=== PATIENT | female | born 1960 | race Hispanic/Latino ===

== ENCOUNTER 2022-02-20 19:43 | Inpatient (IN) | payer SELFPAY ==
[2022-02-20 19:56] LABS: Urine Blood 2+ (Negative); Urine Glucose Negative (Negative); Urine Protein 2+ (Negative); Urine Specific Gravity 1.025 (1.005-1.030); Urine pH 5.5 (5.0-7.0)
[2022-02-20] MEDS ORDERED: FAMOTIDINE 20 MG/2 ML VIAL IV ONE (20:38)
[2022-02-20] MEDS ORDERED: ASPIRIN 81 MG CHEWABLE TABLET ONE (20:38)
--- NOTE | 2022-02-20 20:38 | RAD REPORT ---
EXAM DESCRIPTION: RAD - Chest Single View - 02/20/2022 8:29 pm CLINICAL HISTORY: CHEST PAIN COMPARISON: Chest Single View dated 01/11/2017; Abdomen Pelvis Wo Contrast dated 01/11/2017 FINDINGS: Lines: None. Lungs: No evidence of edema or pneumonia. Pleural: No significant pleural effusions or pneumothorax. Cardiac: The heart size is within normal limits. Mediastinum: Within normal limits. Bones: No acute fractures. Other: None IMPRESSION: No acute cardiopulmonary disease.
--- NOTE | 2022-02-20 20:44 | RAD REPORT ---
EXAM DESCRIPTION: CT - Head Brain Wo Cont - 02/20/2022 8:32 pm CLINICAL HISTORY: Migraine x 2 days, HTN COMPARISON: No comparisons TECHNIQUE: All CT scans are performed using dose optimization technique as appropriate and may inclu de automated exposure control or mA/KV adjustment according to patient size. FINDINGS: No intracranial hemorrhage, hydrocephalus or extra-axial fluid collection.No areas of brai n edema or evidence of midline shift. The paranasal sinuses and mastoids are clear. The calvarium is intact. IMPRESSION: No acute intracranial abnormality.
[2022-02-20 21:12] LABS: Absolute Lymphocytes (CBC) 0.9 K/uL (0.7-4.9); Hematocrit 35.8 % (36.0-45.0); Lymphocytes % 16.8 % (15.3-44.8); MCV 96.5 fL (80-100); MPV 8.4 fL (7.6-11.3); RBC Red Blood Cell Count 3.71 M/uL (3.86-4.86)
[2022-02-20 21:50] LABS: Magnesium 1.8 mg/dL (1.6-2.4); Troponin High Sensitivity 17.3 pg/mL (<58.9)
[2022-02-20 22:02] LABS: SARS-COV-2 RT PCR NEGATIVE (NEGATIVE)
[2022-02-20 22:04] LABS: Potassium 2.6 mmol/L (3.5-5.1)
--- NOTE | 2022-02-20 22:14 | EDPHYS ---
Physician Documentation [facility] Name: Sophia Joya Age: 62 yrs Sex: Female : 1960 Arrival Date: 02/20/2022 Time: 19:46 Bed 18 Private MD: ED Physician Jason Rudd HPI: 02/20 20:24 This 62 yrs old Female presents to ER via Ambulatory with complaints of Chest snw Pain, Vomiting. 20:24 The patient or guardian reports chest pain that is located primarily in the epigastric snw area. Onset: 2 day(s) ago, and became persistent. The pain does not radiate. Associated signs and symptoms: Pertinent positives: headache, nausea, vomiting. The chest pain is described as causing indigestion, a pressure. Duration: The patient or guardian reports multiple episodes. Severity of pain: At its worst the pain was moderate. The patient has not experienced similar symptoms in the past. The patient has not recently seen a physician. pt does not take medications for HTN . Historical: - Allergies: 19:57 Amoxicillin; tw5 19:57 Codeine; tw5 - PMHx: 19:57 Hypertension; tw5 - PSHx: 19:57 Ligation of fallopian tube; tw5 - Immunization history:: Flu vaccine is up to date. - Social history:: Smoking status: Patient denies any tobacco usage or history of. ROS: 20:23 Constitutional: Negative for fever, chills, and weight loss, Eyes: Negative for injury, snw pain, redness, and discharge, ENT: Negative for injury, pain, and discharge, Neck: Negative for injury, pain, and swelling. 20:23 Respiratory: Negative for shortness of breath, cough, wheezing, and pleuritic chest pain. 20:23 Back: Negative for injury and pain, : Negative for injury, bleeding, discharge, and swelling, MS/Extremity: Negative for injury and deformity, Skin: Negative for injury, rash, and discoloration. 20:23 Cardiovascular: Positive for chest pain. 20:23 Abdomen/GI: Positive for nausea and vomiting. 20:23 Neuro: Positive for headache. Exam: 20:23 Constitutional: This is a well developed, well nourished patient who is awake, alert, snw and in no acute distress. Head/Face: Normocephalic, atraumatic. Eyes: Pupils equal round and reactive to light, extra-ocular motions intact. Lids and lashes normal. Conjunctiva and sclera are non-icteric and not injected. Cornea within normal limits. Periorbital areas with no swelling, redness, or edema. ENT: Nares patent. No nasal discharge, no septal abnormalities noted. Tympanic membranes are normal and external auditory canals are clear. Oropharynx with no redness, swelling, or masses, exudates, or evidence of obstruction, uvula midline. Mucous membranes moist. Neck: Trachea midline, no thyromegaly or masses palpated, and no cervical lymphadenopathy. Supple, full range of motion without nuchal rigidity, or vertebral point tenderness. No Meningismus. Chest/axilla: Normal chest wall appearance and motion. Nontender with no deformity. No lesions are appreciated. Cardiovascular: Regular rate and rhythm with a normal S1 and S2. No gallops, murmurs, or rubs. Normal PMI, no JVD. No pulse deficits. Respiratory: Lungs have equal breath sounds bilaterally, clear to auscultation and percussion. No rales, rhonchi or wheezes noted. No increased work of breathing, no retractions or nasal flaring. Abdomen/GI: Soft, non-tender, with normal bowel sounds. No distension or tympany. No guarding or rebound. No evidence of tenderness throughout. Back: No spinal tenderness. No costovertebral tenderness. Full range of motion. Skin: Warm, dry with normal turgor. Normal color with no rashes, no lesions, and no evidence of cellulitis. MS/ Extremity: Pulses equal, no cyanosis. Neurovascular intact. Full, normal range of motion. Neuro: Awake and alert, GCS 15, oriented to person, place, time, and situation. Cranial nerves II-XII grossly intact. Motor strength 5/5 in all extremities. Sensory grossly intact. Cerebellar exam normal. Normal gait. Psych: Awake, alert, with orientation to person, place and time. Behavior, mood, and affect are within normal limits. Vital Signs: 19:55 BP 149 / 115; Pulse 65; Resp 18; Temp 98.2; Pulse Ox 97% on R/A; Weight 58.97 kg; tw5 Height 5 ft. 11 in. (180.34 cm); Pain 8/10; 20:16 BP 105 / 70; vc1 21:00 BP 124 / 60; Pulse 67; Resp 20; Pulse Ox 98% on R/A; vc1 22:00 BP 128 / 56; Pulse 63; Resp 20; Pulse Ox 97% on R/A; vc1 23:00 BP 138 / 67; Pulse 66; Resp 20; Pulse Ox 98% ; vc1 02/21 00:00 BP 125 / 61; Pulse 71; Resp 21; Pulse Ox 98% on R/A; vc1 02/20 19:55 Body Mass Index 18.13 (58.97 kg, 180.34 cm) tw5 MDM: 02/20 20:04 Patient medically screened. snw 21:36 Differential diagnosis: abnormal EKG, acute myocardial infarction, acute pericarditis, snw anxiety, coronary artery disease congestive heart failure esophagitis, gastritis, gastroesophageal reflux disease (GERD), peptic ulcer disease. The patient was given aspirin in the Emergency Department. GISELE Risk Score: TOTAL SCORE = 0. Data reviewed: vital signs, nurses notes, lab test result(s), EKG, radiologic studies, CT scan, plain films. Data interpreted: Pulse oximetry: on room air is 97 %. Interpretation: normal. Counseling: I had a detailed discussion with the patient and/or guardian regarding: the historical points, exam findings, and any diagnostic results supporting the discharge/admit diagnosis, lab results, radiology results, the need for outpatient follow up, for definitive care, a family practitioner, to return to the emergency department if symptoms worsen or persist or if there are any questions or concerns that arise at home. Response to treatment: the patient's symptoms have mildly improved after treatment. Special discussion: Based on the patient's history, exam, and Dx evaluation, there is no indication for emergent intervention or inpatient Tx. It is understood by the patient/guardian that if the Sx's persist or worsen they need to return immediately for re-evaluation. Based on the patient's Hx, exam, and Dx evaluation, there is no indication for emergent surgery or inpatient Tx. It is understood by the patient/guardian that if the Sx's persist or worsen they need to return immediately for re-evaluation. Based on the history and exam findings, there is no indication for further emergent testing or inpatient evaluation. I discussed with the patient/guardian the need to see the foundation stage teacher for further evaluation of the symptoms. I discussed with the patient/guardian the need to see the primary care provider for further evaluation of the symptoms. 22:53 Physician consultation: Koki Yanez PA-C was called at 22:30, was contacted at 22:30, snw regarding admission, to the telemetry unit. patient's condition, would like admission per Dr. Gregor Carlson MD will add phosphorus level, give po and iv potassium, pt with po challenge at present. 02/20 19:57 Order name: Urine Dipstick-Ancillary; Complete Time: 19:58 EDMS 02/20 20:05 Order name: Basic Metabolic Panel; Complete Time: 22:33 snw 02/20 20:05 Order name: CBC with Diff; Complete Time: 21:33 snw 02/20 20:05 Order name: Magnesium; Complete Time: 22:33 snw 02/20 20:05 Order name: Troponin HS; Complete Time: 22:33 snw 02/20 20:05 Order name: Lipase; Complete Time: 22:33 snw 02/20 20:05 Order name: XRAY Chest (1 view); Complete Time: 20:52 snw 02/20 20:11 Order name: CT Head Brain wo Cont; Complete Time: 20:52 snw 02/20 20:24 Order name: COVID-19/FLU A+B; Complete Time: 22:04 snw 02/20 22:12 Order name: Add On-Lab snw 02/20 22:18 Order name: Phosphorus; Complete Time: 22:33 EDMS 02/20 20:05 Order name: EKG; Complete Time: 20:05 snw 02/20 20:05 Order name: Cardiac monitoring; Complete Time: 20:16 snw 02/20 20:05 Order name: EKG - Nurse/Tech; Complete Time: 20:16 snw 02/20 20:05 Order name: IV Saline Lock; Complete Time: 20:46 snw 02/20 20:05 Order name: Labs collected and sent; Complete Time: 20:46 snw 02/20 20:05 Order name: O2 Per Protocol; Complete Time: 20:16 snw 02/20 20:05 Order name: O2 Sat Monitoring; Complete Time: 20:16 snw EC:29 Rate is 64 beats/min. Rhythm is regular. IL interval is normal. QT interval is snw prolonged. T waves are Inverted in lead III. Clinical impression: NSR w/ Non-specific ST/T Changes. Administered Medications: 20:46 Drug: Aspirin Chewable Tablet 324 mg Route: PO; vc1 02/21 00:37 Follow up: Response: No adverse reaction 1 02/20 20:46 Drug: Pepcid (famotidine) 20 mg Route: IVP; Site: right antecubital; 1 02/21 00:37 Follow up: Response: No adverse reaction; Marked relief of symptoms 1 02/20 23:09 Drug: Potassium Effervescent Tablet 50 mEq Route: PO; vc1 02/21 00:37 Follow up: Response: No adverse reaction [facility] 02/20 23:09 Drug: NS 0.9% with KCl 20 mEq/L 1000 ml Route: IV; Rate: 500 ml/hr; Site: right vc1 antecubital; 02/21 00:37 Follow up: IV Status: Infusion continued upon admission vc1 Disposition Summary: 02/20/22 22:14 Hospitalization Ordered Hospitalization Status: Observation snw Provider: Gregor Carlson snw Location: Telemetry/MedSurg (observation) snw Condition: Stable snw Problem: new snw Symptoms: are unchanged snw Bed/Room Type: Standard snw Room Assignment: 220(02/20/22 23:31) bb Diagnosis - Chest pain, unspecified - prolonged QT snw - Vomiting snw - Hypokalemia snw Forms: - Medication Reconciliation Form snw - SBAR form snw Signatures: Dispatcher [employer] EDSabine Garay FNP-C [employer]D PASTE MIXER-Csnw Swathi Martin RN RN bb Karishma Meek Lottie Rosario RN RN vc1 Corrections: (The following items were deleted from the chart) 02/20 19:58 19:57 Home Meds: Lasix 20 mg Oral tab; 22:14 snw bb
--- NOTE | 2022-02-20 22:14 | ER ---
Nurse's Notes [facility] Name: Sophia Joya Age: 62 yrs Sex: Female : 1960 Arrival Date: 02/20/2022 Time: 19:46 Bed 18 Private MD: Diagnosis: Chest pain, unspecified-prolonged QT;Vomiting;Hypokalemia Presentation: 02/20 19:55 Chief complaint: Patient states: "I was having chest pain prior to going to work, but tw5 then I started throwing up.". Coronavirus screen: Vaccine status: Patient reports receiving the 2nd dose of the covid vaccine. Feusd. Ebola Screen: Patient negative for fever greater than or equal to 101.5 degrees Fahrenheit, and additional compatible Ebola Virus Disease symptoms Patient denies exposure to infectious person. Patient denies travel to an Ebola-affected area in the 21 days before illness onset. Initial Sepsis Screen: Does the patient meet any 2 criteria? No. Patient's initial sepsis screen is negative. Does the patient have a suspected source of infection? No. Patient's initial sepsis screen is negative. Risk Assessment: Do you want to hurt yourself or someone else? Patient reports no desire to harm self or others. Onset of symptoms was February 20, 2022. 19:55 Method Of Arrival: Ambulatory tw5 19:55 Acuity: MARY 2 tw5 Triage Assessment: 19:57 General: Appears uncomfortable, Behavior is calm, cooperative, appropriate for age. tw5 Pain: Complains of pain in xiphoid area and mid-sternal area Pain currently is 8 out of 10 on a pain scale. Cardiovascular: Capillary refill < 3 seconds is brisk in bilateral fingers. Historical: - Allergies: 19:57 Amoxicillin; tw5 19:57 Codeine; tw5 - PMHx: 19:57 Hypertension; tw5 - PSHx: 19:57 Ligation of fallopian tube; tw5 - Immunization history:: Flu vaccine is up to date. - Social history:: Smoking status: Patient denies any tobacco usage or history of. Screenin/01 00:26 [facility] ED Fall Risk Assessment (Adult). Abuse screen: Denies threats or abuse. Denies aa9 injuries from another. Nutritional screening: No deficits noted. Tuberculosis screening: No symptoms or risk factors identified. Assessment: 02/20 21:00 Pain: Complains of pain in mid-sternal area Pain does not radiate. Pain Pain began vc1 suddenly, Is intermittent. 21:00 General: Appears in no apparent distress. comfortable, Behavior is calm, cooperative, vc1 appropriate for age. 22:00 Reassessment: No changes from previously documented assessment. Patient and/or family vc1 updated on plan of care and expected duration. Pain level reassessed. 23:00 Reassessment: No changes from previously documented assessment. Patient and/or family vc1 updated on plan of care and expected duration. Pain level reassessed. 02/21 00:00 Reassessment: No changes from previously documented assessment. Patient and/or family vc1 updated on plan of care and expected duration. Pain level reassessed. 00:47 Reassessment: Attempted to call report to 2nd floor, no answer. vc1 Vital Signs: 02/20 19:55 BP 149 / 115; Pulse 65; Resp 18; Temp 98.2; Pulse Ox 97% on R/A; Weight 58.97 kg; tw5 Height 5 ft. 11 in. (180.34 cm); Pain 8/10; 20:16 BP 105 / 70; vc1 21:00 BP 124 / 60; Pulse 67; Resp 20; Pulse Ox 98% on R/A; vc1 22:00 BP 128 / 56; Pulse 63; Resp 20; Pulse Ox 97% on R/A; vc1 23:00 BP 138 / 67; Pulse 66; Resp 20; Pulse Ox 98% ; vc1 02/21 00:00 BP 125 / 61; Pulse 71; Resp 21; Pulse Ox 98% on R/A; vc1 02/20 19:55 Body Mass Index 18.13 (58.97 kg, 180.34 cm) tw5 ED Course: 02/20 19:46 Patient arrived in ED. jj6 19:55 Sabine Arteaga [facility]-C [facility] snw 19:55 Jason Rudd MD is Attending Physician. snw 19:57 Triage completed. tw5 19:57 Arm band placed on Patient placed in an exam room. tw5 20:00 Patient has correct armband on for positive identification. Placed in gown. Bed in low vc1 position. Call light in reach. Client placed on continuous cardiac and pulse oximetry monitoring. NIBP monitoring applied. 20:15 Calcote, Lottie, JOMAR is Primary Nurse. vc1 20:31 XRAY Chest (1 view) In Process Unspecified. EDMS 20:33 CT Head Brain wo Cont In Process Unspecified. EDMS 20:40 Inserted saline lock: 20 gauge in right antecubital area, using aseptic technique. vc1 Blood collected. 22:13 Gregor Carlson MD is Hospitalizing Provider. snw 02/21 00:35 No provider procedures requiring assistance completed. Patient admitted, IV remains in vc1 place. Patient maintains SpO2 saturation greater than 95% on room air. Administered Medications: 02/20 20:46 Drug: Aspirin Chewable Tablet 324 mg Route: PO; vc1 02/21 00:37 Follow up: Response: No adverse reaction vc1 02/20 20:46 Drug: Pepcid (famotidine) 20 mg Route: IVP; Site: right antecubital; vc1 02/21 00:37 Follow up: Response: No adverse reaction; Marked relief of symptoms vc1 02/20 23:09 Drug: Potassium Effervescent Tablet 50 mEq Route: PO; vc1 02/21 00:37 Follow up: Response: No adverse reaction vc1 02/20 23:09 Drug: NS 0.9% with KCl 20 mEq/L 1000 ml Route: IV; Rate: 500 ml/hr; Site: right vc1 antecubital; 02/21 00:37 Follow up: IV Status: Infusion continued upon admission vc1 Medication: 00:36 VIS not applicable for this client. vc1 Outcome: 02/20 22:14 Decision to Hospitalize by Provider. snw 02/21 01:22 Admitted to Med/surg accompanied by nurse, via wheelchair, room 220. vc1 Condition: good Instructed on the need for admit. 01:23 Patient left the ED. vc1 Signatures: Dispatcher [employer] EDMS Sabine Arteaga FNP-C PROJECT MANAGEMENT PROFESSIONAL-Karishma Ivey tw5 Sabine [id number] Lottie Rosario RN RN vc1 Kajal Torres RN RN aa9 Corrections: (The following items were deleted from the chart) 02/20 19:58 19:57 Home Meds: Lasix 20 mg Oral tab; tw5 tw5
[2022-02-20 22:25] LABS: Phosphorus 5.5 mg/dL (2.5-4.9)
[2022-02-20] MEDS ORDERED: POTASSIUM 25 MEQ EFFERV TAB ONE (22:50)
[2022-02-20] MEDS ORDERED: NS KCL 20MEQ 1,000 ML IV ONE (22:51)
--- NOTE | 2022-02-20 23:20 | P.HP ---
Certification for Inpatient Patient admitted to: Observation With expected LOS: <2 Midnights Patient will require the following post-hospital care: None Practitioner: I am a practitioner with admitting privileges, knowledge of patient current condition, hospital course, and medical plan of care. Services: Services provided to patient in accordance with Admission requirements found in Title 42 Section 412.3 of the Code of Federal Regulations Patient History Date of Service: 02/21/22 Reason for admission: Chest Pain History of Present Illness: Patient is a 62-year-old female with past medical history of hypertension and cirrhosis who presented to the emergency department with complaints of chest pain. Patient states that she has been experiencing chest pain on and off for the past 2 days. She states that at first it felt like heartburn but now it feels like it is in the center of her chest, like a pressure sensation. She states she vomited twice today as a result. Patient denies any daily medication use. Her labs are only remarkable for potassium of 2.6. Chest x-ray and head CT are negative. EKG showed a prolonged QTc. She was given 324 mg aspirin and potassium in the emergency department. Vital signs of been stable. ED provider wishes admit patient for observation, ACS rule out. Allergies amoxicillin Allergy (Unverified 12/01/16 12:01) Unknown codeine Allergy (Unverified 01/11/17 21:15) Unknown Home medications list reviewed: Yes (NA) - Past Medical/Surgical History Diabetic: No -: Hypertension -: Cirrhosis -: Tubal ligation Psychosocial/ Personal History: Patient is . - Family History Mother -: Heart disease Brother -: Heart disease - Social History Smoking Status: Former smoker Alcohol use: Yes CD- Drugs: No Caffeine use: Yes Place of Residence: Home Review of Systems Cardiovascular: Chest Pain Gastrointestinal: Nausea, Vomiting, Other (Heartburn) Physical Examination - Vital Signs Temperature: 98.2 F Blood Pressure: 125/61 Pulse: 71 Respirations: 21 Pulse Ox (%): 98 - Physical Exam General: Alert, In no apparent distress HEENT: Atraumatic, PERRLA, EOMI, Sclerae nonicteric Neck: Supple, 2+ carotid pulse no bruit Respiratory: Clear to auscultation bilaterally, Normal air movement Cardiovascular: No edema, Regular rate/rhythm, Normal S1 S2 Gastrointestinal: Normal bowel sounds, No tenderness Musculoskeletal: No tenderness Integumentary: No rashes Neurological: Normal speech, Sensation intact, Normal affect - Studies Laboratory Data (last 24 hrs) 02/20/22 20:40: WBC 5.30, Hgb 12.2, Hct 35.8 L, Plt Count 138 L 02/20/22 20:40: Sodium 139, Potassium 2.6 L*, BUN 17, Creatinine 1.49 H, Glucose 103, Phosphorus 5.5 H, Magnesium 1.8, Lipase 294 Assessment and Plan - Problems (Diagnosis) (1) Chest pain Current Visit: Yes Status: Acute Qualifiers: Chest pain type: unspecified Qualified Code(s): R07.9 - Chest pain, unspecified (2) Hypertension Current Visit: Yes Status: Chronic Qualifiers: Hypertension type: primary hypertension Qualified Code(s): I10 - Essential (primary) hypertension (3) Hypokalemia Current Visit: Yes Status: Acute (4) Chronic kidney disease Current Visit: Yes Status: Chronic Qualifiers: Chronic kidney disease stage: stage 3 (moderate) Chronic kidney disease stage 3 subtype: stage 3b (GFR 30-44) Qualified Code(s): N18.32 - Chronic kidney disease, stage 3b - Plan Patient is admitted for observation, ACS rule out. Initial troponin negative. Will trend. Monitor on telemetry. Cardiology consult. Echo ordered. Aspirin and atorvastatin daily. Check lipid panel and TSH. Patient does not take any medications. Will likely need an antihypertensive on discharge. Recheck potassium and EKG in the morning. She is receiving supplemental potassium at this time. Monitor and replete electrolytes per protocol. Reconcile and continue home medications. Lovenox for VTE prophylaxis. Full code. Discharge Plan: Home Plan to discharge in: 24 Hours - Advance Directives Does patient have a Living Will: No Does patient have a Durable POA for Healthcare: No - Code Status/Comfort Care Code Status Assessed: Yes Code Status: Full Code Physician Review: Patient Assessed, Agree with Above Assessment and Plan Critical Care: No Time Spent Managing Pts Care (In Minutes): 50
[2022-02-21] MEDS ORDERED: ONDANSETRON 4 MG/2 ML VIAL IV PRN (01:20)
[2022-02-21] MEDS ORDERED: ACETAMINOPHEN 500 MG TAB PO PRN (01:20)
[2022-02-21 04:04] LABS: Magnesium 1.8 mg/dL (1.6-2.4); Potassium 3.3 mmol/L (3.5-5.1); Thyroid Stimulating Hormone 0.982 uIU/mL (0.358-3.740); Troponin High Sensitivity 18.1 pg/mL (<58.9)
[2022-02-21] MEDS ORDERED: MAGNESIUM SULFATE 1 gm IVPB 1 GM/100 ML BAG IV ONE (07:36)
[2022-02-21] MEDS: ENOXAPARIN 40 MG/0.4 ML SQ SCH (08:57)
[2022-02-21] MEDS: ASPIRIN EC 81 MG TAB PO SCH (08:58)
[2022-02-21] MEDS: NS KCL 20MEQ 20 MEQ/1,000 ML BAG IV SCH ×3 (08:58→21:05)
[2022-02-21] MEDS ORDERED: POTASSIUM CL SA 10 MEQ TAB PO ONE ×2 (09:00→21:00)
[2022-02-21] MEDS ORDERED: POTASSIUM 25 MEQ EFFERV TAB PO ONE (09:00)
--- NOTE | 2022-02-21 11:39 | P.PN ---
Subjective Date of Service: 02/21/22 Chief Complaint: Abdominal pain Patient is 62 years of age mated to the hospital complaining of epigastric discomfort not eating and drinking going on for 2 days did not take any medication at home feeling better became very dehydrated pain has resolved but is atypical for cardiac pain no prior history of abdominal disorders or cardiac problems Review of Systems 10-point ROS is otherwise unremarkable Physical Examination - Vital Signs Temperature: 98.5 F Blood Pressure: 144/61 Pulse: 86 Respirations: 16 Pulse Ox (%): 95 - Physical Exam General: Alert, Oriented x3 HEENT: Other Respiratory: Friction rub Cardiovascular: Regular rate/rhythm Gastrointestinal: Normal bowel sounds, Soft and benign, Non-distended, No tenderness, No rebound - Studies Laboratory Data (last 24 hrs) 02/20/22 20:40: WBC 5.30, Hgb 12.2, Hct 35.8 L, Plt Count 138 L 02/20/22 20:40: Sodium 139, Potassium 2.6 L*, BUN 17, Creatinine 1.49 H, Glucose 103, Phosphorus 5.5 H, Magnesium 1.8, Lipase 294 Assessment And Plan - Current Problems (Diagnosis) (1) Abdominal discomfort, epigastric Current Visit: Yes Status: Acute Plan: Patient is 62 years of age admitted with some abdominal discomfort clear discomfort in the epigastric region patient with some dehydration patient was hypokalemic with renal insufficiency urinalysis was very abnormal with some proteinuria and some hematuria white count normal reported EKG shows prolonged QTC troponins negative ordered a CT of the abdomen and the pelvis continue with IV fluids electrolyte replacement Physician Review: Patient Assessed, Agree with Above Assessment and Plan
--- NOTE | 2022-02-21 17:41 | RAD REPORT ---
EXAM DESCRIPTION: CT - Abdomen Pelvis W Contrast - 02/21/2022 5:21 pm CLINICAL HISTORY: Abdominal pain COMPARISON: Abdomen Pelvis Wo Contrast dated 01/11/2017 TECHNIQUE: Biphasic, helical CT imaging of the abdomen and pelvis was performed following 100 ml non -ionic IV contrast. Oral contrast: Yes All CT scans are performed using dose optimization technique as appropriate and may include automated exposure control or mA/KV adjustment according to patient size. FINDINGS: No suspicious findings in the lung bases. Liver remains abnormal with a lobulated liver capsule contour typical for cirrhosis or diffuse hepati c parenchymal disease. A focal liver lesion is not identified portal vein is small in size still ashley nt. No pancreatic or splenic abnormality. Multiple large dilated veins are present adjacent to the sp rl and continuing along the left pericolic gutter into the left-side pelvis. Gallbladder is contrac suzanne. At least 1 large 13 millimeter gallstone present. There may be a punctate gallstone abutting the larger stone. No biliary tree dilatation. Symmetric renal function is seen with no hydronephrosis or suspicious renal mass. A punctate 1 mm non obstructing calyx calcification is present lower pole of the left kidney. No pyelonephritis or acute parenchymal process. Urinary bladder is tightly contracted. No adrenal abnormalities. Uterus and ovar ies show no suspicious findings. No gastric wall thickening or edema identified. A few small dilated veins are present at the GE junct ion. No acute large or small bowel finding identifiable. Appendix is normal. There is no ascites present. No free air, pneumatosis or focal inflammatory stranding. No hernia, ma ss or bulky lymphadenopathy. Air in the subcutaneous fatty tissues right side abdomen is not to be fr om medication injection. No suspicious bony findings. IMPRESSION: Contrast enhanced CT abdomen and pelvis showing no emergent finding. Cirrhotic liver changes are present with no focal liver lesion. There is no ascites. Numerous dilated veins are again noted on the left side of the abdomen and pelvis increased in prominence from the comparison. Cholelithiasis without CT findings of cholecystitis. No acute GI, or TIMBER SELECTOR process.
--- NOTE | 2022-02-21 19:06 | EKG ---
Test Date: 2022-02-21 Test Time: 07:53:14 Drawbridge Operator: HAYLIE MEASUREMENT RESULTS: Intervals: Rate: 74 AK: 120 QRSD: 72 QT: 440 QTc: 488 [place]: P: 28 AK: 120 QRS: 26 T: 24 INTERPRETIVE STATEMENTS: Normal sinus rhythm Normal ECG Compared to ECG 01/11/2017 19:11:46 Sinus tachycardia no longer present T-wave abnormality no longer present Electronically Signed On 02-21-22 19:06:26 PRACTICE ASSISTANT by Omid Bautista
--- NOTE | 2022-02-21 19:25 | CON ---
Date of Consultation: 02/21/2022 Reason For Consultation: Chest pain. History Of Present Illness: A 62-year-old female with history of hypertension, liver cirrhosis, pres ented with epigastric pain in the upper abdomen area and lower chest, felt nauseated and vomited once . Does not have any chest pain per se. No exertional chest pain specifically. She does not smoke. No history of cardiac disease. No other complaints. Past Medical History: As outlined above in the HPI. Medications: Refer to reconciliation sheet for detailed list. Allergies: AMOXICILLIN AND CODEINE. Family History: No premature coronary artery disease or cancer. Social History: She does not smoke or drink. Does not use any drugs. Review of Systems: All systems reviewed and they were negative except what mentioned in HPI. Physical Examination: Vital Signs: Reviewed. Head and Neck: Pupils are equal, reactive to light. Intact eye movements. No JVD. No cervical lym phadenopathy. Neck is supple. Thyroid is not enlarged. Lungs: Clear to auscultation bilaterally. No rhonchi, wheezing, or crackles. No accessory muscle u se. Heart: Regular rate and rhythm. No extra sounds. Abdomen: Soft, nontender. Bowel sounds positive. No organomegaly. No masses or hernia. No rigidi ty or rebound. Extremities: No edema, clubbing, or cyanosis. Intact pulses. Skin: No rash. Neurologic: Alert, awake, oriented x3. No acute focal deficits appreciated. Investigations: Cardiac enzymes are negative. The patient is completely pain free. BUN 17, creatin ine 1.04, hemoglobin 12.2. EKG without acute specific abnormalities. Assessment And Plan: Chest pain. It is atypical. It is more of epigastric, likely intraabdominal p athology. Cardiac enzymes are negative. No further cardiac workup was recommended during this [facility] stay. An outpatient exercise stress test and echo will be recommended. Thank you for the consult. /JOANNE Voice ID: [id number] Report ID: [id number]
[2022-02-21] MEDS: ATORVASTATIN 40 MG TAB PO SCH (21:05)
[2022-02-22] MEDS: Ringers Lactate 1,000 ML IV SCH ×3 (02:50→16:41)
[2022-02-22 03:57] LABS: Magnesium 1.8 mg/dL (1.6-2.4); Potassium 4.7 mmol/L (3.5-5.1)
[2022-02-22] MEDS ORDERED: MAGNESIUM SULFATE 1 gm IVPB 1 GM/100 ML BAG IV ONE (08:00)
[2022-02-22] MEDS: ASPIRIN EC 81 MG TAB PO SCH (09:00)
[2022-02-22] MEDS ORDERED: Ringers Lactate 1,000 ML IV ONE (10:53)
[2022-02-22] MEDS: ENOXAPARIN 40 MG/0.4 ML SQ SCH (11:00)
[2022-02-22 15:02] LABS: Hematocrit 24.3 % (36.0-45.0)
[2022-02-22] MEDS ORDERED: SODIUM CHLORIDE 0.9% 10ML INJ IV PRN (17:10)
[2022-02-22 17:22] LABS: Specific Gravity 1.021 (1.005-1.030); Urine Bilirubin NEGATIVE (Negative); Urine Blood Negative (Negative); Urine Clarity Clear (Clear); Urine Color Yellow (Yellow); Urine Glucose NEGATIVE (Negative); Urine Protein NEGATIVE (Negative); Urine Urobilinogen Normal (Normal); Urine pH 7.5 (5.0-7.0)
[2022-02-22] MEDS: PANTOPRAZOLE 40 MG INJ IVP SCH ×2 (18:00→21:00)
[2022-02-22] MEDS ORDERED: CEFTRIAXONE 1,000 MG in NA CHLORIDE 0.9% 50 ML IVPB SCH (18:00)
[2022-02-22 18:22] LABS: Protime INR 2.03
--- NOTE | 2022-02-22 20:01 | P.PN ---
Subjective Date of Service: 02/22/22 Chief Complaint: Abdominal pain No acute events overnight. She reports that her chest/epigastric discomfort has completely resolved. She has been experiencing diarrhea, reporting 5-6 bowel movements over the last 24 hours. Her last bowel movement was maroon red blood, per RN. Review of Systems 10-point ROS is otherwise unremarkable Gastrointestinal: Abdominal Pain, Hematochezia Physical Examination - Vital Signs Temperature: 98.0 F Blood Pressure: 101/65 Pulse: 86 Respirations: 16 Pulse Ox (%): 97 - Physical Exam General: Alert, In no apparent distress, Oriented x3 HEENT: Atraumatic, PERRLA, Mucous membr. moist/pink, EOMI, Sclerae nonicteric Neck: JVD not distended Respiratory: Clear to auscultation bilaterally, Normal air movement Cardiovascular: No edema, Regular rate/rhythm, Normal S1 S2, No gallops, No rubs, No murmurs Gastrointestinal: Normal bowel sounds, Soft and benign, Non-distended, No tenderness, No rebound, No guarding Musculoskeletal: No clubbing Integumentary: No rashes Neurological: Normal speech, Cranial nerves 3-12 intact, Normal affect Assessment And Plan - Plan # Acute Blood Loss Anemia suspect due to Acute Upper Gastrointestinal Bleed # History of Hepatitis C Cirrhosis complicated by Portal Hypertension and Esophageal Varices - Requires Gastroenterology consultation, but service is not currently available at [facility] - Initiated transfer for higher level of care - Spoke with [facility] Song Lyricist, Dr. Estelita Oneill, who declined transfer due to lack of Hepatology services - Type & Screen - q6hr H&H - trend: 12.2 -> 8.1 - Transfuse for Hgb < 7.0 - 2 large bore IVs - Ceftriaxone 1 g IV q12hr - Pantoprazole 40 mg IV BID - Octreotide drip - IV fluids with Lactated Ringers' at 100 mL/hr - Low threshold to obtain CT abdomen/pelvis angiogram - NPO # KDIGO Stage II Acute Kidney Injury (resolved) - Creatinine = 1.49 -> 1.03 -> 0.58 -> 0.56 - Urinalysis = repeat unremarkable - IV fluids as mentioned above - Monitor creatinine and urine output - If worsening, obtain renal ultrasound - Renally dose medications # Cholelithiasis - RUQ ultrasound requested # Hypertension - Hold home medications given acute GI bleed Karthik Nova M.D.
[2022-02-22 20:04] LABS: Hematocrit 26.4 % (36.0-45.0)
[2022-02-22] MEDS: ATORVASTATIN 40 MG TAB PO SCH (20:40)
[2022-02-22] MEDS: OCTREOTIDE 500 MCG in NA CHLORIDE 0.9% 500 ML IV SCH (22:00)
[2022-02-22] MEDS: PANTOPRAZOLE INJ 80 MG in NA CHLORIDE 0.9% 250 ML IV SCH (22:24)
[2022-02-22 22:29] LABS: Absolute Lymphocytes (CBC) 1.8 K/uL (0.7-4.9); Hematocrit 21.7 % (36.0-45.0); Lymphocytes % 27.6 % (15.3-44.8); MCV 100.5 fL (80-100); MPV 8.8 fL (7.6-11.3); RBC Red Blood Cell Count 2.16 M/uL (3.86-4.86)
--- NOTE | 2022-02-22 22:36 | P.PN ---
Date of Service: 02/22/22 I was called by nursing staff as patient was reportedly vomiting blood. I went to assess the patient, she was still in the bathroom sitting on the toilet and had a moderate amount of bright red blood with clots on her gown and on the floor. Patient denies any previous history of hematemesis although she did report a distant history of hepatitis C. She has been started on Protonix, octreotide drips, will transfer to ICU for the time being. Keep NPO. Transfer was initiated earlier in the day as patient began to experience maroon stools and we do not have GI services available at our facility. Transfer center was updated on patient's condition and have upgraded her on the list to expedite transfer process. We will repeat CBC now, last hemoglobin was 9. We will transfuse as necessary to maintain hemoglobin greater than 8. Reviewed previous CT imaging, labs. Latest blood pressure 114 systolic heart rate 95.
[2022-02-22] MEDS ORDERED: VITAMIN K (ADULT) 10 MG/ML SQ ONE (22:45)
[2022-02-22 22:51] LABS: Albumin 1.7 g/dL (3.4-5.0); Bilirubin Direct 1.1 mg/dL (0-0.2); Bilirubin Total 1.6 mg/dL (0.2-1.0); Protein, Total 5.2 g/dL (6.4-8.2)
[2022-02-22] MEDS ORDERED: NA CHLORIDE 0.9% 250 ML IV SCH ×2 (23:00→23:45)
[2022-02-23 02:31] LABS: Albumin 1.8 g/dL (3.4-5.0); Bilirubin Total 1.6 mg/dL (0.2-1.0); Magnesium 1.7 mg/dL (1.6-2.4); Potassium 5.1 mmol/L (3.5-5.1); Protein, Total 5.1 g/dL (6.4-8.2)
[2022-02-23 05:35] LABS: Protime INR 1.78
[2022-02-23 05:45] LABS: Absolute Lymphocytes (CBC) 1.5 K/uL (0.7-4.9); Lymphocytes % 30.6 % (15.3-44.8); RBC Red Blood Cell Count 2.13 M/uL (3.86-4.86)
[2022-02-23 05:57] LABS: Hematocrit 20.9 % (36.0-45.0)
[2022-02-23 07:43] LABS: Hematocrit 21.6 % (36.0-45.0)
[2022-02-23 07:46] LABS: Blood Morphology Comment NOT SEEN (NOT SEEN); Platelet Estimate DECR; White Blood Cell Scan OK (OK)
--- NOTE | 2022-02-23 08:35 | EKG ---
Test Date: 2022-02-21 Test Time: 07:54:54 Scientific Artist: HAYLIE MEASUREMENT RESULTS: Intervals: Rate: 76 VA: 122 QRSD: 72 QT: 436 QTc: 490 [place]: P: 26 VA: 122 QRS: 26 T: 20 INTERPRETIVE STATEMENTS: Normal sinus rhythm Prolonged QT Abnormal ECG Compared to ECG 02/21/2022 07:53:14 Prolonged QT interval now present Electronically Signed On 02-23-22 08:32:39 ELECTRICIAN by Fili Linda
--- NOTE | 2022-02-23 08:49 | RAD REPORT ---
EXAM DESCRIPTION: US - Abdomen Exam Limited - 02/23/2022 5:24 am CLINICAL HISTORY: Abdominal pain. COMPARISON: February 21, 2022 CT FINDINGS: Cholelithiasis. Gallbladder wall measures 6 millimeters. Suboptimal evaluation of the common bile duct. Intrahepatic biliary tree does not appear dilated. IMPRESSION: Cholelithiasis. Gallbladder wall thickening. This can be secondary to hypoalbuminemia or cholecystitis
[2022-02-23] MEDS: OCTREOTIDE 500 MCG in NA CHLORIDE 0.9% 500 ML IV SCH ×2 (08:52→20:45)
[2022-02-23] MEDS: PANTOPRAZOLE INJ 80 MG in NA CHLORIDE 0.9% 250 ML IV SCH ×2 (08:52→20:45)
[2022-02-23] MEDS: CEFTRIAXONE 1,000 MG in NA CHLORIDE 0.9% 50 ML IVPB SCH ×2 (08:52→20:48)
[2022-02-23 11:02] LABS: C.diff Antigen/Toxin Ag pos : Tox pos (NEG : NEG)
[2022-02-23] MEDS: Ringers Lactate 1,000 ML IV SCH ×2 (11:47→15:00)
[2022-02-23 12:10] LABS: Hematocrit 23.6 % (36.0-45.0)
[2022-02-23] MEDS ORDERED: LIDOCAINE 1% MPF 5 ML VIAL ONE (12:14)
[2022-02-23] MEDS: VANCOMYCIN ORAL SOLN 250 MG/5 ML OSYR PO SCH ×3 (14:15→23:27)
--- NOTE | 2022-02-23 14:33 | P.CNS ---
Date of Consult: 02/23/22 PC: This 62-year-old female has a lack of vascular access. HPC: This patient has numerous medical issues at the current time. She requires IV access for possible blood transfusion. PMHx: Numerous medical issues Social Hx: Allergic to codeine, and the penicillin Sys R: States she has had a central line placed on the left subclavian in the past. O/E: Awake alert vital signs are stable HEENT: HEENT within normal limits Chest: Air entry equal bilaterally Abd: Negative [place]: No evidence of fracture clavicle, patient does however have a supraclavicular lymph node. Data: Negative Impression: Lack of vascular access Plan: I will place a left subclavian catheter for IV access. The risks of this procedure have been discussed with her and her family. They understand and want to proceed.
--- NOTE | 2022-02-23 14:35 | RAD REPORT ---
EXAM DESCRIPTION: RAD - Chest Single View - 02/23/2022 2:22 pm CLINICAL HISTORY: Central line placement COMPARISON: Chest Single View dated 02/20/2022; Chest Single View dated 01/11/2017 FINDINGS: Lines: Left subclavian approach central venous line with tip overlying the SVC. No pneumot horax . Lungs: No evidence of edema or pneumonia. Pleural: No significant pleural effusions or pneumothorax. Cardiac: The heart size is within normal limits. Mediastinum: Within normal limits. Bones: No acute fractures. Other: None IMPRESSION: No acute cardiopulmonary disease. Left subclavian central venous line with tip overlying the SVC. No pneumothorax.
--- NOTE | 2022-02-23 14:36 | P.OP ---
Preoperative diagnosis: Lack of vascular access Postoperative diagnosis: The same Primary procedure: Insertion of left subclavian catheter Anesthesia: Local Estimated blood loss: Less than 10 cc Operative Technique: The patient was positioned in the ICU bed with a roll between his shoulders. The bed was then converted to the Trendelenburg position. The area of the left chest was prepped with a chlorhexidine solution, she was draped in usual aseptic manner. After using a 1% lidocaine to numb the subclavicular area, the finder needle was used to cannulate the left subclavian vein. We were fortunate to find it on the first pass. The guidewire was then passed down through a finder needle. The needle was removed. A small skin incision was made where the guidewire was at the skin level. Through this we passed a dilator. The dilator was removed and then with a modified Seldinger technique the catheter was inserted into the left subclavian vein. The guidewire was removed. The catheter was heparinized and sutured in place. At the end the procedure she was in a stable condition when sterile dressings were applied. We are awaiting a chest x-ray for confirmation of line placement and no sequelae. Drain(s): Wound drain Transferred to: ICU Condition: Good
--- NOTE | 2022-02-23 19:45 | P.PN ---
Subjective Date of Service: 02/23/22 Chief Complaint: Abdominal pain Overnight, she had an episode of chloe hematemesis. She was given 1 unit pRBCs and 2 units of FFP. Currently, she denies any abdominal pain, nausea, or vomiting. She continues to have diarrhea. Her Clostridium Difficile stool toxin has returned positive. I spoke with Ms. Steele at the transfer center, and she is currently pending transfer once an ICU bed becomes available at [facility]. Review of Systems 10-point ROS is otherwise unremarkable Gastrointestinal: Diarrhea, Melena, Hematochezia, Other (hematemesis) Physical Examination - Vital Signs Temperature: 98.5 F Blood Pressure: 166/86 Pulse: 78 Respirations: 19 Pulse Ox (%): 99 Assessment And Plan - Plan - Physical Exam General: Alert, In no apparent distress, Oriented x3 HEENT: Atraumatic, Mucous membr. moist/pink, Sclerae nonicteric Neck: JVD not distended Respiratory: Clear to auscultation bilaterally, Normal air movement Cardiovascular: No edema, Regular rate/rhythm, No gallops, No rubs, No murmurs Gastrointestinal: Normal bowel sounds, Soft and benign, Non-distended, No tenderness, No rebound, No guarding Musculoskeletal: No clubbing Integumentary: No rashes Neurological: Normal speech, Normal affect # Acute Blood Loss Anemia suspect due to Acute Upper Gastrointestinal Bleed # History of Hepatitis C Cirrhosis complicated by Portal Hypertension and Esophageal Varices - Requires Gastroenterology consultation, but service is not currently available at [facility] - 2: Initiated transfer for higher level of care - 02/22: Spoke with [facility] Instructor Trainer Canine Service, Dr. Estelita Oneill, who declined transfer due to lack of Hepatology services - 02/23: Spoke with Transfer Center, awaiting bed availability at [facility] - Type & Screen - q6hr H&H - trend: 12.2 -> 8.1 -> 9.0 -> 7.6 -> 7.1 -> 7.2 - Transfuse for Hgb < 8.0 - S/P 1 unit pRBCs + 2 units FFP overnight - Ordered an additional 1 unit pRBCs - 2 large bore IVs - Consulted General Surgery for central line placement - spoke with Dr. Ryan - Ceftriaxone 1 g IV q12hr - Pantoprazole drip - Octreotide drip - IV fluids with Lactated Ringers' at 100 mL/hr - Low threshold to obtain CT abdomen/pelvis angiogram - NPO # Clostridium Difficile Colitis - Started PO vancomycin, day 1 of 10 # Cholelithiasis - RUQ ultrasound - "Cholelithiasis. Gallbladder wall thickening. This can be secondary to hypoalbuminemia or cholecystitis" - Consulted General Surgery and spoke with Dr. Ryan - recommendations appreciated - He recommended continuing ceftriaxone for now - Currently, not ideal candidate for surgery given active GI bleed # KDIGO Stage II Acute Kidney Injury (resolved) - Creatinine = 1.49 -> 1.03 -> 0.58 -> 0.56 -> 0.75 - Urinalysis = repeat unremarkable - IV fluids as mentioned above - Monitor creatinine and urine output - If worsening, obtain renal ultrasound - Renally dose medications # Hypertension - Hold home medications given acute GI bleed Karthik Nova M.D.
[2022-02-23] MEDS: ATORVASTATIN 40 MG TAB PO SCH (20:03)
[2022-02-23 20:29] LABS: Hematocrit 28.6 % (36.0-45.0)
[2022-02-23] MEDS: MELATONIN 5 MG TABLET PO PRN (23:27)
[2022-02-24 00:30] LABS: Hematocrit 26.2 % (36.0-45.0)
[2022-02-24] MEDS: OCTREOTIDE 500 MCG in NA CHLORIDE 0.9% 500 ML IV SCH ×2 (05:35→15:40)
[2022-02-24] MEDS: PANTOPRAZOLE INJ 80 MG in NA CHLORIDE 0.9% 250 ML IV SCH ×2 (05:35→15:39)
[2022-02-24] MEDS: VANCOMYCIN ORAL SOLN 250 MG/5 ML OSYR PO SCH ×3 (05:35→17:04)
[2022-02-24 06:45] LABS: Hematocrit 25.8 % (36.0-45.0); Lymphocytes % 37.2 % (15.3-44.8); MCV 96.1 fL (80-100); MPV 8.5 fL (7.6-11.3); RBC Red Blood Cell Count 2.68 M/uL (3.86-4.86)
[2022-02-24 07:04] LABS: Albumin 1.8 g/dL (3.4-5.0); Bilirubin Total 1.7 mg/dL (0.2-1.0); Potassium 3.8 mmol/L (3.5-5.1); Protein, Total 4.9 g/dL (6.4-8.2)
[2022-02-24] MEDS ORDERED: CALCIUM GLUCONATE 1 GM IVPB 1 GM/50 ML BAG IV ONE (07:14)
[2022-02-24] MEDS: CEFTRIAXONE 1,000 MG in NA CHLORIDE 0.9% 50 ML IVPB SCH ×2 (08:03→20:34)
[2022-02-24] MEDS: Ringers Lactate 1,000 ML IV SCH ×3 (09:42→20:34)
--- NOTE | 2022-02-24 16:10 | EKG ---
Test Date: 2022-02-20 Test Time: 20:11:08 Manager Social: STEFFANY MEASUREMENT RESULTS: Intervals: Rate: 64 ND: 130 QRSD: 82 QT: 492 QTc: 507 [place]: P: 51 ND: 130 QRS: 27 T: 32 INTERPRETIVE STATEMENTS: Normal sinus rhythm Prolonged QT Abnormal ECG Compared to ECG 01/11/2017 19:11:46 Prolonged QT interval now present Sinus tachycardia no longer present T-wave abnormality no longer present Electronically Signed On 02-24-22 16:06:50 ACCOUNTANT CLERK by Omid Bautista
--- NOTE | 2022-02-24 16:55 | P.PN ---
Subjective Date of Service: 02/24/22 Chief Complaint: Abdominal pain No acute events overnight. She has had no recurrent episodes of hematemesis; however, she continues to have melenic bowel movements. Thus far, she has received 2 units pRBCs and 2 units of FFP. Currently, she denies any abdominal pain, nausea, or vomiting. She continues to have diarrhea. I spoke with Ms. Steele at the transfer center, and she is currently pending transfer once an ICU bed becomes available at [facility]. Review of Systems 10-point ROS is otherwise unremarkable Gastrointestinal: Diarrhea, Melena Physical Examination - Vital Signs Temperature: 97.8 F Blood Pressure: 158/68 Pulse: 71 Respirations: 17 Pulse Ox (%): 93 Assessment And Plan - Plan - Physical Exam General: Alert, In no apparent distress, Oriented x3 HEENT: Atraumatic, Mucous membr. moist/pink, Sclerae nonicteric Neck: JVD not distended Respiratory: Clear to auscultation bilaterally, Normal air movement Cardiovascular: No edema, Regular rate/rhythm, No gallops, No rubs, No murmurs Gastrointestinal: Normal bowel sounds, Soft and benign, Non-distended, Minimal generalized tenderness, No rebound, No guarding Musculoskeletal: No clubbing Integumentary: No rashes Neurological: Normal speech, Normal affect # Acute Blood Loss Anemia suspect due to Acute Upper Gastrointestinal Bleed # History of Hepatitis C Cirrhosis complicated by Portal Hypertension and Esophageal Varices - Requires Gastroenterology consultation, but service is not currently available at [facility] - 2: Initiated transfer for higher level of care - 02/22: Spoke with [facility] Weigh Machine Operator, Dr. Estelita Oneill, who declined transfer due to lack of Hepatology services - 02/23: Spoke with Transfer Center, awaiting bed availability at [facility] - 02/24: Spoke with Transfer Center, awaiting bed availability at [facility] - Type & Screen - q6hr H&H - trend: 12.2 -> 8.1 -> 9.0 -> 7.6 -> 7.1 -> 7.2 -> 7.9 -> 9.6 -> 8.9 -> 8.7 - Transfuse for Hgb < 8.0 - S/P 2 unit pRBCs + 2 units FFP overnight - 2 large bore IVs - S/P central line placement (02/23/21) - Ceftriaxone 1 g IV q12hr for SBP prophylaxis - Pantoprazole drip - Octreotide drip - IV fluids with Lactated Ringers' at 100 mL/hr - Low threshold to obtain CT abdomen/pelvis angiogram - NPO # Clostridium Difficile Colitis - Started PO vancomycin, day 2 of 10 # Cholelithiasis - RUQ ultrasound - "Cholelithiasis. Gallbladder wall thickening. This can be secondary to hypoalbuminemia or cholecystitis" - Consulted General Surgery and spoke with Dr. Ryan - recommendations appreciated - He recommended continuing ceftriaxone for now - Currently, not ideal candidate for surgery given active GI bleed # KDIGO Stage II Acute Kidney Injury (resolved) - Creatinine = 1.49 -> 1.03 -> 0.58 -> 0.56 -> 0.75 -> 0.64 - Urinalysis = repeat unremarkable - IV fluids as mentioned above - Monitor creatinine and urine output - If worsening, obtain renal ultrasound - Renally dose medications # Hypertension - Hold home medications given acute GI bleed Karthik Nova M.D.
[2022-02-24] MEDS: ATORVASTATIN 40 MG TAB PO SCH (20:33)
[2022-02-25] MEDS: VANCOMYCIN ORAL SOLN 250 MG/5 ML OSYR PO SCH ×4 (00:34→18:01)
[2022-02-25] MEDS: PANTOPRAZOLE INJ 80 MG in NA CHLORIDE 0.9% 250 ML IV SCH ×3 (00:35→21:16)
[2022-02-25] MEDS: OCTREOTIDE 500 MCG in NA CHLORIDE 0.9% 500 ML IV SCH ×3 (00:36→21:16)
[2022-02-25 06:01] LABS: Absolute Lymphocytes (CBC) 1.1 K/uL (0.7-4.9); Lymphocytes % 40.3 % (15.3-44.8); MPV 8.4 fL (7.6-11.3)
[2022-02-25] MEDS: Ringers Lactate 1,000 ML IV SCH ×2 (06:06→07:46)
[2022-02-25 06:21] LABS: Albumin 1.8 g/dL (3.4-5.0); Bilirubin Total 1.9 mg/dL (0.2-1.0); Potassium 3.6 mmol/L (3.5-5.1)
[2022-02-25] MEDS: CEFTRIAXONE 1,000 MG in NA CHLORIDE 0.9% 50 ML IVPB SCH ×2 (08:44→21:17)
--- NOTE | 2022-02-25 15:25 | EKG ---
Test Date: 2022-02-24 Test Time: 09:12:17 Certified Dialysis Technician: MEGHNA MEASUREMENT RESULTS: Intervals: Rate: 65 MA: 124 QRSD: 74 QT: 444 QTc: 461 [place]: P: 46 MA: 124 QRS: 55 T: 49 INTERPRETIVE STATEMENTS: Normal sinus rhythm Normal ECG Compared to ECG 02/21/2022 07:54:54 Prolonged QT interval no longer present Electronically Signed On 02-25-22 15:22:11 SOFT WORK WRAPPER EXAMINER by Omid Bautista
--- NOTE | 2022-02-25 17:23 | P.PN ---
Subjective Date of Service: 02/25/22 Chief Complaint: Abdominal pain No acute events overnight. She has had no recurrent episodes of hematemesis or melena since yesterday. Her hemoglobin has remained stable, but she would still benefit from a Hepatology consultation and EGD. Currently, she denies any abdominal pain, nausea, vomiting, or diarrhea. She is currently pending transfer once a bed becomes available at [facility]. Review of Systems 10-point ROS is otherwise unremarkable Gastrointestinal: Melena, Other (hematemesis) Physical Examination - Vital Signs Temperature: 98.5 F Blood Pressure: 140/67 Pulse: 68 Respirations: 18 Pulse Ox (%): 97 Assessment And Plan - Plan - Physical Exam General: Alert, In no apparent distress, Oriented x3 HEENT: Atraumatic, Mucous membr. moist/pink, Sclerae nonicteric Neck: JVD not distended Respiratory: Clear to auscultation bilaterally, Normal air movement Cardiovascular: No edema, Regular rate/rhythm, No gallops, No rubs, No murmurs Gastrointestinal: Normal bowel sounds, Soft and benign, Non-distended, Minimal generalized tenderness, No rebound, No guarding Musculoskeletal: No clubbing Integumentary: No rashes Neurological: Normal speech, Normal affect # Acute Blood Loss Anemia suspect due to Acute Upper Gastrointestinal Bleed # History of Hepatitis C Cirrhosis complicated by Portal Hypertension and Esophageal Varices - Requires Hepatology consultation, but service is not currently available at [facility] - 12: Initiated transfer for higher level of care - 02/22: Spoke with [facility] Wood Finisher, Dr. Estelita Oneill, who declined transfer due to lack of Hepatology services - 02/23: Spoke with Transfer Center, awaiting bed availability at [facility] - 02/24: Spoke with Transfer Center, awaiting bed availability at [facility] - Doc-to-doc completed with [facility] repair table operator, Dr. Cesar Ferrer, who accepted her for transfer - 02/25: Spoke with Transfer Center, awaiting bed availability at [facility] - Type & Screen - q6hr H&H - trend: 12.2 -> 8.1 -> 9.0 -> 7.6 -> 7.1 -> 7.2 -> 7.9 -> 9.6 -> 8.9 -> 8.7 -> 8.8 - Transfuse for Hgb < 8.0 - S/P 2 unit pRBCs + 2 units FFP since admission - 2 large bore IVs - S/P central line placement (02/23/21) - Ceftriaxone 1 g IV q12hr for SBP prophylaxis - Pantoprazole drip - Octreotide drip - IV fluids with Lactated Ringers' at 100 mL/hr - Low threshold to obtain CT abdomen/pelvis angiogram - NPO # Clostridium Difficile Colitis - Started PO vancomycin, day 3 of 10 # Cholelithiasis - RUQ ultrasound - "Cholelithiasis. Gallbladder wall thickening. This can be secondary to hypoalbuminemia or cholecystitis" - Consulted General Surgery and spoke with Dr. Ryan - recommendations appreciated - He recommended continuing ceftriaxone for now - Currently, not ideal candidate for surgery given active GI bleed # KDIGO Stage II Acute Kidney Injury (resolved) - Creatinine = 1.49 -> 1.03 -> 0.58 -> 0.56 -> 0.75 -> 0.64 -> 0.63 - Urinalysis = repeat unremarkable - IV fluids as mentioned above - Monitor creatinine and urine output - If worsening, obtain renal ultrasound - Renally dose medications # Hypertension - Hold home medications given acute GI bleed Karthik Nova M.D.
[2022-02-25] MEDS: ATORVASTATIN 40 MG TAB PO SCH (21:17)
[2022-02-25] MEDS: MELATONIN 5 MG TABLET PO PRN (21:17)
[2022-02-26] MEDS: Ringers Lactate 1,000 ML IV SCH ×3 (00:30→20:54)
[2022-02-26] MEDS: OCTREOTIDE 500 MCG in NA CHLORIDE 0.9% 500 ML IV SCH ×3 (06:00→23:48)
[2022-02-26] MEDS: VANCOMYCIN ORAL SOLN 250 MG/5 ML OSYR PO SCH ×4 (06:09→17:24)
[2022-02-26 06:20] VITALS: BMI 29.2
[2022-02-26] MEDS: CEFTRIAXONE 1,000 MG in NA CHLORIDE 0.9% 50 ML IVPB SCH ×2 (08:31→20:53)
[2022-02-26] MEDS: PANTOPRAZOLE INJ 80 MG in NA CHLORIDE 0.9% 250 ML IV SCH ×2 (08:32→20:54)
[2022-02-26] MEDS: ATORVASTATIN 40 MG TAB PO SCH (20:55)
--- NOTE | 2022-02-26 20:59 | P.DS ---
Admission Date: 02/21/22 Discharge Date: 02/26/22 Disposition: TRANSFER TO [facility] Discharge Condition: FAIR Reason for Admission: Abdominal pain Consultations: 1. General Surgery Procedures: - 02/23/2021 - Insertion of Left Subclavian Catheter Hospital Course: DIAGNOSES: # Acute Blood Loss Anemia suspect due to Acute Upper Gastrointestinal Bleed # History of Hepatitis C Cirrhosis complicated by Portal Hypertension and Esophageal Varices # Clostridium Difficile Colitis # KDIGO Stage II Acute Kidney Injury (resolved) # Cholelithiasis # Hypertension HOSPITAL COURSE: Ms. Sophia Joya is a pleasant 62-year-old female with a past medical history significant for hepatitis C cirrhosis complicated by portal hypertension with esophageal varices and hypertension who was admitted to the [facility] on 02/21/2022 for chest discomfort. She was admitted to the Medicine service. Upon further evaluation, she was noted to have diarrhea with melenic stools. She was tested for C. Difficile, and this test returned positive. In addition to her melena, she began having hematemesis and was transferred to the intensive care unit. Her presenting hemoglobin was 12.2, but this dropped to 8.1. Given her history of cirrhosis, it was suspected that she had a esophageal variceal bleed. She was started on a pantoprazole drip, octreotide drip, and ceftriaxone for SBP prophylaxis. During her hospitalization, she required 2 units of PRBCs and 2 units of FFP, and her bleeding stabilized. Given that we do not have Gastroenterology or Hepatology services available at our facility, a transfer was initiated to a facility with these services. This evening, she was accepted to [facility]. A doc-to-doc was completed with Dr. Jase Ruiz, who has generously accepted her for transfer. On 02/26/2022, she was seen on rounds and deemed medically stable for transfer. She and her were given the opportunity to ask questions and reported no further questions. Furthermore, all questions were answered to the best of my ability. Today, I personally spent 40 minutes on her case, of which greater than 50% of the time was spent in patient education, counseling, and coordination of care as described above. PHYSICAL EXAM: General: Alert, In no apparent distress, Oriented x3 HEENT: Atraumatic, Mucous membr. moist/pink, Sclerae nonicteric Neck: JVD not distended Respiratory: Clear to auscultation bilaterally, Normal air movement Cardiovascular: No edema, Regular rate/rhythm, No gallops, No rubs, No murmurs Gastrointestinal: Normal bowel sounds, Soft and benign, Non-distended, Minimal generalized tenderness, No rebound, No guarding Musculoskeletal: No clubbing Integumentary: No rashes Neurological: Normal speech, Normal affect Vital Signs/Physical Exam: Temp Pulse Resp BP Pulse Ox 97.5 F 77 18 136/81 98 02/26/22 20:00 02/26/22 20:00 02/26/22 20:00 02/26/22 20:00 02/26/22 20:00 Laboratory Data at Discharge: WBC 2.60 K/uL (4.3-10.9) L 02/25/22 05:25 Hgb 8.8 g/dL (12.0-15.0) L 02/25/22 05:25 Hct 26.0 % (36.0-45.0) L 02/25/22 05:25 Plt Count 77 K/uL (152-406) L 02/25/22 05:25 PT 19.6 SECONDS (9.5-12.5) H 02/23/22 05:07 INR 1.78 02/23/22 05:07 Sodium 142 mmol/L (136-145) 02/25/22 05:25 Potassium 3.6 mmol/L (3.5-5.1) 02/25/22 05:25 BUN 9 mg/dL (7-18) 02/25/22 05:25 Creatinine 0.63 mg/dL (0.55-1.02) 02/25/22 05:25 Glucose 72 mg/dL (74-106) L 02/25/22 05:25 Phosphorus 5.5 mg/dL (2.5-4.9) H 02/20/22 20:40 Magnesium 1.7 mg/dL (1.6-2.4) 02/23/22 01:43 Total Bilirubin 1.9 mg/dL (0.2-1.0) H 02/25/22 05:25 AST 65 U/L (15-37) H 02/25/22 05:25 ALT 26 U/L (13-56) 02/25/22 05:25 Alkaline Phosphatase 76 U/L (45-117) 02/25/22 05:25 Triglycerides 48 mg/dL (<150) 02/21/22 02:53 Cholesterol 98 mg/dL (<200) 02/21/22 02:53 HDL Cholesterol 22 mg/dL (40-60) L 02/21/22 02:53 Cholesterol/HDL Ratio 4.45 02/21/22 02:53 Lipase 294 U/L (73-393) 02/20/22 20:40 Home Medications: Latanoprost/Pf [Latanoprost 0.005% Eye Drop] 1 drop EACH EYE DAILY 02/23/22 Atorvastatin Calcium [Lipitor] 40 mg PO BEDTIME tab 02/26/22 Melatonin 5 mg PO BEDTIME PRN PRN 02/26/22 Vancomycin Oral Soln [Vancocin HCl*] 5 ml PO Q6HR osyr 02/26/22 Diet: CLD Activity: Ad reji Time spent managing pt's care (in minutes): 40
[2022-02-26] MEDS ORDERED: EYE OPTH SCH (21:00)
[2022-02-26] MEDS ORDERED: LATANOPROST 0.005% OPTH SCH (21:00)
[2022-02-27] MEDS: VANCOMYCIN ORAL SOLN 250 MG/5 ML OSYR PO SCH (01:11)
[2022-02-27 01:48] VITALS: O2SAT 98
[2022-02-27 01:58] VITALS: BP 133/57; TEMP 97
== END 2022-02-27 01:23 | disposition short-term general hospital (02) | DRG 432 ==
LOC: ER 19:43 → ERHOLD 23:17 → INTOOBSV 23:17 → OBSVTOIN 23:17 → 2ND 23:37 → OBSVTOIN 02-21 16:23 → 3RD-ICU 02-22 23:34 → 2ND 02-25 09:58
PROVIDERS: ADMIT Internal Medicine Sleep Medicine; ATTEND Internal Medicine
PROC: 30233N1 Transfusion of Nonautologous Red Blood Cells into Peripheral Vein, Percutaneous Approach (ICD-10-PCS; principal; 2022-02-22)
PROC: 30233P1 Transfusion of Nonautologous Frozen Red Cells into Peripheral Vein, Percutaneous Approach (ICD-10-PCS; 2022-02-22)
PROC: 02HV33Z Insertion of Infusion Device into Superior Vena Cava, Percutaneous Approach (ICD-10-PCS; 2022-02-23)
DX: K74.60 Unspecified cirrhosis of liver (principal); I85.11 Secondary esophageal varices with bleeding; A04.72 Enterocolitis due to Clostridium difficile, not specified as recurrent; D62 Acute posthemorrhagic anemia; N17.9 Acute kidney failure, unspecified; E87.6 Hypokalemia; E86.0 Dehydration; I12.9 Hypertensive chronic kidney disease with stage 1 through stage 4 chronic kidney disease, or unspecified chronic kidney disease; N18.32 Chronic kidney disease, stage 3b; N28.9 Disorder of kidney and ureter, unspecified; K80.20 Calculus of gallbladder without cholecystitis without obstruction; R07.89 Other chest pain; R31.9 Hematuria, unspecified; Z88.5 Allergy status to narcotic agent; Z88.1 Allergy status to other antibiotic agents; Z98.51 Tubal ligation status; Z79.899 Other long term (current) drug therapy; Z87.891 Personal history of nicotine dependence; Z20.822 Contact with and (suspected) exposure to COVID-19
CPT/HCPCS: 0240U; 36415; 70450; 71045; 74177; 76705; 80048; 80053; 80061; 80076; 81003; 83690; 83735; 84100; 84132; 84443; 84484; 85014; 85018; 85025; 85610; 86850; 86900; 86901; 87086; 87088; 87324; 93005; 96361; 96374; 99285; C9113; G0378; J0610; J1650; J2001; J2354; J3475; J3480; J7040; J7050; J7120; P9016; P9059; Q9967

== ENCOUNTER 2022-06-30 18:43 | Emergency (ER) | payer SELFPAY ==
--- OUTSIDE RECORDS SUMMARY | 2022-06-30 18:47 | XMS REPORT | Continuity of Care Document ---
:1960 Author Organization [facility] t Address [address] [place] [address] [place] [id number] Care Team Providers Name Role Phone Dereje Maldonado MA Attending Clinician Unavailable ANATOLY JAEGER Attending Clinician Unavailable ROBERT BONE Attending Clinician Unavailable Heide JOE, Anatoly Attending Clinician Robert Bone MD Attending Clinician Maricarmen Michaels MD Attending Clinician Juan Francisco JOE, Mackenzie Mahmood Attending Clinician Fernando Cole Attending Clinician Sharmila JOE, Nory Bruno Attending Clinician [phone] MARICARMEN MICHAELS Admitting Clinician Unavailable Problems Condition Condition Condition Status Onset Resolution Last Treating Co mments Source Name Details Category Date Date Treatment Clinician Date UGIB UGIB Disease Active [facility]: Me dical stinal stinal 00 Center bleed) bleed) Allergies, Adverse Reactions, Alerts Allergy Allergy Status Severity Reaction(s) Onset Inactive Treating Comm ents Source Name Type Date Date Clinician CODEINE Allergy Active Low Rash [facility] PENICILL Allergy Active Low Rash [facility] Codeine Drug Active Rash [facility] Penicill Drug Active Rash [facility] Social History Social Habit Start Date Stop Date Quantity Comments Source History of Current smoker [facility] tobacco use Medical Cente r Tobacco use and 2022-02-28 2022-02-[address] [facility] exposure [facility]00:00 non-user Medical Center Alcohol Comment 2022-02-27 2022-02-27 quit drinking [address] [facility] 00:[facility]:00 00:00:00 weeks ago Medical Center Sex Assigned At [address] [address] [facility] 00:00:00 00:[facility]:00 Medical Center Smoking Status Start Date Stop Date Source Ex-smoker 2022-02-28 00:00:00 2022-02-28 00:00:[address] [facility] Medications Ordered Filled Start Stop Current Ordering Indication Dosage Frequency Signature Comments Components Source Medication Medication Date Date Medication? Clinician (SIG) Name Name melatonin 3 Yes 5mg Take [address] mg tablet 03-01 by mouth [facility] 11:22: every Medical 10 night as Center needed for Insomnia. atorvastati Yes hyperlipide 40mg QD Take [address] n (LIPITOR) 03-01 efren by mouth Luke s 40 MG 11:22: daily. Medical tablet 10 Center latanoprost Yes open angle 1[drp] QD Place [address] [facility] [address] (XALATAN) 03-01 glaucoma drop into [facility] 0.005 % 11:22: both eyes Medic al ophthalmic 10 nightly. Cente r solution vancomycin 2022- No 250mg Q.25D Take [address] 250 mg/5 mL 03-01 mg by [facility] Syrg 10:03: 00:00 mouth 4 Medical 04 :00 (four) Center times daily. thiamine 2023- No 100mg QD Take 1 [facility] 100 MG 03-01 tablet [facility] tablet 00:00: 23:59 (100 mg Medical 00 :00 total) by Center mouth daily. omeprazole 2022- No Take [address] [facility] [address] (PriLOSEC) 03-01 capsule [facility] 40 MG 00:00: 23:59 (40 mg Medical capsule 00 :00 total) by Center mouth 2 (two) times daily for 56 days, THEN 1 capsule (40 mg total) daily for 124 days. propranoloL 2022- No 10mg Q.5D Take [address] (INDERAL) 03-01 tablet (10 Lesia es 10 MG 00:00: 23:59 mg total) Medica l tablet 00 :00 by mouth 2 Center (two) times daily for 90 days. ferrous 2022- No 325mg Take [address] [facility] sulfate 325 03-01 tablet [facility] (65 FE) MG 00:00: 23:59 (325 mg Med ical tablet 00 :00 total) by Center mouth every other day for 90 days. lactulose 2022- No 10g Q.5D Take [address] (CHRONULAC) 03-01 mLs (10 g Cathryn kes 10 gram/15 00:00: 23:59 total) by obie mL solution 00 :00 mouth 2 Cente r (two) times daily for 90 days Goal is 2-3 large bowel movements. If not having enough, can increase to 3 times a day. If having too many, cut it back to once a day.. ciprofloxac 2022- No 500mg Q.5D Take [address] in HCl 03-01 tablet [facility] (CIPRO) 500 00:00: 23:59 (500 mg Me dical MG tablet 00 :00 total) by Cente r mouth 2 (two) times daily for 5 days. vancomycin 2022- No 250mg Q.25D Take [address] 250 mg/5 mL 03-01 (250 mg Luke s Syrg 00:00: 23:59 total) by Medical 00 :00 mouth 4 Center (four) times daily for 3 days. Vital Signs Vital Name Observation Time Observation Value Comments Source HEIGHT 2022-02-27 02:44:08 149.9 cm WEIGHT 2022-02-27 02:44:08 65.545 kg HEIGHT 2022-02-27 02:44:08 149.9 cm WEIGHT 2022-02-27 02:44:08 65.545 kg HEIGHT 2022-02-27 02:44:08 149.9 cm WEIGHT 2022-02-27 02:44:08 65.545 kg Heart rate 2022-03-01 07:59:42 75 /min [facility] Oxygen saturation in 2022-03-01 07:59:42 96 /min [facility] Arterial blood by Medical Ce nter Pulse oximetry Systolic blood 2022-03-01 07:58:45 149 mm[Hg] [facility] Diastolic blood 2022-03-01 07:58:45 87 mm[Hg] [facility] Body temperature 2022-03-01 07:57:44 36.94 Joanne [facility] Respiratory rate 2022-03-01 07:57:44 18 /min [facility] Body height 2022-02-27 02:44:08 149.9 cm [facility] Body weight 2022-02-27 02:44:08 65.545 kg [facility] BMI 2022-02-27 02:44:08 29.19 kg/m2 [facility] Procedures Procedure Date / Time Performing Clinician Source Performed POCT-GLUCOSE METER 2022-03-01 08:01:00 Robert Bone [facility] CBC (HEMOGRAM ONLY) 2022-03-01 05:08:00 Robert Bone [facility] COMPREHENSIVE METABOLIC 2022-03-01 05:08:[address] [facility] HEMOGLOBIN AND HEMATOCRIT 2022-02-28 17:25:00 Robert Bone [facility] HEPATITIS A ANTIBODY, IGG 2022-02-28 12:39:00 Meño Campos [facility] I [facility] REPORT OF PROCEDURE - 2022-02-28 11:26:34 Nory Doll [facility] ENDOSCOPY URL [facility] [place] TISSUE EXAM 2022-02-28 11:03:[address] [facility] ENDOSCOPY, UPPER GI TRACT, 2022-02-28 10:00:00 Nory Doll [facility] WITH BIOPSY [facility] EGD, WITH VARICEAL BANDING 2022-02-28 10:00:00 Nory Doll [facility] CBC (HEMOGRAM ONLY) 2022-02-28 04:56:00 Amadou [facility] COMPREHENSIVE METABOLIC 2022-02-28 04:56:00 Amadou [facility] PANEL [facility] PROTHROMBIN TIME/INR 2022-02-28 04:56:00 Amadou Mattel [facility] PHOSPHATIDYLETHANOL, BLOOD 2022-02-28 04:56:00 Meño Campos [facility] HEPATITIS C GENOTYPE 2022-02-28 04:56:00 Meño Campos [facility] ANTI-NUCLEAR ANTIBODY 2022-02-27 16:10:00 [facility] HEPATITIS B SURFACE 2022-02-27 16:10:00 Meño Campos [facility] HC LAB HIV-1 AG W/HIV-1&2 2022-02-27 16:10:00 Meño Campos [facility] AB [facility] HEPATITIS B CORE ANTIBODY, 2022-02-27 16:10:[address] [facility] TOTAL [facility] ABORH, MANUAL 2022-02-27 04:52:00 Aydee Clark [facility] ACTIN (SMOOTH MUSCLE) 2022-02-27 04:40:00 Maricarmen Michaels [facility] ANTIBODY, IGG [facility] JUMRT-9-HIPUBACVTHW\\, 2022-02-27 04:40:00 [facility] SERUM [facility] ANTI-MITOCHONDRIAL AB, 2022-02-27 04:40[facility] REF[facility] TITER [facility] CERULOPLASMIN 2022-02-27 04:40:00 [facility] 2022-02-27 04:40:00 Maricarmen Michaels [facility] HEPATITIS PANEL, ACUTE 2022-02-27 04:40[facility] (IGG) 2022-02-27 04:40:00 Maricarmen Michaels [facility] IRON, TIBC, % SAT. 2022-02-27 04:40:00 Maricarmen Michaels [facility] (WITHOUT FERRITIN) Medical Cente r HEPATITIS C PCR, 2022-02-27 04:40:00 Maricarmen Mihcaels [facility] PROTHROMBIN TIME/INR 2022-02-27 04:40:00 Maricarmen Michaels [facility] MITOCHONDRIAL AB SCREEN 2022-02-27 04:40:00 Maricarmen Michaels C HI [facility] MITOCHONDRIAL AB TITER 2022-02-27 04:40:00 Maricarmen Michaels [facility] BASIC METABOLIC PANEL 2022-02-27 04:39:[facility] 2022-02-27 04:39:00 Maricarmen Michaels [facility] MAGNESIUM 2022-02-27 04:39:00 MichaelsMaricarmen méndez [facility] PHOSPHORUS 2022-02-27 04:39:00 [facility] W/PLT COUNT & AUTO 2022-02-27 04:39:00 Maricarmen Michaels [facility] TYPE AND SCREEN, AUTOMATED 2022-02-27 04:39:[address] [facility] CBC W/PLT COUNT & AUTO 2022-02-27 04:39:00 Maricarmen Michaels [facility] Plan of Care Planned Activity Planned Date Details Comments Source Future Scheduled 2023-02-[address] [facility] Test 00:00:00 Counseling and Medical Cente r Screening (12+) [code = Tobacco Cessation Counseling and Screening (12+)] Future Scheduled 2022-10-[address] [facility] Test 00:00:00 (Season Ended) [code = [facility] INFLUENZA VACCINE (Season Ended)] Future Scheduled 2022-02-[address] [facility] Test 00:00:00 (12+) [code = [facility] DEPRESSION SCREENING (12+)] Future Scheduled 2010-02-05 SHINGLES VACCINES ([address] [facility] Test 00:00:00 2) [code = SHINGLES Medical Center VACCINES (1 of 2)] Future Scheduled 2005-02-05 Lipid panel (procedure) [facility] Test 00:00:00 [code = 47119587] Medical Ce nter Future Scheduled 1981-02-05 Screening for malignant [facility] Test 00:00:00 neoplasm of cervix Medical C enter (procedure) [code = 188202709] Future Scheduled 1979-02-05 DTAP/TDAP/TD VACCINES [facility] 00:00:00 (1 - Tdap) [code = Medical C enter DTAP/TDAP/TD VACCINES (1 - Tdap)] Future Scheduled 1960 COVID-19 VACCINE (#1) [facility] Test 00:00:00 [code = COVID-[address] VACCINE (#1)] Future Scheduled 1960 Screening for malignant [facility] Test 00:00:00 neoplasm of breast Medical C enter (procedure) [code = 346502715] Future Scheduled 1960 CT Colonography (combo) [facility] Test 00:00:00 [code = CT Colonography [facility] (combo)] Future Scheduled 1960 Screening for malignant [facility] Test 00:00:00 neoplasm of colon Medical Ce nter (procedure) [code = 850412868] Future Scheduled 1960 Screening for malignant [facility] Test 00:00:00 neoplasm of colon Medical Ce nter (procedure) [code = 328932101] Future Scheduled 1960 Screening for malignant [facility] Test 00:00:00 neoplasm of colon Medical Ce nter (procedure) [code = 684780311] Future Scheduled 1960 Screening for malignant [facility] Test 00:00:00 neoplasm of colon Medical Ce nter (procedure) [code = 218086111] Future Scheduled 1960 Sigmoidoscopy [code = [facility] Test 00:00:00 Sigmoidoscopy] Medical Cente r Encounters Start End Encounter Admission Attending Care Care Encounter Source Date/Time Date/Time Type Type Clinicians Facility Department ID 2022-02-22 Inpatient ER [facility] Medical ICU [id number] 17:16:28 [facility] 2022-03-11 2022-03-[address] [facility] [id number] [facility] 00:00:00 00:00:00 2022-03-10 2022-03-10 Telephone Joel [facility] [id number] 00:00:00 00:00:00 [facility] 2022-03-10 2022-03-10 Abstract Joel [facility] [id number] 00:00:00 00:00:00 [facility] 2022-02-27 2022-03-01 Inpatient ER CONNER BONE Internal [id number] SLE 02:27:00 11:21:00 [facility] 2022-02-27 2022-03-01 Hospital Anatoly Jaeger [facility] [id number] [facility] 02:27:00 11:21:00 Encounter Robert Bone [facility] 2022-02-28 2022-02-28 Anesthesia Mackenzie Chicas [facility] [id number] 10:45:00 11:26:00 Event Fernando Buenrostro [facility] 2022-02-28 2022-02-28 Surgery Sharmila [facility] [id number] 10:00:00 10:52:00 [facility] 2022-02-27 2022-02-27 Outpatient [facility] [id number] [facility] 02:27:00 23:59:00 Terri mitchell of Medicin e Results Test Description Test Time Test Comments Results Result Comments Source ANTI-MITOCHONDRIAL AB, REFLEX TO TITER 2022-03-08 10:10:03 Test Item Value Reference Range Interpretation Comme nts SCAN RESULT (test code = 5570395) Tissue [id number] 08:35:43 Test Item Value Reference Range Interpretation Comments Case Report (test code Surgical Pathology = 104) Report Case: [id number] Authorizing Provider: Nory Doll, Collected: 02/28/2022 11:03 AM Ordering Location: [address] Received: 03/01/2022 07:57 AM Service Pathologist: Irma Fermin MD Specimen: Biopsy, Gastric, random gastric bx r/o H. pylori DIAGNOSIS (test code = [id number] 3220) FuZzEwMzNcZnRuYmpcdWMx IHtccnRmMVxlcGljOTYwMl vxjrDsTEZeiUTsX4Abiggi TMzlRV4zLE1dkYregLKlhJ BgXYBnZzQmk9bek670eIWi s2jyQLSMytqmdZb0cIknH6 7ly7P0FinoH85utSKuPBI1 UXXkJBHkeOWxMMXiYHB9XH LlxDJkS7diDCTpQJ7rbdxh BDyuKPafIHBiqSQ4ZURwyS UjV6DvTPXcBAkvEIXjavd5 NvWrKp2bjVQnvYmvCUuiJS LfINWlALmnBBKcSdBeFK7k EZgWT7IMGPTcAAAXYyTGCG CSBA7JC4jzrTndDBLuSFMI XGI1hejrTV97fK01dZQoFE 0vVIHlovZcfX4leAdwEBEp mYQim6Qoy1m6aVGrpDMahY CdWROzxv8ulNEjZRN9iTTk DDbsk2YmmKMpx3qhxR3yLX LbVP2iG7X9iHJaNLZilxGq hfKqj2MhpxWeVA9slAMvfX GwsNPgv6UyBZggdPwto4uj HBnovgSxIY3VjK30lo1chJ U1y5UtQI5vS8OiQQN8TDil IGZvciBILiBweWxvcmkgaX MgbmVnYXRpdmUgKHNlZSBj m55lSG41DWsnXSP8t5rbbO YxXHNzdGUxODAwMFxhbnNp IKUqIesrubjvNHTwSQW5cw KiZQEnBTosENKeEOpvWp2o uWKacQvzYjBaVARif4vvkl KKdazxpQf2t2haBQZcHsR5 fTRlNWktO9vlphWhmYOoTD QxAQm5fS74UJUbrA1waPAa ZWysczWfIvN7AUwuSOWrLv I8LHZxoTHpRHKvT4xxJSLw QEuiQJAtHApxmTAjKUN7sS mrm4T6oKItmKUhhAsfZmQq EqNeZbCLf1ZjAPc0gDsnH3 UbMXZtQkH5tMWsLZCcNRki SXTtINCfxyN5mV15QIpsua M7hPVhm6Gpr65hp324fU5k sMPmBYL7FAErMYHhfGJkZF PwOXQ7FLQgmBDgR8ibDNFs QO4kuyyiTQfpLIlqUYWsnG I3CSAdbOUaN2ViNMOwVPjh GHDbroz8OsRlVt9phJKdsP vyTPzhd6ysy3rvpQKzPno9 EBMsIvRdQbgtKVgxv7Zuh8 esXUFbyb8gROD3rZLxqQif t8M6oMAjLSAujQSpQUNnVD 3ghXByJIKmiZ2yywpxWGFb YnJkcmhlYWRccGdicmRyZm 4vuVotTSY2WYznQ6zgrT0e VfT9UQgnF6ouvQ5mYAn3YV dxSQNswBX4ccF8NHSusEUu C5SpzZ2bAXKhTL6fxqk5c1 zfWDP7GHhuONTzYfS2jzQ7 NDBcaGVhZGVyeTcyMFxmb2 70NRP1UmQcMSRlh1OwE0Gv oLbvW80bgFsrB64dAAQxoH gxmW8ocKdfpM6iFqEbOiHq HCpsvYkwUG8tWKQlH4zepI EyISQnLNBhX5fbWvKbnD2o nVlpAUlnjqLiMNLnQjc1CG DilFWkRIDxOkw9LPPgRIPd X21skysnBCE9nF9ft6wdd6 RhBIheUAD8CBTqu10yZJai kfR5ETyqFk35YAdfCMM7CS alYWE1vE== COMMENT (test code = b2ejzHHsVQYcjBV5OfBvNC 0346) Rtu3iax0OqcJXjsNObINme rYTwzpOqvk33yTA7zA55KC 2mUTBvMzL9WEJnhwU0Mec4 LHIaGJKihPXpH027q7koq0 rlnsNxiXW0eGbdZGRkffxn NcS4QFumQPTfkivuSBo6ZG uuCBKkbZZ4UCXtoZAjG2Cz CTTcAI5wmnl8FYX5XIxdID OcGuP8ARVocRAkZZLmeOzl EKiev876BLG4HkUpXXKwyn VtoNhrhP5zKrNkSVHHM16F LL2UBweqDZypdpMibVJvhl PuWVOyx4KiCP9yBV6banHc OGPdWmzlJRX1NTmacQ3zJZ 5xlUEeOV7dJAqrhZFhu1ma n5GyU5iurSyhWGsgk0UjjS 2jt1ptR5yotSZsI02zp7gn IGEtNSKkHBkahBe9HT0yGF svc0N9NBKnjQ3nhLUgKXPo FXKcuoFoqFg1YJXxIZ3gjE ejQeSaGJ6xe0LbTuIvNUod kEEgUNQzHN6pADwsDNMovU 5xR8TdgPzqv3UewRulhT48 fqGuf7NlGWjwcQwdexW0gR LzBHOvYFW7gOF3FRY7YI1a TZV4d48tYZQthNkwWG3nsZ XohrRre07uVG6jWSWeLARE ppRjv6VqjHokhzKio1Z9PS Ltaqsfv3JvXFAewe4= CPT Code(s) (test code v3filJWlTDRgyRN9BcLuKP = 3357) Yoa0qna9HhqGWeqDMkPOap lUHbyvOpfn29fKJ9iW20EZ 0iWDMrPcJ7ECDkysL1Cys3 FGKzPJXqjZWqN350u1hcj8 mibvIjyKL1oKhqMBJezinw NdS7KWsdVYPyqynqBCz2IS ulUTLucIX1GTVpiWFaA1Jg LGUqDO1hcfr9CJJ2NHyrXX UrMfU6YKYuyPDqTXBshDem RWvgg939GOD6RsAbBTAqok KfnKzeiT7pRxWhCVJ5BXOl TAmvyI5mSGm5IvVoIUAjnf 0= CLINICAL HISTORY (test c4onvTFhRCHcxQR6RdUkUV code = 3356) Lav7jzs0ZaeBJnkSOuKWwv yGLalbTtcd87uAA5fW29RW 1xHXWlFnV2ZCNbukQ3Wtx9 VNHvZFXubUJlZ583c3oze7 cjeiHpgDI6zAvsWABlqdup EnF7QOdiKIYdtttjEBr0TB zbSQRpzLJ3QVQwuNUmF8Vf YPIoII2oxjc0SBU4DBmlLO UlFqK9UKMvvPHhHIZexBae JHjko672DME8LzSlSKQzwk RvqJpxaI2jVvSbECGHQCT9 wo3ijsSal3BjcnJzBNxnyN 8dscmiG7HmETAaz4CdMWOb NRG3eHQgKKfgg7JvjOJos3 xwYXJ9 GROSS DESCRIPTION (test p5lchRLrNZHinWDBKJQnU5 code = [id number]) hwsgUeWHMgpTKsM6Vfqcpw AMndES8hUE4lnWfpzSNskR PcIN7BWQPdIhJyODYefAFv nsLyLdDlLISmmSWqeVT7VN BbWQ0gjlhtMWhrYOuhJFMa ztB2VPExhBJwO1XgGWNgXH 8kwwqrYRB6OFamfW4hyjAY FybiFp6hmTUplFqqDkMjSw NoYXJzZXQwXGZuaWwgQXJp KRw4cP5AZzpbR19fu5X8Qv s9FSPuMMFkK2CsNQ1sQYLq gNVvJ11FNlvqVNO1QOEQCz vpYVQvMW7Qu5cgSROsuWPj EUG7MXvpfFLeYSMgMUHkRD e0MLPpAHbtcWSkCG7xqQjb KcyrbPyve6QozPAwXOrhKK FjYZSnTBwmBRLvBL7WMyJz UNWwQKR2HUPbMZx4TYd0CJ 9WUyAiICAzMTkxNTAyMCIg EIk8BTsxES1BSZW3Mgh1Hz N3KmF1XMZ6ARBlFUGkHgQa XGYgQXJpYWwgXFxmbCBcXG 6asUgpmFJqguSQDhHKbQ1s v9erXFsfp8NwzVLgJZAriu ANClxlcGljTmVzdERvYzEg DQpcbHRycGFyXGxpbjBccm luMCANClxsdHJjaFxjZjFc ZnMyMCBSZWNlaXZlZCBpbi Atd9QpCBmdtoSuIFFbtYMs IHdpdGggdGhlIHBhdGllbn OiT8M9ciUuTP7gCKEdWSZk N5VoVMJuS93sBBMtgC0uPH LbVJ4mJEx1NITrAZUbLmbt WmgmuYT7AZVnMYZ7qugoZL 5leHQgYXJlIDMgdGFuIHNv LgKamQsrd1ErEOQvIXqyYB 50zpDuKY2jqQ0tLXQtKb4e OwLyB61au8IsgEc8xFLqPC snWTCckD1pkP7gFATfHLZs ciANClxwYXIgDQpDaGVsc2 VhIEdyYXVuLCBNSFMsIFBB KJnQV3EGCICnOOLmusVFTl kwTIYtSEbsZ1UjASLqPwOo OYhxySssyT1cWLXlY03ts0 FYu5JnGIBhSXthy9xvnWrw y1IfcBEhNPouHDVipJVdJB wxxI7fEfKyl5ilmHn1UKnh jkB3XTWldx1OLotnbM7gSc Oli9wctAb3YLISBqqglqJ3 p9uuxBqnr3MhvVObRJ9QSw 0= MICROSCOPIC DESCRIPTION g9cdtJFcFLDksDN1MfClOZ (test code = 3371) Ila6btg5DwaURrdOQbWHif gWJjnoGhrk62mNE6hF71CX 3gHUDjYyI3BPPovbN0Meu4 MVBuPLPdtZHdG697r3lip1 boyhLudEV3bLqhBMHtcepm ItF1WSrmAHWhcjbmGHk1PP rnRJMxeHI2EMNxoSPcN1Sp SKWnOV3jiwu1FNH3QQpxTH MoPrD1SJUftHBtAJOenQfn WQefx907FJK7JtUySLHcep LivFpiuM2iUgMjRXPBRCMv w5QsWRFnlANiuV== SPECIAL STUDIES (test w1dmjZZvSREav4euNHDygD code = 3376) FuZzEwMzNcZnRuYmpcdWMx RJppfuVuMLtbz7ZsZ5ApBw AwMFxhbnNpXGRlZmxhbmcx SYShYLQ5toIpCMNgJCiiEW AtJGxoBn8iiQOhrOhqZpKl NVFjh8xjboCCoeoyaQv6z4 xlXUSbVmM0eHIvDOyoN0wo uyRorZEjM3PkxYPgiVm6r0 qoBbPdEuX4xFBcFMabB2pt okEwgSOeICQmBAw3pR71UF RtkI4xiHXsYZtpqsToMjS8 WJjxEYWnEhJ5OCAyqCGcZV ZrX0gsGHRwWBjsHUVrGBku iVKaBGY1zPipc4L6bHHkzG NwoBlnAjObHsFcTnHMi3Nj MVx0tJhiI7SfNSSqQhN8jY QgUGFyYWdyYXBoIEZvbnQ7 zFaflfDym98cjXQiXMTcSJ RzKmZodFcpTCHsIBAOa4Bl fNpeYKQ6jFh0xNqmQfgqWZ W3Dcz4VV5lra32cui2lNzt JWUboytvFeY1YWreAIDzbu vhNXp8CYwlIGDpvPC4FONn hYVyF2LhTLGyTY9tljg3EA M9YTqsHEOsJzC3UVIbzOGj XHFubCtcQIgok510DZJ2Gv SpSA7jL7Nwi1C9fU2kmFMr RHYtqQDnItSbEKTndd9brC NiQWpnt5WhLBV7hjI7vKIx sKIeSGIxEM75Rrqki5LoAa rcv6HvP59rmSP4VQqfc7aw LH1qItD3hpLrSQlvr5hqeI 6wQmJ7FGvtZZ1dGW2rXBOd wW7dlxwdOKWqWcUupduyJG KacJnmylKyJn1dlWbiXVC0 GYenC1ifeN9aSoI1QBiuK4 petS8jGPy5EWpngWF0XWMb kN2lBB2gxhedm1lpSQnvOA ckVXGarnO7rsL9ALHuuOWu J0KwbZ2bVQBmYO1dvvkcr2 jfZJV2AWojUDYmZXG4TiWe ROLjc6Nbyhp2RpVle6IadU UlNAxmS54ue266GUSsulWj G5begDBeybuxxCDlschsWN ohomC0WIVkDOYnORanBICu XGZzMjJcbGFuZzEwMzNcaG ljaFxmMVxkYmNoXGYxXGxv Q0epWmPyE9EhZAWaIiGuWJ yuMPadlPDktCNzvBH8tN3f JD3wQCDshNSaG6XhYUDnzr FrbXZoWFO9iCZmrJJeMJ5i JDwzcRSvx4hfv3BiI4behD nzoHK5KW0fMPHdHJOwIVzt z7NdxJ1tVhkngIJoquxpRB xmczIyXGxhbmcxMDMzXGhp X6xyGtCyCKQccWziAWhwc0 NoXGYxXGNmMlxmczIyXGx0 cmNoXHBhclxwYXJccGxhaW 4nIiFvUxJbSbrtLA9pABQe L5uldZTqEPWgQAKzR6yxEd GkaH5hfFqxMAlrWxYwYiRi UjEId237sm3dMGPduVFutb LBwIOpyA2gPLqdZYjiWHhg kZOjVVkyj0uhYGXqh3q2iY JgQQWvvoQwu7igBFjxgaYq LVOnyZEydJWfIUOly40yFN aetYeqiFpiKAVfm0NmuFet e4MtFkLrOExve0HxI68adK JvbCBzbGlkZXMgcnVuIGFs u48aa1gaJAJjPyQ0fRDltF Z6zZWiaRMpn0OetJutZTTs t2irPMAlub7nnozxiKYei8 GocS3zfjaxZUjcdXNsjyUv CFDvu9c6mPRlNGRyVCEqCA diwKj1RHVij804ge2ucgU4 dRChWHB7AOleWPOhBBBhvw UgZXZhbHVhdGVkXHBsYWlu XGYxXGZzMjJcbGFuZzEwMz NcaGljaFxmMVxkYmNoXGYx QXifS4vqCjSzT0FpWFBnQg LtwWOzH6fwwYBtFAMeKHbr XGYxXGZzMjJcbGFuZzEwMz NcaGljaFxmMVxkYmNoXGYx FVmfD3qiGwAmE9HbXNLtTx IgIFxwbGFpblxmMVxmczIy ZUzpujbmDSPnBKkrC3baGg HkKZXdzHawGFtkn3MsWVJc MKChKkepfuLtOWd8guJpZK BhclxwbGFpblxmMVxmczIy DAdjvlvsUAIsBCscG0liDa WkNCKnyMitJMfdw1McHDSx XGNmMlxmczIyIEltbXVub2 dob4JrG4yxoChokAE7NKCk N6zruJEkfHY9QWT2xV0gOI soyzNgJLCjh1RhAGJlFHJt GsF3qR0cMJY4OgFFbDhgBL BsYWluXGYxXGZzMjJcbGFu ZzEwMzNcaGljaFxmMVxkYm RtTIWqFOsdQ0fjDlCpA7Lq GENnLrPreOanIIpiVKj1Dv xwbGFpblxmMVxmczIyXGxh dpwgBGGkMZkmH8qfAvCvGA MqmAviYRgin0EoKFXoQOSn MlxmczIyIHMgTWVkaWNhbC IKNZ75SGNgPZEziLxxrW7w cBOKEKOpykF7o3M8ARdhBL LgKDb2OSnhfnPpLKPugZ7w GIFeAA3cAZn1wmRhKTWcd0 BwAY9gYUYctTUbBAO3AWRb k0FnQ6Ogt8YlRNZqFBNqzg 4sbaVhPjQItIPxJPTfiv28 SIRbDX5aM8yrTXFzOZIovt RnhIGno9TrTFHxpYL9fTTj QX5LOkJVr95nZOFeNAJXcn ViHXMnoCfebUR4fgH3yC4k LiBUaGUgRkRBIGhhcyBkZX Jdci7kafTbWJZoZDJyl4Qu tABstDCxouSkM7Flc1TeRM Hvnz49ZTftnENfhw47MG9d E4Zvp0TzdZ0cKDgzJIBhj3 WrnJHqtXFgABCni6FgJ2rq xzagMAwhnOCfmV6sQEXoUL t3EBLvn4TlKRDaz1KkCfBu mpOiLLHfWWFvGBQdpR09DA B9jYoiwIjpviKaAO7jUEGk qrViLFZaYUSsoS2mDNgzbp CiOFTgyxM6g2C4JFinDNVa vaYaIjcgLAP0tyWhxyA2hP YbT8adrbpxTFruBGQal4Vy oM6tpHPUfFLjn2BsaCAmyZ OYbDMxQW7fsbMsTS0jNGQ9 ODggKENMSUEtODgpIGFzIH A6IFgyStkmFDW3awPzQZZk l2RnGUddZ0jlA12zxOkjkO a2vZAsmXacpQQyxIJlPWKu utK3y3J9HSXbe9JjvapeTZ BsYWluXGYyXGZzMjJcbGFu ZzEwMzNcaGljaFxmMlxkYm YnLINvQNwlC9uaSgVxWjVm ApywLFI2nB== Gross assessment was [facility] performed at ([facility], = [phone]) Department of Pathology, [address] [place] [id number], Technical component was [facility] performed at ([facility], = 2458) Department of Pathology, [address] [place] [id number], Professional component [facility] at ([facility], code = 2779) Department of Pathology, [address] [place] [address], [place] [address], [facility] CenterT[facility] [id number] 08:35:43Surgical Pathology Report Case: [id number] Authorizing Provider: Nory Doll, Collected: 02/28/2022 11:03 AM Ordering Location: [address] Received: 03/01/2022 07:57 AM Service Pathologist: Irma Fermin MD Specimen: Biopsy, Gastric, random gastric bx r/o H. pylori A. GASTRIC, RANDOM BIOPSY - Gastric oxyntic and antrum type mucosa with diffuse chronic active gastritis - Negative for intestinal metaplasia or dysplasia -Immunohistochemical stain for H. pylori is negative (see comment) Signing Pathologist Direct Phone Line: [phone] signed by Irma Fermin MD on 03/03/2022 at 8:35 AMCOMMENTS: There is rare foci of nonspecific staining noted on immunohistochem ical stain which is considered negative. However most labor relations representative sampling cannot be excluded andif clinically suspicious correlation with breath test or stool antigen is recommended. Endoscopy report [id number] hemorrhage associated with gastritisA. Biopsy, Gastric.Received in formalin labeled with the patient's name, medical record number and "biopsy, gastric next are 3 christine soft tissue fragments ranging 0.2-0.3 cm submitted in toto in A1.DANIELA Isidro, ALONDRA (ASCP)cmPerformedThe interpretation of this case included the use of immunohistochemistry or special stains.Control Slides Examined: In-house known positive controls were evaluated along with the test tissue. These control slides run alongside of the patients sample show appropriate staining. Internal positive and negative controls when available are evaluated Immunohistochemistry technical testing was performed at [facility], Pathology Laboratory where it was developed and its performance characteristics were determined. It has not been cleared or approved by the U.S. Food and Drug Administration. The FDA has determined that such clearance or approval is not necessary. The test is used for clinical purposes. It should not be regarded as investigational or for research. This laboratory is certified under the Clinical Laboratory Improvement Amendments of 1988 (CLIA-88) as qualified toperform high complexity clinical laboratory testing.[facility], Department of Pathology, [address] [place] [address], [facility] of [facility], [address] [place] [address], [facility], Department of Pathology, [address] [place] [address], [id number], BLOOD 2022-03-03 08:35:14 Test Item Value Reference Range Interpretation Comments PHOSPHATIDYLETHANOL (PETH) See scanned (test code = 0756799) report See scanned reportHEPATITIS C PCR, [id number] 13:32:02 Test Item Value Reference Range Interpretation Comments HCV RESULT COMPONENT HCV RNA not detected HCV RNA not detected (NIRAJ) (test code = 2699) This test uses a Real-Time Polymerase Chain Reaction (RT-PCR) methodology and was performed using JOSSELINE Ampliprep/JOSSELINE TaqMan HCV test kit version 2.0 ([employer]Reportable range for this assay is 15 - 100,000,000 IU per mL (1.18 - 8.00 Log IU/mL).ANTI-NUCLEAR ANTIBODY (DILAN)2022-03-01 13:19:31 Test Item Value Reference Range Interpretation Comments ANTI-NUCLEAR ANTIBODY (DILAN) ([facility]) Negative Negative (test code = 418) Test performed by IFA method.Test performed by IFA method.POC-Glucose meter 2022-03-01 08:12:54 Test Item Value Reference Range Interpretation Comments POC-Glucose Meter (test 103 mg/dL 70-110 : TE STED AT [facility] code = 1538) [address] [place] [address], [facility] 30: Dishroom Attendant/Techni king ID = [id number] for Catrina Moreira Lab Interpretation (test Normal code = 14194-3) [facility] [id number] 08:12:54 Test Item Value Reference Range Interpretation Comments POC-GLUCOSE METER 103 mg/dL 70-110 : TESTED A T [facility] 67 ([facility]) (test code = LISA Vu [facility], 1538) [id number]: Dishroom Attendant/Techni king ID = [id number] for Catrina Raza COMPREHENSIVE METABOLIC [id number] 06:12:16 Test Item Value Reference Range Interpretation Comments TOTAL PROTEIN 5.0 gm/dL 6.0-8.3 L (BEAKER) (test code = 770) ALBUMIN (BEAKER) 2.0 g/dL 3.5-5.0 L (test code = 1145) ALKALINE 83 U/L 40-150 PHOSPHATASE (BEAKER) (test code = 346) BILIRUBIN TOTAL 1.8 mg/dL 0.2-1.2 H (BEAKER) (test code = 377) SODIUM (BEAKER) 138 meq/L 136-145 (test code = 381) POTASSIUM (BEAKER) 3.1 meq/L 3.5-5.1 L (test code = 379) CHLORIDE (BEAKER) 110 meq/L 98-107 H (test code = 382) CO2 (BEAKER) (test 25 meq/L 22-29 code = 355) BLOOD UREA 3 mg/dL 7-21 L NITROGEN (BEAKER) (test code = 354) CREATININE 0.75 mg/dL 0.57-1.25 (BEAKER) (test code = 358) GLUCOSE RANDOM 132 mg/dL 70-105 H (BEAKER) (test code = 652) CALCIUM (BEAKER) 7.0 mg/dL 8.4-10.2 L (test code = 697) AST (SGOT) 143 U/L 5-34 H (BEAKER) (test code = 353) ALT (SGPT) 54 U/L 6-55 (BEAKER) (test code = 347) EGFR (BEAKER) 90 Interpretatio n of eGFR (test code = 1092) mL/min/1.[address] age Description sq m Result G1 Norm al or high >=90 G2 Mildly decreased 60-89 G3a Mildl y to moderately 45-5 9 G3b Moderately to s everely 30-44 G4 Severl y decreased 15-29 G5 Kidne y failure <15Reported eGF R is based on the CKD-EPI 2020 equation that d oes not use a race coefficientEsti mated GFR is not as accur ate as Creatinine Ally danay in predicting glom erular filtration rate . Estimated GFR is not appl icable for dialysis patien ts Dishroom Attendant ID - ZOILAOCBC (HEMOGRAM ONLY)2022-03-01 05:40:54 Test Item Value Reference Range Interpretation Comments WHITE BLOOD CELL COUNT (BEAKER) 3.1 K/ L 3.5-10.5 L (test code = 775) RED BLOOD CELL COUNT (BEAKER) 2.57 M/ L 3.93-5.22 L (test code = 761) HEMOGLOBIN (BEAKER) (test code = 8.2 GM/DL 11.2-15.7 L 410) HEMATOCRIT (BEAKER) (test code = 25.3 % 34.1-44.9 L 411) MEAN CORPUSCULAR VOLUME (BEAKER) 98 fL 79-95 H (test code = 753) MEAN CORPUSCULAR HEMOGLOBIN 31.9 pg 25.6-32.2 (BEAKER) (test code = 751) MEAN CORPUSCULAR HEMOGLOBIN CONC 32.4 GM/DL 32.2-35.5 (BEAKER) (test code = 752) RED CELL DISTRIBUTION WIDTH 16.7 % 11.7-14.4 H (BEAKER) (test code = 412) PLATELET COUNT (BEAKER) (test code 81 K/CU MM 150-450 L = 756) MEAN PLATELET VOLUME (BEAKER) 10.3 fL 9.4-12.3 (test code = 754) NUCLEATED RED BLOOD CELLS (BEAKER) 0 /100 WBC 0-0 (test code = 413) HEMOGLOBIN AND [id number] 17:38:59 Test Item Value Reference Range Interpretation Comments HEMOGLOBIN (BEAKER) (test code = 9.2 GM/DL 11.2-15.7 L 410) HEMATOCRIT (BEAKER) (test code = 27.7 % 34.1-44.9 L 411) Dishroom Attendant ID - [id number] ID - [id number] A ANTIBODY, [id number] 13:49:23 Test Item Value Reference Range Interpretation Comments HEPATITIS A IGG ANTIBODY (BEAKER) Reactive Nonreactive A (test code = 2797) Dishroom Attendant ID - MATEUS LCBC (HEMOGRAM ONLY)2022-02-28 06:10:17 Test Item Value Reference Range Interpretation Comments WHITE BLOOD CELL COUNT (BEAKER) 2.1 K/ L 3.5-10.5 L (test code = 775) RED BLOOD CELL COUNT (BEAKER) 2.61 M/ L 3.93-5.22 L (test code = 761) HEMOGLOBIN (BEAKER) (test code = 8.3 GM/DL 11.2-15.7 L 410) HEMATOCRIT (BEAKER) (test code = 25.8 % 34.1-44.9 L 411) MEAN CORPUSCULAR VOLUME (BEAKER) 99 fL 79-95 H (test code = 753) MEAN CORPUSCULAR HEMOGLOBIN 31.8 pg 25.6-32.2 (BEAKER) (test code = 751) MEAN CORPUSCULAR HEMOGLOBIN CONC 32.2 GM/DL 32.2-35.5 (BEAKER) (test code = 752) RED CELL DISTRIBUTION WIDTH 16.8 % 11.7-14.4 H (BEAKER) (test code = 412) PLATELET COUNT (BEAKER) (test code 82 K/CU MM 150-450 L = 756) MEAN PLATELET VOLUME (BEAKER) 10.2 fL 9.4-12.3 (test code = 754) NUCLEATED RED BLOOD CELLS (BEAKER) 0 /100 WBC 0-0 (test code = 413) COMPREHENSIVE METABOLIC [id number] 05:57:41 Test Item Value Reference Range Interpretation Comments TOTAL PROTEIN 4.9 gm/dL 6.0-8.3 L (BEAKER) (test code = 770) ALBUMIN (BEAKER) 2.0 g/dL 3.5-5.0 L (test code = 1145) ALKALINE 81 U/L 40-150 PHOSPHATASE (BEAKER) (test code = 346) BILIRUBIN TOTAL 1.7 mg/dL 0.2-1.2 H (BEAKER) (test code = 377) SODIUM (BEAKER) 140 meq/L 136-145 (test code = 381) POTASSIUM (BEAKER) 3.2 meq/L 3.5-5.1 L (test code = 379) CHLORIDE (BEAKER) 114 meq/L 98-107 H (test code = 382) CO2 (BEAKER) (test 20 meq/L 22-29 L code = 355) BLOOD UREA 5 mg/dL 7-21 L NITROGEN (BEAKER) (test code = 354) CREATININE 0.76 mg/dL 0.57-1.25 (BEAKER) (test code = 358) GLUCOSE RANDOM 93 mg/dL 70-105 (CHERYLAKER) (test code = 652) CALCIUM (BEAKER) 6.7 mg/dL 8.4-10.2 L (test code = 697) AST (SGOT) 106 U/L 5-34 H (BEAKER) (test code = 353) ALT (SGPT) 38 U/L 6-55 (BEAKER) (test code = 347) EGFR (BEAKER) 89 Interpretatio n of eGFR (test code = 1092) mL/min/1.[address] age Description sq m Result G1 Sisi l or high >=90 G2 Mildly decreased 60-89 G3a Mildl y to moderately 45-5 9 G3b Moderately to s everely 30-44 G4 Severl y decreased 15-29 G5 Kidney failure <15Reported eGF R is based on the CKD-EPI 2020 equation that d oes not use a race coefficientEsti mated GFR is not as accur ate as Creatinine Ally danay in predicting glom erular filtration rate . Estimated GFR is not appl icable for dialysis patien ts Dishroom Attendant ID - MARCOPROTHROMBIN [id number] 05:31:42 Test Item Value Reference Range Interpretation Comments PROTIME (NIRAJ) 21.9 seconds 11.9-14.2 H (test code = 759) INR (NIRAJ) (test 1.97 See_Comment [Automat ed message] code = 370) The system Marak[employer] generated this result transmitted ref erence range: <=5.90. The reference range was not used to int erpret this result as normal/abnormal . RECOMMENDED COUMADIN/WARFARIN INR THERAPY RANGESSTANDARD DOSE: 2.0 - 3.0 Includes: PROPHYLAXIS for venous thrombosis, systemic embolization; TREATMENT for venous thrombosis and/or pulmonary embolus.HIGH RISK: Target INR is 2.5-3.5 for patients with mechanical heart valves.HEPATITIS B SURFACE [id number] 17:29:18 Test Item Value Reference Range Interpretation Comments HEPATITIS B SURFACE ANTIBODY < mIU/mL <8.0 (NIRAJ) (test code = 647) Dishroom Attendant ID - MATEUS ELLIOTTATITIS B CORE ANTIBODY, [id number] 17:28:42 Test Item Value Reference Range Interpretation Comments HEPATITIS B CORE TOTAL ANTIBODY Nonreactive Nonreactive (NIRAJ) (test code = 497) Dishroom Attendant ID - PIAYA LHIV-1 ANTIGEN WITH HIV-1/2 [id number] 17:28:42 Test Item Value Reference Range Interpretation Comments HIV-1 ANTIGEN WITH HIV 1\\T\\2 Nonreactive Nonreactive ANTIBODY (2) (BEAKER) (test code = 2586) Dishroom Attendant ID Amberly IGNACIO LHEPATITIS PANEL, [id number] 06:37:42 Test Item Value Reference Range Interpretation Comments HEPATITIS A IGM ANTIBODY (BEAKER) Nonreactive Nonreactive (test code = 498) HEPATITIS B CORE IGM ANTIBODY Nonreactive Nonreactive (BEAKER) (test code = 645) HEPATITIS C ANTIBODY (BEAKER) Reactive Nonreactive A (test code = 367) HEPATITIS B SURFACE ANTIGEN (2) Nonreactive Nonreactive (BEAKER) (test code = 2585) Dishroom Attendant ID Amberly IGNACIO LIMMUNOGLOBULIN G (IGG)2022-02-27 06:12:34 Test Item Value Reference Range Interpretation Comments IMMUNOGLOBULIN G (IGG) 1669 mg/dL See_Comment [Aut omated message] (BEAKER) (test code = The sy stem which 427) generated this result transmit suzanne reference range : 540-1,822. The reference range was not used to interpret this result as normal/abnormal . Dishroom Attendant ID - MATEUS [id number] 05:57:03 Test Item Value Reference Range Interpretation Comments FERRITIN (BEAKER) (test code = 39.77 ng/mL 5.00-275.00 361) Dishroom Attendant ID - MARCOBASIC METABOLIC [id number] 05:45:07 Test Item Value Reference Range Interpretation Comments SODIUM (BEAKER) 137 meq/L 136-145 (test code = 381) POTASSIUM 3.5 meq/L 3.5-5.1 (BEAKER) (test code = 379) CHLORIDE (BEAKER) 112 meq/L 98-107 H (test code = 382) CO2 (BEAKER) 18 meq/L 22-29 L (test code = 355) BLOOD UREA 9 mg/dL 7-21 NITROGEN (BEAKER) (test code = 354) CREATININE 0.75 mg/dL 0.57-1.25 (BEAKER) (test code = 358) GLUCOSE RANDOM 95 mg/dL 70-105 (BEAKER) (test code = 652) CALCIUM (BEAKER) 6.8 mg/dL 8.4-10.2 L (test code = 697) EGFR (BEAKER) 90 Interpretatio n of eGFR (test code = mL/min/1.73 values Stage De scription 1092) sq m Result G1 Sisi l or high >=90 G2 Mildly decreased 60-89 G3a Mildl y to moderately 45-5 9 G3b Moderately to s everely 30-44 G4 Severl y decreased 15-29 G5 Kidne y failure <15Reported eGF R is based on the CKD-EPI 2021 equation that d oes not use a race coefficientEsti mated GFR is not as accur ate as Creatinine Ally danay in predicting glom erular filtration rate . Estimated GFR is not appl icable for dialysis patien ts Dishroom Attendant ID - MATEUS LPROTHROMBIN [id number] 05:40:27 Test Item Value Reference Range Interpretation Comments PROTIME (BEAKER) 21.1 seconds 11.9-14.2 H (test code = 759) INR (BEAKER) (test 1.88 See_Comment [Automat ed message] code = 370) The system [employer] generated this result transmitted ref erence range: <=5.90. The reference range was not used to int erpret this result as normal/abnormal . RECOMMENDED COUMADIN/WARFARIN INR THERAPY RANGESSTANDARD DOSE: 2.0 - 3.0 Includes: PROPHYLAXIS for venous thrombosis, systemic embolization; TREATMENT for venous thrombosis and/or pulmonary embolus.HIGH RISK: Target INR is 2.5-3.5 for patients with mechanical heart valves.[id number] 05:40:04 Test Item Value Reference Range Interpretation Comments MAGNESIUM (BEAKER) (test code = 1.4 mg/dL 1.6-2.6 L 627) Dishroom Attendant ID - MATEUS [id number] 05:40:04 Test Item Value Reference Range Interpretation Comments PHOSPHORUS (BEAKER) (test code = 2.0 mg/dL 2.3-4.7 L 604) Dishroom Attendant ID - MATEUS LHEPATIC FUNCTION [id number] 05:40:04 Test Item Value Reference Range Interpretation Comments TOTAL PROTEIN (BEAKER) (test code = 5.1 gm/dL 6.0-8.3 L 770) ALBUMIN (BEAKER) (test code = 1145) 2.1 g/dL 3.5-5.0 L BILIRUBIN TOTAL (BEAKER) (test code 1.8 mg/dL 0.2-1.2 H = 377) BILIRUBIN DIRECT (BEAKER) (test 1.3 mg/dL 0.1-0.5 H code = 706) ALKALINE PHOSPHATASE (BEAKER) (test 86 U/L 40-150 code = 346) AST (SGOT) (BEAKER) (test code = 72 U/L 5-34 H 353) ALT (SGPT) (BEAKER) (test code = 26 U/L 6-55 347) Dishroom Attendant ID - MATEUS [id number] 05:38:43 Test Item Value Reference Range Interpretation Comments ALPHA-1 ANTITRYPSIN (BEAKER) 123.20 mg/dL 90.00-200.00 (test code = 502) Dishroom Attendant ID - MATEUS ELAINE, TIBC, % SAT. (WITHOUT FERRITIN)2022-02-27 05:35:36 Test Item Value Reference Range Interpretation Comments IRON (BEAKER) (test code = 547) 19.0 ug/dL 40.0-160.0 L TOTAL IRON BINDING CAPACITY 243 ug/dL 250-450 L (BEAKER) (test code = 769) IRON % SATURATION (2) (BEAKER) 8 % 20-55 L (test code = 2590) Dishroom Attendant ID - MARCOCBC W/PLT COUNT & AUTO [id number] 05:28:47 Test Item Value Reference Range Interpretation Comments WHITE BLOOD CELL COUNT (BEAKER) 2.8 K/ L 3.5-10.5 L (test code = 775) RED BLOOD CELL COUNT (BEAKER) 2.59 M/ L 3.93-5.22 L (test code = 761) HEMOGLOBIN (BEAKER) (test code = 8.3 GM/DL 11.2-15.7 L 410) HEMATOCRIT (BEAKER) (test code = 25.1 % 34.1-44.9 L 411) MEAN CORPUSCULAR VOLUME (BEAKER) 97 fL 79-95 H (test code = 753) MEAN CORPUSCULAR HEMOGLOBIN 32.0 pg 25.6-32.2 (BEAKER) (test code = 751) MEAN CORPUSCULAR HEMOGLOBIN CONC 33.1 GM/DL 32.2-35.5 (BEAKER) (test code = 752) RED CELL DISTRIBUTION WIDTH 16.4 % 11.7-14.4 H (BEAKER) (test code = 412) PLATELET COUNT (BEAKER) (test code 83 K/CU MM 150-450 L = 756) MEAN PLATELET VOLUME (BEAKER) 10.3 fL 9.4-12.3 (test code = 754) NUCLEATED RED BLOOD CELLS (BEAKER) 0 /100 WBC 0-0 (test code = 413) NEUTROPHILS RELATIVE PERCENT 51 % (BEAKER) (test code = 429) LYMPHOCYTES RELATIVE PERCENT 33 % (BEAKER) (test code = 430) MONOCYTES RELATIVE PERCENT 13 % (BEAKER) (test code = 431) EOSINOPHILS RELATIVE PERCENT 3 % (BEAKER) (test code = 432) BASOPHILS RELATIVE PERCENT 1 % (BEAKER) (test code = 437) NEUTROPHILS ABSOLUTE COUNT 1.42 K/ L 1.56-6.13 L (BEAKER) (test code = 670) LYMPHOCYTES ABSOLUTE COUNT 0.92 K/ L 1.18-3.74 L (BEAKER) (test code = 414) MONOCYTES ABSOLUTE COUNT (BEAKER) 0.35 K/ L 0.24-0.36 (test code = 415) EOSINOPHILS ABSOLUTE COUNT 0.07 K/ L 0.04-0.36 (BEAKER) (test code = 416) BASOPHILS ABSOLUTE COUNT (BEAKER) 0.02 K/ L 0.01-0.08 (test code = 417) IMMATURE GRANULOCYTES-RELATIVE 0.40 % 0.00-1.00 PERCENT (BEAKER) (test code = 2801)
[2022-06-30 20:24] LABS: Protime INR 1.92
[2022-06-30 20:25] LABS: Absolute Lymphocytes (CBC) 0.5 K/uL (0.7-4.9); Hematocrit 36.1 % (36.0-45.0); Lymphocytes % 7.3 % (15.3-44.8); MCV 100.1 fL (80-100); MPV 8.6 fL (7.6-11.3); RBC Red Blood Cell Count 3.61 M/uL (3.86-4.86)
[2022-06-30 20:33] LABS: Albumin 2.1 g/dL (3.4-5.0); Bilirubin Direct 4.3 mg/dL (0-0.2); Bilirubin Indirect, Calculated 0.9 (0.2-0.8); Bilirubin Total 5.2 mg/dL (0.2-1.0); Magnesium 2.2 mg/dL (1.6-2.4); Potassium 3.3 mEq/L (3.5-5.1); Protein, Total 6.9 g/dL (6.4-8.2); Troponin High Sensitivity 8.1 pg/mL (<58.9)
--- NOTE | 2022-06-30 21:12 | RAD REPORT ---
EXAM DESCRIPTION: RAD - Chest Single View - 06/30/2022 9:02 pm CLINICAL HISTORY: CHEST PAIN Chest pain. COMPARISON: <Comparisons> FINDINGS: Portable technique limits examination quality. The lungs are grossly clear. The heart is mildly prominent in size. No displaced fractures. IMPRESSION: No acute intrathoracic process suspected.
--- NOTE | 2022-06-30 21:13 | RAD REPORT ---
EXAM DESCRIPTION: RAD - Pelvis - 06/30/2022 9:02 pm CLINICAL HISTORY: PAIN COMPARISON: <Comparisons> FINDINGS: No fracture, dislocation or radiographic evidence of AVN. Mild osteoarthritis in both hips .
--- NOTE | 2022-06-30 21:19 | RAD REPORT ---
EXAM DESCRIPTION: CT - Head Brain Wo Cont - 06/30/2022 9:13 pm CLINICAL HISTORY: HEADACHE Headache, drowsiness, hypertension COMPARISON: <Comparisons> TECHNIQUE: All CT scans are performed using dose optimization technique as appropriate and may inclu de automated exposure control or mA/KV adjustment according to patient size. FINDINGS: No intracranial hemorrhage, hydrocephalus or extra-axial fluid collection.No areas of brai n edema or evidence of midline shift. The paranasal sinuses and mastoids are clear. The calvarium is intact. IMPRESSION: No acute intracranial abnormality.
--- NOTE | 2022-06-30 21:22 | RAD REPORT ---
EXAM DESCRIPTION: CT - Head angio - 06/30/2022 9:16 pm CLINICAL HISTORY: HEADACHE Headache, drowsiness COMPARISON: <Comparisons> TECHNIQUE: CT angiography of the head was performed with MIPs. All CT scans are performed using dose optimization technique as appropriate and may include automated exposure control or mA/KV adjustment according to patient size. FINDINGS: No evidence of large vessel occlusion. No evidence of aneurysm is detected. No flow-limiti ng stenosis or vascular malformation identified. Antegrade flow is seen in the vertebral arteries. The vertebral arteries are codominant. The visualized dural venous sinuses are patent. IMPRESSION: No significant flow abnormality is detected.
--- NOTE | 2022-06-30 21:26 | RAD REPORT ---
EXAM DESCRIPTION: CT - Neck Angio - 06/30/2022 9:16 pm CLINICAL HISTORY: HEADACHE Headache, drowsiness COMPARISON: <Comparisons> TECHNIQUE: CT angiography of the neck vessels was performed with MIPs. All CT scans are performed using dose optimization technique as appropriate and may include automated exposure control or mA/KV adjustment according to patient size. FINDINGS: A left aortic arch is identified with normal three vessel configuration of the great vesse ls. No significant flow abnormality is seen of the common carotid bilaterally. There is a large 11 mm heavily calcified plaque is present left carotid bulb. This results in 50-60% stenosis. The left carotid system shows no significant stenosis. Normal flow is seen within both vertebral arteries. IMPRESSION: There is a large heavily calcified plaque left carotid bulb. This results in moderate st enosis likely 50-60% based on NASCET criteria. NASCET criteria used. Mild 0-49% stenosis Moderate 50-69% stenosis Severe 70-99% stenosis
[2022-06-30 22:16] LABS: Specific Gravity > 1.030 (1.005-1.030); Urine Bacteria 20-50 /HPF (<20); Urine Bilirubin NEGATIVE (Negative); Urine Blood Trace (Negative); Urine Clarity Clear (Clear); Urine Color Yellow (Yellow); Urine Glucose NEGATIVE (Negative); Urine Mucus Slight /HPF (None Seen); Urine Protein TRACE (Negative); Urine RBC 21-50 /HPF (None Seen); Urine Urobilinogen Normal (Normal); Urine pH 6.5 (5.0-7.0)
[2022-07-01] MEDS ORDERED: NA CHLORIDE 0.9% 1,000 ML ONE ×2 (02:01→04:10)
--- NOTE | 2022-07-01 02:46 | ER ---
Nurse's Notes [facility] Name: Sophia Joya Age: 62 yrs Sex: Female : 1960 Arrival Date: 06/30/2022 Time: 18:43 Bed 16 Private MD: Diagnosis: Hepatic failure, unspecified without coma;UTI/ Urinary tract infection, site not specified;Other cholelithiasis without obstruction;Ileus, unspecified;Hypokalemia;Unspecified kidney failure Presentation: 06/30 19:10 Chief complaint: Patient states: "I have a horrible headache. I don't know if it's my as6 blood pressure or what. I also think I may be dehydrated and when I eat I get chest pain". Coronavirus screen: At this time, the client does not indicate any symptoms associated with coronavirus-19. Ebola Screen: No symptoms or risks identified at this time. Initial Sepsis Screen: Does the patient meet any 2 criteria? No. Patient's initial sepsis screen is negative. Does the patient have a suspected source of infection? No. Patient's initial sepsis screen is negative. Risk Assessment: Do you want to hurt yourself or someone else? Patient reports no desire to harm self or others. Onset of symptoms was June 25, 2022. 19:10 Method Of Arrival: Ambulatory as6 19:10 Acuity: MARY 3 as6 Triage Assessment: 19:11 General: Appears in no apparent distress. comfortable, Behavior is calm, cooperative. as6 Pain: Complains of pain in head Quality of pain is described as aching. Historical: - Allergies: 19:11 Amoxicillin; as6 19:11 Codeine; as6 19:11 PENICILLINS; as6 - PMHx: 19:11 Hypertension; as6 - PSHx: 19:11 Ligation of fallopian tube; wrist; as6 - Immunization history:: Client reports receiving the 2nd dose of the Covid vaccine, moderna. - Social history:: Smoking status: Patient denies any tobacco usage or history of. Screenin:41 [facility] ED Fall Risk Assessment (Adult) History of falling in the last 3 months, mb9 including since admission No falls in past 3 months (0 pts) Confusion or Disorientation No (0 pts) Intoxicated or Sedated No (0 pts) Impaired Gait No (0 pts) Mobility Assist Device Used No (0 pt) Altered Elimination No (0 pt) Score/Fall Risk Level 0 - 2 = Low Risk Oriented to surroundings, Maintained a safe environment, Educated pt \\T\\ family on fall prevention, incl call for assistance when getting out of bed. Abuse screen: Denies threats or abuse. Nutritional screening: No deficits noted. Tuberculosis screening: No symptoms or risk factors identified. Assessment: 19:39 General: Appears in no apparent distress. Behavior is calm, cooperative, appropriate mb9 for age. Pain: Complains of pain in head, back, stomach Pain does not radiate. Quality of pain is described as throbbing. Neuro: Level of Consciousness is awake, alert, obeys commands, Oriented to person, place, time, situation, Appropriate for age. Cardiovascular: Patient's skin is warm and dry. Respiratory: Airway is patent Respiratory effort is even, unlabored, Respiratory pattern is regular, symmetrical. GI: Abdomen is round non-distended, Bowel sounds present X 4 quads. Abd is soft and non tender X 4 quads. pt states pain in stomach only occurs after eating spicy food. Derm: Skin is pink, warm \\T\\ dry. Musculoskeletal: Range of motion: intact in all extremities, Reports pain in back since "mowing the yard". 07/01 00:53 Reassessment: Patient appears in no apparent distress at this time. as6 02:04 Reassessment: Patient appears in no apparent distress at this time. Patient and/or as6 family updated on plan of care and expected duration. Pain level reassessed. Patient is alert, oriented x 3, equal unlabored respirations, skin warm/dry/pink. 02:21 General: antibiotic administration pending blood culture draw . as6 Vital Signs: 06/30 19:10 BP 145 / 74; Pulse 73; Resp 18 S; Temp 97.8(O); Pulse Ox 97% on R/A; Weight 56.7 kg as6 (R); Height 4 ft. 11 in. (R); Pain 10/; 19:41 BP 157 / 78; Pulse 78; Resp 16; Pulse Ox 98% on R/A; mb9 22:45 BP 115 / 67; Pulse 64; Resp 17; Pulse Ox 99% on R/A; mb9 07/01 00:53 BP 95 / 54; Pulse 75; Resp 18 S; Pulse Ox 97% on R/A; as6 02:04 Pulse 73; Resp 18 S; Pulse Ox 100% on R/A; as6 02:05 BP 102 / 56; as6 03:08 BP 107 / 69; Pulse 80; Resp 18 S; Pulse Ox 99% on R/A; as6 03:47 Temp 97.9(TE); as6 04:52 BP 95 / 71; Pulse 74; Resp 18 S; Pulse Ox 100% on R/A; as6 06/30 19:10 Body Mass Index 25.25 (56.70 kg, 149.86 cm) as6 06/30 19:10 Pain Scale: Adult as6 ED Course: 06/30 18:47 Patient arrived in ED. mr 19:11 Triage completed. as6 19:13 Arm band placed on. as6 19:22 Ruchi Amanda, RN is Primary Nurse. mb9 19:29 Placed in gown. Bed in low position. Call light in reach. Side rails up X 1. Client mb9 placed on continuous cardiac and pulse oximetry monitoring. NIBP monitoring applied. surveillance monitor on. 19:29 No provider procedures requiring assistance completed. mb9 19:41 Jason Sr PA is PHCP. cp 19:41 Darshan Duvall MD is Attending Physician. cp 20:08 Basic Metabolic Panel Sent. mb9 20:08 CBC with Diff Sent. mb9 20:08 LFT's Sent. mb9 20:09 Magnesium Sent. mb9 21:02 Inserted saline lock: 20 gauge in right antecubital area, using aseptic technique. ll3 21:04 XRAY Chest (1 view) In Process Unspecified. EDMS 21:04 XRAY Pelvis In Process Unspecified. EDMS 21:15 CT Head Brain wo Cont In Process Unspecified. EDMS 21:18 CT Head Angio In Process Unspecified. EDMS 21:18 CT Neck Angio In Process Unspecified. EDMS 22:03 Urinalysis W/Microscopic Sent. mb9 07/01 00:58 US Abdomen Limited In Process Unspecified. EDMS 01:34 CT Abd/Pelvis - Without Contrast In Process Unspecified. EDMS 02:01 Jason Rudd MD is Attending Physician. cp 03:37 Inserted saline lock: 22 gauge in left antecubital area, using aseptic technique. oe 04:56 Patient admitted, IV remains in place. as6 Administered Medications: 00:44 Drug: fentaNYL (PF) IVP 25 mcg Route: IVP; Site: right antecubital; as6 05:22 Follow up: Response: No adverse reaction as6 02:03 Drug: NS 0.9% IV 1000 ml Route: IV; Rate: 1 bolus; Site: right antecubital; as6 05:22 Follow up: Response: No adverse reaction; IV Status: Completed infusion; IV Intake: as6 1000ml 03:45 Drug: Rocephin IV 1 grams Route: IV; Rate: calculated rate; Site: right antecubital; as6 05:21 Follow up: Response: No adverse reaction; IV Status: Completed infusion; IV Intake: [id number] 04:10 Drug: levofloxacin IVPB 500 mg Volume: 100 ml; Route: IVPB; Infused Over: 60 mins; as6 Site: right antecubital; 05:21 Follow up: Response: No adverse reaction; IV Status: Completed infusion; IV Intake: as6 100ml 04:10 Drug: NS 0.9% IV 1000 ml Route: IV; Rate: 1 bolus; Site: right antecubital; as6 05:21 Follow up: Response: No adverse reaction; IV Status: Completed infusion; IV Intake: as6 1000ml Medication: 06/30 19:29 VIS not applicable for this client. mb9 Intake: 05 05:21 IV: 1000ml; Total: 1000ml. as6 05:21 IV: 100ml; Total: 1100ml. as6 05:21 IV: 50ml; Total: 1150ml. as6 05:22 IV: 1000ml; Total: 2150ml. as6 Outcome: 02:45 ER care complete, transfer ordered by . david 04:55 Transferred by ground EMS Transfer form completed. X-rays sent w/ patient. as6 04:55 Condition: stable 04:55 Instructed on the need for transfer. 06:31 Patient left the ED. as6 Signatures: Dispatcher [employer] Ruchi Estrada Corey, PA PA cp Espinosa, Orlando oe Slawson, Ashby, RN RN as6 Jeremy Montez RN RN ll3 Ruchi Amanda, RN RN mb9
--- NOTE | 2022-07-01 02:46 | EDPHYS ---
Physician Documentation [facility] Name: Sophia Joya Age: 62 yrs Sex: Female : 1960 Arrival Date: 06/30/2022 Time: 18:43 Bed 16 Private MD: THUY Physician Jason Rudd HPI: 06/30 20:05 This 62 yrs old Female presents to ER via Ambulatory with complaints of cp Abdominal Pain, Headache, Nausea. 20:05 The patient complains of pain to the top of head and forehead. The patient describes cp the headache as aching, constant. 20:05 Onset: The symptoms/episode began/occurred 4 day(s) ago. cp Historical: - Allergies: 19:11 Amoxicillin; as6 19:11 Codeine; as6 19:11 PENICILLINS; as6 - PMHx: 19:11 Hypertension; as6 - PSHx: 19:11 Ligation of fallopian tube; wrist; as6 - Immunization history:: Client reports receiving the 2nd dose of the Covid vaccine, moderna. - Social history:: Smoking status: Patient denies any tobacco usage or history of. ROS: 20:10 Constitutional: Negative for body aches, chills, fever, poor PO intake. cp 20:10 Eyes: Negative for injury, pain, redness, and discharge. cp 20:10 ENT: Negative for drainage from ear(s), ear pain, sore throat, difficulty swallowing, difficulty handling secretions. 20:10 Cardiovascular: Negative for chest pain, edema, palpitations. 20:10 Respiratory: Negative for cough, shortness of breath, wheezing. 20:10 Abdomen/GI: Positive for nausea, epigastric pain when eating, Negative for diarrhea, constipation. 20:10 : Negative for urinary symptoms. 20:10 Neuro: Positive for headache, Negative for altered mental status, weakness. 20:10 All other systems are negative. Exam: 20:15 Constitutional: The patient appears in no acute distress, alert, awake, cp non-diaphoretic, non-toxic, well developed, well nourished. 20:15 Head/Face: Normocephalic, atraumatic. cp 20:15 Eyes: Periorbital structures: appear normal, Pupils: equal, round, and reactive to cp light and accomodation, Extraocular movements: intact throughout, Sclera: icterus, is present, Lids and lashes: appear normal, bilaterally. 20:15 ENT: External ear(s): are unremarkable, Nose: is normal, Mouth: Lips: moist, Oral cp mucosa: pink and intact, moist, Posterior pharynx: is normal, airway is patent, no erythema, no exudate. 20:15 Neck: ROM/movement: is normal, is supple, without pain, no range of motions limitations, no meningismus, no nuchal rigidity. 20:15 Chest/axilla: Inspection: normal. 20:15 Cardiovascular: Rate: normal, Rhythm: regular, Edema: is not appreciated, JVD: is not appreciated. 20:15 Respiratory: the patient does not display signs of respiratory distress, Respirations: normal, no use of accessory muscles, no retractions, labored breathing, is not present, Breath sounds: are clear throughout, no decreased breath sounds, no stridor, no wheezing. 20:15 Abdomen/GI: Inspection: abdomen appears normal, Bowel sounds: active, all quadrants, Palpation: abdomen is soft and non-tender, in all quadrants. 20:15 Back: CVA tenderness, is absent. 20:15 Skin: Appearance: Color: jaundiced. 20:15 Neuro: Orientation: to person, place \T\ time. Mentation: is normal, Cerebellar function: is grossly normal, Motor: moves all fours, strength is normal, Sensation: is normal. 20:40 ECG was reviewed by the Attending Physician. cp Vital Signs: 19:10 BP 145 / 74; Pulse 73; Resp 18 S; Temp 97.8(O); Pulse Ox 97% on R/A; Weight 56.7 kg as6 (R); Height 4 ft. 11 in. (R); Pain 10/10; 19:41 BP 157 / 78; Pulse 78; Resp 16; Pulse Ox 98% on R/A; mb9 22:45 BP 115 / 67; Pulse 64; Resp 17; Pulse Ox 99% on R/A; mb9 05/11 00:53 BP 95 / 54; Pulse 75; Resp 18 S; Pulse Ox 97% on R/A; as6 02:04 Pulse 73; Resp 18 S; Pulse Ox 100% on R/A; as6 02:05 BP 102 / 56; as6 03:08 BP 107 / 69; Pulse 80; Resp 18 S; Pulse Ox 99% on R/A; as6 03:47 Temp 97.9(TE); as6 04:52 BP 95 / 71; Pulse 74; Resp 18 S; Pulse Ox 100% on R/A; as6 06/30 19:10 Body Mass Index 25.25 (56.70 kg, 149.86 cm) 6 06/30 19:10 Pain Scale: Adult [facility] MDM: 06/30 19:42 Patient medically screened. 20:00 Differential diagnosis: hyponatremia, intracerebral hemorrhage, meningitis, cp meningoencephalitis, migraine, neoplasm, subarachnoid bleed, tension headache, cholecystitis, Cholelithiasis, pancreatitis. 07/01 02:00 Data reviewed: vital signs, nurses notes, lab test result(s), EKG, radiologic studies, CT scan, plain films, ultrasound. 02:00 I considered the following discharge prescriptions or medication management in the emergency department Medications were administered in the Emergency Department. See APR. 02:26 ED course: attempt to contact DR Gee, no answer. Discussed case with DR Rudd who recommends transfer. 06/30 18:59 Order name: Basic Metabolic Panel; Complete Time: 00:07 07/01 00:07 Interpretation: Normal except: K 3.3; CL 112; BUN 36; CRE 1.47; GFR 40; CA 7.7. 06/30 18:59 Order name: CBC with Diff; Complete Time: 00:07 07/01 02:01 Interpretation: Normal except: RBC 3.61; MCV 100.1; PLT 88; RDW 17.3; KAY% 82.6; LYM% cp 7.3; LYMA 0.5. 06/3059 Order name: LFT's; Complete Time: 00:07 07/01 02:02 Interpretation: Normal except: AST 50; ALK 128; BILIT 5.2; BILID 4.3; IBILI, CALC 0.9; cp ALB 2.1; GLOB 4.8; A/G 0.4. 06/30 18:59 Order name: Magnesium; Complete Time: 00:07 06/30 18:59 Order name: PT-INR; Complete Time: 00:07 07/01 02:02 Interpretation: Abnormal: PT 21.1. 05/10 19:59 Order name: Troponin HS; Complete Time: 00:07 cp 06/30 19:59 Order name: Urinalysis W/Microscopic; Complete Time: 00:07 cp 06/30 22:30 Order name: Urine Culture EDMS 07/01 02:03 Order name: Blood Culture Adult (2) cp 07/01 02:03 Order name: Lactate w/ 2H reflex if indic.; Complete Time: 03:49 cp 07/01 02:03 Order name: AMMONIA; Complete Time: 03:49 cp 07/01 03:58 Order name: Lactate w/ 2H reflex if indic. mary 06/30 19:59 Order name: XRAY Chest (1 view); Complete Time: 00:07 cp 06/30 19:59 Order name: CT Head Brain wo Cont; Complete Time: 00:07 cp 06/30 19:59 Order name: CT Head Angio; Complete Time: 00:07 cp 06/30 19:59 Order name: CT Neck Angio; Complete Time: 00:07 cp 06/30 19:59 Order name: XRAY Pelvis; Complete Time: 00:07 cp 07/01 00:12 Order name: CT Abd/Pelvis - Without Contrast 07/01 00:12 Order name: US Abdomen Limited cp 06/30 19:59 Order name: EKG; Complete Time: 20:00 cp 06/30 19:59 Order name: Cardiac monitoring; Complete Time: 20:49 cp 06/30 19:59 Order name: EKG - Nurse/Tech; Complete Time: 20:49 cp 06/30 19:59 Order name: IV Saline Lock; Complete Time: 20:49 cp 06/30 19:59 Order name: Labs collected and sent; Complete Time: 20:49 cp 06/30 19:59 Order name: O2 Per Protocol; Complete Time: 20:08 cp 06/30 19:59 Order name: O2 Sat Monitoring; Complete Time: 20:08 cp EC/10 20:40 Rate is 65 beats/min. Rhythm is regular. CO interval is normal. QRS interval is normal. cp QT interval is normal. T waves are Inverted in lead aVR. Interpreted by me. Reviewed by me. Administered Medications: 07/01 00:44 Drug: fentaNYL (PF) IVP 25 mcg Route: IVP; Site: right antecubital; as6 05:22 Follow up: Response: No adverse reaction as6 02:03 Drug: NS 0.9% IV 1000 ml Route: IV; Rate: 1 bolus; Site: right antecubital; as6 05:22 Follow up: Response: No adverse reaction; IV Status: Completed infusion; IV Intake: as6 1000ml 03:45 Drug: Rocephin IV 1 grams Route: IV; Rate: calculated rate; Site: right antecubital; as6 05:21 Follow up: Response: No adverse reaction; IV Status: Completed infusion; IV Intake: [id number] 04:10 Drug: levofloxacin IVPB 500 mg Volume: 100 ml; Route: IVPB; Infused Over: 60 mins; as6 Site: right antecubital; 05:21 Follow up: Response: No adverse reaction; IV Status: Completed infusion; IV Intake: as6 100ml 04:10 Drug: NS 0.9% IV 1000 ml Route: IV; Rate: 1 bolus; Site: right antecubital; as6 05:21 Follow up: Response: No adverse reaction; IV Status: Completed infusion; IV Intake: as6 1000ml Disposition: 03:57 Co-signature as Attending Physician, Jason Rudd MD I agree with the assessment and mary plan of care. Disposition Summary: 07/01/22 02:45 Transfer Ordered Transfer Location: [facility] cp Reason: Higher level of care cp Condition: Stable cp Problem: new cp Symptoms: have improved cp Accepting Physician: Doctor miller(07/01/22 06:31) as6 Diagnosis - Hepatic failure, unspecified without coma cp - UTI/ Urinary tract infection, site not specified cp - Other cholelithiasis without obstruction cp - Ileus, unspecified cp - Hypokalemia mary - Unspecified kidney failure mary Forms: - Medication Reconciliation Form cp - SBAR form cp Signatures: Dispatcher [employer] Jason Langston MD MD cha Page, Corey, PA PA cp Slawson, Ashby, RN RN as6 Corrections: (The following items were deleted from the chart) 02:45 02:45 Doctor david cp 03:57 02:45 Doctor david mary 03:59 03:57 Doctor angela hernandez mary 04:01 03:59 Doctor angela hernandez mary 06:31 04:01 Doctor angela hernandez as6
[2022-07-01] MEDS ORDERED: CEFTRIAXONE 1000 MG/VIAL ONE (03:19)
[2022-07-01] MEDS ORDERED: NA CHLORIDE 0.9% 50 ML ONE (03:19)
[2022-07-01] MEDS ORDERED: Levofloxacin500mg IV 500 MG/100 ML BAG IV ONE (04:10)
[2022-07-01 07:05] VITALS: TEMP 97.9
[2022-07-01 07:06] VITALS: BP 95/71; O2SAT 100
--- NOTE | 2022-07-01 14:27 | EKG ---
Test Date: 2022-06-30 Test Time: 20:32:49 [place]: DELONTE MEASUREMENT RESULTS: Intervals: Rate: 64 WY: 130 QRSD: 88 QT: 460 QTc: 474 [place]: P: 54 WY: 130 QRS: 79 T: 62 INTERPRETIVE STATEMENTS: Sinus rhythm with premature supraventricular complexes Otherwise normal ECG Compared to ECG 02/24/2022 09:12:17 Atrial premature complex(es) now present Electronically Signed On 07-01-22 14:25:54 CDT by Omid Bautista
--- NOTE | 2022-07-01 17:02 | RAD REPORT ---
EXAM DESCRIPTION: US - Abdomen Exam Limited - 07/01/2022 12:57 am CLINICAL HISTORY: The patient is 62 years old and is Female; elevated liver enzymes [facility] MAIN TECHNIQUE: Real-time ultrasound of the right upper quadrant with image documentation. COMPARISON: No relevant prior studies available. FINDINGS: LIVER: Nodular appearance of the hepatic margins with heterogenous parenchyma suggesting hepatic cirrhosis. Hepatopetal portal venous flow. No intrahepatic bile duct dilation. GALLBLADDER: Posterior shadowing stone noted in the gallbladder neck. Mild wall thickening and trac e pericholecystic edema. COMMON BILE DUCT: Unremarkable as visualized. No stones. No dilation. Common bile duct measures 0.6 cm in diameter. PANCREAS: Pancreas is nonvisualized due to bowel gas. RIGHT KIDNEY: Incompletely evaluated. IMPRESSION: 1. Cholelithiasis with equivocal findings of acute cholecystitis. If clinical presenta tion is equivocal, confirmation for acute cholecystitis, or evaluation for chronic cholecystitis, cou ld be performed via HIDA scan. 2. Hepatic cirrhosis. Electronically signed by: Zhou Chacko MD 07/01/2022 1:10 AM CDT Due to temporary technical issues with the PACS/Fluency reporting system, reports are being signed by the in house radiologists without review as a courtesy to insure prompt reporting. The interpreting radiologist is fully responsible for the content of the report.
--- NOTE | 2022-07-01 17:04 | RAD REPORT ---
EXAM DESCRIPTION: CT - Abdomen Pelvis Wo Contrast - 07/01/2022 7:02 am Abdomen Pelvis Wo Contrast CLINICAL HISTORY: Elevated liver enzymes TECHNIQUE: Contiguous axial images obtained through the abdomen and pelvis without IV contrast. Sagi ttal and coronal reformatted images were provided. This exam was performed according to our departmental dose-optimization program, which includes autom ated exposure control, adjustment of the mA and/or kV according to patient size and/or use of iterati ve reconstruction technique. COMPARISON: February 21 FINDINGS: Lung bases: Clear Liver: Cirrhotic liver morphology again noted. No focal hepatic parenchymal abnormality identified. Gallbladder and biliary system: Large gallstone. Pancreas: Unremarkable Spleen: Unremarkable Adrenals: Unremarkable Kidneys: There is residual intravenous contrast from a prior CTA of head and neck. There is normal cortical enhancement of the right kidney. There is an striated nephrogram on the left, which may be seen with pyelonephritis. Clinical correlat ion recommended. No obstructive uropathy. Gl: Mildly distended fluid-filled segments of small bowel with scattered air-fluid levels which may r epresent enteritis and ileus. No high-grade small bowel obstruction. Appendix: No findings to suggest acute appendicitis. Urinary bladder: Dense contrast in the urinary bladder. Reproductive: Unremarkable as visualized Lymph nodes: No pathologically enlarged lymph nodes. Peritoneum: No focal fluid collection. No free air. Vessels: No abdominal aortic aneurysm. Prominent enlarged portosystemic collaterals, consistent with portal hypertension. Abdominal wall: Unremarkable Bones: UnremarkableNo acute bony pathology IMPRESSION: 1. Cirrhotic liver morphology again noted. No focal hepatic parenchymal abnormality id entified. 2. Prominent enlarged portosystemic collaterals, consistent with portal hypertension. 3. Mildly distended fluid-filled segments of small bowel with scattered air-fluid levels which may represent enteritis and ileus. No high-grade small bowel obstruction. 4. Striated nephrogram on the left, which may be seen with pyelonephritis. 5. Cholelithiasis. Electronically signed by: Macho Miller MD 07/01/2022 1:56 AM CDT Due to temporary technical issues with the PACS/Fluency reporting system, reports are being signed by the in house radiologists without review as a courtesy to insure prompt reporting. The interpreting radiologist is fully responsible for the content of the report.
== END 2022-07-01 06:31 | disposition short-term general hospital (02) ==
LOC: ER 18:43
DX: K72.90 Hepatic failure, unspecified without coma (principal); N39.0 Urinary tract infection, site not specified; K80.80 Other cholelithiasis without obstruction; E87.6 Hypokalemia; K56.7 Ileus, unspecified; N19 Unspecified kidney failure
CPT/HCPCS: 36415; 70450; 70496; 70498; 71045; 72170; 74176; 76705; 80048; 80076; 81001; 82140; 83605; 83735; 84484; 85025; 85610; 87040; 87086; 87088; 87205; 93005; J0696; J7030; Q9967

== ENCOUNTER 2022-09-18 09:57 | Emergency (ER) | payer OTHER ==
--- OUTSIDE RECORDS SUMMARY | 2022-09-18 10:03 | XMS REPORT | Continuity of Care Document ---
:1960 Author Organization [facility] t Address [address] [place] [address] [place] [address] Care Team Providers Name Role Phone DENICE RODRIGUEZ Attending Clinician Unavailable SHIRLENE HDEZ Attending Clinician Unavailable MECHE ROBLES Attending Clinician Unavailable PROVIDER, LISA Attending Clinician Unavailable JERROD PARKS Attending Clinician Unavailable Dereje Maldonado MA Attending Clinician Unavailable Heide JOE, Liane Attending Clinician Smitha JOE, Robert Hagen Attending Clinician Maricarmen Michaels MD Attending Clinician ROBERT TOBAR Attending Clinician Unavailable Mackenzie Chicas MD Attending Clinician Fernando Cole Attending Clinician Ana Lilia Doll MD Attending Clinician [phone] NIK AYALA Admitting Clinician Unavailable DENICE RODRIGUEZ Admitting Clinician Unavailable MARICARMEN MICHAELS Admitting Clinician Unavailable Payers Payer Name Policy Type Policy Number Effective Date Expiration Date S yamel RODRIGUEZ MP CVS 9 [id number] 2022 SILVER 2: KELLIE HMO 00:00: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 OP [id number] 2022 2022 DIAGNSTC IMGING 00:00:00 00:00:00 KUSHAL RODRIGUEZ HMO POS [id number] 2022 QPOS 00:00:00 Problems Condition Condition Condition Status Onset Resolution [...] CODEINE Allergy Active Low Rash [facility] [address] [place] PENICILL Allergy Active Low Rash [facility] [place] Codeine Drug Active Rash [facility] [place] Penicill Drug Active Rash [facility] [place] Social History Social Habit Start Date Stop Date Quantity Comments Source History of Current smoker [facility] tobacco use [facility] Tobacco use and 2022-02-28 2022-02-28 Smokeless tobacco [facility]00:00 non-user [facility] Alcohol Comment 2022-02-27 2022-02-27 quit drinking [address] [facility] 00:00:00 00:00:00 weeks ago [facility] Sex Assigned At [address] 00:00:00 00:00:[address] [facility] Smoking Status Start Date Stop Date Source Ex-smoker 2022-02-28 00:00:00 2022-02-28 00:00:[address] [facility] Medications Ordered Filled Start Stop Current Ordering [...] [facility] (XALATAN) 03-01 glaucoma drop into L ukes 0.005 % 11:22: both eyes Medic al [...] (40 mg total) daily for 124 days. ferrous No 325mg Take [address] sulfate 325 03-01 tablet [facility] (65 FE) MG 00:00: 23:59 (325 mg Med ical tablet 00 :00 total) by Center mouth every other day for 90 days. lactulose 2022- No 10g Q.5D Take [address] (CHRONULAC) 03-01 mLs (10 g Cathryn kes 10 gram/15 00:00: 23:59 total) by M edical mL solution 00 :00 mouth 2 Cente r (two) times daily for 90 days Goal is 2-3 large bowel movements. If not having enough, can increase to 3 times a day. If having too many, cut it back to once a day.. propranoloL 2022-2022- No 10mg Q.5D Take [address] (INDERAL) 03-01 tablet (10 Lesia es 10 MG 00:00: 23:59 mg total) Medica l tablet 00 :00 by mouth 2 Center (two) times daily for 90 days. ciprofloxac 2022- No 500mg Q.5D Take [address] in HCl 03-01 tablet [facility] (CIPRO) 500 00:00: 23:59 (500 mg Me dical MG tablet 00 :00 total) by Cente r mouth 2 (two) times daily for 5 days. vancomycin 250mg Q.25D Take [address] [facility] [address] 250 mg/5 mL 03-01 (250 mg Luke s Syrg 00:00: 23:59 total) by Medical 00 :00 mouth 4 Center (four) times daily for 3 days. Vital Signs Vital Name Observation Time Observation Value Comments Source HEIGHT 2022-02-27 02:44:08 149.9 cm WEIGHT 2022-02-27 02:44:08 65.545 kg HEIGHT 2022-02-27 02:44:08 149.9 cm WEIGHT 2022-02-27 02:44:08 65.545 kg Heart rate 2022-03-01 07:59:42 75 /min [facility] Oxygen saturation in 2022-03-01 07:59:42 96 /min [facility] Arterial blood by Medical Ce nter Pulse oximetry Systolic blood 2022-03-01 07:58:45 149 mm[Hg] [facility] Diastolic blood 2022-03-01 07:58:45 87 mm[Hg] [facility] Body temperature 2022-03-01 07:57:44 36.94 Joanne [facility] Respiratory rate 2022-03-01 07:57:44 18 /min [facility] Body height 2022-02-27 02:44:08 149.9 cm [facility] Body weight 2022-02-27 02:44:08 65.545 kg [facility] BMI 2022-02-27 02:44:08 29.19 kg/m2 [facility] Procedures Procedure Date / Time Performing Clinician Source Performed POCT-GLUCOSE METER 2022-03-01 08:01:00 Robert Tobar [facility] CBC (HEMOGRAM ONLY) 2022-03-01 05:08:00 Robert Tobar [facility] COMPREHENSIVE METABOLIC 2022-03-01 05:08:00 Robert Tobar [facility] HEMOGLOBIN AND HEMATOCRIT 2022-02-28 17:25:00 Robert Tobar [facility] HEPATITIS A ANTIBODY, IGG 2022-02-28 12:39:00 Meño Campos CH, I [facility] REPORT OF PROCEDURE - 2022-02-28 11:26:[facility] TISSUE EXAM 2022-02-28 11:03[facility] TRACT, 2022-02-28 10:00:00 Sharmila [facility] WITH BIOPSY [facility] EGD, WITH VARICEAL BANDING 2022-02-28 10:00:00 Sharmila [facility] CBC (HEMOGRAM ONLY) 2022-02-28 04:56:00 Smitha [facility] COMPREHENSIVE METABOLIC 2022-02-28 04:56:00 Smitha [facility] PROTHROMBIN TIME/INR 2022-02-28 04:56:00 Smitha [facility] PHOSPHATIDYLETHANOL, BLOOD 2022-02-28 04:56:00 Meño Campos [facility] HEPATITIS C GENOTYPE 2022-02-28 04:56:00 Meño Campos [facility] ANTI-NUCLEAR ANTIBODY 2022-02-27 16:10:00 Maricarmen Michaels [facility] (DILAN) [facility] HEPATITIS B SURFACE 2022-02-27 16:10:00 Meño Campos [facility] HC LAB HIV-1 AG W/HIV-1&2 2022-02-27 16:10:00 Meño Campos CH, I [facility] AB [facility] HEPATITIS B CORE ANTIBODY, 2022-02-27 16:10:00 Meño Campos [facility] TOTAL [facility] ABORH, MANUAL 2022-02-27 04:52:00 Aydee Clark [facility] ACTIN (SMOOTH MUSCLE) 2022-02-27 04:40:00 [facility] [id number]\\, 2022-02-27 04:40:00 Maricarmen Michaels [facility] ANTI-MITOCHONDRIAL AB, 2022-02-27 04:40:00 Maricarmen Michaels [facility] TO [facility] CERULOPLASMIN 2022-02-27 04:40:[address] [facility] FERRITIN 2022-02-27 04:40:[address] [facility] HEPATITIS PANEL, ACUTE 2022-02-27 04:40:00 Maricarmen Michaels [facility] IMMUNOGLOBULIN G (IGG) 2022-02-27 04:40:00 Maricarmen Michaels [facility] IRON, TIBC, % SAT. 2022-02-27 04:40:00 Maricarmen Michaels [facility] (WITHOUT FERRITIN) [facility] HEPATITIS C PCR, 2022-02-27 04:40:00 Maricarmen Michaels [facility] PROTHROMBIN TIME/INR 2022-02-27 04:40:00 Maricarmen Michaels [facility] MITOCHONDRIAL AB SCREEN 2022-02-27 04:40:00 Maricarmen Michaels [facility] MITOCHONDRIAL AB TITER 2022-02-27 04:40:00 Maricarmen Michaels CH [facility] CBC W/PLT COUNT & AUTO 2022-02-27 04:39:00 Maricarmen Michaels [facility] BASIC METABOLIC PANEL 2022-02-27 04:39:00 Maricarmen Michaels [facility] HEPATIC FUNCTION PANEL 2022-02-27 04:39:00 Maricarmen Michaels CH [facility] MAGNESIUM 2022-02-27 04:39:[address] [facility] PHOSPHORUS 2022-02-27 04:39:[address] [facility] CBC W/PLT COUNT & AUTO 2022-02-27 04:39:00 Maricarmen Michaels [facility] TYPE AND SCREEN, AUTOMATED 2022-02-27 04:39:00 Maricarmen Michaels [facility] Plan of Care Planned Activity Planned Date Details Comments Source Future Scheduled 2023-02-[address] [facility] Test 00:00:00 Counseling and Medical Cente r Screening (12+) [code = Tobacco Cessation Counseling and Screening (12+)] Future Scheduled 2022-10-[address] [facility] Test 00:00:00 (Season Ended) [code = Medic al Center INFLUENZA VACCINE (Season Ended)] Future Scheduled 2022-02-[address] [facility] Test 00:00:00 (12+) [code = Medical Center DEPRESSION SCREENING (12+)] Future Scheduled 2010-02-05 SHINGLES VACCINES ([address] [facility] Test 00:00:00 2) [code = SHINGLES Medical Center VACCINES (1 of 2)] Future Scheduled 2005-02-05 Lipid panel (procedure) [facility] Test 00:00:00 [code = 95097826] Medical Ce nter Future Scheduled 1981-02-05 Screening for malignant [facility] Test 00:00:00 neoplasm of cervix Medical C enter (procedure) [code = 496661616] Future Scheduled 1979-02-05 DTAP/TDAP/TD VACCINES CH I [...] breast Medical C enter (procedure) [code = 650284449] Future Scheduled 1960 CT Colonography (combo) [facility] Test 00:00:00 [code = CT Colonography [facility] (combo)] Future Scheduled 1960 Screening for malignant [facility] Test 00:00:00 neoplasm of colon Medical Ce nter (procedure) [code = 976427690] Future Scheduled 1960 Screening for malignant [facility] Test 00:00:00 neoplasm of colon Medical Ce nter (procedure) [code = 240947365] Future Scheduled 1960 Screening for malignant [facility] Test 00:00:00 neoplasm of colon Medical Ce nter (procedure) [code = 259460883] Future Scheduled 1960 Screening for malignant [facility] Test 00:00:00 neoplasm of colon Medical Ce nter (procedure) [code = 652131113] Future Scheduled 1960 Sigmoidoscopy [code = [facility] 00:[facility] Sigmoidoscopy] Medical Cente r Encounters Start End Encounter Admission Attending Care Care Encounter Source Date/Time Date/Time Type Type Clinicians Facility Department ID 2022-02-22 Inpatient ER [facility] Medical ICU [id number] 17:16:28 [facility] 2022-08-06 2022-08-06 Outpatient AMARIS CHOUDHURY [id number] Amaris 14:00:00 14:00:00 Seybol d 2022-07-16 2022-07-16 [facility] [id number] SLE 00:00:00 00:00:00 DENICE 2022-07-13 2022-07-13 Outpatient AMARIS HDEZ [id number] Amaris 14:15:00 14:15:00 SHIRLENESUSHANT Royalybol d 2022-07-09 2022-07-09 Outpatient AMARIS ROBLES [id number] Amaris 00:00:00 00:00:00 MECHE Royalybol d 2022-07-06 2022-07-06 Outpatient AMARIS VEGA [id number] Amaris 00:00:00 00:00:00 CAMPAIGNS Seyb old 2022-07-01 2022-07-05 Inpatient ER MAUREEN RODRIGUEZ General Med [id number] SLE 07:54:00 13:31:00 DENICE 2022-03-11 2022-03-11 Outpatient [facility] Isabel [facility] [id number] SLE 00:00:00 00:00:00 2022-03-10 2022-03-10 Telephone Joel [facility] [id number] 00:00:00 00:00:00 [facility] 2022-03-10 2022-03-10 Abstract Jeol, [facility] [id number] 00:00:00 00:00:00 [facility] 2022-02-27 2022-03-01 Hospital ER Liane Jaeger [facility] [id number] [facility] 02:27:00 11:21:00 Encounter Robert Tobar [facility] 2022-02-27 2022-03-01 Inpatient [facility] Internal [id number] [facility] 02:27:00 11:21:00 [facility] 2022-02-28 2022-02-28 Anesthesia Mackenzie Chicas [facility] [id number] 10:45:00 11:26:00 Event [facility] 2022-02-28 2022-02-28 Surgery Sharmila [facility] [id number] 10:00:00 10:52:00 [facility] Results Test Description Test Time Test Comments Results Result Comments Source PHOSPHATIDYLETHANOL, BLOOD 2022-07-12 13:07:11 Test Item Value Reference Range Interpretation Comme nts PHOSPHATIDYLETHANOL (PETH) (test code = 8758535) see scanned report see scanned reportALPHA FETOPROTEIN (AFP), TUMOR [id number] 11:25:36 Test Item Value Reference Range Interpretation Comments ALPHA-FETOPROTEIN (BEAKER) (test code < ng/mL <10.0 = 1094) [facility] Visitor ID - ANSHUL BCALCIUM, [id number] 05:58:34 Test Item Value Reference Range Interpretation Comments CALCIUM IONIZED (BEAKER) (test 1.05 mmol/L 1.12-1.27 L code = 698) PH, BLOOD (BEAKER) (test code = 7.43 1810) COMPREHENSIVE METABOLIC [id number] 05:03:13 Test Item Value Reference Range Interpretation Comments TOTAL PROTEIN 5.2 gm/dL 6.0-8.3 L (BEAKER) (test code = 770) ALBUMIN (BEAKER) 2.3 g/dL 3.5-5.0 L (test code = 1145) ALKALINE 104 U/L 40-150 PHOSPHATASE (BEAKER) (test code = 346) BILIRUBIN TOTAL 2.6 mg/dL 0.2-1.2 H (BEAKER) (test code = 377) SODIUM (BEAKER) 139 meq/L 136-145 (test code = 381) POTASSIUM (BEAKER) 3.8 meq/L 3.5-5.1 (test code = 379) CHLORIDE (BEAKER) 113 meq/L 98-107 H (test code = 382) CO2 (BEAKER) (test 20 meq/L 22-29 L code = 355) BLOOD UREA 11 mg/dL 7-21 NITROGEN (BEAKER) (test code = 354) CREATININE 0.87 mg/dL 0.57-1.25 (BEAKER) (test code = 358) GLUCOSE RANDOM 81 mg/dL 70-105 (BEAKER) (test code = 652) CALCIUM (BEAKER) 7.3 mg/dL 8.4-10.2 L (test code = 697) AST (SGOT) 67 U/L 5-34 H (BEAKER) (test code = 353) ALT (SGPT) 21 U/L 6-55 (BEAKER) (test code = 347) EGFR (BEAKER) 75 Interpretatio n of eGFR (test code = 1092) mL/min/1.[address] age Description sq m Result G1 Sisi l or high >=90 G2 Mildly decreased 60-89 G3a Mildl y to moderately 45-5 9 G3b Moderately to s everely 30-44 G4 Severl y decreased 15-29 G5 Kidney failure <15Reported eGF R is based on the CKD-EPI 202 equation that d oes not use a race coefficientEsti mated GFR is not as accur ate as Creatinine Ally jon in predicting glom erular filtration rate . Estimated GFR is not appl icable for dialysis patien ts [facility] Visitor ID - TODD WSpecimen slightly [id number] 04:55:54 Test Item Value Reference Range Interpretation Comments MAGNESIUM (BEAKER) (test code = 1.7 mg/dL 1.6-2.6 627) [facility] Visitor ID - TODD [id number] 04:55:54 Test Item Value Reference Range Interpretation Comments PHOSPHORUS (BEAKER) (test code = 2.3 mg/dL 2.3-4.7 604) [facility] Visitor RAFAEL BROOKS WCBC W/PLT COUNT & AUTO [id number] 04:18:32 Test Item Value Reference Range Interpretation Comments WHITE BLOOD CELL COUNT (BEAKER) 7.2 K/ L 3.5-10.5 (test code = 775) RED BLOOD CELL COUNT (BEAKER) 2.69 M/ L 3.93-5.22 L (test code = 761) HEMOGLOBIN (BEAKER) (test code = 8.6 GM/DL 11.2-15.7 L 410) HEMATOCRIT (BEAKER) (test code = 24.9 % 34.1-44.9 L 411) MEAN CORPUSCULAR VOLUME (BEAKER) 93 fL 79-95 (test code = 753) MEAN CORPUSCULAR HEMOGLOBIN 32.0 pg 25.6-32.2 (BEAKER) (test code = 751) MEAN CORPUSCULAR HEMOGLOBIN CONC 34.5 GM/DL 32.2-35.5 (BEAKER) (test code = 752) RED CELL DISTRIBUTION WIDTH 17.1 % 11.7-14.4 H (BEAKER) (test code = 412) PLATELET COUNT (BEAKER) (test code 72 K/CU MM 150-450 L = 756) MEAN PLATELET VOLUME (BEAKER) 10.8 fL 9.4-12.3 (test code = 754) NUCLEATED RED BLOOD CELLS (BEAKER) 0 /100 WBC 0-0 (test code = 413) NEUTROPHILS RELATIVE PERCENT 61 % (BEAKER) (test code = 429) LYMPHOCYTES RELATIVE PERCENT 21 % (BEAKER) (test code = 430) MONOCYTES RELATIVE PERCENT 14 % (BEAKER) (test code = 431) EOSINOPHILS RELATIVE PERCENT 1 % (BEAKER) (test code = 432) BASOPHILS RELATIVE PERCENT 0 % (BEAKER) (test code = 437) NEUTROPHILS ABSOLUTE COUNT 4.38 K/ L 1.56-6.13 (BEAKER) (test code = 670) LYMPHOCYTES ABSOLUTE COUNT 1.52 K/ L 1.18-3.74 (BEAKER) (test code = 414) MONOCYTES ABSOLUTE COUNT (BEAKER) 0.98 K/ L 0.24-0.36 H (test code = 415) EOSINOPHILS ABSOLUTE COUNT 0.07 K/ L 0.04-0.36 (BEAKER) (test code = 416) BASOPHILS ABSOLUTE COUNT (BEAKER) 0.03 K/ L 0.01-0.08 (test code = 417) IMMATURE GRANULOCYTES-RELATIVE 3.10 % 0.00-1.00 H PERCENT (BEAKER) (test code = 2801) MR, ABDOMEN, [id number] 21:37:00Unlisted Reason for Exam - Click Yes and Enter Reason Below->No [facility] CENTERName: LUTHER BRUCE : 1960 Sex: FFINAL REPORT MRCP, MRI of abdomen without contrast Clinical History: Abdominal pain, biliary obstruction suspected (Ped 0-18y) Technique: Multiplanar and multisequence MR images ofthe biliary system are obtained, with dedicated MRCP protocol and images. No intravenous contrast isadministered. In addition, 3 dimensional reformatted images of the biliary system are obtained to evaluate the biliary anatomy. Comparison: Ultrasound dated July 02, 2022 Discussion: This examination isnot dedicated to evaluating masses or parenchymal abnormalities of the abdominal organs. Trace left pleural effusion. Liver is cirrhotic. In segment 7, there is an indeterminate 1 cm T2 hyperintense lesion. A stone is noted in the gallbladder. There is mild gallbladder wall edema, which is a nonspecific finding in the setting of cirrhosis. CBD measures approximately 4 mm in diameter. There is no ductal filling defect, or stricture. Spleen is normal in size. The pancreas, and adrenal glands appear unremarkable. No renal lesion is identified on this noncontrast study. No hydronephrosis. There is a small amount of ascites. Large varices are present. There is anasarca. No lymphadenopathy. Normal marrow signal. Impression: Cirrhosis and portal hypertension. There is an indeterminate 1 cm T2 hyperintensity in segment 7 of liver. It can be further characterized with a contrast enhanced MRI. Cholelithiasis. Mild gallbladder wall edema is nonspecific in the setting of cirrhosis. No biliary ductal dilatation. Small amount of ascites. Anasarca. Trace left pleural effusion. Signed: [place] MDReport Verified Date/Time: 07/04/2022 21:37:20 CALCIUM, [id number] 05:06:44 Test Item Value Reference Range Interpretation Comments CALCIUM IONIZED (BEAKER) (test 1.03 mmol/L 1.12-1.27 L code = 698) PH, BLOOD (BEAKER) (test code = 7.44 1810) COMPREHENSIVE METABOLIC [id number] 04:46:51 Test Item Value Reference Range Interpretation Comments TOTAL PROTEIN 4.8 gm/dL 6.0-8.3 L (BEAKER) (test code = 770) ALBUMIN (BEAKER) 2.3 g/dL 3.5-5.0 L (test code = 1145) ALKALINE 93 U/L 40-150 PHOSPHATASE (BEAKER) (test code = 346) BILIRUBIN TOTAL 2.9 mg/dL 0.2-1.2 H (BEAKER) (test code = 377) SODIUM (BEAKER) 137 meq/L 136-145 (test code = 381) POTASSIUM (BEAKER) 3.6 meq/L 3.5-5.1 (test code = 379) CHLORIDE (BEAKER) 114 meq/L 98-107 H (test code = 382) CO2 (BEAKER) (test 18 meq/L 22-29 L code = 355) BLOOD UREA 15 mg/dL 7-21 NITROGEN (BEAKER) (test code = 354) CREATININE 0.90 mg/dL 0.57-1.25 (BEAKER) (test code = 358) GLUCOSE RANDOM 95 mg/dL 70-105 (BEAKER) (test code = 652) CALCIUM (BEAKER) 7.2 mg/dL 8.4-10.2 L (test code = 697) AST (SGOT) 47 U/L 5-34 H (BEAKER) (test code = 353) ALT (SGPT) 20 U/L 6-55 (BEAKER) (test code = 347) EGFR (BEAKER) 72 Interpretatio n of eGFR (test code = 1092) mL/min/1.[address] age Description sq m Result G1 Sisi l or high >=90 G2 Mildly decreased 60-89 G3a Mildl y to moderately 45-5 9 G3b Moderately to s everely 30-44 G4 Severl y decreased 15-29 G5 Kidney failure <15Reported eGF R is based on the CKD-EPI 202 equation that d oes not use a race coefficientEsti mated GFR is not as accur ate as Creatinine Ally danay in predicting glom erular filtration rate . Estimated GFR is not appl icable for dialysis patien ts Parish Visitor ID - ADMINSpecimen slightly [id number] 04:42:23 Test Item Value Reference Range Interpretation Comments MAGNESIUM (BEAKER) (test code = 1.9 mg/dL 1.6-2.6 627) [facility] Visitor ID - [id number] 04:42:23 Test Item Value Reference Range Interpretation Comments PHOSPHORUS (BEAKER) (test code = 1.8 mg/dL 2.3-4.7 L 604) [facility] Visitor ID - ADMINCBC W/PLT COUNT & AUTO [id number] 04:22:38 Test Item Value Reference Range Interpretation Comments WHITE BLOOD CELL COUNT (BEAKER) 7.4 K/ L 3.5-10.5 (test code = 775) RED BLOOD CELL COUNT (BEAKER) 2.53 M/ L 3.93-5.22 L (test code = 761) HEMOGLOBIN (BEAKER) (test code = 8.3 GM/DL 11.2-15.7 L 410) HEMATOCRIT (BEAKER) (test code = 23.4 % 34.1-44.9 L 411) MEAN CORPUSCULAR VOLUME (BEAKER) 93 fL 79-95 (test code = 753) MEAN CORPUSCULAR HEMOGLOBIN 32.8 pg 25.6-32.2 H (BEAKER) (test code = 751) MEAN CORPUSCULAR HEMOGLOBIN CONC 35.5 GM/DL 32.2-35.5 (BEAKER) (test code = 752) RED CELL DISTRIBUTION WIDTH 16.7 % 11.7-14.4 H (BEAKER) (test code = 412) PLATELET COUNT (BEAKER) (test code 59 K/CU MM 150-450 L = 756) MEAN PLATELET VOLUME (BEAKER) 11.1 fL 9.4-12.3 (test code = 754) NUCLEATED RED BLOOD CELLS (BEAKER) 0 /100 WBC 0-0 (test code = 413) NEUTROPHILS RELATIVE PERCENT 70 % (BEAKER) (test code = 429) LYMPHOCYTES RELATIVE PERCENT 13 % (BEAKER) (test code = 430) MONOCYTES RELATIVE PERCENT 14 % (BEAKER) (test code = 431) EOSINOPHILS RELATIVE PERCENT 0 % (BEAKER) (test code = 432) BASOPHILS RELATIVE PERCENT 0 % (BEAKER) (test code = 437) NEUTROPHILS ABSOLUTE COUNT 5.18 K/ L 1.56-6.13 (BEAKER) (test code = 670) LYMPHOCYTES ABSOLUTE COUNT 0.98 K/ L 1.18-3.74 L (BEAKER) (test code = 414) MONOCYTES ABSOLUTE COUNT (BEAKER) 1.04 K/ L 0.24-0.36 H (test code = 415) EOSINOPHILS ABSOLUTE COUNT 0.02 K/ L 0.04-0.36 L (BEAKER) (test code = 416) BASOPHILS ABSOLUTE COUNT (BEAKER) 0.02 K/ L 0.01-0.08 (test code = 417) IMMATURE GRANULOCYTES-RELATIVE 1.60 % 0.00-1.00 H PERCENT (BEAKER) (test code = 2801) BASIC METABOLIC [id number] 11:30:49 Test Item Value Reference Range Interpretation Comments SODIUM (BEAKER) 135 meq/L 136-145 L (test code = 381) POTASSIUM 3.7 meq/L 3.5-5.1 Specimen slight ly (BEAKER) (test hemolyzed code = 379) CHLORIDE (BEAKER) 112 meq/L 98-107 H (test code = 382) CO2 (BEAKER) 16 meq/L 22-29 L (test code = 355) BLOOD UREA 18 mg/dL 7-21 NITROGEN (BEAKER) (test code = 354) CREATININE 1.01 mg/dL 0.57-1.25 Specimen slight ly (BEAKER) (test hemolyzed code = 358) GLUCOSE RANDOM 142 mg/dL 70-105 H (BEAKER) (test code = 652) CALCIUM (BEAKER) 7.5 mg/dL 8.4-10.2 L (test code = 697) EGFR (BEAKER) 63 Interpretatio n of eGFR (test code = [...] not appl icable for dialysis patien ts [facility] Visitor ID - MMSpecimen slightly [id number] 11:30:30 Test Item Value Reference Range Interpretation Comments MAGNESIUM (BEAKER) 2.0 mg/dL 1.6-2.6 Specimen slightly (test code = 627) hemolyzed [facility] Visitor ID - MMCBC W/PLT COUNT & AUTO [id number] 11:09:06 Test Item Value Reference Range Interpretation Comments WHITE BLOOD CELL COUNT (BEAKER) 8.0 K/ L 3.5-10.5 (test code = 775) RED BLOOD CELL COUNT (BEAKER) 2.69 M/ L 3.93-5.22 L (test code = 761) HEMOGLOBIN (BEAKER) (test code = 8.8 GM/DL 11.2-15.7 L 410) HEMATOCRIT (BEAKER) (test code = 25.8 % 34.1-44.9 L 411) MEAN CORPUSCULAR VOLUME (BEAKER) 96 fL 79-95 H (test code = 753) MEAN CORPUSCULAR HEMOGLOBIN 32.7 pg 25.6-32.2 H (BEAKER) (test code = 751) MEAN CORPUSCULAR HEMOGLOBIN CONC 34.1 GM/DL 32.2-35.5 (BEAKER) (test code = 752) RED CELL DISTRIBUTION WIDTH 16.7 % 11.7-14.4 H (BEAKER) (test code = 412) PLATELET COUNT (BEAKER) (test code 60 K/CU MM 150-450 L = 756) MEAN PLATELET VOLUME (BEAKER) 10.5 fL 9.4-12.3 (test code = 754) NUCLEATED RED BLOOD CELLS (BEAKER) 0 /100 WBC 0-0 (test code = 413) NEUTROPHILS RELATIVE PERCENT 73 % (BEAKER) (test code = 429) LYMPHOCYTES RELATIVE PERCENT 12 % (BEAKER) (test code = 430) MONOCYTES RELATIVE PERCENT 12 % (BEAKER) (test code = 431) EOSINOPHILS RELATIVE PERCENT 0 % (BEAKER) (test code = 432) BASOPHILS RELATIVE PERCENT 0 % (BEAKER) (test code = 437) NEUTROPHILS ABSOLUTE COUNT 5.87 K/ L 1.56-6.13 (BEAKER) (test code = 670) LYMPHOCYTES ABSOLUTE COUNT 0.93 K/ L 1.18-3.74 L (BEAKER) (test code = 414) MONOCYTES ABSOLUTE COUNT (BEAKER) 0.96 K/ L 0.24-0.36 H (test code = 415) EOSINOPHILS ABSOLUTE COUNT 0.02 K/ L 0.04-0.36 L (BEAKER) (test code = 416) BASOPHILS ABSOLUTE COUNT (BEAKER) 0.03 K/ L 0.01-0.08 (test code = 417) IMMATURE GRANULOCYTES-RELATIVE 2.30 % 0.00-1.00 H PERCENT (BEAKER) (test code = 2801) U/S, ABDOMINAL, [id number] 09:08:00Abdomen limited area? Add comment if clarification is needed.->Right upper quadrant Reason for exam:->assess for acute cholecystitis [facility] : 1960 Sex: FFINAL REPORT Complete Abdominal Ultrasound; limited pelvic ultrasound History: Assess for acute cholecystitis; acute kidney injury Comparison: none Findings:The hepatic echotexture is coarsened. No definite hepatic masses or intrahepatic biliary dilation is seen. Cholelithiasis is noted. No gallbladder wall thickening or pericholecystic fluid is seen. No sonographic Fischer's sign. Common bile duct measures 4mm. The main portal vein is patent, with expected hepatopedal flow. The main portal vein measures 9 mm in caliber. Pancreas not well seen due to overlying bowel gas. Bilateral kidney demonstrates no hydronephrosis, shadowing calculus, or mass lesion. Right kidney measures 11.6 x 5.0 x 5.2cm. Left kidney measures 12.2 x 5.1 x 5.5cm. Normal size spleen measuring 11.5 cm in craniocaudal dimension.. Normal caliber of the visualized abdominal aorta. No apparent filling defect in the visualized inferior vena cava. The urinary bladder is suboptimally distended, limiting evaluation. No free fluid is seen. Impression: 1. Cholelithiasis. No definite findings of acute cholecystitis.2. Coarsened hepatic echotexture, which may relate to intrinsic liver disease. Suggest correlation with liver function tests. Signed: Edouard Orta [facility] Verified Date/Time: 07/02/2022 09:08:40 U/S, PELVIC, [id number] 09:08:00Reason for exam:->[facility] : 1960 Sex: FFINAL REPORT Complete Abdominal Ultrasound; limited pelvic ultrasound History: Assess for acute cholecystitis; acute kidney injury Comparison: none Findings:The hepatic echotextureis coarsened. No definite hepatic masses or intrahepatic biliary dilation is seen. Cholelithiasis isnoted. No gallbladder wall thickening or pericholecystic fluid is seen. No sonographic Fischer's sign. Common bile duct measures 4mm. The main portal vein is patent, with expected hepatopedal flow. The main portal vein measures 9 mm in caliber. Pancreas not well seen due to overlying bowel gas. Bilateral kidney demonstrates no hydronephrosis, shadowing calculus, or mass lesion. Right kidney measures 11.6 x 5.0 x 5.2cm. Left kidney measures 12.2 x 5.1 x 5.5cm. Normal size spleen measuring 11.5 cm in craniocaudal dimension.. Normal caliber of the visualized abdominal aorta. No apparent filling defect in the visualized inferior vena cava. The urinary bladder is suboptimally distended, limiting evaluation. No free fluid is seen. Impression: 1. Cholelithiasis. No definite findings of acute cholecystitis.2. Coarsened hepatic echotexture, which may relate to intrinsic liver disease. Suggest correlation with liver function tests. Signed: Edouard Orta [facility] Verified Date/Time: 07/02/2022 09:08:40 OSMOLALITY, [id number] 07:04:13 Test Item Value Reference Range Interpretation Comments OSMOLALITY URINE 453 mOsm/kg See_Comment [Automated message] (BEAKER) (test code = The sy stem which 614) generated this result transmitted ref erence range: 50-1,200 mOsm/kg. The reference range was not used to int erpret this result as normal/abnormal . URINALYSIS W/ [id number] 06:47:21 Test Item Value Reference Range Interpretation Comments COLOR (BEAKER) (test code Yellow = 470) CLARITY (BEAKER) (test Hazy code = 469) SPECIFIC GRAVITY UA 1.034 1.001-1.035 (BEAKER) (test code = 468) PH UA (BEAKER) (test code 6.0 5.0-8.0 = 467) PROTEIN UA (BEAKER) (test 50 mg/dL Negative A code = 464) GLUCOSE UA (BEAKER) (test Negative Negative code = 365) KETONES UA (BEAKER) (test Negative Negative code = 371) BILIRUBIN UA (BEAKER) Positive Negative A (test code = 462) BLOOD UA (BEAKER) (test Large Negative A code = 461) NITRITE UA (BEAKER) (test Negative Negative code = 465) LEUKOCYTE ESTERASE UA Large Negative A (BEAKER) (test code = 466) UROBILINOGEN UA (BEAKER) 2 0.2-1.0 H (test code = 463) RBC UA (BEAKER) (test code 206 /HPF = 519) WBC UA (BEAKER) (test code 14 /HPF = 520) MUCUS (BEAKER) (test code Rare = 1574) SQUAMOUS EPITHELIAL 3 /HPF (BEAKER) (test code = 516) HYALINE CASTS (BEAKER) 1 /LPF (test code = 514) CASTS (BEAKER) (test code 1 /LPF = 1579) SOURCE(BEAKER) (test code Urine, Clean Catch = 2795) [facility] ID - [auto][facility] Visitor ID - techBASIC METABOLIC [id number] 06:15:04 Test Item Value Reference Range Interpretation Comments SODIUM (BEAKER) 134 meq/L 136-145 L (test code = 381) POTASSIUM 3.2 meq/L 3.5-5.1 L Specimen slight ly (BEAKER) (test hemolyzed code = 379) CHLORIDE (BEAKER) 111 meq/L 98-107 H (test code = 382) CO2 (BEAKER) 16 meq/L 22-29 L (test code = 355) BLOOD UREA 33 mg/dL 7-21 H NITROGEN (BEAKER) (test code = 354) CREATININE 1.29 mg/dL 0.57-1.25 H Specimen slight ly (BEAKER) (test hemolyzed code = 358) GLUCOSE RANDOM 96 mg/dL 70-105 (BEAKER) (test code = 652) CALCIUM (BEAKER) 6.6 mg/dL 8.4-10.2 L (test code = 697) EGFR (BEAKER) 47 Interpretatio n of eGFR (test code = [...] not appl icable for dialysis patien ts [facility] ID - mmSpecimen slightly ictericHEPATIC FUNCTION [id number] 06:14:58 Test Item Value Reference Range Interpretation Comments TOTAL PROTEIN (BEAKER) 4.8 gm/dL 6.0-8.3 L Speci men slightly (test code = 770) hemolyzed ALBUMIN (BEAKER) (test 1.6 g/dL 3.5-5.0 L Speci men slightly code = 1145) hemolyzed BILIRUBIN TOTAL 2.8 mg/dL 0.2-1.2 H Specimen sli ghtly (BEAKER) (test code = hemoly zed 377) BILIRUBIN DIRECT 1.9 mg/dL 0.1-0.5 H Specimen sl ightly (BEAKER) (test code = hemoly zed 706) ALKALINE PHOSPHATASE 109 U/L 40-150 (BEAKER) (test code = 346) AST (SGOT) (BEAKER) 47 U/L 5-34 H Specimen slightly (test code = 353) hemolyzed ALT (SGPT) (BEAKER) 23 U/L 6-55 Specimen slightly (test code = 347) hemolyzed [facility] ID - mmSpecimen slightly ictericURIC [id number] 06:14:33 Test Item Value Reference Range Interpretation Comments URIC ACID (BEAKER) 5.2 mg/dL 2.6-7.2 Specimen slightly (test code = 773) hemolyzed [facility] ID - mmSpecimen slightly [id number] 06:14:32 Test Item Value Reference Range Interpretation Comments MAGNESIUM (BEAKER) 1.8 mg/dL 1.6-2.6 Specimen slightly (test code = 627) hemolyzed [facility] ID - mmALPHA FETOPROTEIN (AFP), TUMOR [id number] 06:11:52 Test Item Value Reference Range Interpretation Comments ALPHA-FETOPROTEIN (BEAKER) (test code < ng/mL <10.0 = 1094) [facility] ID - ADMINB-TYPE NATRIURETIC FACTOR (BNP)2022-07-02 05:58:29 Test Item Value Reference Range Interpretation Comments B-TYPE NATRIURETIC PEPTIDE (BEAKER) 127 pg/mL 0-100 H (test code = 700) [facility] ID - mmSODIUM, RANDOM [id number] 05:46:02 Test Item Value Reference Range Interpretation Comments SODIUM URINE (BEAKER) (test code = < meq/L 243) Reference Range: No NormalsOperator ID - ADMINPROTHROMBIN [id number] 05:41:54 Test Item Value Reference Range Interpretation Comments PROTIME (BEAKER) (test code = 23.0 seconds 11.9-14.2 H 759) INR (BEAKER) (test code = 370) 2.10 <=5.90 RECOMMENDED COUMADIN/WARFARIN INR THERAPY RANGESSTANDARD DOSE: 2.0 - 3.0 Includes: PROPHYLAXIS for venous thrombosis, systemic embolization; TREATMENT for venous thrombosis and/or pulmonary embolus.HIGH RISK: Target INR is 2.5-3.5 for patients with mechanical heart valves.CBC W/PLT COUNT & AUTO [id number] 05:41:41 Test Item Value Reference Range Interpretation Comments WHITE BLOOD CELL COUNT (BEAKER) 7.5 K/ L 3.5-10.5 (test code = 775) RED BLOOD CELL COUNT (BEAKER) 2.83 M/ L 3.93-5.22 L (test code = 761) HEMOGLOBIN (BEAKER) (test code = 9.2 GM/DL 11.2-15.7 L 410) HEMATOCRIT (BEAKER) (test code = 26.9 % 34.1-44.9 L 411) MEAN CORPUSCULAR VOLUME (BEAKER) 95 fL 79-95 (test code = 753) MEAN CORPUSCULAR HEMOGLOBIN 32.5 pg 25.6-32.2 H (BEAKER) (test code = 751) MEAN CORPUSCULAR HEMOGLOBIN CONC 34.2 GM/DL 32.2-35.5 (BEAKER) (test code = 752) RED CELL DISTRIBUTION WIDTH 16.8 % 11.7-14.4 H (BEAKER) (test code = 412) PLATELET COUNT (BEAKER) (test code 83 K/CU MM 150-450 L = 756) MEAN PLATELET VOLUME (BEAKER) 11.5 fL 9.4-12.3 (test code = 754) NUCLEATED RED BLOOD CELLS (BEAKER) 0 /100 WBC 0-0 (test code = 413) NEUTROPHILS RELATIVE PERCENT 74 % (BEAKER) (test code = 429) LYMPHOCYTES RELATIVE PERCENT 9 % (BEAKER) (test code = 430) MONOCYTES RELATIVE PERCENT 14 % (BEAKER) (test code = 431) EOSINOPHILS RELATIVE PERCENT 0 % (BEAKER) (test code = 432) BASOPHILS RELATIVE PERCENT 0 % (BEAKER) (test code = 437) NEUTROPHILS ABSOLUTE COUNT 5.59 K/ L 1.56-6.13 (BEAKER) (test code = 670) LYMPHOCYTES ABSOLUTE COUNT 0.68 K/ L 1.18-3.74 L (BEAKER) (test code = 414) MONOCYTES ABSOLUTE COUNT (BEAKER) 1.07 K/ L 0.24-0.36 H (test code = 415) EOSINOPHILS ABSOLUTE COUNT 0.03 K/ L 0.04-0.36 L (BEAKER) (test code = 416) BASOPHILS ABSOLUTE COUNT (BEAKER) 0.03 K/ L 0.01-0.08 (test code = 417) IMMATURE GRANULOCYTES-RELATIVE 1.70 % 0.00-1.00 H PERCENT (BEAKER) (test code = 2801) PROTEIN, RANDOM [id number] 05:39:30 Test Item Value Reference Range Interpretation Comments PROTEIN, URINE (BEAKER) (test code = 54 mg/dL 0-14 H 1569) [facility] ID - ADMINCREATININE, RANDOM [id number] 05:38:10 Test Item Value Reference Range Interpretation Comments CREATININE URINE (BEAKER) (test 131.5 mg/dL code = 375) Reference Range: No NormalsOperator ID - ADMINHEPATIC FUNCTION [id number] 10:39:19 Test Item Value Reference Range Interpretation Comments TOTAL PROTEIN (BEAKER) 6.1 gm/dL 6.0-8.3 Speci men slightly (test code = 770) hemolyzed ALBUMIN (BEAKER) (test 2.1 g/dL 3.5-5.0 L Speci men slightly code = 1145) hemolyzed BILIRUBIN TOTAL 5.2 mg/dL 0.2-1.2 H Specimen sli ghtly (BEAKER) (test code = hemoly zed 377) BILIRUBIN DIRECT 3.4 mg/dL 0.1-0.5 H Specimen sl ightly (BEAKER) (test code = hemoly zed 706) ALKALINE PHOSPHATASE 129 U/L 40-150 (BEAKER) (test code = 346) AST (SGOT) (BEAKER) 61 U/L 5-34 H Specimen slightly (test code = 353) hemolyzed ALT (SGPT) (BEAKER) 30 U/L 6-55 Specimen slightly (test code = 347) hemolyzed [facility] ID - ADMINOperator ID - ADMINSpecimen slightly ictericBASIC METABOLIC [id number] 10:39:18 Test Item Value Reference Range Interpretation Comments SODIUM (BEAKER) 141 meq/L 136-145 (test code = 381) POTASSIUM 3.5 meq/L 3.5-5.1 Specimen slight ly (BEAKER) (test hemolyzed code = 379) CHLORIDE (BEAKER) 115 meq/L 98-107 H (test code = 382) CO2 (BEAKER) 20 meq/L 22-29 L (test code = 355) BLOOD UREA 31 mg/dL 7-21 H NITROGEN (BEAKER) (test code = 354) CREATININE 1.11 mg/dL 0.57-1.25 Specimen slight ly (BEAKER) (test hemolyzed code = 358) GLUCOSE RANDOM 52 mg/dL 70-105 L (BEAKER) (test code = 652) CALCIUM (BEAKER) 7.5 mg/dL 8.4-10.2 L (test code = 697) EGFR (BEAKER) 56 Interpretatio n of eGFR (test code = mL/min/1.73 values Stage De scription 1092) sq m Result G1 Sisi l or high >=90 G2 Mildly decreased 60-89 G3a Mild ly to moderately 45-5 9 G3b Moderately to [...] not appl icable for dialysis patien ts [facility] ID - ADMINSpecimen slightly icteric(CELLAVISION MANUAL DIFF)2022-07-01 10:34:50 Test Item Value Reference Range Interpretation Comments NEUTROPHILS - REL 83 % (CELLAVISION)(BEAKER) (test code = 2816) LYMPHOCYTES - REL 3 % (CELLAVISION)(BEAKER) (test code = 2817) MONOCYTES - REL 2 % (CELLAVISION)(BEAKER) (test code = 2818) METAMYELOCYTES - REL 1 % 0-0 H (CELLAVISION)(BEAKER) (test code = 2821) MYELOCYTES - REL 1 % 0-0 H (CELLAVISION)(BEAKER) (test code = 2822) BANDS - REL (CELLAVISION)(BEAKER) 10 % 0-10 (test code = 2826) NEUTROPHILS - ABS 6.81 K/ul 1.56-6.13 H (CELLAVISION)(BEAKER) (test code = 2830) LYMPHOCYTES - ABS 0.25 K/ul 1.18-3.74 L (CELLAVISION)(BEAKER) (test code = 2831) MONOCYTES - ABS 0.16 K/uL 0.24-0.36 L (CELLAVISION)(BEAKER) (test code = 2832) METAMYELOCYTES - ABS 0.08 K/uL 0.00-0.00 H (CELLAVISION)(BEAKER) (test code = 2836) MYELOCYTES-ABS 0.08 K/uL 0.00-0.00 H (CELLAVISION)(BEAKER) (test code = 2837) BANDS - ABS (CELLAVISION)(BEAKER) 0.82 K/uL 0.00-0.80 H (test code = 2840) TOTAL COUNTED (BEAKER) (test code 100 = 1351) PLT MORPHOLOGY (BEAKER) (test Normal code = 486) SMUDGE CELLS (BEAKER) (test code Present = 1371) POLYCHROMATOPHILLIC RBCS(BEAKER) 1+ few (test code = 478) ANISOCYTOSIS (BEAKER) (test code 2+ moderate = 961) MACROCYTES (BEAKER) (test code = 2+ moderate 964) POIKILOCYTES (BEAKER) (test code 2+ moderate = 966) SPHEROCYTES (BEAKER) (test code = 1+ few 768) GERA CELLS (BEAKER) (test code = 2+ moderate 474) PLATELET CONCENTRATION Decreased (CELLAVISION)(BEAKER) (test code = 3438) [facility]itor ID - Avila Dato-onUser comments: Slide comments:CBC W/PLT COUNT & AUTO [id number] 10:34:49 Test Item Value Reference Range Interpretation Comments WHITE BLOOD CELL COUNT (BEAKER) 8.2 K/ L 3.5-10.5 (test code = 775) RED BLOOD CELL COUNT (BEAKER) 3.49 M/ L 3.93-5.22 L (test code = 761) HEMOGLOBIN (BEAKER) (test code = 11.6 GM/DL 11.2-15.7 410) HEMATOCRIT (BEAKER) (test code = 33.6 % 34.1-44.9 L 411) MEAN CORPUSCULAR VOLUME (BEAKER) 96 fL 79-95 H (test code = 753) MEAN CORPUSCULAR HEMOGLOBIN 33.2 pg 25.6-32.2 H (BEAKER) (test code = 751) MEAN CORPUSCULAR HEMOGLOBIN CONC 34.5 GM/DL 32.2-35.5 (BEAKER) (test code = 752) RED CELL DISTRIBUTION WIDTH 17.2 % 11.7-14.4 H (BEAKER) (test code = 412) PLATELET COUNT (BEAKER) (test 113 K/CU MM 150-450 L code = 756) MEAN PLATELET VOLUME (BEAKER) 10.9 fL 9.4-12.3 (test code = 754) NUCLEATED RED BLOOD CELLS 0 /100 WBC 0-0 (BEAKER) (test code = 413) PROTHROMBIN [id number] 10:00:52 Test Item Value Reference Range Interpretation Comments PROTIME (BEAKER) (test code = 22.1 seconds 11.9-14.2 H 759) INR (BEAKER) (test code = 370) 1.99 <=5.90 RECOMMENDED COUMADIN/WARFARIN INR THERAPY RANGESSTANDARD DOSE: 2.0 - 3.0 Includes: PROPHYLAXIS for venous thrombosis, systemic embolization; TREATMENT for venous thrombosis and/or pulmonary embolus.HIGH RISK: Target INR is 2.5-3.5 for patients with mechanical heart valves.ANTI-MITOCHONDRIAL AB, REFLEX TO TITER 2022-03-08 10:10:03 Test Item Value Reference Range Interpretation Comments SCAN RESULT (test code = 9309074) Tissue [id number] 08:35:43 Test Item Value Reference Range Interpretation Comments Case Report (test code Surgical Pathology = 104) Report Case: [id number] Authorizing Provider: Ana Lilia Doll, Collected: 02/28/2022 11:03 AM Ordering Location: [address] Received: 03/01/2022 07:57 AM Service Pathologist: Irma Fermin MD Specimen: Biopsy, Gastric, random gastric bx r/o H. pylori DIAGNOSIS (test code = i3lhrPZrDMYdh9xrURUcxB 3220) FuZzEwMzNcZnRuYmpcdWMx IHtccnRmMVxlcGljOTYwMl jracGoEALhcYShF6Owvzgz JPxgVO4tVX4qbCozjMGcjA SkTYIzGlLgn0ofn852wCJi k4qwJUFYqhaioVw7iVobB4 7qn9E1GflbR74umNEsKRA8 NVIoFZSyeYPgRQEiGNB9ZF UmxTWfW1wtKUEkJS5ljfob ZKejIVjjHYKyxPJ1HBHrnK FgQ9TyXPRgBCsgRNUegwl4 YiWoYj1mcMRnjNybEZvoOU UlNOLeCTdaFWDfFkRhFY6g IXxPA8JGMKMwQTOUOeFMYY RGRT3WA4qvlJbfNSGoBVVN BDW4cvwbUG82kP51wJRjWY 2iCWMjihFmaP9mmIpxPKIm iJFbt2Ndt1i9jVCryYHqtM AtNKImfg3itSYnLNO1oJEu TUmze4OwbWTgh6kejG7hYF NeTJ4bR8Z7qQByHFGdsnZa lkBxl9JvfrQcQM4tiFLcvJ NdkGZjl0RaJJdyqVvid2sw ANjcvbLzVT9YkY41yh1olO T7f8WeCZ8nH0VfKRN1JGbb IGZvciBILiBweWxvcmkgaX MgbmVnYXRpdmUgKHNlZSBj t05jTA61BHtsPJK2m0fybA YxXHNzdGUxODAwMFxhbnNp NNNsUwyctjbdBFXwOBH4wa QvNPKgFHarKCKhUKboYu3b zHNntYljKcXrITCoe6tpgy AOxhklxFq5q5ilMNVdTpU3 cUJpDFmaW8unfjDxzUXgUS BbECs5pI57FWUalQ0tjZKm FBazatOaVxU4KJnlABWpXh X3YLVhmTClDSGfH3xgKPEl GNlhLPSaQAlizEAjRCB6iB bwe5K4zYKesLVsmRjyUsKm TdJgTsPWw8AxTIo4yWeiZ4 BtXAKmZzK7zVRpNVObSTpx RBPzAFQfldB6hF80CPtwaz Y7oOYdr9Fuz76eb298zW1k sMIdQTJ7IWUiUGCvuJRfBP NgSKB4CYTzaIVpI9unKWIj VS0bziuzXFazQPbxRWHxhJ S9DNOqnKBkH9KcIXJiJJzu QNUzfcl7YnIwDm9emSGakD rsULcss9ecq4xmbKIyRyg0 LKLgIcOiFrdmJWesq0Bki9 zmXGSggi0mETM9gSAxgCvf u5J2jURbJIKevIFzZDUjJK 2mkBMaONFrzB1koeceTZYl YnJkcmhlYWRccGdicmRyZm 2ioSafYMI3OQudG3qncQ6h BpT7SOaoH5nafE4mEDy2NB diTCOimQK9jaI3VYIcjLGx N0BbpW3wBRSfQU9inez3x2 emEHC4FHcrTNIfIqM8dxD2 NDBcaGVhZGVyeTcyMFxmb2 71LLH6VyPjYAHuk0PyQ3Uw yLmxY22sgTcgP15oWKVvoN tvaY3nkKfnbC2hNpJhOwKw KGpmvHpwBK2eDKMpT5nqvG PzPFEdTBFuS9ljItYbqM6y wKobOYepgwCpQDKjFrv1BI RqsSDaKJKkOsg4ELOvOFBg S52iwqwvFCG2pI8tq1yqf3 PtRRgsIJY6IGUgs51eNHce zrA6IIowZr58NBxeXII1WW qpLZC0vL== COMMENT (test code = o2lefMIoRMLovUW6YtKjWM 8805) Neh0hov5QqtBHneLOjYXwv eBXsnsBaqb39sQD0bO18OK 5fWZIaVcF1MITrjsF6Azx9 LFQiAPStsPToE305x6rhi3 egklRqpYS6kUbhULIwjlgi ZhC0IOhhAMNcblyaDPh3JG zsMBMmmQM4ELKzdVEnX6Aa OUNhXU7futb8ABX5DCzsLA BmGsO1ALLgiSNlUOPrsUhr ZNbrg612JGF6YrCxTELvln TfgBtooP6dTpBeNXZQC19W CQ6FXyouREyfarEufKRdav CsLZRwg1NjJE4bPU1swnOs RBQkMbbeEKI8UCaojF3jFH 4phSChKA9zBTzjxXQnc2wj k9DhL0oitSymOAcga1YelJ 7vo9hhP0dubJMmO86ou9ll AQNaMESqFJzqwEc6JH8lQO gzf4Q4WAJdoO0loLAhCKGh TYHkrpGwnYg5TLTySH2wqJ njOxFoAV4uu3SnDgIdIInd hBTmGOJmCD5oVZiaUFRlgY 3bQ7HilRzen4IroXhttE00 loQvc0KtADsflEjgleL0cA GvXGMaKGE2kUP1KZD4OP8m EXD6g93nCBMeeHppEJ2kwG OvdkOlf89aUH4vCHTqFILZ faSwo7EcvHzaklDsg8Y4PV Nqauknd4UcKPCinb8= CPT Code(s) (test code e4vvcXZgNDGaqKA3SpUbLR = 3357) Juf8aqo2WrmDUktHGsSRja sNGmsuSmvb39hCC0hL35LB 1hWRQpZwD2TWOalsW7Icc5 PVBgTFEwrQHsC024b3avl1 modeVhaGO3kYyaXBJnxsrw RqI1SEtzHYYtolwkOJp1ZL hlKBUvsGV1FGMzwMYlN3Ql NOPdKD4pdzm8HFX8HGdnZK HgGdG5HZPvyKTgBVBysEhk KRdsu114TNB0UpYnISBytu GjzRdbcJ9zSlUyYQD7ZBEz OYhrdN0rOEo5PqAxHKLpuw 0= CLINICAL HISTORY (test u5hloUYmPQNwhUJ1NlNdGE code = 3356) Qfq6lad0LnwXBrgBZqRBst rLRfweRvie51aOQ6iA20RD 0vVNIxVxR9MUQbsuG7Shd2 TNQoBJYynMTvJ504d3eld3 yiwxAdxQM2kQrwVFEboimx OiG6LRkhNAUufiwtSRg7SQ kuZECfwFR5MLDcpYFlT5Ch HFVmPY5yvyh2VIX1YJuoES IsCkD5RWXquDJvDSTmiUnt ROvff528EBJ2TsVtDLVpaz KlrVahxM1iLgVyGFCCRYP7 oy7bcfMeo2WkmiTpPByxcH 6xovmvI5DzPGGeq5HnOPDb WQH8qFXcRIcxz9KjeWOup8 xwYXJ9 GROSS DESCRIPTION (test x2xuhEAcNWVncJAVYTEvU5 code = [id number]) kbyiObOQPmvRElJ7Uzssof QXdpIW7xMT9hrUumuMSnhU JfHT9UJIOlQgOcSULwmTSh zaMrInWcKGJmnOPqsTU9DL OsYM5mzczyNHguUPqyWRXk uwV8EOAtzXPlY9DwQMBpHZ 8szcnvTET8QBcxjR2poeGS VqslGd0jxAZbbKmaMiKlSs NoYXJzZXQwXGZuaWwgQXJp CFy3aP8LTjbyV55ca6U2Rb n9EEPgEEKnN0XeMJ4qCQCd kDAdE87WHpmsQXC4CWCEBp gpOUExAQ0Uj4vqRIOnpGWy HPD3ULveiLOeNLZkSZNjAQ e6GKKoVYrofVOhYS6vkVhx BkecxPoow7SwkSGjVHobUJ DhJZYlTGheMCCwOF3YSgIh DFAmBBO3WFFiLWn4GKt4AE 9WUyAiICAzMTkxNTAyMCIg PUg9KTitFR7CYQM2Ajr5If S9CaX8SVW5DWSwVQQvSdNc XGYgQXJpYWwgXFxmbCBcXG 4wbYcwqOSokzBGRiYCrE2w l3ncFKyuz5VwiTXsIULhfl ANClxlcGljTmVzdERvYzEg DQpcbHRycGFyXGxpbjBccm luMCANClxsdHJjaFxjZjFc ZnMyMCBSZWNlaXZlZCBpbi Hrl2StSZfskeKoZUNzcCAp IHdpdGggdGhlIHBhdGllbn GmF7Q2ydZlPN7aIHQnYAUw E4PrENAqI15kCCYyzI9sSL GwPA6sJGi2GIPgXYRtSibr FdfmgZD3ABEtEGO9zvvaHW 5leHQgYXJlIDMgdGFuIHNv NjXjhTnwe2BgEQPkRMhsPC 19eiBbPY0fcD8qMPQuKf1b VrTuU05pm5IsdVi1aHDlDD pjHBGvsY4fmV2eAIYoGPVb ciANClxwYXIgDQpDaGVsc2 VhIEdyYXVuLCBNSFMsIFBB HUkPU5KLVKKiVVWldrPMHn nsEZMlOIlhG9PpIKUwQtQh GWmvdLjrhN9xENNlL65ds9 TFk2KoVCSyHQqui4psuKgj u8UnlTOsVQkgQXCnlZQbZO krrP8oQoSfj5oeqAi6TPqu mqQ6QUAlss3GZwruwI7bYo Usk8rtaFr8BZPOCnnydvI3 v4hbdZgcm1QpbIOpMO1QWh 0= MICROSCOPIC DESCRIPTION l7dplQDtVCVhfZS5PyZbMV (test code = 3371) Ytf7pod1SahUKnuHPfEKxf cNIgchZymj01nEI4kM88OT 7yTACxMfV5EDJvgjV8Uhx5 LKLoOAKddLXhN067i7wka8 iwpdRmdII6mEunAKKpcisr ZaO6JDxiHPExxspuJEn9MJ deSIDpeCU7MFEflCTqX0Ki EBHnKV7fazj6YTR1ANrvPU JwTvM3FZFkjQNoRZOsxVjz SYgkz701STI8EqMuULLfvp DiaXdnqS3mOnGvAPDPFLEp n4TiDUQcaXXdpC== SPECIAL STUDIES (test x5edqNTbDRMph4wmUPZxzC code = 3376) FuZzEwMzNcZnRuYmpcdWMx SNsjrtRgZGzru8GkO6InAo AwMFxhbnNpXGRlZmxhbmcx XEXxPXW1voEuWXRvDWscFT WrEGkyZh1uoDXcgJzsBgVh MZKfs6abehSNclxxyPh9t5 ydVJExKnZ7xBZeJYrjU3fg dlGsvUJwJ5SaiAMzxZw1y7 twOlJoJsH4fWFwDVprD5ll ezOngLHnQZDpHYi5jQ50EZ QbjJ6vqDDsXKbcvhGcShC0 AHgcVHAqXpQ3PMKnlFMoXM NxJ2rjOFPyIMzwVCSaLQtb lGTxGRD0jKaxa4N4cLDwgE UonBwmFjGtVkKxSjCHa1Gz RYz7gTxiZ7CwZCQuZcB3dP QgUGFyYWdyYXBoIEZvbnQ7 gThmohKhw23wmBTsAYEtUM UcEqAkpZztFJNzPMOKm8Nd hTohVFS8fVe4vCtwCtxjSU U8Jgj5VD9fju23khy7hQkx CIGmgiwoAgC6MFfyUVBacy alRId4LEflCTOvhVO2OYXv jTMzV0YlTJIyJD6eoqe9OX N9DXurRNMaOtN6YCZxcLYx KTYdaUuxFKedf536LPN8Ih PjZP1iU0Jhm6D6rC3jgNGf LUOadFUwQxQsSIWefw6xdB NeYSrgp4LlTUK7yfF4pGSl bGDrBSHdFN08Kngjj2MgPc gsx4ZcK60wbCB0LXwip1ra YW7fBdV1vpJqBAbll6oifW 7vSqV7UZjsIL3dOG7iBJYe vN6cuccqZMKoAyYjaeqhEO PwhGtyhiWqEn5jkAbcLNH0 FMuoA4xgsL3qZyJ5LKwvE6 yltS7tPHp6RMeizVH6JBYl nY2iXO6qbnzma4kaNXwzDK tsAJRbzkY0yvD4GVUltZJb B3CwoD8hDIFnDG2ynveem1 daFQD2OTwcLQDzSYQ0PxLi XSWcx3Rbloe8ImDzy4QjqY LmLRloH24nf640KZWgzwTv L9mmyZCtfdwekRLsxyrbXX hbhpY6GVHqCCTbPKmjOYTy XGZzMjJcbGFuZzEwMzNcaG ljaFxmMVxkYmNoXGYxXGxv K3nuTyRuD5UrHPUiVpLmVF zuBHjmuFEcmFXtfCE3dC5d WQ4iFONluSMcZ2KjSWHybz IdjSDqOWD7dEDuvLRhVW7y OHwzzFDcq7ofp9RrK8nvkI jruSV0PD1mTTVxECAqDQvl t0YaoQ4hZxqbsNDdjiepWH xmczIyXGxhbmcxMDMzXGhp X6wbFqFzJSCjbAzsAWbcf3 NoXGYxXGNmMlxmczIyXGx0 cmNoXHBhclxwYXJccGxhaW 9zZxLyCuNjFfatAE8jWIYf Y8ojgRRkUYQwWIBcF7ocSx JcnQ6flGhxLPlyOkTvTtBz LfQDb717rf7aATQjgGZcgr BWfEBhbW2gSCrjYXnvYWur gLQhHJteg4suDNAvc7b8hL XeKQTfgnGef9vhFWkwowPo MMUzeCVlpBLxTHMym41fHB wogCwskEzdOBKkm4BqpUpm g0ZxCiFtCGhqj4NpT37doZ JvbCBzbGlkZXMgcnVuIGFs k67mx7vwUTQpQeU0sIXbwU C7zDHlnONgp9RcjOhhODJa v3jcSECrdk8hfzvoeFRmw1 GejQ7agfdjHNbiwELnheMz AMQzs3h4gVGbMGQiTDPvMT xozBv7YLWyv829oy9mllL2 wRGzIVE6HArtOAWsQDPsmd UgZXZhbHVhdGVkXHBsYWlu XGYxXGZzMjJcFuZzEwMz NcaGljaFxmMVxkYmNoXGYx FTgjV1fbOsSpC4JxXMTyDd ScuLRfR0xmpHJhQYZwTIcp XGYxXGZzMjJcbGFuZzEwMz NcaGljaFxmMVxkYmNoXGYx UJpmG4ojCbCbF6KlSVKkYu IgIFxwbGFpblxmMVxmczIy VBhnpjdqBFRfNWfuC6ysVy VwYZUgpFwkIPxzl0JrJMTm BDFoVeixppZnLRg5waMaMO BhclxwbGFpblxmMVxmczIy RZckgmurZENyUSnnI3ioIe DsCJVjyNqaLSulg1ZgICGz XGNmMlxmczIyIEltbXVub2 edl2TnY5rxeAfvdLI7QMSb B4hylMTluKB9RXV1lB7uND ohusJcEIFbh9RtODYtNDGy XhY5yV0pLCO2FiWHuMxhZU BsYWluXGYxXGZzMjJcbGFu ZzEwMzNcaGljaFxmMVxkYm UaDNKxZXsoV5zrLmEmS0Wr VQYyNoYrhYaeOMgaVDu2Js xwbGFpblxmMVxmczIyXGxh njorLFMiIGkvR6ykJmSlCD WhqNuwZChlo2XqCKDwGFTo MlxmczIyIHMgTWVkaWNhbC MLTC63JDWvCQUxoSqerG6e yPGFHYJmdlR4j0I8UIbmBI GyTMz8APcpitOrBRChkC7e QBIqIL4xJCk3pvRwGHQcv5 EdEY2xVASqrQVyHPW8TSSw y9PxH9Pqq9FqWFMtKATsmo 8lapOkKlSNrTBlTENolj80 JPYjSZ0vG8usBZOlZBEbvb KzfPUmw4IvDMUseEQ5iFNp XT3OTsZQw46wMVQhJUJLjn KxFXJohGkrkZH6ccD1lR7t LiBUaGUgRkRBIGhhcyBkZX Gwmt5lhfGiZXYtQLLwb6Ev bJJbcYTfelKmZ3Tlw9TjND Vafk86LItjcXAbud67AY4j P8Oiv2VwsK2bBMaqONDmm5 KatUKhlIDqYFGaq3QhT0wz fqmaLAnqhEApaG2cILGxUS c6MDLzr9RcYNJre7TtGpCi rjEeEXWnZXGqQVLudM68QF E8vSfutCxdeuPuLM1gCLRc cuVcNTWtBEWpiO6lNPozjd BzSRRvorI8n7Z7OUhyQPPn ziOySvbpJJS1ywZwnnC0fO EtA0usrvdrSEwjFCDco2Zy sS7btVHQpBTju1IsrXEwfJ ISqLBwCM1hlqFuPZ3nSAJ5 ODggKENMSUEtODgpIGFzIH D5ESvvNdhvBXP0dsDdXBLa q7GrTTnoI6iyB64wxRcytR m3aJIxoVqokMOgxJLfTTTr ihN3w5X5EALlf7MuayrqHC BsYWluXGYyXGZzMjJcbGFu ZzEwMzNcaGljaFxmMlxkYm QjPSYvJHqzT5dfPyXnQgVn YrwxBUP9zS== Gross assessment was [facility] performed at ([facility], = 2776) Department of Pathology, [address] [place] [address], [place] [address], Technical component was [facility] performed at ([facility], = 2778) Department of Pathology, [address] [place] [address], Professional component [facility] was performed at ([facility], code = 2779) Department of Pathology, [address] [place] [id number], [facility] [id number] 08:35:43Surgical Pathology Report Case: [id number] Authorizing Provider: Ana Lilia Doll, Collected: 02/28/2022 11:03 AM Ordering Location: [address] Received: 03/01/2022 07:57 AM Service Pathologist: Irma Fermin MD Specimen: Biopsy, Gastric, random gastric bx r/o H. pylori A. GASTRIC, RANDOM BIOPSY - Gastric oxyntic and antrum type mucosa with diffuse chronic active gastritis - Negative for intestinal metaplasia or dysplasia -Immunohistochemical stain for H. pylori is negative (see comment) Signing Pathologist Direct Phone Line: [phone] signed by Irma Fermin MD on 03/03/2022 at 8:35 AMCOMMENTS: There is rare foci of nonspecific staining noted on immunohistoch emical stain which is considered negative. However most architectural representative sampling cannot be excluded and if clinically suspicious correlation with breath test or stool antigen is recommended. Endoscopy report [id number] hemorrhage associated with gastritisA. Biopsy, Gastric.Received in [...] evaluated Immunohistochemistry technical testing was performed at [facility], Pathology Laboratory where it was developed and [...] Improvement Amendments of 1988 (CLIA-88) as qualified to perform high complexity clinical laboratory testing.[facility], Department of Pathology, [address] [place] [id number], [facility], [address] [place] [address], [facility], [address] [place] [address], [id number], BLOOD 2022-03-03 08:35:14 Test Item Value Reference Range Interpretation Comments PHOSPHATIDYLETHANOL (PETH) See scanned (test code = 9239909) report See scanned reportHEPATITIS C PCR, [id number] 13:32:02 Test Item Value Reference Range Interpretation Comments HCV RESULT COMPONENT HCV RNA not detected HCV RNA not detected (CHERYLAKER) (test code = 2699) This test uses a Real-Time Polymerase Chain Reaction (RT-PCR) methodology and was performed using JOSSELINE Ampliprep/JOSSELINE TaqMan HCV test kit version 2.0 ([employer]).Reportable range for this assay is 15 - 100,000,000 IU per mL (1.18 - 8.00 Log IU/mL).ANTI-NUCLEAR ANTIBODY (DILAN)2022-03-01 13:19:31 Test Item Value Reference Range Interpretation Comments ANTI-NUCLEAR ANTIBODY (DILAN) (BEAKER) Negative Negative (test code = 418) Test performed by IFA method.Test performed by IFA method.POC-Glucose meter 2022-03-01 08:12:54 Test Item Value Reference Range Interpretation Comments POC-Glucose Meter (test 103 mg/dL 70-110 : TE STED AT [facility] code = 1538) [address] [place] [address], [address]: Parish Visitor/Techni king ID = [id number] for Catrina Moreira Lab Interpretation (test Normal code = 36376-9) [facility] [id number] 08:12:54 Test Item Value Reference Range Interpretation Comments POC-GLUCOSE METER 103 mg/dL 70-110 : TESTED A T [facility] 6720 (BEAKER) (test code = LISA JARAMILLO ME, 1538) [address]: Parish Visitor/Techni king ID = [id number] for Catrina Rzaa COMPREHENSIVE METABOLIC [id number] 06:12:16 Test Item Value Reference Range Interpretation [...] decreased 60-89 G3a Mildl y to moderately 45- 59 G3b Moderately to s everely 30-44 G4 Severl y decreased 15-29 G5 Kidney failure <15Reported eGF R is based on the CKD-EPI 2020 equation that d oes not use a race coefficientEsti mated GFR is not as accur ate as Creatinine Ally danay in predicting glom erular filtration rate . Estimated GFR is not appl icable for dialysis patien ts Parish Visitor ID - ZOILAOCBC (HEMOGRAM ONLY)2022-03-01 05:40:54 Test [...] 0-0 (test code = 413) HEMOGLOBIN AND [id number] 17:38:59 Test Item Value Reference Range Interpretation Comments HEMOGLOBIN (BEAKER) (test code = 9.2 GM/DL 11.2-15.7 L 410) HEMATOCRIT (BEAKER) (test code = 27.7 % 34.1-44.9 L 411) Parish Visitor ID - [id number] ID - [id number] A ANTIBODY, [id number] 13:49:23 Test Item Value Reference Range Interpretation Comments HEPATITIS A IGG ANTIBODY (BEAKER) Reactive Nonreactive A (test code = 2797) [facility] Visitor ID - MATEUS LCBC (HEMOGRAM ONLY)2022-02-28 06:10:17 [...] 0-0 (test code = 413) COMPREHENSIVE METABOLIC [id number] 05:57:41 Test Item Value Reference Range Interpretation [...] = 358) GLUCOSE RANDOM 93 mg/dL 70-105 (BEAKER) (test code = 652) CALCIUM (BEAKER) 6.7 [...] not appl icable for dialysis patien ts [facility] Visitor ID - ZOILAOPROTHROMBIN [id number] 05:31:42 Test Item Value Reference Range Interpretation Comments PROTIME (BEAKER) 21.9 seconds 11.9-14.2 H (test code = 759) INR (BEAKER) (test 1.97 See_Comment [Automat ed message] code = 370) The system [employer] generated this result transmitted ref erence range: <=5.90. The reference range was not used to int erpret this result as normal/abnormal . RECOMMENDED COUMADIN/WARFARIN INR THERAPY RANGESSTANDARD DOSE: 2.0 - 3.0 Includes: PROPHYLAXIS for venous thrombosis, systemic embolization; TREATMENT for venous thrombosis and/or pulmonary embolus.HIGH RISK: Target INR is 2.5-3.5 for patients with mechanical heart valves.HEPATITIS B SURFACE [id number] 17:29:18 Test Item Value Reference Range Interpretation Comments HEPATITIS B SURFACE ANTIBODY < mIU/mL <8.0 (BEAKER) (test code = 647) [facility] Visitor ID - MATEUS LHEPATITIS B CORE ANTIBODY, [id number] 17:28:42 Test Item Value Reference Range Interpretation Comments HEPATITIS B CORE TOTAL ANTIBODY Nonreactive Nonreactive (BEAKER) (test code = 497) [facility] Visitor ID - MATEUS RENEIV-1 ANTIGEN WITH HIV-1/2 [id number] 17:28:42 Test Item Value Reference Range Interpretation Comments HIV-1 ANTIGEN WITH HIV 1\\T\\2 Nonreactive Nonreactive ANTIBODY (2) (BEAKER) (test code = 2586) [facility] Visitor ID - MATEUS RENEEPATITIS PANEL, [id number] 06:37:42 Test Item Value Reference Range Interpretation Comments HEPATITIS A IGM ANTIBODY (BEAKER) Nonreactive Nonreactive (test code = 498) HEPATITIS B CORE IGM ANTIBODY Nonreactive Nonreactive (BEAKER) (test code = 645) HEPATITIS C ANTIBODY (BEAKER) Reactive Nonreactive A (test code = 367) HEPATITIS B SURFACE ANTIGEN (2) Nonreactive Nonreactive (BEAKER) (test code = 2585) [facility] Visitor ID - MATEUS LIMMUNOGLOBULIN G (IGG)2022-02-27 06:12:34 Test Item Value Reference Range Interpretation Comments IMMUNOGLOBULIN G (IGG) 1669 mg/dL See_Comment [Aut omated message] (BEAKER) (test code = The sy stem which 427) generated this result transmit suzanne reference range : 540-1,822. The reference range was not used to interpret this result as normal/abnormal . [facility] Visitor ID - MATEUS [id number] 05:57:03 Test Item Value Reference Range Interpretation Comments FERRITIN (BEAKER) (test code = 39.77 ng/mL 5.00-275.00 361) [facility] Visitor ID - MARCOBASIC METABOLIC [id number] 05:45:07 Test Item Value Reference Range Interpretation [...] decreased 60-89 G3a Mildl y to moderately 45- 59 G3b Moderately to s everely 30-44 G4 Severl y decreased 15-29 G5 Kidney failure <15Reported eGF R is based on the CKD-EPI 2020 equation that d oes not use a race coefficientEsti mated GFR is not as accur ate as Creatinine Ally danay in predicting glom erular filtration rate . Estimated GFR is not appl icable for dialysis patien ts [facility] Visitor ID - MATEUS LPROTHROMBIN [id number] 05:40:27 Test Item Value Reference Range Interpretation Comments PROTIME (BEAKER) 21.1 seconds 11.9-14.2 H (test code = 759) INR (BEAKER) (test 1.88 See_Comment [Automat ed message] code = 370) The system [employer] generated this result transmitted ref erence range: <=5.90. The reference range was not used to int erpret this result as normal/abnormal . RECOMMENDED COUMADIN/WARFARIN INR THERAPY RANGESSTANDARD DOSE: 2.0 - 3.0 Includes: PROPHYLAXIS for venous thrombosis, systemic embolization; TREATMENT for venous thrombosis and/or pulmonary embolus.HIGH RISK: Target INR is 2.5-3.5 for patients with mechanical heart valves.[id number] 05:40:04 Test Item Value Reference Range Interpretation Comments MAGNESIUM (BEAKER) (test code = 1.4 mg/dL 1.6-2.6 L 627) [facility] Visitor ID - MATEUS [id number] 05:40:04 Test Item Value Reference Range Interpretation Comments PHOSPHORUS (BEAKER) (test code = 2.0 mg/dL 2.3-4.7 L 604) [facility] Visitor ID - MATEUS LHEPATIC FUNCTION [id number] 05:40:04 Test Item Value Reference Range Interpretation [...] (test code = 26 U/L 6-55 347) [facility] Visitor ID - MATEUS [id number] 05:38:43 Test Item Value Reference Range Interpretation Comments ALPHA-1 ANTITRYPSIN (BEAKER) 123.20 mg/dL 90.00-200.00 (test code = 502) Parish Visitor ID - MATEUS HENRY, TIBC, % SAT. (WITHOUT FERRITIN)2022-02-27 05:35:36 Test Item Value Reference Range Interpretation Comments IRON (BEAKER) (test code = 547) 19.0 ug/dL 40.0-160.0 L TOTAL IRON BINDING CAPACITY 243 ug/dL 250-450 L (BEAKER) (test code = 769) IRON % SATURATION (2) (BEAKER) 8 % 20-55 L (test code = 2590) Parish Visitor ID - MARCOCBC W/PLT COUNT & AUTO [id number] 05:28:47 Test Item Value Reference Range Interpretation [...]
[2022-09-18 10:47] LABS: Specific Gravity 1.014 (1.005-1.030); Urine Clarity Turbid (Clear); Urine Color Yellow (Yellow)
[2022-09-18 10:48] LABS: Urine Bacteria 20-50 /HPF (<20); Urine Bilirubin NEGATIVE (Negative); Urine Blood Negative (Negative); Urine Glucose NEGATIVE (Negative); Urine Protein NEGATIVE (Negative); Urine RBC <5 /HPF (None Seen); Urine Urobilinogen 1+ (Normal)
[2022-09-18] MEDS ORDERED: KETOROLAC 30 MG/ML INJ ONE (10:50)
[2022-09-18 10:59] LABS: Absolute Lymphocytes (CBC) 0.9 K/uL (0.7-4.9); Hematocrit 32.6 % (36.0-45.0); Lymphocytes % 28.7 % (15.3-44.8); MCV 97.8 fL (80-100); MPV 8.3 fL (7.6-11.3); RBC Red Blood Cell Count 3.33 M/uL (3.86-4.86)
[2022-09-18 11:12] LABS: Albumin 2.3 g/dL (3.4-5.0); Bilirubin Total 2.3 mg/dL (0.2-1.0); Potassium 3.2 mEq/L (3.5-5.1); Protein, Total 6.7 g/dL (6.4-8.2)
[2022-09-18] MEDS ORDERED: POTASSIUM CL SA 10 MEQ TAB PO ONE (11:44)
--- NOTE | 2022-09-18 14:19 | ER ---
Nurse's Notes [facility] Name: Sophia Joya Age: 62 yrs Sex: Female : 1960 Arrival Date: 09/18/2022 Time: 09:57 Bed 5 Private MD: Diagnosis: Low back pain;Right lower quadrant pain;Hypokalemia Presentation: 09/18 10:09 Chief complaint: Patient states: RLQ/ groin pain that has been ongoing x 2 weeks, but ss became worse yesterday after moving her body quickly in a twisting motion. Denies N/V/D. Coronavirus screen: Client denies travel out of the [place] in the last 14 days. Ebola Screen: Patient denies exposure to infectious person. Patient denies travel to an Ebola-affected area in the 21 days before illness onset. Initial Sepsis Screen: Does the patient meet any 2 criteria? No. Patient's initial sepsis screen is negative. Does the patient have a suspected source of infection? No. Patient's initial sepsis screen is negative. Risk Assessment: Do you want to hurt yourself or someone else? Patient reports no desire to harm self or others. Onset of symptoms was September 04, 2022. 10:09 Method Of Arrival: Ambulatory ss 10:09 Acuity: MARY 3 ss Historical: - Allergies: 10:11 Amoxicillin; ss 10:11 Codeine; ss 10:11 PENICILLINS; ss - Home Meds: 10:11 None [Active]; ss - PMHx: 10:11 Hypertension; ss - PSHx: 10:11 Ligation of fallopian tube; wrist; ss - Immunization history:: Client reports receiving the 2nd dose of the Covid vaccine. - Social history:: Smoking status: Patient denies any tobacco usage or history of. Screenin:48 [facility] ED Fall Risk Assessment (Adult) History of falling in the last 3 months, ph including since admission No falls in past 3 months (0 pts) Confusion or Disorientation No (0 pts) Intoxicated or Sedated No (0 pts) Impaired Gait No (0 pts) Mobility Assist Device Used No (0 pt) Altered Elimination No (0 pt) Score/Fall Risk Level 0 - 2 = Low Risk Oriented to surroundings, Maintained a safe environment, Hourly rounding (assess needs \T\ fall precautionary measures) done. Abuse screen: Denies threats or abuse. Denies injuries from another. Nutritional screening: No deficits noted. Tuberculosis screening: No symptoms or risk factors identified. Assessment: 10:12 Reassessment: Pt ambulated to restroom with steady gait to provide urine specimen. ss 10:47 General: Appears in no apparent distress. comfortable, Behavior is calm, cooperative, ph appropriate for age. Pain: Complains of pain in right lower quadrant. Neuro: Level of Consciousness is awake, alert, obeys commands, Oriented to person, place, time, situation. Cardiovascular: Capillary refill < 3 seconds in bilateral fingers Patient's skin is warm and dry. Respiratory: Airway is patent Respiratory effort is even, unlabored. GI: Abdomen is non-distended, Reports lower abdominal pain, Patient currently denies diarrhea, nausea, vomiting. Derm: Skin is healthy with good turgor, Skin is pink, warm \T\ dry. Musculoskeletal: Circulation, motion, and sensation intact. Range of motion: intact in all extremities. 12:05 Reassessment: Patient appears in no apparent distress at this time. Patient and/or hb family updated on plan of care and expected duration. Pain level reassessed. Patient is alert, oriented x 3, equal unlabored respirations, skin warm/dry/pink. 12:59 Reassessment: Patient appears in no apparent distress at this time. Patient and/or ph family updated on plan of care and expected duration. Pain level reassessed. Patient is alert, oriented x 3, equal unlabored respirations, skin warm/dry/pink. 14:02 Reassessment: Patient appears in no apparent distress at this time. Patient and/or hb family updated on plan of care and expected duration. Pain level reassessed. Patient is alert, oriented x 3, equal unlabored respirations, skin warm/dry/pink. Vital Signs: 10:09 Resp 15; Weight 58.97 kg; Height 4 ft. 9 in. ; Pain 10/10; ss 10:49 BP 155 / 96; Pulse 66; Resp 18; Pulse Ox 100% on R/A; ph 12:05 BP 148 / 77; Pulse 74; Resp 16; Pulse Ox 99% on R/A; hb 12:59 BP 156 / 90; Pulse 71; Resp 18; Pulse Ox 100% on R/A; ph 14:02 BP 146 / 76; Pulse 75; Resp 17; Pulse Ox 100% ; hb 10:09 Body Mass Index 28.13 (58.97 kg, 144.78 cm) 10:09 Pain Scale: Adult ss ED Course: 10:03 Patient arrived in ED. kj1 10:06 Itzel Belcher NP is PHCP. aj3 10:06 Jared Barnett DO is Attending Physician. aj3 10:11 Triage completed. ss 10:11 Arm band placed on right wrist. ss 10:13 Elvia Meier RN is Primary Nurse. ph 10:39 Urinalysis W/Microscopic Sent. hb 10:48 Patient has correct armband on for positive identification. Placed in gown. Bed in low ph position. Call light in reach. Pulse ox on. NIBP on. Door closed. Noise minimized. Lights dimmed. Warm blanket given. 10:48 Initial lab(s) drawn, by me, sent to lab. Inserted saline lock: 20 gauge in right ph antecubital area, using aseptic technique. Blood collected. 13:29 No provider procedures requiring assistance completed. ph 14:58 IV discontinued, intact, bleeding controlled, No redness/swelling at site. Pressure ph dressing applied. Administered Medications: 10:47 Drug: Ketorolac IVP 15 mg Route: IVP; Site: right antecubital; ph 11:18 Follow up: Response: No adverse reaction hb 13:28 Drug: Potassium Chloride PO 20 mEq Route: PO; ph 13:28 Follow up: Response: No adverse reaction ph 14:56 Drug: Lidoderm Topical Patch 5 % (700 mg/patch) 1 patches Route: Topical; Site: ph affected area; Medication: 10:48 VIS not applicable for this client. ph Outcome: 14:18 Discharge ordered by . aj3 14:57 Discharged to home ambulatory. ph 14:57 Condition: good 14:57 Discharge instructions given to patient, Instructed on discharge instructions, follow up and referral plans. medication usage, Demonstrated understanding of instructions, follow-up care, medications, Prescriptions given X 2. 14:59 Patient left the ED. ph Signatures: Sheree Alvarado RN RN Elvia Meier RN RN ph Monserrat George RN RN Shama Laguna kj1 Itzel Belcher NP [employer] CONSULTANT aj3
--- NOTE | 2022-09-18 14:19 | EDPHYS ---
Physician Documentation [facility] Name: Sophia Joya Age: 62 yrs Sex: Female : 1960 Arrival Date: 09/18/2022 Time: 09:57 Bed 5 Private MD: ED Physician Jaerd Barnett HPI: 09/18 10:48 This 62 yrs old Female presents to ER via Ambulatory with complaints of LOWER aj3 RIGHT QUADRANT PAIN. 10:48 Patient with history of hypertension here with right groin pain that started about 2 aj3 weeks ago and has progressively gotten worse. She reports the pain starts in the right lower back and shoots around to the front of her groin. She says the pain is also worse with certain movements. No reports of any urinary symptoms, nausea/vomiting/diarrhea, fever or chills.. Historical: - Allergies: 10:11 Amoxicillin; ss 10:11 Codeine; ss 10:11 PENICILLINS; ss - Home Meds: 10:11 None [Active]; ss - PMHx: 10:11 Hypertension; ss - PSHx: 10:11 Ligation of fallopian tube; wrist; ss - Immunization history:: Client reports receiving the 2nd dose of the Covid vaccine. - Social history:: Smoking status: Patient denies any tobacco usage or history of. ROS: 10:48 Constitutional: Negative for fever, chills, and weight loss, Neck: Negative for injury, aj3 pain, and swelling, Cardiovascular: Negative for chest pain, palpitations, and edema, Respiratory: Negative for shortness of breath, cough, wheezing, and pleuritic chest pain, : Negative for dysuria, hematuria, discharge or pelvic pain MS/Extremity: Negative for injury and deformity, Skin: Negative for injury, rash, and discoloration. 10:48 Abdomen/GI: Positive for Right groin pain, Negative for nausea, vomiting, and diarrhea, constipation. Exam: 10:48 Constitutional: This is a well developed, well nourished patient who is awake, alert, aj3 and in no acute distress. Head/Face: Normocephalic, atraumatic. Neck: Supple, full range of motion without nuchal rigidity. Cardiovascular: Regular rate and rhythm with a normal S1 and S2. No gallops, murmurs, or rubs. Normal PMI, no JVD. No pulse deficits. Respiratory: Lungs have equal breath sounds bilaterally, clear to auscultation and percussion. No rales, rhonchi or wheezes noted. No increased work of breathing, no retractions or nasal flaring. Abdomen/GI: Soft, non-tender, with normal bowel sounds. No distension or tympany. No guarding or rebound. No evidence of tenderness throughout. 10:48 Skin: Warm, dry with normal turgor. Normal color with no rashes, no lesions, and no evidence of cellulitis. Neuro: Awake and alert, GCS 15, oriented to person, place, time, and situation. Motor strength 5/5 in all extremities. Sensory grossly intact. Normal gait. 10:48 Musculoskeletal/extremity: Extremities: Positive straight leg raise to right leg with pain elicited to right lower back and right groin.. Vital Signs: 10:09 Resp 15; Weight 58.97 kg; Height 4 ft. 9 in. ; Pain 10/10; ss 10:49 BP 155 / 96; Pulse 66; Resp 18; Pulse Ox 100% on R/A; ph 12:05 BP 148 / 77; Pulse 74; Resp 16; Pulse Ox 99% on R/A; hb 12:59 BP 156 / 90; Pulse 71; Resp 18; Pulse Ox 100% on R/A; ph 14:02 BP 146 / 76; Pulse 75; Resp 17; Pulse Ox 100% ; hb 10:09 Body Mass Index 28.13 (58.97 kg, 144.78 cm) ss 10:09 Pain Scale: Adult ss MDM: 10:15 Patient medically screened. aj3 10:48 Differential diagnosis: UTI, acute appendicitis, hernia, muscle strain. aj3 14:00 Data reviewed: vital signs, nurses notes, lab test result(s). Test considered but Not aj3 performed: CT: No right lower quadrant tenderness or concern for intra-abdominal abnormality. Pain is likely muscular in nature. Patient also recently had CT on last visit.. Counseling: I had a detailed discussion with the patient and/or guardian regarding: the historical points, exam findings, and any diagnostic results supporting the discharge/admit diagnosis, lab results. 09/18 10:28 Order name: CBC with Diff; Complete Time: 11:20 aj3 09/18 10:28 Order name: CMP; Complete Time: 11:20 aj3 09/18 10:28 Order name: Urinalysis W/Microscopic; Complete Time: 11:20 09/18 10:28 Order name: IV Saline Lock; Complete Time: 10:46 09/18 10:28 Order name: Labs collected and sent; Complete Time: 10:46 Administered Medications: 10:47 Drug: Ketorolac IVP 15 mg Route: IVP; Site: right antecubital; ph 11:18 Follow up: Response: No adverse reaction hb 13:28 Drug: Potassium Chloride PO 20 mEq Route: PO; ph 13:28 Follow up: Response: No adverse reaction ph 14:56 Drug: Lidoderm Topical Patch 5 % (700 mg/patch) 1 patches Route: Topical; Site: ph affected area; Disposition: 17:28 Co-signature as Attending Physician, Jared Barnett DO I was immediately available on-site ms3 in the Emergency Department for consultation in the care of the patient. Disposition Summary: 09/18/22 14:18 Discharge Ordered Location: Home aj3 Problem: new aj3 Symptoms: have improved aj3 Condition: Stable aj3 Diagnosis - Low back pain aj3 - Right lower quadrant pain aj3 - Hypokalemia aj3 Followup: aj3 - With: Private Physician - When: - Reason: Recheck today's complaints, Re-evaluation by your physician Followup: aj3 - With: Emergency Department - When: - Reason: Worsening of condition Discharge Instructions: - Discharge Summary Sheet aj3 - Acute Back Pain, Adult aj3 Forms: - Medication Reconciliation Form aj3 - Thank You Letter aj3 - Antibiotic Education aj3 - Prescription Opioid Use aj3 - Patient Portal Instructions aj3 Prescriptions: - Lidoderm 5 % Topical adhesive patch, medicated - apply 1 patch by TOPICAL route daily leave on most painful area for up to 12 aj3 hrs; 30 patch; Refills: 0, Product Selection Permitted - Naprosyn 500 mg Oral Tablet - take 1 tablet by ORAL route 2 times per day take with food; 30 tablet; Refills: aj3 0, Product Selection Permitted Signatures: Dispatcher [employer] Sheree Guadalupe RN RN ss Hall, Patricia, RN RN ph Sims, Marcus, DO DO ms3 Itzel Belcher, LEAD PROJECT ENGINEER LEAD PROJECT ENGINEER aj3 Monserrat George RN
[2022-09-18] MEDS ORDERED: LIDOCAINE 4% PATCH ONE (14:36)
[2022-09-18 15:08] VITALS: O2SAT 100
[2022-09-18 15:09] VITALS: BP 146/76
== END 2022-09-18 14:59 | disposition home or self-care (01) ==
LOC: ER 09:57
DX: M54.50 Low back pain, unspecified (principal); R10.31 Right lower quadrant pain; E87.6 Hypokalemia; I10 Essential (primary) hypertension; Z88.0 Allergy status to penicillin; Z88.1 Allergy status to other antibiotic agents; Z88.5 Allergy status to narcotic agent
CPT/HCPCS: 85025; 81001; 36415; 80053; 96374; 99284; J2001

== ENCOUNTER 2022-09-22 01:06 | Emergency (ER) | payer OTHER ==
--- OUTSIDE RECORDS SUMMARY | 2022-09-22 01:19 | XMS REPORT | Continuity of Care Document ---
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 OP [id number] 2022 2022 DIAGNSTC IMGING 00:00:00 00:00:00 KUSHAL RODRIGUEZ HMO POS [id number] 2022 QPOS 00:00:00 Problems Condition Condition Condition [...] [facility] 00 [place] Allergy Active Low Rash [facility] 00 [place] Codeine Drug Active Rash [facility] 00 [place] Penicill Drug Active Rash [facility]: Medical 00 [place] Social History Social Habit Start Date Stop Date Quantity Comments Source History of Current smoker [facility] tobacco use [facility] Tobacco use and 2022-02-28 2022-02-28 Smokeless tobacco [facility] exposure [facility] 00:00:00 non-user [facility] Alcohol Comment 2022-02-27 2022-02-27 quit drinking [address] [facility] 00:00:00 00:00:00 weeks ago [facility] Sex Assigned At [address] [facility] 00:00:00 00:00:00 [facility] Smoking Status Start Date Stop Date Source Ex-smoker 2022-02-28 00:00:00 2022-02-28 00:00:[address] [facility] Medications Ordered Filled Start Stop Current Ordering [...] vancomycin 250mg Q.25D Take [address] [facility] [address] 250 mg/5 mL 03-01 (250 mg Luke s Syrg 00:00: 23:59 total) by Medical 00 :00 mouth 4 Center (four) times daily for 3 days. Vital Signs Vital Name Observation Time Observation Value Comments Source HEIGHT 2022-02-27 02:44:08 149.9 cm WEIGHT 2022-02-27 02:44:08 65.545 kg HEIGHT 2022-02-27 02:44:08 149.9 cm WEIGHT 2022-02-27 02:44:08 65.545 kg Heart rate 2022-03-01 07:59:42 75 /min [facility] Oxygen saturation in 2022-03-01 07:59:42 96 /min [facility] Arterial blood by Medical Ce nter Pulse oximetry Systolic blood 2022-03-01 07:58:45 149 mm[Hg] [facility] Diastolic blood 2022-03-01 07:58:45 87 mm[Hg] [facility] Body temperature 2022-03-01 07:57:44 36.94 Joanne [facility] Respiratory rate 2022-03-01 07:57:44 18 /min [facility] Body height 2022-02-27 02:44:08 149.9 cm [facility] Body weight 2022-02-27 02:44:08 65.545 kg [facility] BMI 2022-02-27 02:44:08 29.19 kg/m2 [facility] Procedures Procedure Date / Time Performing Clinician Source Performed POCT-GLUCOSE METER 2022-03-01 08:01:00 Robert Tobar [facility] CBC (HEMOGRAM ONLY) 2022-03-01 05:08:00 Robert Tobar [facility] COMPREHENSIVE METABOLIC 2022-03-01 05:08:00 Robert Tobar [facility] HEMOGLOBIN AND HEMATOCRIT 2022-02-28 17:25:00 Robert Tobar [facility] HEPATITIS A ANTIBODY, IGG 2022-02-28 12:39:00 Meño Campos [facility], I [facility] REPORT OF PROCEDURE - 2022-02-28 11:26[facility] TISSUE EXAM 2022-02-28 11:03:00 [facility], UPPER GI TRACT, 2022-02-28 10:00:00 Sharmila [facility] WITH BIOPSY [facility] EGD, WITH VARICEAL BANDING 2022-02-28 10:00:00 Sharmila [facility] CBC (HEMOGRAM ONLY) 2022-02-28 04:56:00 [facility] COMPREHENSIVE METABOLIC 2022-02-28 04:56:00 Smitha [facility] PROTHROMBIN TIME/INR 2022-02-28 04:56:00 [facility] PHOSPHATIDYLETHANOL, BLOOD 2022-02-28 04:56:00 Meño Campos [facility] HEPATITIS C GENOTYPE 2022-02-28 04:56:00 Meño Campos [facility] ANTI-NUCLEAR ANTIBODY 2022-02-27 16:10:00 Maricarmen Michaels [facility] (DILAN) [facility] HEPATITIS B SURFACE 2022-02-27 16:10:00 Meño Campos [facility] HC LAB HIV-1 AG W/HIV-1&2 2022-02-27 16:10:00 Meño Campos CH, I [facility] AB [facility] HEPATITIS B CORE ANTIBODY, 2022-02-27 16:10:00 Meño Campos [facility] TOTAL [facility] ABORH, MANUAL 2022-02-27 04:52:00 Aydee Clark [facility] ACTIN (SMOOTH MUSCLE) 2022-02-27 04:40:00 [facility] IGG [facility] [id number]\\, 2022-02-27 04:40:00 Maricarmen Michaels [facility] ANTI-MITOCHONDRIAL AB, 2022-02-27 04:40:00 Maricarmen Michaels [facility] TO [facility] CERULOPLASMIN 2022-02-27 04:40:00 Maricarmen Michaels [facility] FERRITIN 2022-02-27 04:40:00 Maricarmen Michaels [facility] HEPATITIS PANEL, ACUTE 2022-02-27 04:40:[address] [facility] IMMUNOGLOBULIN G (IGG) 2022-02-27 04:40:00 Maricarmen Michaels [facility] IRON, TIBC, % SAT. 2022-02-27 04:40:00 Maricarmen Michaels [facility] (WITHOUT FERRITIN) [facility] HEPATITIS C PCR, 2022-02-27 04:40:00 Maricarmen Michaels [facility] PROTHROMBIN TIME/INR 2022-02-27 04:40:00 Maricarmen Michaels [facility] MITOCHONDRIAL AB SCREEN 2022-02-27 04:40:00 Maricarmen Michaels [facility] MITOCHONDRIAL AB TITER 2022-02-27 04:40:[address] [facility] CBC W/PLT COUNT & AUTO 2022-02-27 04:39:00 Maricarmen Michaels [facility] BASIC METABOLIC PANEL 2022-02-27 04:39:00 Maricarmen Michaels [facility] HEPATIC FUNCTION PANEL 2022-02-27 04:39:[address] [facility] MAGNESIUM 2022-02-27 04:39:00 Maricarmen Michaels [facility] PHOSPHORUS 2022-02-27 04:39:00 Maricarmen Michaels [facility] CBC W/PLT COUNT & AUTO 2022-02-27 04:39:00 Maricarmen Michaels [facility] TYPE AND SCREEN, AUTOMATED 2022-02-27 04:39:00 Maricarmen Michaels [facility] Plan of Care Planned Activity Planned [...] [facility] Test 00:00:00 [code = 56696352] Medical Ce nter Future Scheduled 1981-02-05 Screening for malignant [facility] Test 00:00:00 neoplasm of cervix Medical C enter (procedure) [code = 964029351] Future Scheduled 1979-02-05 DTAP/TDAP/TD VACCINES CH I [...] breast Medical C enter (procedure) [code = 743229045] Future Scheduled 1960 CT Colonography (combo) [facility] Test 00:00:00 [code = CT Colonography [facility] (combo)] Future Scheduled 1960 Screening for malignant [facility] Test 00:00:00 neoplasm of colon Medical Ce nter (procedure) [code = 074187348] Future Scheduled 1960 Screening for malignant [facility] Test 00:00:00 neoplasm of colon Medical Ce nter (procedure) [code = 229085464] Future Scheduled 1960 Screening for malignant [facility] Test 00:00:00 neoplasm of colon Medical Ce nter (procedure) [code = 955789798] Future Scheduled 1960 Screening for malignant [facility] Test 00:00:00 neoplasm of colon Medical Ce nter (procedure) [code = 438519793] Future Scheduled 1960 Sigmoidoscopy [code = [facility] Test 00:[facility]00 Sigmoidoscopy] Medical Cente r Encounters Start End Encounter Admission Attending Care Care Encounter Source Date/Time Date/Time Type Type Clinicians Facility Department ID 2022-02-22 Inpatient ER [facility] Medical ICU [id number] 17:16:28 [facility] 2022-08-06 2022-08-06 Outpatient AMARIS CHOUDHURY [id number] Amaris 14:00:00 14:00:00 Seybol d 2022-07-16 2022-07-16 [facility] [id number] SLE 00:00:00 00:00:00 DENICE 2022-07-13 2022-07-13 Outpatient AMARIS HDEZ [id number] [facility] 14:15:00 14:15:00 SHIRLENESUSHANT Royalybol d 2022-07-09 2022-07-09 Outpatient AMARIS ROBLES [id number] [facility] 00:00:00 00:00:00 MECHE Royalybol d 2022-07-06 2022-07-06 Outpatient AMARIS VEGA [id number] Amaris 00:00:00 00:00:00 CAMPAIGNS Seyb old 2022-07-01 2022-07-05 Inpatient ER MAUREEN RODRIGUEZ General Med [id number] SLE 07:54:00 13:31:00 DENICE 2022-03-11 2022-03-11 [facility] [id number] SLE 00:00:00 00:00:00 2022-03-10 2022-03-10 Telephone Joel [facility] [id number] 00:00[facility]00 00:00:00 [facility] 2022-03-10 2022-03-10 Abstract Joel, [facility] [id number] 00:00:00 00:00:00 [facility] 2022-02-27 2022-03-01 Hospital ER Liane Jaeger [facility] [id number] [facility] 02:27:00 11:21:00 Encounter Robert Tobar [facility] 2022-02-27 2022-03-01 [facility] [id number] [facility] 02:27:00 11:21:00 [facility] 2022-02-28 2022-02-28 Anesthesia Mackenzie Chicas [facility] [id number] 10:45:00 11:26:00 Event [facility] 2022-02-28 2022-02-28 Surgery Sharmila [facility] [id number] 10:00:00 10:52:00 [facility] Results Test Description Test Time Test Comments Results Result Comments Source PHOSPHATIDYLETHANOL, BLOOD 2022-07-12 13:07:11 Test Item Value Reference Range Interpretation Comme nts PHOSPHATIDYLETHANOL (PETH) (test code = 2101448) see scanned report see scanned reportALPHA FETOPROTEIN (AFP), TUMOR [id number] 11:25:36 Test Item Value Reference Range Interpretation Comments ALPHA-FETOPROTEIN (BEAKER) (test code < ng/mL <10.0 = 1094) Detacker ID - ANSHUL BCALCIUM, [id number] 05:58:34 Test Item Value Reference Range Interpretation Comments CALCIUM IONIZED (BEAKER) (test 1.05 mmol/L 1.12-1.27 L code = 698) PH, BLOOD (BEAKER) (test code = 7.43 1810) COMPREHENSIVE METABOLIC [id number] 05:03:13 Test Item Value Reference Range Interpretation [...] not appl icable for dialysis patien ts Detacker ID - TODD WSpecimen slightly [id number] 04:55:54 Test Item Value Reference Range Interpretation Comments MAGNESIUM (BEAKER) (test code = 1.7 mg/dL 1.6-2.6 627) Detacker ID - TODD [id number] 04:55:54 Test Item Value Reference Range Interpretation Comments PHOSPHORUS (BEAKER) (test code = 2.3 mg/dL 2.3-4.7 604) Detacker RAFAEL BROOKS WCBC W/PLT COUNT & AUTO [id number] 04:18:32 Test Item Value Reference Range Interpretation [...] (BEAKER) (test code = 2801) MR, ABDOMEN, [id number] 21:37:00Unlisted Reason for Exam - Click Yes and Enter Reason Below->No [facility] CENTERName: LUTHER BRUCE : 1960 [...] [place] Verified Date/Time: 07/04/2022 21:37:20 CALCIUM, [id number] 05:06:44 Test Item Value Reference Range Interpretation Comments CALCIUM IONIZED (BEAKER) (test 1.03 mmol/L 1.12-1.27 L code = 698) PH, BLOOD (BEAKER) (test code = 7.44 1810) COMPREHENSIVE METABOLIC [id number] 04:46:51 Test Item Value Reference Range Interpretation [...] not appl icable for dialysis patien ts Detacker ID - ADMINSpecimen slightly [id number] 04:42:23 Test Item Value Reference Range Interpretation Comments MAGNESIUM (BEAKER) (test code = 1.9 mg/dL 1.6-2.6 627) Detacker ID - [id number] 04:42:23 Test Item Value Reference Range Interpretation Comments PHOSPHORUS (BEAKER) (test code = 1.8 mg/dL 2.3-4.7 L 604) Detacker ID - ADMINCBC W/PLT COUNT & AUTO [id number] 04:22:38 Test Item Value Reference Range Interpretation [...] (BEAKER) (test code = 2801) BASIC METABOLIC [id number] 11:30:49 Test Item Value Reference Range Interpretation [...] not appl icable for dialysis patien ts Detacker ID - MMSpecimen slightly [id number] 11:30:30 Test Item Value Reference Range Interpretation Comments MAGNESIUM (BEAKER) 2.0 mg/dL 1.6-2.6 Specimen slightly (test code = 627) hemolyzed Detacker ID - MMCBC W/PLT COUNT & AUTO [id number] 11:09:06 Test Item Value Reference Range Interpretation [...] (BEAKER) (test code = 2801) U/S, ABDOMINAL, [id number] 09:08:00Abdomen limited area? Add comment if clarification is needed.->Right upper quadrant Reason for exam:->[facility] 1960 Sex: FFINAL REPORT Complete [...] with liver function tests. Signed: Edouard Orta [facility] Verified Date/Time: 07/02/2022 09:08:40 U/S, PELVIC, [id number] 09:08:00Reason for exam:->BER[facility]ARD [facility] : 1960 Sex: FFINAL [...] with liver function tests. Signed: Edouard Orta [facility] Verified Date/Time: 07/02/2022 09:08:40 OSMOLALITY, [id number] 07:04:13 Test Item Value Reference Range Interpretation Comments OSMOLALITY URINE 453 mOsm/kg See_Comment [Automated message] (BEAKER) (test code = The sy stem which 614) generated this result transmitted ref erence range: 50-1,200 mOsm/kg. The reference range was not used to int erpret this result as normal/abnormal . URINALYSIS W/ [id number] 06:47:21 Test Item Value Reference Range Interpretation [...] (test code Urine, Clean Catch = 2795) Detacker ID - [auto]Detacker ID - techBASIC METABOLIC [id number] 06:15:04 Test Item Value Reference Range Interpretation [...] not appl icable for dialysis patien ts Detacker ID - mmSpecimen slightly ictericHEPATIC FUNCTION [id number] 06:14:58 Test Item Value Reference Range Interpretation [...] Specimen slightly (test code = 347) hemolyzed Detacker ID - mmSpecimen slightly ictericURIC [id number] 06:14:33 Test Item Value Reference Range Interpretation Comments URIC ACID (BEAKER) 5.2 mg/dL 2.6-7.2 Specimen slightly (test code = 773) hemolyzed Detacker ID - mmSpecimen slightly [id number] 06:14:32 Test Item Value Reference Range Interpretation Comments MAGNESIUM (BEAKER) 1.8 mg/dL 1.6-2.6 Specimen slightly (test code = 627) hemolyzed Detacker ID - mmALPHA FETOPROTEIN (AFP), TUMOR [id number] 06:11:52 Test Item Value Reference Range Interpretation Comments ALPHA-FETOPROTEIN (BEAKER) (test code < ng/mL <10.0 = 1094) Detacker ID - ADMINB-TYPE NATRIURETIC FACTOR (BNP)2022-07-02 05:58:29 Test Item Value Reference Range Interpretation Comments B-TYPE NATRIURETIC PEPTIDE (BEAKER) 127 pg/mL 0-100 H (test code = 700) Detacker ID - mmSODIUM, RANDOM [id number] 05:46:02 Test Item Value Reference Range Interpretation Comments SODIUM URINE (BEAKER) (test code = < meq/L 243) Reference Range: No NormalsOperator ID - ADMINPROTHROMBIN TIME/[id number] 05:41:54 Test Item Value Reference Range Interpretation [...] mechanical heart valves.CBC W/PLT COUNT & AUTO [id number] 05:41:41 Test Item Value Reference Range Interpretation [...] (BEAKER) (test code = 2801) PROTEIN, RANDOM [id number] 05:39:30 Test Item Value Reference Range Interpretation Comments PROTEIN, URINE (BEAKER) (test code = 54 mg/dL 0-14 H 1569) Detacker ID - ADMINCREATININE, RANDOM [id number] 05:38:10 Test Item Value Reference Range Interpretation Comments CREATININE URINE (BEAKER) (test 131.5 mg/dL code = 375) Reference Range: No NormalsOperator ID - ADMINHEPATIC FUNCTION [id number] 10:39:19 Test Item Value Reference Range Interpretation [...] Specimen slightly (test code = 347) hemolyzed Detacker ID - ADMINOperator ID - ADMINSpecimen slightly ictericBASIC METABOLIC [id number] 10:39:18 Test Item Value Reference Range Interpretation [...] not appl icable for dialysis patien ts Detacker ID - ADMINSpecimen slightly icteric(CELLAVISION MANUAL DIFF)2022-07-01 [...] CONCENTRATION Decreased (CELLAVISION)(BEAKER) (test code = 3438) Detacker ID - Avila Dato-onUser comments: Slide comments:CBC W/PLT COUNT & AUTO [id number] 10:34:49 Test Item Value Reference Range Interpretation [...] 0-0 (BEAKER) (test code = 413) PROTHROMBIN [id number] 10:00:52 Test Item Value Reference Range Interpretation [...] Interpretation Comments SCAN RESULT (test code = 5103905) Tissue [id number] 08:35:43 Test Item Value Reference Range Interpretation Comments Case Report (test code Surgical Pathology = 104) Report Case: [id number] Authorizing Provider: Ana Lilia Doll, Collected: 02/28/2022 11:03 AM Ordering Location: [address] Received: 03/01/2022 07:57 AM Service Pathologist: Irma Fermin MD Specimen: Biopsy, Gastric, random gastric bx r/o H. pylori DIAGNOSIS (test code = y1kxoLFcXSUbq1zfVOOkdX 3220) FuZzEwMzNcZnRuYmpcdWMx IHtccnRmMVxlcGljOTYwMl rozfDwWPEwdYZsQ3Aqcvxa BPcmDR1oSG1wbDhpxSMkpP KcEOMsVpPdj6xcs664nZFa b1xpJUNQvpzghKx1tChyH5 0vw9D5JsskO79qtZRcYRG9 WLUoLSTqpKWdFJFkACD5PO KoxRNfW2rpYKPuAB8vdgow HIheRXvnLLMzgSR5RFEwbR TcT8WsNZCqANipRDDjwvj9 VbTfFp0oxCHqgZcuPKuyYW UyUGUmLWscPIPjFyJdDD9x LZjVG0EJFBTyCUWLZcQWRU YTAR3TP0wkbZgbQMHfLCXH DMI3smqaAA89zG09wJCaOD 8sWOGbpjCwhY8luNunNKAz fMYhh2Ljd7j0xKFrlKRuoS UoOHWobl2skWBbDPG5tGRd MDfar2OaoWCjj3ufoU1wUT ZaJR2gV2N4zMDqSNTnmfXv ybMlc4MilzSnPH5tbHCirC MxvEIkm7JiIGlzqEaas8pw NSxbpnMwHJ6YrT13yp3rvK G9i0ElYC1rT2XwLJC3TGwy IGZvciBILiBweWxvcmkgaX MgbmVnYXRpdmUgKHNlZSBj m21zWM03JZczYZS2d6xrjR YxXHNzdGUxODAwMFxhbnNp FWLnCtootbajOJIuIMA8df VkXPMfUFdxRHUdHDdmYe4q rOAxdEgfNbKtDFBxh8chht BJyqflyKk1t4bwKCBvGvG9 fAFwMUhqD9jdddZypGYjZJ FuSJw1vZ00AGFcbW0xiYLj XVdzgqJgEgT9IYytFVEnFy E5GTJvdJUaHDOjB4jiASRj NTyhFEQsKExpqZZkBDC3iB mvd2X3qSCimWMqxXehVaFa KlMxSoIKn4KsZKd8eYwnE1 GjLLZpEzF2uLYcSJQnLYjl SQGtLRBtnjC8vT60TIgtqw Z2kIGah8Kgw87bt645rY7d hRPuLUV3WTTnUZStoGHcLL LnTSE9PBJrsNAlJ7qeAWFi QK3rqebhBUxcMNjlGZGptZ A4WKSukNJzI6PaHXTdGEwi TLZqrgp1IxDpMv9czRAktR wrAFulc9ikt0uqmBGdHyy4 DVFdPyDxDctiDQkqc9Ilw7 xbEOVsyx8nZGL0zERdpDnk w7T6vRQeNTSvyWJyTJYdJE 7spCCjHPHsqB5fwuiiFQIv YnJkcmhlYWRccGdicmRyZm 4cpEgrGKD1JBsiV7nbkI2s BjE5TCscW9itoZ4jEOp5CZ sfHPKbqYJ0ojS2OXRsfKJj J5MwzM5wQDCrTE0mtqg2m1 jiRKL9UWuiITYfLwZ8pbW1 NDBcaGVhZGVyeTcyMFxmb2 38HID5IfDdSPMxf2NmF5Zv wQtaI80nfMxjU51qLEQziT mwqD1cvAolxX5rJhApCfQs MGeohWcpRP0pUNYkD9fumA DcKOQnIZCiK1nbXhArbA7e uWubRVhrimYhKMJyVwe8LB WyqFZaXEXpMqh9FIUsGIBk E01ydvryINM9bI9lz7frl6 ZwPPqxWKS7QUDzf17oOZta otN5HNwuHu95GMxxDBD9LV itTDQ3wF== COMMENT (test code = j9lnwGFyDQInoOO3JlPuUR 5776) Uag7dzt4WtmPSjdECgJQmj fSCkljHvif96sKG5oQ99JL 2zZYVfTsQ0CIZxhyT3Som4 KVPnZYSdfEUaP326h9mtw5 vttrTxlNQ5hCxlBODmdgqe FoF7VXwvNLSwdczoFAc4GU ryFDNhmJA3HELhcVYoH5Lb CNOdEW0lagd1YDX0GEpyYN TnQjP4COLkaKGbDJCcfFjj AFwkz711ZKK8WlZsZWPyya YacDmweS6sSfOvLVCCQ60Z KH9BIykgXRwgatYakFAsgj IcYIIja8KjQG6zKK5zaxIp WHGcHcbkRUU8MYljjW4pAK 2deSTmYO3pVFejzXGku7ju d8JoU6gjdKgrCXiwv2QykY 3ct3fzB7hpjEOyQ66av9uu BMViJZAwUSkzqZw3QC5lNZ tje7U4HNOjkN3yyGErDUWr RIUpqxBcoLp8CQUqCN9szF dyKnXyWF2re2MnIpNsAQsc nCLfASQhPU9dMUufHWIowI 9xW4GdlVnne0TvtMigkB96 xgIoc3DnFAvhzIuwquR5aI LkREZlRFR2aXS8ZCJ1ZR1m AZF3a73yLPAewOhhSE4brT ItrmXly88cPU3oHKGdTGWE epCei0KwlGsvkzWbb7B1HT Buozwlr1CuVVHhtd4= CPT Code(s) (test code z9ampZFbSCOjfXN6JqVwQO = 3357) Naa2unv5UxzHNsnLGtWStg eCDkjmTwoy68mOB1nC22OC 6pCOUvFvX3KMVjfmG6Qqt4 SBQsYICcxMIjO183x5jfo5 gclkKmkUK7qIfsVEFmpvtp PdO3FGnwGJLxyvuzQQp4GT ngGNJbaHU2YIYpsNTlY2Fn BBMjSH8iogl6TFX1ZIyiLK ErCuT3VWBtwBCsELWivLii NYotj156XET4HqDwOFWfab MfdYbpnL0qYhFnAJT8PLAs OObhdB3yAZe6AsEeWZSzjb 0= CLINICAL HISTORY (test o8kxcIJjWLRndGC8WeGrRM code = 3356) Qdq7axb9ZnrHGsqOTnEElc gITjjjRrgf78uMD0mI57EF 3dYZIfWsL7BAQxlfA7Pxq4 VXRwICAzkOLxG813d6aja5 vuzmOcoPL6cApfSYHrusvc KmH2UEtsPTLfxpwwJAp4PF vnYJXptLP3BRHdnZSvU4Kb OQSkCI7uwmw3XXR8CGyqVB JjUoK8THQmlCNmMBLbdOrm VZltn692NWX3WkCePVTmgl HoaQqpdB2bFwNmNRAMUJZ3 oe6joaMpn5JvznMuNTtplT 3lobopL0JeORCcn2HiATLg PNF5mLTjZRhhk6OawBVja1 xwYXJ9 GROSS DESCRIPTION (test k8fpaJZgBBMwuAIOACNvM4 code = [id number]) mhxdVyOFIiaCCxD9Qqrwyr ZKpxYT3kMC3ipOovnQSzvV IkQK0HUXFjQjEyWQJecAJo loJtAcEyVHGjrKJtxYN0QK QwTC5etmqiIAadXWubAQHa pdT3PGCjgCHzE7ReIPDrGW 6dgsfnITR1DMtzwW1xsoIH AzwrGq1nwTTfsEbwLcRlOd NoYXJzZXQwXGZuaWwgQXJp VSd0oY5IByyuL42nm7X1Ok h4PBSzFRPsL8QyWM5uQNUl tXSfF85ZOftoEGT8EJUGNm lsXCNlCP6Aj9zxRMHimEYm VOM4AUfhhBIvGVRlGRItOU t6DAAwLLrcqAGjGN4kgWna YtaxwWpiv5JodRGuSLljGP KcKKPzXXuoLNJmGM0MHoKa QNOcRES4XPCgENo1HXp7ZA 9WUyAiICAzMTkxNTAyMCIg BIa1VLzbAT1PQBE2Qya9Yu M5LuW0GCZ9QHZlWUUpLeAg XGYgQXJpYWwgXFxmbCBcXG 8lmYehiRWfjqUPXjDLoO5f r0dsHRwup4EnyANjHYYhoh ANClxlcGljTmVzdERvYzEg DQpcbHRycGFyXGxpbjBccm luMCANClxsdHJjaFxjZjFc ZnMyMCBSZWNlaXZlZCBpbi Iwe6PnVKkvdqXiJZOhtATe IHdpdGggdGhlIHBhdGllbn HwO5Z4hoUzQN7rZUFuYWBo Y7PiOTTgX73rIZCofS4aCN SlCE5hCEu2HRYwHIDePeds OukvdHN6CZJlZBF8kjgaTL 5leHQgYXJlIDMgdGFuIHNv JiXvxSehe2ZbSZKmOZvbIY 66bcAmLA9kuZ2bLEVzKx5w TkPwH91ak7HpwQs5sCMyLN hpFNIasI6tbB8vBQKrUTNt ciANClxwYXIgDQpDaGVsc2 VhIEdyYXVuLCBNSFMsIFBB DTtQC9NZJNVpSOSwkyQVQf loVIMsTAkbD2TtXUZiLaTz NWdzpIbuxK1gZSQnB85zl1 KMz7AlOGMsCPksg7firIlw e7FcbOZuBHwqVEXutGKnAH oxnA4fAwMwf3kvcVs8WTgb zmB9VOKyap9OApzvwQ1kOd Uop9gpuTj2FZMATaxvtvF4 u7jwtDmrv9ZybFIyZT1NNx 0= MICROSCOPIC DESCRIPTION z8ubrQPsGBZugJP8RwCnBW (test code = 3371) Xpv4afm4AcqQOjlCWrBRzr aBXdtdFafp56yUQ3iM08AT 5kQRPpNdR8MQSstrI0Vjh9 QVCwOCRkgGFsM540e8dgd4 kzdmLrpJI2kFhlCHYltjpp MgB2DUdkSBRinqpdOQy8AP gsMJEdhHZ5TUAmiEDlZ1Dq FOAeCY2lkdl9BKU9RAxaQZ LbNjP2YNYznCXdUGMvoHmv VPkne083CJA3ZrFdDLXpsk GbuNbpeT5qTtIaXHQCWKYu v4EdVBHugUXxwK== SPECIAL STUDIES (test y7wrxXHaVAKdz4sePUOcvK code = 3376) FuZzEwMzNcZnRuYmpcdWMx XWzfouWuTQtrk0UfJ6BrEx AwMFxhbnNpXGRlZmxhbmcx WWGoHIP2elWpILEhGBcfHE CgTEceOe0yzWIdaLsxMjYd KOKto5cwckABeezmoPs8n6 xtZTUmGrP9zLSmCChpO7ed feRleOTvG8SrvOFvwUv6j9 nxIrZwBsL9vBIoYYiwY1oy viUekXIdUKGvVLk2mK26VH UccT9pdTVqVNkogbAsXeF1 OMflQJFwBkU7ZSFifFXyAS YsN8ghFXLpGZooVYOiTNtx lYRaBDP1sDqff5D4iAQdfZ XoaFdvNvApYlMsDlKTy5Pb EMr9zLlwY7LoIUEeJuB7gC QgUGFyYWdyYXBoIEZvbnQ7 vBipfbMrg43mwIJrMPXfSZ AgUjVnfKqwFNCxIVZFy7Fq rDvyOBT4qFx3dWavCsksWX V0Ccg2TV4xmx51vpa9kMti ECIkxvkgLtO7IOjtHNRdgb drCGb1CKcxUFBpeYR9LDJo oFUlS3XvOTEsZA5hung3AL E7IMphJXGqDcY1IXJuwFJl PGBvaRakDNhvk903HGW5Vq EePD7zB2Fsc1E2eF6vwRRw OGVkrAKjIoSjLJYxxj9caT PlGQxng8BiJQD5xnB4xOGf hZSzDTEqRL02Znfnt5LcHk gmn5NuR49ygPL3UMure6na UG2uClZ2jvFmLQnkn0figK 5dYzS5NXcsZZ8nJR1dUQPe aD4ujksbTBMlVlKtiqdqDU XldGbyrxBzVp2yuRssPOM6 MAqmX6yogG2cJkJ9WGrwU8 ghfH3vFPw8BGfozXW0WEFf yR1vKQ9lahjzx8rnUJvtOQ fcSKRytlF4syJ1APBkfTMd J5IizI7xIRXqWU8mgdonz1 geWXA4MUrlGPEeBQI3DoJk PHUvi6Xfbxe7AjRsq3SvgG TgBRfjX45pw781PNAsusCz G2ziiTCvqfumsPFtkbxlXP kpizW7JYUrQZRkUFnwQYCt XGZzMjJcbGFuZzEwMzNcaG ljaFxmMVxkYmNoXGYxXGxv C7sgBgKuP7RlWAXqAiMqIF ijCQohoJMllKUoyZR2mP4v XG0rIVKvrQLpV3JxNYGrvb IkxYFdPVF6wXRybMKoBF4q JZcrdBFww9akn2BtI2bzpD amyAS2YP1bCBLgLIPhNEem c8VryM0oZvsbbFDvklxlVW xmczIyXGxhbmcxMDMzXGhp J4xrWeJhSGOdzJsvPLpxx3 NoXGYxXGNmMlxmczIyXGx0 cmNoXHBhclxwYXJccGxhaW 9zEwMwRiOoOjcyFG3qVOBn Z5ojsISrCCPdXXTzN0vqSr RrnH8rlSgrFFchVpNuLzCo VbKIh176if9qCRFpkBYkxp PDkOUqgO5wVLoxUMszWJwl wTOqCVgiz3oyXCDyj6p3wB WiBAKarjQen3xrCOkolaGj CQAwyNBkhWJaFKTgd35oLM hpbUprjAemPDDok1MstYqt v5XuVvQwOSxeb0PxS66gcF JvbCBzbGlkZXMgcnVuIGFs s49bp2lhQCHyOyN0lBDpcI D3fIYigOMvg3XgdJjmBTEr n8amMKIsjs1iebrmcOYqb0 BygD7gkwkyXDyvbQRknxSh HJGze7q1sGXwBMWsBXDnQF uegUa9KHUkx704sl3kzjR6 xVHsEHQ3VBblRMGpZZXocn UgZXZhbHVhdGVkXHBsYWlu XGYxXGZzMjJcFuZzEwMz NcaGljaFxmMVxkYmNoXGYx ERgpH5iuXkRkR3SmGCYoOs ViaUTpD8jvtBVpKERgEWnh XGYxXGZzMjJcbGFuZzEwMz NcaGljaFxmMVxkYmNoXGYx LBicA9uwUgWxV0ZcSGIpSi IgIFxwbGFpblxmMVxmczIy GAuscbpxQEOzZUoyM6pySo UfQBYiaEecHRhbx0IhACOr PPPlRhnvaxRdPSs9bgUiNX BhclxwbGFpblxmMVxmczIy IAsubqwmNOXjVFryB4aqRx BeBBZcgCdfJLcum9WdLNWw XGNmMlxmczIyIEltbXVub2 lyp4SlK2umvBnhvQB5FELg C0ogdFJlgGH6IHM3yM7uZU fosxMlJHOqx2HjSCEuTWIz IbQ6aC1jDEP7UlKAcJubIP BsYWluXGYxXGZzMjJcbGFu ZzEwMzNcaGljaFxmMVxkYm JzWVHtTRerR4paLlNoP3Ye BVGqZoQhfGjlTLvpSEv5Gs xwbGFpblxmMVxmczIyXGxh ljonCTZaXKjvZ3laBjVvRY QvfNzhIJcfa3XhMVFmGRGb MlxmczIyIHMgTWVkaWNhbC WOBP40LGJgSXYpoAhykO5v nDLVFOStwwY4t6T5OMdkTP ChQFj6IOcfocQyBOGwlF2n KAUyDF8pPAu0xlLpNODjn8 PaIU8vPTZmkANrOPA1MXLl y3HjM2Uhp5VeIVUrWIFwhx 2omkJuHuRNmXYkZLTaix06 WNVzEH0eX7poANGtTOTmjh WpvVUlo4XnDUEpfJC8vHPu HD2PYkQLy24yKPYgFNSFay EqJHIitGcaqGM6dlT9hF3o LiBUaGUgRkRBIGhhcyBkZX Mnui7wruNmQBDiTTJni7Gg nKOsoQPbjdDyH7Ewr9EhQI Dguw75OGowwFTpfx23KP1f B2Eed5DjeV1oWFxzMYMwj2 JrzZAxcWWlQPKbo1DkG0ek sgtiNMwzdFVocL0dDEBkUT a8HHSnn5FpGQUlu4HiFrGo wmXbHXUwBKErUTBdlC87NH H6dFizxMralrWzFS0xNEGz osEvZBOvYSBqmG6zLMidqq ZiEYYqacL8a1X5CRkjZBGn flLbCmxbFLD2sjYivpV8aN IgV4zczyvkSFuaSCTyt7Vj vG9oaYGQeLEqp4KwvCLopG GGwIOyIM3xlrErKY0xKDP7 ODggKENMSUEtODgpIGFzIH U7KBsxHlnoGXB3riJzTBAa c8QqCIhvR3vhI87qlVhvsP k8xBKcwQtheVVtcOBaWBKu bhO2r0H4HNIha8NzowlzPM BsYWluXGYyXGZzMjJcbGFu ZzEwMzNcaGljaFxmMlxkYm BuJCCtUFjeH5olYyEiOoKz ZvkgXVC8cP== Gross assessment was [facility]'s performed at ([facility], = 2773) Department of Pathology, [address] [place] [address], [place] [address], Technical component was [facility] performed at ([facility], = 2778) Department of Pathology, [address] [place] [address], Professional component [facility] was performed at ([facility], code = 2779) Department of Pathology, [address] [place] [address], [facility] [id number] 08:35:43Surgical Pathology Report Case: [id number] Authorizing Provider: Ana Lilia Doll, Collected: 02/28/2022 11:03 AM Ordering Location: [address] Received: 03/01/2022 07:57 AM Service Pathologist: Irma Fermin MD Specimen: Biopsy, Gastric, random gastric bx r/o H. pylori A. GASTRIC, RANDOM BIOPSY - Gastric oxyntic and antrum type mucosa with diffuse chronic active gastritis - Negative for intestinal metaplasia or dysplasia -Immunohistochemical stain for H. pylori is negative (see comment) Signing Pathologist Direct Phone Line: [phone] signed by Irma Fermin MD on 03/03/2022 at 8:35 AMCOMMENTS: There is rare foci of nonspecific staining noted on immunohistoch emical stain which is considered negative. However most community health program representative sampling cannot be excluded and if clinically suspicious correlation with breath test or stool antigen is recommended. Endoscopy report [id number] hemorrhage associated with gastritisA. Biopsy, Gastric.Received in [...] evaluated Immunohistochemistry technical testing was performed at [facility], Pathology Laboratory where it was developed [...] qualified to perform high complexity clinical laboratory testing.[facility], Department of Pathology, [address] [place] [address], [facility], [address] [place] [address], [facility], [address] [place] [address], [id number], BLOOD 2022-03-03 08:35:14 Test Item Value Reference Range Interpretation Comments PHOSPHATIDYLETHANOL (PETH) See scanned (test code = 1838363) report See scanned reportHEPATITIS C PCR, [id number] 13:32:02 Test Item Value Reference Range Interpretation Comments HCV RESULT COMPONENT HCV RNA not detected HCV RNA not detected (CHERYLAKER) (test code = 2699) This test uses a Real-Time Polymerase Chain Reaction (RT-PCR) methodology and was performed using J[employer] Ampliprep/JOSSELINE TaqMan HCV test kit version 2.0 ([employer]).Reportable range for this assay is [...] 70-110 : TE STED AT [facility] code = 1538) [address] [place] [address], 7[address]: Detacker/Techni king ID = [id number] for Catrina Moreira Lab Interpretation (test Normal code = 25285-4) [facility] [id number] 08:12:54 Test Item Value Reference Range Interpretation Comments POC-GLUCOSE METER 103 mg/dL 70-110 : TESTED A T [facility] 6720 (BEAKER) (test code = [place], 1538) [address]: Detacker/Techni king ID = [id number] for Catrina Raza COMPREHENSIVE METABOLIC [id number] 06:12:16 Test Item Value Reference Range Interpretation [...] not appl icable for dialysis patien ts Detacker ID - ZOILAOCBC (HEMOGRAM ONLY)2022-03-01 05:40:54 Test [...] 0-0 (test code = 413) HEMOGLOBIN AND [id number] 17:38:59 Test Item Value Reference Range Interpretation Comments HEMOGLOBIN (BEAKER) (test code = 9.2 GM/DL 11.2-15.7 L 410) HEMATOCRIT (BEAKER) (test code = 27.7 % 34.1-44.9 L 411) Detacker ID - [id number] ID - [id number] A ANTIBODY, [id number] 13:49:23 Test Item Value Reference Range Interpretation Comments HEPATITIS A IGG ANTIBODY (BEAKER) Reactive Nonreactive A (test code = 2797) Detacker ID - MATEUS LCBC (HEMOGRAM ONLY)2022-02-28 06:10:17 [...] 0-0 (test code = 413) COMPREHENSIVE METABOLIC [id number] 05:57:41 Test Item Value Reference Range Interpretation [...] not appl icable for dialysis patien ts Detacker ID - ZOILAOPROTHROMBIN [id number] 05:31:42 Test Item Value Reference Range Interpretation Comments PROTIME (BEAKER) 21.9 seconds 11.9-14.2 H (test code = 759) INR (BEAKER) (test 1.97 See_Comment [Automat ed message] code = 370) The system [employer] generated this result transmitted ref erence range: <=5.90. The reference range was not used to int erpret this result as normal/abnormal . RECOMMENDED COUMADIN/WARFARIN INR THERAPY RANGESSTANDARD DOSE: 2.0 - 3.0 Includes: PROPHYLAXIS for venous thrombosis, systemic embolization; TREATMENT for venous thrombosis and/or pulmonary embolus.HIGH RISK: Target INR is 2.5-3.5 for patients with mechanical heart valves.HEPATITIS B SURFACE [id number] 17:29:18 Test Item Value Reference Range Interpretation Comments HEPATITIS B SURFACE ANTIBODY < mIU/mL <8.0 (BEAKER) (test code = 647) Detacker ID - MATEUS LHEPATITIS B CORE ANTIBODY, [id number] 17:28:42 Test Item Value Reference Range Interpretation Comments HEPATITIS B CORE TOTAL ANTIBODY Nonreactive Nonreactive (BEAKER) (test code = 497) Detacker ID - MATEUS RENEIV-1 ANTIGEN WITH HIV-1/2 [id number] 17:28:42 Test Item Value Reference Range Interpretation Comments HIV-1 ANTIGEN WITH HIV 1\\T\\2 Nonreactive Nonreactive ANTIBODY (2) (BEAKER) (test code = 2586) Detacker ID - MATEUS RENEEPATITIS PANEL, [id number] 06:37:42 Test Item Value Reference Range Interpretation Comments HEPATITIS A IGM ANTIBODY (BEAKER) Nonreactive Nonreactive (test code = 498) HEPATITIS B CORE IGM ANTIBODY Nonreactive Nonreactive (BEAKER) (test code = 645) HEPATITIS C ANTIBODY (BEAKER) Reactive Nonreactive A (test code = 367) HEPATITIS B SURFACE ANTIGEN (2) Nonreactive Nonreactive (BEAKER) (test code = 2585) Detacker ID - MATEUS LIMMUNOGLOBULIN G (IGG)2022-02-27 06:12:34 Test Item Value Reference Range Interpretation Comments IMMUNOGLOBULIN G (IGG) 1669 mg/dL See_Comment [Aut omated message] (BEAKER) (test code = The sy stem which 427) generated this result transmit suzanne reference range : 540-1,822. The reference range was not used to interpret this result as normal/abnormal . Detacker ID - MATEUS [id number] 05:57:03 Test Item Value Reference Range Interpretation Comments FERRITIN (BEAKER) (test code = 39.77 ng/mL 5.00-275.00 361) Detacker ID - MARCOBASIC METABOLIC [id number] 05:45:07 Test Item Value Reference Range Interpretation [...] not appl icable for dialysis patien ts Detacker ID - MATEUS LPROTHROMBIN [id number] 05:40:27 Test Item Value Reference Range Interpretation Comments PROTIME (BEAKER) 21.1 seconds 11.9-14.2 H (test code = 759) INR (BEAKER) (test 1.88 See_Comment [Automat ed message] code = 370) The system [employer] generated this result transmitted ref erence range: <=5.90. The reference range was not used to int erpret this result as normal/abnormal . RECOMMENDED COUMADIN/WARFARIN INR THERAPY RANGESSTANDARD DOSE: 2.0 - 3.0 Includes: PROPHYLAXIS for venous thrombosis, systemic embolization; TREATMENT for venous thrombosis and/or pulmonary embolus.HIGH RISK: Target INR is 2.5-3.5 for patients with mechanical heart valves.[id number] 05:40:04 Test Item Value Reference Range Interpretation Comments MAGNESIUM (BEAKER) (test code = 1.4 mg/dL 1.6-2.6 L 627) Detacker ID - MATEUS [id number] 05:40:04 Test Item Value Reference Range Interpretation Comments PHOSPHORUS (BEAKER) (test code = 2.0 mg/dL 2.3-4.7 L 604) Detacker ID - MATEUS LHEPATIC FUNCTION [id number] 05:40:04 Test Item Value Reference Range Interpretation [...] (test code = 26 U/L 6-55 347) Detacker ID - MATEUS [id number] 05:38:43 Test Item Value Reference Range Interpretation Comments ALPHA-1 ANTITRYPSIN (BEAKER) 123.20 mg/dL 90.00-200.00 (test code = 502) Detacker ID - MATEUS HENRY, TIBC, % SAT. (WITHOUT FERRITIN)2022-02-27 05:35:36 Test Item Value Reference Range Interpretation Comments IRON (BEAKER) (test code = 547) 19.0 ug/dL 40.0-160.0 L TOTAL IRON BINDING CAPACITY 243 ug/dL 250-450 L (BEAKER) (test code = 769) IRON % SATURATION (2) (BEAKER) 8 % 20-55 L (test code = 2590) Detacker ID - MARCOCBC W/PLT COUNT & AUTO [id number] 05:28:47 Test Item Value Reference Range Interpretation [...]
[2022-09-22 01:41] LABS: Absolute Lymphocytes (CBC) 1.2 K/uL (0.7-4.9); Hematocrit 31.9 % (36.0-45.0); Lymphocytes % 32.4 % (15.3-44.8); MCV 98.7 fL (80-100); RBC Red Blood Cell Count 3.23 M/uL (3.86-4.86)
[2022-09-22 01:55] LABS: Specific Gravity 1.019 (1.005-1.030); Urine Bilirubin NEGATIVE (Negative); Urine Blood Negative (Negative); Urine Clarity Clear (Clear); Urine Color Yellow (Yellow); Urine Glucose NEGATIVE (Negative); Urine Protein NEGATIVE (Negative); Urine Urobilinogen 3+ (Normal); Urine pH 6.5 (5.0-7.0)
[2022-09-22 02:01] LABS: Albumin 2.3 g/dL (3.4-5.0); Bilirubin Total 2.2 mg/dL (0.2-1.0); Potassium 3.7 mEq/L (3.5-5.1)
[2022-09-22 02:03] LABS: Protime INR 1.65
[2022-09-22] MEDS ORDERED: ONDANSETRON 4 MG/2 ML VIAL ONE (02:38)
[2022-09-22] MEDS ORDERED: MORPHINE 4 MG/ML SYR ONE (02:38)
[2022-09-22] MEDS ORDERED: metroNIDAZOLE 500 MG TABLET ONE (03:53)
[2022-09-22] MEDS ORDERED: levoFLOXacin 250 MG TAB ONE (03:53)
--- NOTE | 2022-09-22 04:23 | ER ---
Nurse's Notes [facility] Name: Sophia Joya Age: 62 yrs Sex: Female : 1960 Arrival Date: 09/22/2022 Time: 01:06 Bed 14 Private MD: Diagnosis: Other cholelithiasis without obstruction;Acute enterocolitis, abdominal bloating, portal hypertension with liver cirrhosis, Presentation: 09/22 01:57 Chief complaint: Patient states: My stomach is swollen and I am having this bad pain vc1 when I go to turn over in bed. I was here last week and they said I pulled a muscle in my stomach and not too long ago they said I had gallstones. They told me to follow up with my PCP but I am still trying to find one that will take my insurance. Coronavirus screen: Vaccine status: Patient reports receiving the 1st dose of the Covid vaccine. Client denies travel out of the [place] in the last 14 days. At this time, the client does not indicate any symptoms associated with coronavirus-19. Ebola Screen: Patient negative for fever greater than or equal to 101.5 degrees Fahrenheit, and additional compatible Ebola Virus Disease symptoms Patient denies exposure to infectious person. Patient denies travel to an Ebola-affected area in the 21 days before illness onset. No symptoms or risks identified at this time. 01:57 Method Of Arrival: Ambulatory vc1 01:59 Initial Sepsis Screen: Does the patient meet any 2 criteria? No. Patient's initial vc1 sepsis screen is negative. Does the patient have a suspected source of infection? No. Patient's initial sepsis screen is negative. Risk Assessment: Do you want to hurt yourself or someone else? Patient reports no desire to harm self or others. Onset of symptoms was September 22, 2022. 01:59 Acuity: MARY 3 vc1 Triage Assessment: 02:00 General: Appears in no apparent distress. uncomfortable, Behavior is calm, cooperative, vc1 appropriate for age. Pain: Complains of pain in abdomen Pain does not radiate. Pain currently is 10 out of 10 on a pain scale. Quality of pain is described as dull, Alleviated by rest, Aggravated by repositioning. EENT: No deficits noted. No signs and/or symptoms were reported regarding the EENT system. Neuro: Level of Consciousness is awake, alert, obeys commands, Oriented to person, place, time, situation, Appropriate for age. Cardiovascular: No deficits noted. Respiratory: Airway is patent Respiratory effort is even, unlabored, Respiratory pattern is regular, symmetrical. GI: Reports lower abdominal pain. GI: Reports abdominal swelling. : No deficits noted. No signs and/or symptoms were reported regarding the genitourinary system. Derm: No deficits noted. No signs and/or symptoms reported regarding the dermatologic system. Musculoskeletal: No deficits noted. No signs and/or symptoms reported regarding the musculoskeletal system. Historical: - Allergies: 02:06 Amoxicillin; vc1 02:06 Codeine; vc1 02:06 PENICILLINS; vc1 - PMHx: 01:30 Hypertension; sp4 02:03 Hep C; vc1 - PSHx: 01:30 wrist; Ligation of fallopian tube; sp4 - Immunization history:: Client reports receiving the Cody \T\ Cody single-dose vaccine. - Social history:: Smoking status: Patient denies any tobacco usage or history of. Screenin:05 Abuse screen: Denies threats or abuse. Nutritional screening: No deficits noted. vc1 Tuberculosis screening: No symptoms or risk factors identified. Assessment: 02:52 Reassessment: Patient appears in no apparent distress at this time. Patient and/or jb4 family updated on plan of care and expected duration. Pain level reassessed. Patient is alert, oriented x 3, equal unlabored respirations, skin warm/dry/pink. 03:57 Reassessment: Patient appears in no apparent distress at this time. Patient and/or jb4 family updated on plan of care and expected duration. Pain level reassessed. Patient is alert, oriented x 3, equal unlabored respirations, skin warm/dry/pink. 04:55 Reassessment: Patient appears in no apparent distress at this time. Patient and/or jb4 family updated on plan of care and expected duration. Pain level reassessed. Patient is alert, oriented x 3, equal unlabored respirations, skin warm/dry/pink. Vital Signs: 01:59 BP 164 / 86; Pulse 80; Resp 16; Temp 98.2; Pulse Ox 100% ; Weight 58.97 kg; Height 4 vc1 ft. 9 in. ; Pain 10/10; 03:00 BP 139 / 75; Pulse 65; Resp 16; Pulse Ox 99% on R/A; jb4 04:55 BP 153 / 70; Pulse 68; Resp 16; Pulse Ox 98% on R/A; jb4 01:59 Body Mass Index 28.13 (58.97 kg, 144.78 cm) vc1 01:59 Pain Scale: Adult vc1 ED Course: 01:10 Patient arrived in ED. ag3 01:15 Sourav Garcia MD is Attending Physician. sp4 01:35 PT-INR Sent. bc6 01:35 CBC with Diff Sent. bc6 01:35 CMP Sent. bc6 01:35 Lipase Sent. bc6 01:35 Inserted saline lock: 22 gauge in right antecubital area, using aseptic technique. bc6 Blood collected. 01:46 Urinalysis w/ reflexes Sent. bc6 02:00 Triage completed. vc1 02:05 Arm band placed on left wrist. vc1 02:07 Patient has correct armband on for positive identification. Placed in gown. Bed in low vc1 position. Pulse ox on. NIBP on. 02:25 CT Abd/Pelvis - IV Contrast Only In Process Unspecified. EDMS 02:26 Blaine Whitman, RN is Primary Nurse. jb4 04:02 US Abdomen Limited In Process Unspecified. EDMS 04:21 Valerio Worley MD is Referral Physician. sp4 04:21 Rodrigo Gee MD is Referral Physician. sp4 04:55 No provider procedures requiring assistance completed. IV discontinued, intact, jb4 bleeding controlled, No redness/swelling at site. Pressure dressing applied. Administered Medications: 02:34 Drug: Ondansetron IVP 4 mg Route: IVP; Site: right antecubital; jb4 02:34 Drug: morphine IVP or IV 4 mg Route: IVP; Infused Over: 4 mins; Site: right antecubital;jb4 03:49 Drug: metroNIDAZOLE PO 500 mg Route: PO; jb4 03:49 Drug: LevOfloxacin PO 500 mg Route: PO; jb4 Outcome: 04:22 Discharge ordered by . sp4 04:55 Discharged to home ambulatory. jb4 04:55 Condition: stable 04:55 Discharge instructions given to patient, Instructed on discharge instructions, follow up and referral plans. medication usage, Demonstrated understanding of instructions, follow-up care, medications, Prescriptions given X 4. 04:56 Patient left the ED. jb4 Signatures: Dispatcher [employer] EDMS Blaine Whitman RN RN jb4 Kp Araujo ls3 Leny Tuttle ag3 Lottie Rosario RN RN vc1 Mimi Metz bc6 Sourav Garcia MD MD sp4 Corrections: (The following items were deleted from the chart) 01:53 01:30 Radiology exam delayed due to lab results not completed at this time. eh4 (BUN/Creatinine) IV insertion attempt and/or patient not having appropriate IV at this time. ls3 02:07 01:30 Allergies: Amoxicillin [Inactive]; sp4 vc1 02:07 01:30 Allergies: Codeine [Inactive]; sp4 vc1 02:07 01:30 Allergies: PENICILLINS [Inactive]; sp4 vc1
--- NOTE | 2022-09-22 04:23 | EDPHYS ---
Physician Documentation [facility] Name: Sophia Joya Age: 62 yrs Sex: Female : 1960 Arrival Date: 09/22/2022 Time: 01:06 Bed 14 Private MD: ED Physician Sourav Garcia HPI: 09/22 01:15 This 62 yrs old Female presents to ER via Unassigned with complaints of sp4 Abdominal Pain. 01:17 CT report from 09/11/2022 --FINDINGS: The lung bases demonstrate to be clear. The liver sp4 demonstrate nodular surface and decreased size corresponding to changes of cirrhosis with the presence of a hepatic cyst measuring 1 cm on image 20. There is engorged veins within the splenic hilum draining into the left renal vein and along the left gonadal corresponding to a portosystemic shunt from portal hypertension. The pancreas, spleen and adrenal glands demonstrate to be unremarkable, no focal lesions are noted. The gallbladder demonstrated presence of calculus with no evidence for significant lumbar changes/or prominence of the common bile duct The kidneys demonstrate normal uptake of contrast media. No evidence for nephrolithiasis and/or hydronephrosis. Grossly the unopacified stomach, small bowel and large bowel demonstrate to be within normal limits. There is no evidence for bowel dilatation/or free air. The appendix is normal. The left site colon-sigmoid colon demonstrate diverticulosis with no evidence for diverticulitis. The urinary bladder demonstrate to be unremarkable. The uterus demonstrate to be within normal limits. There are no adnexal masses. The aorta demonstrate to be normal. There is no retroperitoneal lymphadenopathy. There is no evidence for ascites/or abnormal fluid collections. The rest of the soft tissue and bony structures are within normal limits. IMPRESSION: Cirrhotic liver with the presence of a hepatic cyst. Findings corresponding to a portosystemic shunt from portal hypertension. Cholelithiasis without evidence for acute cholecystitis. Diverticulosis without evidence for diverticulitis. Electronically signed by: Srini Raza MD 09/11/2022 . 01:29 62-year-old female with history of liver cirrhosis and variceal bleeding presents with sp4 moderate right lower quadrant abdominal pain that essentially started on 09/10/2022. Patient reported abdominal bloating and nausea. Denied any vomiting, denied bloody stools, and denied any fever. Historical: - Allergies: 02:06 Amoxicillin; vc1 02:06 Codeine; vc1 02:06 PENICILLINS; vc1 - PMHx: 01:30 Hypertension; sp4 02:03 Hep C; vc1 - PSHx: 01:30 wrist; Ligation of fallopian tube; sp4 - Immunization history:: Client reports receiving the Cody \T\ Cody single-dose vaccine. - Social history:: Smoking status: Patient denies any tobacco usage or history of. ROS: 04:11 Constitutional: Negative for fever, chills, and weight loss, Abdomen/GI: Negative for sp4 vomiting, diarrhea, and constipation, positive for right abdominal pain and nausea 04:11 All other systems are negative. Exam: 04:11 Constitutional: This is a well developed, well nourished patient who is awake, alert, sp4 and in no acute distress. Diffuse mild jaundice Head/Face: Normocephalic, atraumatic. Eyes: Pupils equal round and reactive to light, extra-ocular motions intact. Lids and lashes normal. Conjunctiva and sclera are not injected. Cornea within normal limits. Periorbital areas with no swelling, redness, or edema. ENT: Nares patent. No nasal discharge, no septal abnormalities noted. Tympanic membranes are normal and external auditory canals are clear. Oropharynx with no redness, swelling, or masses, exudates, or evidence of obstruction, uvula midline. Mucous membranes moist. Neck: Trachea midline, no thyromegaly or masses palpated, and no cervical lymphadenopathy. Supple, full range of motion without nuchal rigidity, or vertebral point tenderness. Chest/axilla: Normal chest wall appearance and motion. Nontender with no deformity. No lesions are appreciated. Cardiovascular: Regular rate and rhythm with a normal S1 and S2. No gallops, murmurs, or rubs. Normal PMI, no JVD. No pulse deficits. Respiratory: Lungs have equal breath sounds bilaterally, clear to auscultation and percussion. No rales, rhonchi or wheezes noted. No increased work of breathing, no retractions or nasal flaring. Abdomen/GI: Soft, non-tender, with normal bowel sounds. No distension or tympany. No guarding or rebound. No evidence of tenderness throughout. Back: No spinal tenderness. No costovertebral tenderness. Skin: Warm, dry with normal turgor. Normal color with no rashes, no lesions, and no evidence of cellulitis. MS/ Extremity: Pulses equal, no cyanosis. Neurovascular intact. Full, normal range of motion. Neuro: Awake and alert, GCS 15, oriented to person, place, time, and situation. Cranial nerves II-XII grossly intact. Motor strength 5/5 in all extremities. Sensory grossly intact. Psych: Awake, alert, with orientation to person, place and time. Behavior, mood, and affect are within normal limits Vital Signs: 01:59 BP 164 / 86; Pulse 80; Resp 16; Temp 98.2; Pulse Ox 100% ; Weight 58.97 kg; Height 4 vc1 ft. 9 in. ; Pain 10/10; 03:00 BP 139 / 75; Pulse 65; Resp 16; Pulse Ox 99% on R/A; jb4 04:55 BP 153 / 70; Pulse 68; Resp 16; Pulse Ox 98% on R/A; jb4 01:59 Body Mass Index 28.13 (58.97 kg, 144.78 cm) vc1 01:59 Pain Scale: Adult vc1 MDM: 01:22 Patient medically screened. sp4 03:31 ED course: FINDINGS: Lung Bases: The visualized lung bases are clear. Bones: Mild sp4 multilevel endplate spondylosis and facet arthropathy.. Abdomen: Liver: Nodular contour of the liver. Extensive portal venous varices. Right hepatic cyst is stable. Gallbladder: Calcified gallstone. Mild gallbladder wall thickening. Spleen, Pancreas, and Adrenal Glands: Splenomegaly. The pancreas and adrenal glands are unremarkable. Kidneys: No hydronephrosis or obstructing calculus. Vasculature: Aortoiliac atherosclerosis. IVC is unremarkable. The portal vein is patent. The proximal visceral and renal arteries are patent. Stomach: The stomach and duodenum have normal course. Other: No free intraperitoneal air. Small amount of ascites. Pelvis: Bladder: Urinary bladder is unremarkable. Bowel: No dilated loops of large or small bowel. Scattered diverticula colon. Long segment wall thickening of the small bowel. Mild wall thickening of the ascending and transverse colon. Appendix: Normal appendix. Pelvis: Uterus is not enlarged. Dilated gonadal and pelvic veins. IMPRESSION: 1. Long segment wall thickening of the small bowel. Mild wall thickening of the ascending and transverse colon. These findings could be seen with nonspecific enterocolitis however hypoproteinemia and/or portal enterocolopathy could contribute to this appearance. 2. Findings compatible with cirrhosis and portal hypertension. 3. Cholelithiasis with mild gallbladder wall thickening. This may be related to cirrhosis. If there is concern for acute cholecystitis ultrasound could provide additional characterization. 4. Diverticulosis without evidence of acute diverticulitis. . 04:11 Differential Diagnosis Enteritis, cholecystitis, cholelithiasis, choledocholithiasis, sp4 liver cirrhosis. Data reviewed: vital signs, nurses notes, old medical records, lab test result(s), radiologic studies, CT scan, ultrasound. Consideration of Admission/Observation Escalation of care including admission/observation considered. ED course: Patient does have large gallstone with thickened gallbladder wall, however patient is completely nontender on exam today. Unlikely there is acute cholecystitis without any tenderness on exam. CT revealed wall thickening of ascending and transverse colon and thickening of the small bowel consistent with enterocolitis. There is also portal hypertension, cholelithiasis mild gallbladder wall thickening may be related to liver cirrhosis. At this time there is no concern for acute cholecystitis secondary to the fact the patient is completely nontender. Patient will require Flagyl and levofloxacin daily for enterocolitis.. Naprosyn and Zofran for symptom control.. Will refer patient to local hose stripper and general surgeon for evaluation for outpatient cholecystectomy.. 09/22 01:22 Order name: CBC with Diff; Complete Time: 03:17 sp4 09/22 01:22 Order name: CMP; Complete Time: 03:17 sp4 09/22 01:22 Order name: Lipase; Complete Time: 03:17 sp4 09/22 01:22 Order name: Urinalysis w/ reflexes; Complete Time: 03:17 sp4 09/22 01:28 Order name: PT-INR; Complete Time: 03:17 sp4 09/22 01:29 Order name: CT Abd/Pelvis - IV Contrast Only sp4 09/22 03:32 Order name: US Abdomen Limited sp4 09/22 01:22 Order name: IV Saline Lock; Complete Time: 01:35 sp4 09/22 01:22 Order name: Labs collected and sent; Complete Time: 01:35 sp4 Administered Medications: 02:34 Drug: Ondansetron IVP 4 mg Route: IVP; Site: right antecubital; jb4 02:34 Drug: morphine IVP or IV 4 mg Route: IVP; Infused Over: 4 mins; Site: right antecubital;jb4 03:49 Drug: metroNIDAZOLE PO 500 mg Route: PO; jb4 03:49 Drug: LevOfloxacin PO 500 mg Route: PO; jb4 Disposition Summary: 09/22/22 04:22 Discharge Ordered Location: Home sp4 Problem: new sp4 Symptoms: have improved sp4 Condition: Stable sp4 Diagnosis - Other cholelithiasis without obstruction sp4 - Acute enterocolitis, abdominal bloating, portal hypertension with liver cirrhosis, sp4 Followup: sp4 - With: Valerio Worley MD - When: 7 - 10 days - Reason: Recheck today's complaints Followup: sp4 - With: Rodrigo Gee MD - When: 7 - 10 days - Reason: Recheck today's complaints Discharge Instructions: - Discharge Summary Sheet sp4 - Cholelithiasis sp4 - Colitis sp4 Forms: - Patient Portal Instructions sp4 Prescriptions: - naproxen 250 mg Oral tablet - take 1 tablet by ORAL route every 12 hours PRN pain; 30 tablet; Refills: 0, sp4 Product Selection Permitted - ondansetron 4 mg Oral Tablet,disintegrating - take 1 tablet by ORAL route every 6 hours for 3 days PRN nausea; 30 tablet; sp4 Refills: 0, Product Selection Permitted - Flagyl 500 mg Oral Tablet - take 1 tablet by ORAL route every 8 hours for 10 days; 30 tablet; Refills: 0, sp4 Product Selection Permitted - levofloxacin 500 mg Oral Tablet - take 1 tablet by ORAL route once daily for 7 days; 7 tablet; Refills: 0, sp4 Product Selection Permitted Signatures: Dispatcher [employer] Blaine Geller RN RN jb4 Lottie Rosario RN RN vc1 Sourav Garcia MD MD sp4 Corrections: (The following items were deleted from the chart) 02:07 01:30 Allergies: Amoxicillin [Inactive]; sp4 vc1 02:07 01:30 Allergies: Codeine [Inactive]; sp4 vc1 02: 01:30 Allergies: PENICILLINS [Inactive]; sp4 vc1
[2022-09-22 05:09] VITALS: TEMP 98.2
[2022-09-22 05:20] VITALS: BP 153/70; O2SAT 98
--- NOTE | 2022-09-22 13:10 | RAD REPORT ---
EXAM DESCRIPTION: US - Abdomen Exam Limited - 09/22/2022 4:00 am CLINICAL HISTORY: The patient is 62 years old and is Female; R abdominal pain [facility] MAIN TECHNIQUE: Real-time ultrasound of the right upper quadrant with image documentation. COMPARISON: 07/01/2022 right upper quadrant ultrasound FINDINGS: GALLBLADDER: Cholelithiasis with equivocal gallbladder wall thickening and trace pericho lecystic free fluid. COMMON BILE DUCT: Unremarkable as visualized. No stones. No dilation. Common bile duct measures 0.4 cm in diameter. IMPRESSION: Sonographic findings suggestive of acute cholecystitis. If the patient demonstrates posi tive Fischer sign on exam, findings consistent with acute cholecystitis. If confirmation for cystic duct obstruction is felt clinically necessary, HIDA scan could be performe d for further evaluation. Electronically signed by: Zhou Chacko MD 09/22/2022 4:27 AM CDT Due to temporary technical issues with the PACS/Fluency reporting system, reports are being signed by the in house radiologists without review as a courtesy to insure prompt reporting. The interpreting radiologist is fully responsible for the content of the report.
--- NOTE | 2022-09-22 13:12 | RAD REPORT ---
EXAM DESCRIPTION: CT - Abdomen Pelvis W Contrast - 09/22/2022 6:30 am CLINICAL HISTORY: ABD PAIN AND DISTENSION COMPARISON: 09/11/2022 TECHNIQUE: CT of the abdomen and pelvis performed following IV administration of iodinated contras t. This exam was performed according to our departmental dose-optimization program, which includes au tomated exposure control, adjustment of the mA and/or kV according to patient size and/or use of iter ative reconstruction technique. FINDINGS: Lung Bases: The visualized lung bases are clear. Bones: Mild multilevel endplate spondylosis and facet arthropathy.. Abdomen: Liver: Nodular contour of the liver. Extensive portal venous varices. Right hepatic cyst is stable. Gallbladder: Calcified gallstone. Mild gallbladder wall thickening. Spleen, Pancreas, and Adrenal Glands: Splenomegaly. The pancreas and adrenal glands are unremarkabl e. Kidneys: No hydronephrosis or obstructing calculus. Vasculature: Aortoiliac atherosclerosis. IVC is unremarkable. The portal vein is patent. The proxim al visceral and renal arteries are patent. Stomach: The stomach and duodenum have normal course. Other: No free intraperitoneal air. Small amount of ascites. Pelvis: Bladder: Urinary bladder is unremarkable. Bowel: No dilated loops of large or small bowel. Scattered diverticula colon. Long segment wall thi ckening of the small bowel. Mild wall thickening of the ascending and transverse colon. Appendix: Normal appendix. Pelvis: Uterus is not enlarged. Dilated gonadal and pelvic veins. IMPRESSION: 1. Long segment wall thickening of the small bowel. Mild wall thickening of the ascend ing and transverse colon. These findings could be seen with nonspecific enterocolitis however hypopro teinemia and/or portal enterocolopathy could contribute to this appearance. 2. Findings compatible with cirrhosis and portal hypertension. 3. Cholelithiasis with mild gallbladder wall thickening. This may be related to cirrhosis. If there is concern for acute cholecystitis ultrasound could provide additional characterization. 4. Diverticulosis without evidence of acute diverticulitis. Electronically signed by: Ilan Denis 09/22/2022 2:58 AM CDT Due to temporary technical issues with the PACS/Fluency reporting system, reports are being signed by the in house radiologists without review as a courtesy to insure prompt reporting. The interpreting radiologist is fully responsible for the content of the report.
== END 2022-09-22 04:56 | disposition home or self-care (01) ==
LOC: ER 01:06
DX: K80.80 Other cholelithiasis without obstruction (principal); K52.9 Noninfective gastroenteritis and colitis, unspecified; K76.6 Portal hypertension; K74.69 Other cirrhosis of liver; R14.0 Abdominal distension (gaseous); I10 Essential (primary) hypertension; Z88.0 Allergy status to penicillin; Z88.1 Allergy status to other antibiotic agents; Z88.5 Allergy status to narcotic agent
CPT/HCPCS: 85025; 36415; 85610; 81003; 83690; 80053; 74177; 76705; Q9967; J2405

== ENCOUNTER 2022-11-03 22:34 | Emergency (ER) | payer OTHER ==
--- OUTSIDE RECORDS SUMMARY | 2022-11-03 22:40 | XMS REPORT | Continuity of Care Document ---
:1960 Author Organization [facility] t Address [address] [place] [address] [place] [id number] Care Team Providers Name Role Phone ASIM VICENTE Attending Clinician Unavailable NICOLAS ROOT Attending Clinician Unavailable LAB90 Attending Clinician Unavailable DENICE RODRIGUEZ Attending Clinician Unavailable SHIRLENE HDEZ Attending Clinician Unavailable MECHE ROBLES Attending Clinician Unavailable SILVIA, LISA Attending Clinician Unavailable Liana Poe MD Attending Clinician [phone] Norris JOE, Nik Ramires Attending Clinician [phone] Jaron Aparicio MD Attending Clinician Saul JOE, Denice Jeffries Attending Clinician [phone] LIANA POE Attending Clinician Unavailable Dereje Maldonado MA Attending Clinician Unavailable ROBERT BONE Attending Clinician Unavailable Vivian JOE, Liane Attending Clinician Robert Bone MD Attending Clinician Maricarmen Michaels MD Attending Clinician Mackenzie Chicas MD Attending Clinician Fernando Cole Attending Clinician Nory Doll MD Attending Clinician [phone] DENICE RODRIGUEZ Admitting Clinician Unavailable NIK AYALA Admitting Clinician Unavailable MARICARMEN MICHAELS Admitting Clinician Unavailable Payers Payer Name Policy Type Policy Number Effective Date Expiration Date Oriana montesinos AEYRN MP CVS 9 [id number] 2022 SILVER 2: KELLIE HMO 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: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 ON 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 PAY OP [id number] 2022 2022 DIAGNSTC IMGING 00:00:00 00:00:00 PKG AETNA HMO POS [id number] 2022 QPOS 00:00:00 Problems Condition Condition Condition Status Onset Resolution Last Treating Co mments Source Name Details Category Date Date Treatment Clinician Date Other Other Disease 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 nce 5-12 [facility] of liver 00:00: Medica l 00 Center Acute Acute Disease Active [facility] cholecysti cholecysti 5-11 Cathryn kes tis tis 00:00: Medical 00 [place] UGIB UGIB Disease Active [facility] ([facility] ([facility] -07 [facility] gastrointe 00:00: Me dical stinal stinal 00 Center bleed) bleed) Allergies, Adverse Reactions, Alerts Allergy Allergy Status Severity Reaction(s) Onset Inactive Treating Comm ents Source Name Type Date Date Clinician Penicill Propensi Active Rash 2022-0 Amaris in G ty to 02-27 Seybold adverse 00:00: - reaction 00 Externa s l Penicill Drug Active Rash 2022-[address] [facility] - [facility] 00[facility]: Medical 00 Center Codeine Drug Active Rash 2022-[address] [facility] [address] Allergy -07 [facility] 00:[facility] Medical 00 Center CODEINE Allergy Active Low Rash 2022-[address] [facility] [facility] -07 [facility] 00:[facility]: Medical 00 Center PENICILL Allergy Active Low Rash 2022-[address] [facility] IN -07 [facility] 00:[facility]: Medical 00 Center Codeine Propensi Active Rash 3-0 Amaris ty to 03 Seybold adverse 00:00: - reaction 00 Externa s l Amoxicil Propensi Active Hives 2022-0 Amaris vivian ty to 02-23 Seybold adverse 00:00: - reaction 00 Externa s l Social History Social Habit Start Date Stop Date Quantity Comments Source History of tobacco Cigarette Smoker Amaris Ponce use - External Gender identity Amaris christie - External Sexual orientation Amarismaria esther Ponce - External Alcohol intake 2022-10-06 2022-10-06 Ex-drinker Amaris Davis judd 00:00:00 00:00:00 (finding) - External Tobacco use and 2022-10-05 2022-10-05 Smokeless tobacco William figueroa Seybmckenna exposure 00:00:00 00:00:00 non-user - External History of Social 2022-10-05 2022-10-05 Amaris Ponce function 00:00:00 00:00:00 - External Tobacco Comment 2022-10-05 2022-10-05 Stopped 25 years Jasson Ponce 00:00:00 00:00:00 ago - External Alcohol Comment 2022-02-27 2022-02-27 quit drinking [address] [facility] 00:[facility]00 00:00:[address] [facility] Sex Ass[birth year] At [birth year] ZACKARY Bertrands 00:00:00 00:00:00 [facility] Smoking Status Start Date Stop Date Source Ex-smoker 2022-10-05 00:00:00 2022-10-05 00:00:00 Amaris dunlap - External Medications Ordered Filled Start Stop Current Ordering Indication Dosage Frequency Signature Comments Components Source Medication Medication Date Date Medication? Clinician (SIG) Name Name Melatonin 3 Yes 5mg QD Take 5 mg K elsey MG oral 8-16 by mouth Seybold Tablet 11:20: nightly as - 41 needed Externa l Pantoprazol Yes 40mg Take 1 Natalie ey e Sodium 40 8-15 tablet (40 Se ybold MG oral 11:17: mg total) - Tablet 04 by mouth Externa Delayed daily l Response Metronidazo Yes 500mg Take 1 Jasson sey le 500 MG 8-15 tablet Seybold oral Tablet 11:16: (500 mg - 35 total) by Externa mouth 3 l times daily levoFLOXaci Yes 500mg Take 1 Jasson sey n 500 MG 8-15 tablet Seybold oral Tablet 11:15: (500 mg - 58 total) by Externa mouth l daily Ondansetron 2022-0 Yes 4mg Take 1 Natalie ey HCl 4 MG 8-15 tablet (4 Seybol d oral Tablet 11:15: mg total) - 26 by mouth Externa every 12 l hours as needed Naproxen 2022-0 Yes 250mg Take 1 Amaris (NAPROSYN) 8-15 tablet Seybold 250 MG oral 11:14: (250 mg - Tablet 48 total) by Externa mouth in l the morning and 1 tablet (250 mg total) in the evening. Take with meals. Dicyclomine 0 Yes 20mg Q.25D Take 1 Jasson sey HCl 20 MG 8-15 tablet (20 Seyb old oral Tablet 11:14: mg total) - 31 by mouth 4 Externa times l daily as needed melatonin 3 2022-0 Yes 5mg Take [address] mg tablet 5-15 by mouth [facility] 13:31: every Medical 54 night as Center needed for Insomnia. atorvastati 0 Yes hyperlipide 40mg QD Take [address] [facility] n (LIPITOR) 5-15 efren by mouth Luke s 40 MG 13:31: daily. Medical tablet 54 Center latanoprost 2022-0 Yes open angle 1[drp] QD Place [address] [facility] (XALATAN) 5-15 glaucoma drop into L ukes 0.005 % 13:31: both eyes Medic al ophthalmic 54 nightly. Cente r solution levoFLOXaci 2022-0 2023- No 750mg QD Take [address] n 5-15 05-21 tablet [facility]ukes (LEVAQUIN) 00:00: 23:59 (750 mg Med ical 750 MG 00 :00 total) by Center tablet mouth in the morning for 6 days. melatonin 3 2022-0 Yes 5mg Take [address] mg tablet 1-09 by mouth [facility] 11:22: every Medical 10 night as Center needed for Insomnia. atorvastati 2022-0 Yes hyperlipide 40mg QD Take [address] [facility] n (LIPITOR) 1-09 efren by mouth Luke s 40 MG 11:22: daily. Medical tablet 10 Center latanoprost 2022-0 Yes open angle 1[drp] QD Place [address] [facility] (XALATAN) 1-09 glaucoma drop into L ukes 0.005 % 11:22: both eyes Medic al ophthalmic 10 nightly. Cente r solution vancomycin 2022-2022- No 250mg Q.25D Take [address] 250 mg/5 mL 03-01 mg by [facility] Syrg 10:03: 00:00 mouth 4 Medical 04 :00 (four) Center times daily. vancomycin 2022-0 2022- No 250mg Q.25D Take [address] 250 mg/5 mL 03-01 mg by [facility] Syrg 10:03: 00:00 mouth 4 Medical 04 :00 (four) Center times daily. thiamine 2022-2023- No 100mg QD Take 1 [facility] 100 MG 03-01 tablet [facility] tablet 00:00: 23:59 (100 mg Medical 00 :00 total) by Center mouth daily. thiamine 2022-0 2023- No 100mg QD Take 1 CHI [...] (40 mg total) daily for 124 days. omeprazole 2022- No Take [address] [facility] (PriLOSEC) 03-01 capsule [facility] 40 MG 00:00: 23:59 (40 mg Medical capsule 00 :00 total) by Center mouth 2 (two) times daily for 56 days, THEN 1 capsule (40 mg total) daily for 124 days. ferrous 2022-2022- No 325mg Take [address] [facility] sulfate 325 03-01 tablet [facility] (65 FE) MG 00:00: 23:59 (325 mg Med ical tablet 00 :00 total) by Center mouth every other day for 90 days. lactulose 2022- No 10g Q.5D Take [address] (CHRONULAC) 03-01- mLs (10 g Cathryn kes 10 gram/15 00:00: 23:59 total) by M edical mL solution 00 :00 mouth 2 Cente r (two) times daily for 90 days Goal is 2-3 large bowel movements. If not having enough, can increase to 3 times a day. If having too many, cut it back to once a day.. propranoloL 2022-0 2022- No 10mg Q.5D Take [address] (INDERAL) 03-01-09 tablet (10 Lesia es 10 MG 00:00: 23:59 mg total) Medica l tablet 00 :00 by mouth 2 Center (two) times daily for 90 days. ferrous 2022-0 2022- No 325mg Take [address] sulfate 325 03-01 tablet [facility] (65 FE) MG 00:00: 23:59 (325 mg Med ical tablet 00 :00 total) by Center mouth every other day for 90 days. lactulose 2022-0 2022- No 10g Q.5D Take 15 CHI [...] it back to once a day.. propranoloL 2022-0 2022- No 10mg Q.5D Take [address] (INDERAL) 03-01 tablet (10 Lesia es 10 MG 00:00: 23:59 mg total) Medica l tablet 00 :00 by mouth 2 Center (two) times daily for 90 days. ciprofloxac 2022-0 2022- No 500mg Q.5D Take [address] in HCl 03-01 tablet [facility]ukes (CIPRO) 500 00:00: 23:59 (500 mg Me dical MG tablet 00 :00 total) by Cente r mouth 2 (two) times daily for 5 days. ciprofloxac 2022-0 2022- No 500mg Q.5D Take [address] in HCl 03-0114 tablet [facility] (CIPRO) 500 00:00: 23:59 (500 mg Me dical MG tablet 00 :00 total) by Cente r mouth 2 (two) times daily for 5 days. vancomycin 2022- No 250mg Q.25D Take [address] 250 mg/5 mL 03-01 (250 mg Luke s Syrg 00:00: 23:59 total) by Medical 00 :00 mouth 4 Center (four) times daily for 3 days. vancomycin 2022- No 250mg Q.25D Take [address] 250 mg/5 mL 03-01 (250 mg Luke s Syrg 00:00: 23:59 total) by Medical 00 :00 mouth 4 Center (four) times daily for 3 days. Melatonin 1 Yes 5mg 20 mL (5 Ke lsey MG/4ML oral 1-06 mg total) Sey bold Liquid 00:00: - 00 Externa l Vital Signs Vital Name Observation Time Observation Value Comments Source Systolic blood 2022-10-06 16:08:00 124 mm[Hg] Amaris Royalybold - pressure External Diastolic blood 2022-10-06 16:08:00 80 mm[Hg] Anna Ponce - pressure External Heart rate 2022-10-06 16:08:00 79 /min Amaris Oriana fabi - External Body temperature 2022-10-06 16:08:00 36.39 Joanne Natalie wiggins Seybold - External Respiratory rate 2022-10-06 16:08:00 20 /min Natalie wiggins Seybold - External Body height 2022-10-06 16:08:00 152.4 cm Amaris Oriana fabi - External Body weight 2022-10-06 16:08:00 61.145 kg Amaris dunlap - External BMI 2022-10-06 16:08:00 26.33 kg/m2 Amaris Oriana fabi - External Oxygen saturation in 2022-10-06 16:08:00 97 /min Amaris Ponce - Arterial blood by External Pulse oximetry HEIGHT 2022-02-27 02:44:08 149.9 cm WEIGHT 2022-02-27 02:44:08 65.545 kg HEIGHT 2022-02-27 02:44:08 149.9 cm WEIGHT 2022-02-27 02:44:08 65.545 kg HEIGHT 2022-02-27 02:44:08 149.9 cm WEIGHT 2022-02-27 02:44:08 65.545 kg Systolic blood 2022-07-05 07:49:00 126 mm[Hg] [facility] Diastolic blood 2022-07-05 07:49:00 62 mm[Hg] [facility] Heart rate 2022-07-05 07:49:00 83 /min [facility] Body temperature 2022-07-05 07:49:00 36.78 Joanne [facility] Respiratory rate 2022-07-05 07:49:00 18 /min [facility] Oxygen saturation in 2022-07-05 07:49:00 92 /min [facility] Arterial blood by Medical Ce nter Pulse oximetry Heart rate 2022-03-01 07:59:42 75 /min [facility] Oxygen saturation in 2022-03-01 07:59:42 96 /min [facility] Arterial blood by Medical Ce nter Pulse oximetry Systolic blood 2022-03-01 07:58:45 149 mm[Hg] [facility] Diastolic blood 2022-03-01 07:58:45 87 mm[Hg] [facility] Body temperature 2022-03-01 07:57:44 36.94 Joanne [facility] Respiratory rate 2022-03-01 07:57:44 18 /min [facility] Body height 2022-02-27 02:44:08 149.9 cm [facility] Body weight 2022-02-27 02:44:08 65.545 kg [facility] BMI 2022-02-27 02:44:08 29.19 kg/m2 [facility] Procedures Procedure Date / Time Performing Clinician Source Performed ALPHA FETOPROTEIN (AFP), 2022-07-05 10:32:00 Branden Elmore [facility] TUMOR MARKER [facility] MAGNESIUM 2022-07-05 03:37:00 Saul Denice [facility] CBC W/PLT COUNT & AUTO 2022-07-05 03:37:00 Saul [facility] DIFFERENTIAL [facility] PHOSPHORUS 2022-07-05 03:37:00 [facility] COMPREHENSIVE METABOLIC 2022-07-05 03:37:00 [facility] CBC W/PLT COUNT & AUTO 2022-07-05 03:37:00 [facility] S [facility] CALCIUM, IONIZED 2022-07-05 03:36:00 [facility] MAGNESIUM 2022-07-04 03:52:00 [facility] W/[facility]T COUNT & AUTO 2022-07-04 03:52:00 [facility], [facility] S [facility] CALCIUM, IONIZED 2022-07-04 03:52:00 [facility] COMPREHENSIVE METABOLIC 2022-07-04 03:52:00 [facility] PHOSPHORUS 2022-07-04 03:52:00 [facility] CBC W/PLT COUNT & AUTO 2022-07-04 03:52:00 Saul [facility] S [facility] MR ABDOMEN WITHOUT IV 2022-07-03 18:30:00 Amauri Michaels [facility] CONTRAST [facility] BASIC METABOLIC PANEL 2022-07-03 10:45:00 [facility] MAGNESIUM 2022-07-03 10:45:00 [facility], [facility] CBC W/PLT COUNT & AUTO 2022-07-03 10:45:00 [facility], [facility] S [facility] CBC W/PLT COUNT & AUTO 2022-07-03 10:45:00 [facility], [facility] S t [facility] US ABDOMEN COMPLETE 2022-07-02 06:33:00 Nik Ayala [facility] US PELVIS LIMITED 2022-07-02 06:33:00 Demario Cook [facility] PROTHROMBIN TIME/INR 2022-07-02 04:51:00 [facility] 2022-07-02 04:51:00 Norris [facility] CBC W/PLT COUNT & AUTO 2022-07-02 04:51:00 [facility] ALPHA FETOPROTEIN (AFP), 2022-07-02 04:51:[address] [facility] [facility] [address] T[facility] PHOSPHATIDYLETHANOL, 2022-07-02 04:51:[address] [facility] BLOOD [facility] B-TYPE NATRIURETIC FACTOR 2022-07-02 04:51[facility] URIC ACID 2022-07-02 04:51:00 Joey [facility] CBC W/PLT COUNT & AUTO 2022-07-02 04:51:00 Norris [facility] BASIC METABOLIC PANEL 2022-07-02 04:51:00 Norris [facility] HEPATIC FUNCTION PANEL 2022-07-02 04:51:00 Norris [facility] URINALYSIS W/ MICROSCOPIC 2022-07-02 04:38:00 Norris [facility] SODIUM, RANDOM URINE 2022-07-02 04:38:00 [facility] CREATININE, RANDOM URINE 2022-07-02 04:38:00 [facility] PROTEIN, RANDOM URINE 2022-07-02 04:38:00 Joey [facility] OSMOLALITY, URINE 2022-07-02 04:38:00 Joey [facility] TYPE AND SCREEN, 2022-07-01 09:30:00 Norris [facility] CBC W/PLT COUNT & AUTO 2022-07-01 09:30:00 Norris [facility] (CELLAVISION MANUAL DIFF) 2022-07-01 09:30[facility] AUTO 2022-07-01 09:30:00 Nik Ayala [facility] BASIC METABOLIC PANEL 2022-07-01 09:30:00 [facility] FUNCTION [facility]EL 2022-07-01 09:30:00 Nik Ayala [facility] PROTHROMBIN TIME/INR 2022-07-01 09:30:00 Nik Ayala [facility] POCT-GLUCOSE METER 2022-03-01 08:01:00 Amadou [facility] CBC (HEMOGRAM ONLY) 2022-03-01 05:08:00 Amadou [facility] COMPREHENSIVE METABOLIC 2022-03-01 05:08:00 Robert Bone [facility] HEMOGLOBIN AND HEMATOCRIT 2022-02-28 17:25:00 Robert Bone [facility] HEPATITIS A ANTIBODY, IGG 2022-02-28 12:39:00 Meño Campos [facility] REPORT OF PROCEDURE - 2022-02-28 11:26:34 Nory Doll [facility] ENDOSCOPY [facility] TISSUE EXAM 2022-02-28 11:03:00 Ha Dollssica [facility] ENDOSCOPY, UPPER GI 2022-02-28 10:00:00 Nory Doll [facility] TRACT, [facility] BIOPSY [facility], WITH VARICEAL 2022-02-28 10:00:00 [facility] CBC (HEMOGRAM ONLY) 2022-02-28 04:56:00 Amadou [facility] COMPREHENSIVE METABOLIC 2022-02-28 04:56:00 Amadou [facility] PROTHROMBIN TIME/INR 2022-02-28 04:56:00 Amadou [facility] PHOSPHATIDYLETHANOL, 2022-02-28 04:56:00 Meño Campos [facility] HEPATITIS C GENOTYPE 2022-02-28 04:56:00 [facility] ANTI-NUCLEAR ANTIBODY 2022-02-27 16:10:[address] [facility] ([facility] HEPATITIS B SURFACE 2022-02-27 16:10:00 Andres [facility] ANTIBODY [facility] HC LAB HIV-1 AG W/HIV-1&2 2022-02-27 16:10:00 Meño Campos [facility] AB [facility] HEPATITIS B CORE 2022-02-27 16:10:00 [facility] ANTIBODY, TOTAL [facility]UAL 2022-02-27 04:52:00 Aydee Clark [facility] ACTIN (SMOOTH MUSCLE) 2022-02-27 04:40:[address] [facility] ANTIBODY, IGG [facility] LOMME-[id number], 2022-02-27 04:40:00 [facility] ANTI-MITOCHONDRIAL AB, 2022-02-27 04:40:00 Maricarmen Michaels [facility] REFLEX TO TITER [facility] CERULOPLASMIN 2022-02-27 04:40:00 [facility] 2022-02-27 04:40:00 [facility] PANEL, ACUTE 2022-02-27 04:40:00 Maricarmen Michaels [facility] IMMUNOGLOBULIN G (IGG) 2022-02-27 04:40:00 Maricarmen Michaels [facility] IRON, TIBC, % SAT. 2022-02-27 04:40:00 Maricarmen Michaels [facility] (WITHOUT FERRITIN) [facility], 2022-02-27 04:40:00 Maricarmen Michaels [facility] PROTHROMBIN TIME/INR 2022-02-27 04:40:00 Maricarmen Michaels [facility] MITOCHONDRIAL AB SCREEN 2022-02-27 04:40:00 MichaelsMaricarmen Petty [facility] MITOCHONDRIAL AB TITER 2022-02-27 04:40:00 MichaelsMaricarmen [facility] CBC W/PLT COUNT & AUTO 2022-02-27 04:39:[address] [facility] BASIC METABOLIC PANEL 2022-02-27 04:39:00 Drea Maricarmen Dove [facility] HEPATIC FUNCTION PANEL 2022-02-27 04:39:00 Drea Maricarmen Dove [facility] MAGNESIUM 2022-02-27 04:39:00 Drea Maricarmen Petty [facility] PHOSPHORUS 2022-02-27 04:39:00 MichaelsMaricarmen [facility] CBC W/PLT COUNT & AUTO 2022-02-27 04:39:00 Drea Maricarmenmike Solanoh [facility] TYPE AND SCREEN, 2022-02-27 04:39:00 DreaMaricarmen [facility] Plan of Care Planned Activity Planned Date Details Comments Source Future Scheduled 2023-07-[address] [facility] 00:00:00 [facility]ing [facility] Medical Cente r Screening (12+) [code = Tobacco Cessation Counseling and Screening (12+)] Future Scheduled 2023-02-[address] [facility] Test 00:00:00 Counseling and Medical Cente r Screening (12+) [code = Tobacco Cessation Counseling and Screening (12+)] Future Scheduled 2022-10-[address] [facility] Test 00:00:00 (Season Ended) [code = Medic al Center INFLUENZA VACCINE (Season Ended)] Future Scheduled 2022-10-22 Influenza Vaccine (#1) [facility] 00:00:00 [code = Influenza Medical Ce nter Vaccine (#1)] Future Scheduled 2022-02-[address] [facility] 00:00:00 (12+) [code = Medical Center DEPRESSION SCREENING (12+)] Future Scheduled 2022-02-[address] [facility] Test 00:00:00 (12+) [code = Medical Center DEPRESSION SCREENING (12+)] Future Scheduled 2010-02-05 SHINGLES VACCINES ([address] [facility] 00:00:00 2) [code = SHINGLES Medical Center VACCINES (1 of 2)] Future Scheduled 2010-02-05 SHINGLES VACCINES ([address] [facility] 00:00:00 2) [code = SHINGLES Medical Center VACCINES (1 of 2)] Future Scheduled 2005-02-05 Lipid panel (procedure) [facility] 00:00:00 [code = 76275757] Medical Ce nter Future Scheduled 2005-02-05 Lipid panel (procedure) [facility] 00:00:00 [code = 77558486] Medical Ce nter Future Scheduled 1981-02-05 Screening for malignant [facility] Test 00:00:00 neoplasm of cervix Medical C enter (procedure) [code = 093089429] Future Scheduled 1981-02-05 Screening for malignant [facility] Test 00:00:00 neoplasm of cervix Medical C enter (procedure) [code = 625673880] Future Scheduled 1979-02-05 DTAP/TDAP/TD VACCINES [facility] 00:00:00 (1 - Tdap) [code = Medical C enter DTAP/TDAP/TD VACCINES (1 - Tdap)] Future Scheduled 1979-02-05 DTAP/TDAP/TD VACCINES [facility] 00:00:00 (1 - Tdap) [code = Medical C enter DTAP/TDAP/TD VACCINES (1 - Tdap)] Future Scheduled 1960 COVID-19 VACCINE (#1) [facility] 00:00:00 [code = COVID-[address] VACCINE (#1)] Future Scheduled 1960 COVID-19 VACCINE (#1) [facility] 00:00:00 [code = COVID-[address] VACCINE (#1)] Future Scheduled 1960 Screening for malignant [facility] Test 00:00:00 neoplasm of breast Medical C enter (procedure) [code = 475669826] Future Scheduled 1960 CT Colonography (combo) [facility] 00:00:00 [code = CT Colonography [facility] (combo)] Future Scheduled 1960 Screening for malignant [facility] Test 00:00:00 neoplasm of colon Medical Ce nter (procedure) [code = 141625187] Future Scheduled 1960 Screening for malignant [facility] Test 00:00:00 neoplasm of colon Medical Ce nter (procedure) [code = 830810235] Future Scheduled 1960 Screening for malignant [facility] 00:00:00 neoplasm of colon Medical Ce nter (procedure) [code = 020194377] Future Scheduled 1960 Screening for malignant [facility] Test 00:00:00 neoplasm of colon Medical Ce nter (procedure) [code = 238893043] Future Scheduled 1960 Sigmoidoscopy [code = [facility]:00 Sigmoidoscopy] Medical Cente r Future Scheduled 1960 Screening for malignant [facility] Test 00:00:00 neoplasm of breast Medical C enter (procedure) [code = 009867017] Future Scheduled 1960 CT Colonography (combo) [facility] Test 00:00:00 [code = CT Colonography [facility] (combo)] Future Scheduled 1960 Screening for malignant [facility] Test 00:00:00 neoplasm of colon Medical Ce nter (procedure) [code = 374740726] Future Scheduled 1960 Screening for malignant [facility] Test 00:00:00 neoplasm of colon Medical Ce nter (procedure) [code = 815421840] Future Scheduled 1960 Screening for malignant [facility] 00:00:00 neoplasm of colon Medical Ce nter (procedure) [code = 613677256] Future Scheduled 1960 Screening for malignant [facility] 00:00:00 neoplasm of colon Medical Ce nter (procedure) [code = 399544813] Future Scheduled 1960 Sigmoidoscopy [code = [facility] S[facility]oscopy] Medical Cente r Encounters Start End Encounter Admission Attending Care Care Encounter Source Date/Time Date/Time Type Type Clinicians Facility Department ID 2022-02-22 Inpatient ER [facility] Medical ICU [id number] 17:16:28 [facility] 2023-01-26 2023-01-26 Outpatient AMARIS VICENTE [id number] Amaris 14:15:00 14:15:00 ASIM Seybol d 2022-12-06 2022-12-06 Outpatient AMARIS ROOT [id number] Amaris 09:00:00 09:00:00 NICOLAS Seybol d 2022-10-06 2022-10-06 Outpatient LAB90 AMARIS CHOUDHURY [id number] Amaris 12:20:00 12:20:00 Seybol d 2022-10-06 2022-10-06 Outpatient AMARIS ROOT [id number] Amaris 11:00:00 11:00:00 NICOLAS Seybol d 2022-08-06 2022-08-06 Outpatient AMARIS CHOUDHURY [id number] Amaris 14:00:00 14:00:00 Seybol d 2022-07-16 2022-07-16 Outpatient [facility] [id number] [facility] 00:00:00 00:00:00 [facility] 2022-07-13 2022-07-13 Outpatient AMARIS HDEZ [id number] Amaris 14:15:00 14:15:00 SHIRLENE Seybol d 2022-07-09 2022-07-09 Outpatient AMARIS ROBLES [id number] Amaris 00:00:00 00:00:00 STEEVEN Seybol d 2022-07-06 2022-07-06 Outpatient AMARIS VEGA [id number] Amaris 00:00:00 00:00:00 CAMPAIGNS Seyb old 2022-07-01 2022-07-05 [facility] Med [id number] SLE 07:54:00 13:31:00 [facility] 2022-07-01 2022-07-05 [facility] Liana Poe [facility] [id number] [facility] 07:54:00 13:31:00 Encounter Nik Ayala juan Huff [facility] 2022-07-01 2022-07-01 Travel [facility] [id number] [facility]00 [facility] 2022-03-11 2022-03-11 Outpatient [facility] [id number] SLE 00:00:00 00:00:00 2022-03-10 2022-03-10 Telephone Joel [facility] [id number] 00:[facility] 00:00:00 [facility] 2022-03-10 2022-03-10 Abstract Joel [facility] [id number] 00:00:00 00:00:00 [facility] 2022-03-10 2022-03-10 Telephone Joel [facility] [id number] 00:00[facility]00 00:00:00 [facility] 2022-03-10 2022-03-10 Abstract Joel [facility] [id number] 00:00:00 00:00:00 [facility] 2022-02-27 2022-03-01 Inpatient ER AMADOU [facility] Internal [id number] [facility] 02:27:00 11:21:00 [facility] 2022-02-27 2022-03-01 Hospital VivianLiane [facility] [id number] [facility] 02:27:00 11:21:00 Encounter Robert Bone, [facility] 2022-02-27 2022-03-01 Hospital ER Vivian KateyCathi [facility] [id number] [facility] 02:27:00 11:21:00 Encounter Robert Bone, [facility] 2022-02-28 2022-02-28 Anesthesia Mackenzie Chicas [facility] [id number] 10:45:00 11:26:00 Event [facility] 2022-02-28 2022-02-28 Anesthesia Mackenzie Chicas [facility] [id number] [facility] 10:45:00 11:26:00 Event [facility] 2022-02-28 2022-02-28 Surgery [facility], [facility] [id number] [facility] 10:00:00 10:52:00 [facility] 2022-02-28 2022-02-28 Patricia Doll, [facility] [id number] 10:00:00 10:52:00 [facility] Results Test Description Test Time Test Comments Results Result Comments Source PHOSPHATIDYLETHANOL, BLOOD 2022-07-12 13:07:11 Test Item Value Reference Range Interpretation Comme nts PHOSPHATIDYLETHANOL (PETH) (test code = 0266387) see scanned report see scanned reportALPHA FETOPROTEIN (AFP), TUMOR [id number] 11:25:36 Test Item Value Reference Range Interpretation Comments ALPHA-FETOPROTEIN (BEAKER) (test code < ng/mL <10.0 = 1094) [employer] ID - ANSHUL BCALCIUM, [id number] 05:58:34 Test Item Value Reference Range Interpretation Comments CALCIUM IONIZED (BEAKER) (test 1.05 mmol/L 1.12-1.27 L code = 698) PH, BLOOD (BEAKER) (test code = 7.43 1810) COMPREHENSIVE METABOLIC [id number] 05:03:13 Test Item Value Reference Range Interpretation [...] not appl icable for dialysis patien ts [employer] Tender ID Amberly BROOKS WSpecimen slightly [id number] 04:55:54 Test Item Value Reference Range Interpretation Comments MAGNESIUM (BEAKER) (test code = 1.7 mg/dL 1.6-2.6 627) [employer]ender RAFAEL BROOKS [id number] 04:55:54 Test Item Value Reference Range Interpretation Comments PHOSPHORUS (BEAKER) (test code = 2.3 mg/dL 2.3-4.7 604) [employer] Tender ID Amberly BROOKS WCBC W/PLT COUNT & AUTO [id number] 04:18:32 Test Item Value Reference Range Interpretation [...] (BEAKER) (test code = 2801) MR, ABDOMEN, [id number] 21:37:00Unlisted Reason for Exam - Click Yes and Enter Reason Below->No [facility] 1960 Sex: FFINAL REPORT MRCP, MRI of abdomen without contrast Clinical History: Abdominal pain, biliary obstruction suspected (Ped 0-18y) Technique: Multiplanar and multisequence MR images of the biliary system are obtained, with dedicated MRCP protocol and images. No intravenous contrast is administered. In addition, 3 dimensional reformatted images of the biliary system are obtained to evaluate the biliary anatomy. Comparison: Ultrasound dated July 02, 2022 Discussion: This examination is not dedicated to evaluating masses or parenchymal abnormalities [...] present. There is anasarca. No lymphadenopathy. Normal marrowsignal. Impression: Cirrhosis and portal hypertension. There is an indeterminate 1 cm T2 hyperintensity in segment 7 of liver. It can be further characterized with a contrast enhanced MRI. Cholelithiasis. Mild gallbladder wall edema is nonspecific in the setting of cirrhosis. No biliary ductal dilatation. Small amount of ascites. Anasarca. Trace left pleural effusion. Signed: Lula Murrieta Verified Date/Time: 07/04/2022 21:37:20 CALCIUM, [id number] 05:06:44 Test Item Value Reference Range Interpretation Comments CALCIUM IONIZED (BEAKER) (test 1.03 mmol/L 1.12-1.27 L code = 698) PH, BLOOD (BEAKER) (test code = 7.44 1810) COMPREHENSIVE METABOLIC [id number] 04:46:51 Test Item Value Reference Range Interpretation [...] eGF R is based on the CKD-EPI 1 equation that d oes not use a race coefficientEsti mated GFR is not as accur ate as Creatinine Ally dnaay in predicting glom erular filtration rate . Estimated GFR is not appl icable for dialysis patien ts [employer] Tender ID - ADMINSpecimen slightly cnvnujwGBZOXEUGX8696-01-51 04:42:23 Test Item Value Reference Range Interpretation Comments MAGNESIUM (BEAKER) (test code = 1.9 mg/dL 1.6-2.6 627) [employer] Tender ID - [id number] 04:42:23 Test Item Value Reference Range Interpretation Comments PHOSPHORUS (BEAKER) (test code = 1.8 mg/dL 2.3-4.7 L 604) [employer] Tender ID - ADMINCBC W/PLT COUNT & AUTO [id number] 04:22:38 Test Item Value Reference Range Interpretation [...] (BEAKER) (test code = 2801) BASIC METABOLIC [id number] 11:30:49 Test Item Value Reference Range Interpretation [...] not appl icable for dialysis patien ts [employer] Tender ID - MMSpecimen slightly bykbdseSUMKKSUTR4179-07-77 11:30:30 Test Item Value Reference Range Interpretation Comments MAGNESIUM (BEAKER) 2.0 mg/dL 1.6-2.6 Specimen slightly (test code = 627) hemolyzed [employer] Tender ID - MMCBC W/PLT COUNT & AUTO [id number] 11:09:06 Test Item Value Reference Range Interpretation [...] (BEAKER) (test code = 2801) U/S, ABDOMINAL, [id number] 09:08:00Abdomen limited area? Add comment if clarification is needed.->Right upper quadrant Reason for exam:->assess [facility] acute [facility]olecystitis [facility] 1960 Sex: FFINAL REPORT [...] with liver function tests. Signed: Edouard Orta MDReport Verified Date/Time: 07/02/2022 09:08:40 U/S, PELVIC, [id number] 09:08:00 Reason for exam:->[facility] 1960 Sex: FFINAL [...] with liver function tests. Signed: Edouard Orta MDReport Verified Date/Time: 07/02/2022 09:08:40 Osmolality, [id number] 07:04:13 Test Item Value Reference Range Interpretation Comments Osmolality, Ur (test code 453 See_Comment [ Automated message] = 2695-5) The system [facility] generated this result transmitted ref erence range: 50-1,200 mOsm/kg mOsm/kg . The reference range was not used to int erpret this result as normal/abnormal . Lab Interpretation (test Normal code = 79190-9) [facility] CenterOSMOLALITY, [id number] 07:04:13 Test Item Value Reference Range Interpretation Comments OSMOLALITY URINE 453 mOsm/kg See_Comment [Automated message] (BEAKER) (test code = The sy stem which 614) generated this result transmitted ref erence range: 50-1,200 mOsm/kg. The reference range was not used to int erpret this result as normal/abnormal . Urinalysis w/ [id number] 06:47:21 Test Item Value Reference Range Interpretation Comments Color, UA (test code Yellow = 5778-6) Clarity, UA (test Hazy code = 5767-9) Specific [place], UA 1.034 1.001-1.035 (test code = 5811-5) pH, UA (test code = 6.0 5.0-8.0 5803-2) Protein, UA (test 50 mg/dL Negative A code = 56075-4) Glucose, UA (test Negative Negative code = 365) Ketones, UA (test Negative Negative code = 2514-8) Bilirubin, UA (test Positive Negative A code = 80282-8) Blood, UA (test code Large Negative A = 74998-4) Nitrite, UA (test Negative Negative code = 5802-4) Leukocytes, UA (test Large Negative A code = 5799-2) Urobilinogen, UA 2 0.2-1.0 H (test code = 29104-4) RBC, UA (test code = 206 See_Comment [Autom ated 11301-0) message] The system which generated this result transmit suzanne reference range : /HPF. The reference range was not used to interpret this result as normal/abnormal . WBC, UA (test code = 14 See_Comment [Autom ated 5821-4) message] The system which generated this result transmit suzanne reference range : /HPF. The reference range was not used to interpret this result as normal/abnormal . Mucus (test code = Rare 8247-9) Squam Epithel, UA 3 See_Comment [Automate d (test code = 80533-4) messag e] The system which generated this result transmit suzanne reference range : /HPF. The reference range was not used to interpret this result as normal/abnormal . Hyaline Casts, UA 1 See_Comment [Automate d (test code = 34598-2) messag e] The system which generated this result transmit suzanne reference range : /LPF. The reference range was not used to interpret this result as normal/abnormal . Casts (test code = 1 See_Comment [Automat ed 9842-6) message] The system which generated this result transmit suzanne reference range : /LPF. The reference range was not used to interpret this result as normal/abnormal . Specimen Source (test Urine, Clean code = 2795) Catch TAMMY (test code = TAMMY) [employer] Tender ID - [auto][employer] Tender ID - tech Lab Interpretation Abnormal (test code = 93409-2) [facility] Center[facility]INALYSIS W/ [id number] 06:47:21 Test Item Value Reference Range Interpretation [...] (test code Urine, Clean Catch = 2795) [employer] Tender ID - [auto][employer] Tender ID - techBASIC METABOLIC [id number] 06:15:04 Test Item Value Reference Range Interpretation [...] (test code = 697) EGFR (BEAKER) 47 Interpretati on of eGFR (test code = mL/min/1.73 values [...] not appl icable for dialysis patien ts [employer] Tender ID - mmSpecimen slightly ictericHEPATIC FUNCTION [id number] 06:14:58 Test Item Value Reference Range Interpretation [...] Specimen slightly (test code = 347) hemolyzed [employer] Tender ID - mmSpecimen slightly ictericURIC [id number] 06:14:33 Test Item Value Reference Range Interpretation Comments URIC ACID (BEAKER) 5.2 mg/dL 2.6-7.2 Specimen slightly (test code = 773) hemolyzed [employer] Tender ID - mmSpecimen slightly amlmietHGXVHKJSZ5188-08-64 06:14:32 Test Item Value Reference Range Interpretation Comments MAGNESIUM (BEAKER) 1.8 mg/dL 1.6-2.6 Specimen slightly (test code = 627) hemolyzed [employer] Tender ID - mmALPHA FETOPROTEIN (AFP), TUMOR [id number] 06:11:52 Test Item Value Reference Range Interpretation Comments ALPHA-FETOPROTEIN (BEAKER) (test code < ng/mL <10.0 = 1094) [employer] Tender ID - ADMINB-TYPE NATRIURETIC FACTOR (BNP)2022-07-02 05:58:29 Test Item Value Reference Range Interpretation Comments B-TYPE NATRIURETIC PEPTIDE (BEAKER) 127 pg/mL 0-100 H (test code = 700) [employer] Tender ID - mmSodium, random [id number] 05:46:02Sodium Urine<20meq/L07/02/2022 5:46 AM [facility]Reference [facility]:No NormalsOperator ID - ADMINCHI [facility] SODIUM, RANDOM [id number] 05:46:02 Test Item Value Reference Range Interpretation Comments SODIUM URINE (BEAKER) (test code = < meq/L 243) Reference Range: No NormalsOperator ID - ADMINPROTHROMBIN TIME/[id number] 05:41:54 Test Item Value Reference Range Interpretation [...] mechanical heart valves.CBC W/PLT COUNT & AUTO [id number] 05:41:41 Test Item Value Reference Range Interpretation [...] H PERCENT (BEAKER) (test code = 2801) Protein, random [id number] 05:39:30 Test Item Value Reference Range Interpretation Comments Protein, Urine (test code 54 mg/dL 0-14 H = 2888-6) TAMMY (test code = TAMMY) [employer] Tender ID - ADMIN Lab Interpretation (test Abnormal code = 53058-3) [facility] CenterPROTEIN, RANDOM [id number] 05:39:30 Test Item Value Reference Range Interpretation Comments PROTEIN, URINE (BEAKER) (test code = 54 mg/dL 0-14 H 1569) [employer] Tender ID - ADMINCreatinine, random nttso5105-60-90 05:38:10 Test Item Value Reference Range Interpretation Comments Creatinine, Ur 131.5 mg/dL (test code = 2161-8) TAMMY (test code = Reference Range: No TAMMY) NormalsOperator ID - ADMIN [facility] HospitalCREATININE, RANDOM [id number] 05:38:10 Test Item Value Reference Range Interpretation Comments CREATININE URINE (BEAKER) (test 131.5 mg/dL code = 375) Reference Range: No NormalsOperator ID - ADMINHEPATIC FUNCTION [id number] 10:39:19 Test Item Value Reference Range Interpretation [...] Specimen slightly (test code = 347) hemolyzed [employer] Tender ID - ADMINOperator ID - ADMINSpecimen slightly ictericBASIC METABOLIC [id number] 10:39:18 Test Item Value Reference Range Interpretation [...] not appl icable for dialysis patien ts [employer] Tender ID - ADMINSpecimen slightly icteric(CELLAVISION MANUAL DIFF)2022-07-01 [...] CONCENTRATION Decreased (CELLAVISION)(BEAKER) (test code = 3438) [employer] Tender ID - Avila Alvarado comments: Slide comments:CBC W/PLT COUNT & AUTO [id number] 10:34:49 Test Item Value Reference Range Interpretation [...] 0-0 (BEAKER) (test code = 413) PROTHROMBIN TIME/[id number] 10:00:52 Test Item Value Reference Range Interpretation [...] Interpretation Comments SCAN RESULT (test code = 6645591) Tissue [id number] 08:35:43 Test Item Value Reference Range Interpretation Comments Case Report (test code Surgical Pathology = 104) Report Case: [id number] Authorizing Provider: Nory Doll, Collected: 02/28/2022 11:03 AM Ordering Location: [address] Received: 03/01/2022 07:57 AM Service Pathologist: Irma Fermin MD Specimen: Biopsy, Gastric, random gastric bx r/o H. pylori DIAGNOSIS (test code = q7uvmSWrYDZfd3puCKAuhF 3220) FuZzEwMzNcZnRuYmpcdWMx IHtccnRmMVxlcGljOTYwMl ryedWyXNBasNJcR4Fzyxut FZzlWO4sAW8bcQmblBBcgV NdAMPdTuVlh0iyw422sWHs d8oaGKCFqhgomDv0rKgpQ0 2iw6Q1UsdeZ70sxBRjEUP7 ROJtZFEczQBtTWClJXV2YI WzaQRmU3wsOJOkLD1ejylo MYsnJSypLZXcoTP5FLBehG LlM7PrLVAtZChdBGGamgn2 ElFfFf8jjIQjhLclZKnlQW NyISSoMUbjERAuJfCbXI9t WKhAH7YCTONaVSOLLqYLOA YLCG4WQ3fwiJgcEUPoQGXN AVI9eavhAV24pM87lMLeTP 3hRILmkiLmfG3nzVjnIBHr nNFqu3Xym8y3iRGnwVYsdI ReJWCsyw0xiBOcWUB0zVXh FUcgy0SioUXph3fzaF7hKU OgRE1jC0W6tNXsJUJbtuNu qjMpe5InfsAcNP0qfXVuhS NykHEro4VsDCkmjJcqx8fj WHhffxTuCP2ZfP73jr7auY G9f2GlCF8sW1CfDXI5INgs IGZvciBILiBweWxvcmkgaX MgbmVnYXRpdmUgKHNlZSBj x04qIT21FXsfSRU8t0yjkG YxXHNzdGUxODAwMFxhbnNp XMImJnkdhntaGBLgAYA8aw IlVEDwVZqlBGWdMBpuNo5y yRIjoUjlXuAqCWGte0syxj WMzxdryXm9i3upIIWzOeE2 oUQfVOtvQ0eqczLlkWSxIP MjVFe4eA68MLLyjL2zzOMi ZYqghfIwSvR8ZXygVUTyIg J8FJZogVYrZUYkO4ebBADi WOxwZFJcWIzppVZxTBW8pZ rkq1G3zKZagHAgxPyiZwNc IwQgXvTBr8XiXWk2dStqC1 XqXMVwHaF8tPMpLJWfJJep RICtWDMxdtN4wB13INjmdv Q7vTAfv3Ywe90za561mG6o bXSpGCG1TDSiGYItgLTwUE TdLTD4ECQzaRIpN8dqFWBy FD6qtayqVXixJNecYAMojZ T8FYTmzOEgF4AjUSKmFNqe AAAaajh9ChVuVr7oiMEykE vxHIvrh2tqy0uwvKNnIzw3 OSGgEyKvLrrfTRerf1Wng1 nfZLOpia4bLJV3rUNtkWym m3B2lWMrDJTphLGdMBUzEJ 4rjNZxMQGwbZ2hfgniFZFq YnJkcmhlYWRccGdicmRyZm 9ijLkkOFS6XUnnX3ktaS1a StV3GUybZ2qofM6aYWc0WS cwRVPojWW6apH5GGZjeFGo M0AssA1bFEDbDO3nftl6u5 olPLH6PZjwXBVvWiG0geE3 NDBcaGVhZGVyeTcyMFxmb2 25RLV0SkTtRAUsj9OfO6Cs qSffK61nmTrwM95zTIKiuM gwaY6kkQssxF2xSfAxWoSf NCexqSkcHW6jTKYsW7cyhU GgNXBsDTLlF4ceHkFbwT2m lIfdMUrrvgArSCPxIcu1YT SdhUMnQVVwMvm9OQLmFVQn Q77igmezGSS7aW9ma8irr5 BuBEleAPU7GKLrx71sZDzh drC2ALnhId88ZCvzDYJ7KA maLDL0cT== COMMENT (test code = z2isbMBfJZSvoQD2EsKpOD 6833) Bwb1bry4VpkMXruVMjGTfp nHWnldOrbl00oYQ9wP53AR 4jWVRaNyL2UHYmyoD8Oxc6 WKYuMOBzbTUrV745y2wos1 dchgJmjWG4eFkcLPNfauqo XhW8LHrtPFZajbnxWJn3VJ xnVEKrgWY4YYMtsJStQ0Wj YLJrZL6mxrb8KFW3GQjzIX IvLsS8NYQprRFnRFPknIxq XVbop708PPY0TdDdGBFlfr PltZrcaP4vCiZcVKZCE39A AF4XCxhgXKycctNmuGNgyj FuBJQdm0VaSP7fAU6micZe AKQnBmquUSH0VZzvwQ4oJD 3xxRZhZF9lXGoiaZFcl6aw g4QzL2hbiCnfCIotk2TsdX 3kv7gwC0fzuLZeT10tj6qc RBQtBBDzANgtnOl5FS4oQE yoc7X9HGCyiC2qaXChZNAj MIVkdjHpuRr7ADIjCA4ioP onJaWeNH7vr6HoIpQfSHjf yKJdWKDhAF2sURouAJFceB 3gK8IgaSmgn4JisDlmpY68 wuHwq9QiUVcrhPsxvjK9dP GyPVRxWJL9kNI9AZA8WW7k CPB5s26sKWCoqRbnIR8lbY TdeoIcm14kFD9yFHJkNZRY afOry2PugHueqaJao1Q1MO Fpcxwlb7KpYZVfge5= CPT Code(s) (test code c6zwqAKbDEOdwVB7AcLcSR = 7162) Nvs1aiu9WajWXigKJcEOri yEJynxXdxk58hPC6wW84EF 1uFVEmFgS6SLCpjcW6Wue3 YLGcZXWucNBnH099p6qwe3 gqxsZiwIE6oNwfWABhceqn OaP6FAnpQIHxfcjyQVy3FY diMJSlzHV1WXEatEWwW7Vz ZMBjNN3clsg8JYO8PEacIO SeGhX5OZVuqLQeZAVadHvu UIfme348CLT6QaEqWGEspf LwvSmeiU6mOrQcCCM5GVZk BMxrkV4dZTg6XaIhJTCgyu 0= CLINICAL HISTORY (test q8lqjJMnAMMczZT8JxNzRC code = 3356) Fbt9zrm5IoeEIiaGOtRLzl bPZptpOgfp70kTO5nU40ES 2hMOOfRmT9UDSwkyG9Fva5 URDqHNHlcAFtC130j2lcu6 mdzkKbyRO9pKmhLYMuqnpb YuG0ZQrhZKJtjuhuFZd7ZA meVTYgqSF3DBFtyXYvA1Yx HJMwVX8owdk3KUY1EPkiEF HkSrE8CIUxrDKvHPTryLqz JUdrw830VRG5IeXuBHLwzv LbrTnrjO8pPeXoJRMYMJV0 cs1zshOeh0PfubJjSTduxH 7qlegmW0ClAFJdt9XuPGBf FGW3gEMsOBndj3MraKYsi7 xwYXJ9 GROSS DESCRIPTION (test t7vgdKTwYRZayFQEVOYcB6 code = 0275465460) vmzmNxWZRtvRXzS1Wnozge MHksHX7bAI6wgFnvyKRqiR WfCF5WMWMaWrPcLBIigREi zkZkWaRhNURtrKQhvJP8KX AdMN5droizFZefKJelXRUn flY7IHUcjHKoW7NjUPDqNK 3ovegkCMB9IJwweY0cvaQM NkluOm7eqLIcgFdpAqXjSc NoYXJzZXQwXGZuaWwgQXJp VQi4xY8NMvqoL48jx7X3Ql k9HDDvFBYrJ9MlSQ0aPWWq eHZjZ52RFpokUSM8YRODCy etJPPpMM6Jz5lnAABxqCQh SJZ5VBzkbJFuYMMdKWGmMR u6QLNrKNhxjQPwES6grEjm GjecqDxmd8CbcWKmQQlwTU FnTGEfFLfjPJMpQI5DDcBo RZBaKBW0ZSBuWQp3JNf0AB 9WUyAiICAzMTkxNTAyMCIg IGv3XLzoTQ4DGBG2Cqy1Su Y6KqT3KTB4JPWrXTWyVyJc XGYgQXJpYWwgXFxmbCBcXG 1bbFjxmPZqchFJUxBFiH9b w9buXEqos6ZqhISaEUMjmd ANClxlcGljTmVzdERvYzEg DQpcbHRycGFyXGxpbjBccm luMCANClxsdHJjaFxjZjFc ZnMyMCBSZWNlaXZlZCBpbi Vxo7BaXKidjdIySPNtpMBh IHdpdGggdGhlIHBhdGllbn KeW7O9kvOdCB6qCBJwBIGz I7LmTWEyD31nHYMhvI2wIM NfWN6eISm5WNSjBQPyEprz OfcbwMH4HAGnZFU5ejleKQ 5leHQgYXJlIDMgdGFuIHNv JkXhdXvox0EwYSIpYPcwCG 51rqRxGH1efY0rSOZxBd6j KfPkN54zx9VzqNc5gKVpCL pnNGQbzB0dcJ1rSVUgAKZj ciANClxwYXIgDQpDaGVsc2 VhIEdyYXVuLCBNSFMsIFBB GGuQE9DHJKRzUBBxcjLMGm rmIQQtXHeqX5WgMRWxFfYx CTpjaCtblM3iERXtI55mb8 NJp8BeGUFeTIyfl4wjzBsx z7BtnHWnXRczQWHnaOKhRX gldM1fUjTgr1ydsKd5TUru woP3INEkat3PRhfolB0dMa Veo5iafSu9UCUIYyyamwF0 n7otrYwdr3LiqLCySB2BBx 0= MICROSCOPIC DESCRIPTION a9xkzIWsUFToxRI2IcAsPA (test code = 3371) Gvt7uuk3IdnWCyvJCrFDnm dSVjywZhpb99pMC3cX67PS 8rVXKxEuR1PPFwhuU0Nlo6 PDQyGHOrkXIbE371k8guu9 taxkUjqGP3hOrfTBRznebq ThT3ZTsfBNAcqnybVIp7QS kjHWXvyPN7PQDocIUuM9Sb GUPbYW4spph1LSO9OCwmYW FpXqR0TTFdsSLyTGRabPys REvvx234NXM4RhRuXDKftt DyjOxbuA7sLvGpEFWYEQFj d0PbPADmuWRkoS== SPECIAL STUDIES (test z7jzqRRtOHDjy0cbAUFaaY code = 3376) FuZzEwMzNcZnRuYmpcdWMx UZunqeZrJEdnp9EfE1UyHs AwMFxhbnNpXGRlZmxhbmcx BGPdEVK5wqMcAZIuPWupUI HoYQvpYp2gsXFkgQddVnQw LMXdu9pvfyKZclrtmPl2s8 jfBODtSoB2lBEdUMssK1xf vkCxtBSaO3IvvRRviYg3t3 zrYdNjQmC6nBYuRImaM2fd zpDueUCiIJAhJQl5lO35PS EmnN6ssDOzQDomsaTqXwQ2 PDaqNSUrCxF8DDEywCWyWI NhX9mcYWWrNGmzXLNtHIts rJRxXPK1oZznw3Z1dPEcuZ XihXuxSbMeEhIuOpZEa7Yy ZYq0rVteB3ViJUHiJwF3aM QgUGFyYWdyYXBoIEZvbnQ7 aQrqzkVls38abRUbZATnOY KqAhCroZniTWJfGQQFp7Hd hQcbKEU1hGw0mMzhRoiwNF K2Uze4ST3gaj17esz9xQvs YWIvjtelDrY2NVvnVTVxux knVMf4XDegUIFdvEC6YMTy oWLlO3NmPWCzZD9nuba1LU N4GBjiEAXxAeL0SAKeyXUu ZHBliCyvOYgxg416CWK1Fz CpJB0uE5Pab3C1mN0obAVx SHMhkSMdGyTuUTBthd1wgZ WqJXhjy7PuQAP4nxH6gXYz vNAxWUCsRK75Xumiy3NaFq pzk5TqP73wrQB0BKxgj7bd SM0lChX0uaRtOMwnf3xlhP 4kBvK9DNqxDK9tKH8fPRRz qG9oxiecOFJmJsKwmlhzLO PweKqdxqZvQz1weIthEJB8 IWttZ3swbM3jFvI9QAkiZ0 jglY3jRLx0BKsiaSD7CEOi tR9hCO8jqhczk3tpXZuvYG ilPWUoatR7puN4LQAqjSMt K4OrgQ3gNMSaFA1fnvknt4 syXQN9XSjoGEWdBRP3IpQp UOUyt5Vgwkk4YnVvz3OjoC CeDXqyN62sa026MCUaihQm V0ycbBFcpdxmyXPgjuwaWR xhxtN9ZQZdOFYcIGijTFYx XGZzMjJcbGFuZzEwMzNcaG ljaFxmMVxkYmNoXGYxXGxv Z1ubDxJsF2HiAGMeBtLaEH sdCAgcuVPawNGkcAB1bO6l HA5tXGTckUUrI5ToYEUuko TuhBMaAUL5vYSzxOJtHL5l QXiwjGJgq8srh2KfN2vedW wxrFW9FY9qYYQlOOGeVDqa w4YvuW8cRcttmNIfuqrpZV xmczIyXGxhbmcxMDMzXGhp J5cpJmScNKNmiQvrFDgld6 NoXGYxXGNmMlxmczIyXGx0 cmNoXHBhclxwYXJccGxhaW 9iSkLuCxHaTcxlFI7oQHDh T9qnhDZbAEYyGGIfV4nrXk NluC2nvMmqEDznFcXvStZs QgDLp499pz9gRWIxmAXxcv YHfJJzxZ7aDRwmABtqIJxc uVMiHGjcv8fzHWEzt5v6qK QpSKRjciZqp1tsPAemulWf XWSjdLLerZOoBAZri18hKP qvfXawwBgyLRMrk1MyuYqt g6YkNnKsEHcjg9DvT62yzT JvbCBzbGlkZXMgcnVuIGFs j73sy7bvCAKqIeF6mNHmbA U1rKAgdZAuk3GkoNrzPYLs q6snOYFwdj2emyaddMUpw9 QdoP9jarysYZnajQFkuyLx GYSek0v5wEVzPHTaPZRdDD gltJm8QODtx836xw1nwkB8 mTSwVWG0OCqpEGXbCHSnio UgZXZhbHVhdGVkXHBsYWlu XGYxXGZzMjJcbGFuZzEwMz NcaGljaFxmMVxkYmNoXGYx TCnfE1ylYsNvW8PtHYZyQo AtmNZoI2yjsUOuANHrDUsx XGYxXGZzMjJcbGFuZzEwMz NcaGljaFxmMVxkYmNoXGYx MXxoC7fnMnKqW8SeHQSqJr IgIFxwbGFpblxmMVxmczIy PHekiqefAQElBQuhR3quJv DfGBLsrLmhMHzuj3EqCNFz WZHyOltctlPcYDm6fcEtSV BhclxwbGFpblxmMVxmczIy RLjglksoCSGxLYrnJ2naIt OeLIVjzXuhCJdoc1HnUQDw XGNmMlxmczIyIEltbXVub2 uwr5VdJ0dzdJvujWS2QPTs P8xwoCOmnHG7UVF2dV0xKK uzarKmTDNrt3QmWCHtLVAt UgY8pB9jZNV1BrWVcKjlOK BsYWluXGYxXGZzMjJcbGFu ZzEwMzNcaGljaFxmMVxkYm UxPBMwKHxwQ5vjIiTbL9Zc NIBrIjVvsQynZWoyXWe2Qg xwbGFpblxmMVxmczIyXGxh kxfhSHKpLBmfO6qfDdPeBR WtmBpsPKyhr8ZdHYYnEHEx MlxmczIyIHMgTWVkaWNhbC NSXN86MXZgGQPmuAxfuH8b wQLBZZXquoA5y9R3UJnfSM OjUPm5VGhqhpFdDRSanU7v UUZfUA1oWRi8ybZkAAHjw1 PpMZ3dPQXuqMQnIGH4UNWf v0JkD8Grm2JtRNKiQHDpio 9twuMaXxZLsONsUHHkgu54 DNOaMX5vN4hqDNUsGMSrum DezCMpl4GtOKPekLB9qRTh GP3WKuLJd68jGNChLFTWll RrRFLxvXnmpWA1rmJ8hA6u LiBUaGUgRkRBIGhhcyBkZX Hwyg3xrwBdZIVxXNEsl0Dj pGAkoOLolvNwD4Crg7HpIZ Ytno33AXbddMEiuj02WA1i W0Uus0AcsA8tWRnoEJXju8 RisBHziOHaUPRxn0AoG9hq gqqmYPnccDPiwQ4gFGLqDF y1FEGhv7JaBNYyw5FjNbGg yxDiCJUxDVKvHECasV42QZ U9hBaddTbkwcOwSV8oRKMo ctMuWRJqZQVddU0hRQzhzy ErTMUbjjP8l9G7EHcrYZEa ghMyUpglWYJ2nwHareS8aK EqT9czwdooCSwbOTBwe4Lq aB6ejXOGcWLio7UwgSDxqH OZyAXgBX9ztuDcIZ7bJVM7 ODggKENMSUEtODgpIGFzIH R6RKgdZkwhPAI4uuTjHHCw f0IjKMuoE2hkI63uxBiuuO g4yGYqvBxlcTDhgGVhOKMe mpD8b1L4TGCvs2UfmsepNQ BsYWluXGYyXGZzMjJcbGFu ZzEwMzNcaGljaFxmMlxkYm PpKOYsCAqdB1grPuYtBuUo BipiRKV7eJ== Gross assessment was [facility] performed at ([facility], = [phone]) Department of Pathology, [address] [place] [address], Technical component was [facility] performed at ([facility], = 2775) Department of Pathology, [address] [place] [id number], Professional component [facility] was performed at ([facility], code = 2779) Department of Pathology, [address] [place] [id number], [facility] [id number] 08:35:43 Test Item Value Reference Range Interpretation Comments Case Report (test code Surgical Pathology = 104) Report Case: [id number] Authorizing Provider: Nory Doll, Collected: 02/28/2022 11:03 AM Ordering Location: [address] Received: 03/01/2022 07:57 AM Service Pathologist: Irma Fermin MD Specimen: Biopsy, Gastric, random gastric bx r/o H. pylori DIAGNOSIS (test code = [id number]) FuZzEwMzNcZnRuYmpcdWMx IHtccnRmMVxlcGljOTYwMl fzdyWoKPSbtJPeA8Gyczax FIvnMW0wYH4tsSnxlLEquB UjURPyElRdy8gdt480nNEv s9hwEWEPtvfcxEq3qZgeT9 4mv9F2OezaC85nlLOqATM9 HLUuBVBrcZSiXMEsMLG2FY FquPPmY4geZNUyQS4wpcsa KAcuVFldPPGfhCV7YQVsvS QzS8WmDIXmWLpwUKWuqtx6 NgCeHu3kgPRppKraQVonNH WiHHImKFltHILhIcUoYQ4y KXrZC8DVVPYmFNYOGsFDPX PXHY6SC0pkgEwzNBQoELXT MQY5snkrOW27sE94zNCjLH 0eWVDmvrLgeB6neQqxLNSz rIFjo7Ayz3n8eQCcfYNanY NbWVZjgy8laTGnFIW3zZXw QDdtk0UwoTMaq1dujJ1hSW TnTS0tJ9A3pRWyHHCqunFu hmFly4ZutsUoQW7fsLIvzS HpnGBnu6SeJXabnQokx6bb ZUfglyOfNB8EiA74my5usV N7c4QeGO4cG1GfOIO3DTyl IGZvciBILiBweWxvcmkgaX MgbmVnYXRpdmUgKHNlZSBj e99aBR11UGyoTAT3c9sepP YxXHNzdGUxODAwMFxhbnNp IMTvTfugcgxrPRKrXFC4pj FlHMVrSTnaGFLaIOmgSc0c tLQvyMngEbAjSGUtb9jgex YPsxnchLg4j6tzFIGpAfQ2 oPNdXYlsV4vqkvRhlVDnXQ FbGIn1pP40QQIvxG4tfJOj KJmuazVtGzW3FIisTXRpBd U2LIGrhEVbPRUqT2ryRXUk HMuhXDKaOCeazFDaSBT2dE vbz2Y4oPIlgHYflGxfSjEv FoXyIiTWu4KfNBn9kMecE3 VjQEOoFoW2zORsNDMtMGlg WKGjORKkzoL7nL48OPimdq C8qSPin5Cad39pr067yC0o iAOpWXM1ZQNhGAGmqWUxVZ EkIQG1BZAohUUxI5weOVIe XL4jcvjgREupAKlwMYAnfO C9WDZoxZUiR0QeNXVfRHmx MXWgaag5PpLcGh0aaUIppM tdMFsbz7xyn7owqIEsKxw1 HFFiKxPeDjtaISrdb2Gwj2 qkEMWqty3dTCG5hFSifKzm s3Z0zBOqHJUhrWAxJFJrCT 6cbJIbRWFsvC4kqawvFTIp YnJkcmhlYWRccGdicmRyZm 0eyAnaNIQ4LJazO7efuW8k KtO2UCctL2mdjF0aJBu5HD sdZBRliDL5kjM0DVBrfJPz X9InwT4hOPMbFJ2aylc4x0 fiXZS0LDmjJMZjYiS4dxE3 NDBcaGVhZGVyeTcyMFxmb2 51MYQ6CoHsPYUom3TrB5Ex xFpsI09xzVbtN99wCXGomM xpeP9jnWtuqF5nDqYbDsZj IYxovVrpPM8hUQXuW7yydV UsQHByOQLhM7xmSiBncA8v jEqeSKtultCyFCOwEhh8PX LygXSxOAWpFcp6USLrDIZl F05yjrdbKNG8kF2mp0vfm1 GlPMeqWNL9GTFgg18bMJpm tyD8JEaiFf92HTzlCBD5SX qpOEU9uT== COMMENT (test code = f0qfeXIeAINbsGF5AnJkZL 9449) Egb3jio2SosZKokBWoYPqu uIJbsjXdge64pPP4zG81ZR 8zTDOgFpQ6XCHywsJ1Bfk7 BXGfOQZnvHNqT504e6vet3 biwqMylGD5zTrzQFJrynjr DzA6IFqxDNGltyfwVKx2ZT dqFHRshOF5MXXebMIsD4Iw IYYbAV1xaou0YRJ4SFytJK MmLtQ4MFUwiPPgXZSfkJtq PMlmh599YHO0SyLlCOCptx LhpNmirW1jEyFiTBWBJ50I WP8JKpdjSZcchiXceLWgza YmDPPfp9McAC8iSJ3eatIt VSWbJflgFSE9KIpcwA5oSS 8mmFBtDN7hVWzypSXpf2kc t6YaJ3nvwUwpYAuxu5PmwW 6vs8yhL1vvnQTfJ34sl8kf CYAqAOGlDDcfsCn5AZ8xOG pfx5W0QCFpwT2hgMZqALSh AARbmlDitHz1USGiAD6miA ydPqWlKV2em7UhAwUsAAin mNPgGUVoOX0qDKtfHGZngS 1tB1DuxAfnj0HfcCuziI72 mhOml9EdYJfmtLuejgC2pT KwGRQiDXX8dKI2RQZ5KM0v WTT5p00dHPOslVljIP1eeG OtprPzj33cIQ9yAWBtHGJT vyZux5OqeCrckxYfa7U7KI Iurmibn3NfWRNigu1= CPT Code(s) (test code y9oowLKaLXXuhDQ1HwKgAG = 9477) Cuw7axi3CngBJdxXSnDQmu yGFwoyNchs13rQH6vM21WU 7pGISfToD6QJCdzeJ6Nvj4 XWWcKQPeiVEhT965i5two8 fpisNsiTF0kLojZSZwzylw CoY0TSlyHFZgftflIRs6XF ebJXKujZF2FEKttDOcP2Ix BHReUI7apso9ZGU7DXkuTF DtDkX3BWXmgEVmRERfrEla OXcth522ORA2SfDoIISthg ZvhKkldB6vAmFyLSA6YOTm UGbhhF0jIVn7NeRsGDXqvl 0= CLINICAL HISTORY (test h7izuIRrZHSleEM3ElDqLR code = 3356) Lze6wsm2LamSSapWLcRIfg wUCsooBwvq13yKZ1tE62YL 3cIUJwKaW6KTVjrjX5Jqd4 KMMwWMUvdDFkH406l2qzs8 psmeMgtUZ1aHycFKJczcho KpG8WYxkTGUjbwyoXQc5IK qjTWKrrEH8GMIzmWVjP7Tm NUDkUZ6cpia3SZG9CBksNI FpMcQ6FNOntGXyDTWseCrk EPsdu151FNT9JeIbWWNrsy VcjPbzmW5lDwXzQMQYJRF8 dq0seyEhe5ReaoVtOApqxL 9yltvoK0DuDLRgp0UhLLLo KIH2xRKaGXgir3TsrVKfu4 xwYXJ9 GROSS DESCRIPTION (test b9iyiCRiLYKnzTXDLLYyS2 code = 5271840976) lxahOxXSCthFYbG6Cgioal WVnoAJ2oHQ3wmSzcnYNgpM KvTN5XKBQdKaIwWASolBNg lmGfFlFhUIBmmCCveGK8OI BiVT0yytrnXKsvMGeiFKXj tfG7RHJmnNJvY3FeGSElYA 9dnlmqNVM7UUgipE3pgkYX YpvtZn2icLYfuLebFmJiMf NoYXJzZXQwXGZuaWwgQXJp NJq6wW3FWddlK76dr0B6Vi q2FLKmZHNbV6DdHQ5yBFJm vMIjS24JJjpwYOO7HHMRUm nsWOAaQX8Wd2eiBXCzyDWe GCL5PTsnzLRuLXMbAXDoRK g0AFNjDCydjVVyRI7piPcq JnzxiYmef3HkoJJlFVukGU PcBDKdLGcbWOFfEL6UFlXo WBQiLKJ7DPEiPYe1WRv2PV 9WUyAiICAzMTkxNTAyMCIg WOy6NIssRL8BWUR6Yph6Yg Q7IzB3NVP7YEQgIRMrQuOw XGYgQXJpYWwgXFxmbCBcXG 2gcJmufRJzgjNKLbOVyS1z e7vuANgzt5DiuIElZKWbtf ANClxlcGljTmVzdERvYzEg DQpcbHRycGFyXGxpbjBccm luMCANClxsdHJjaFxjZjFc ZnMyMCBSZWNlaXZlZCBpbi Prl7NpETryjrCwSDKepXPj IHdpdGggdGhlIHBhdGllbn VwH9U7faUpSG7bJXLfEUCa D6XbVXDgT08pICRduW9yKJ MiXD6fTYd5TAAjXJQyHllh BqinjMF6CURkSQX3sqdfMX 5leHQgYXJlIDMgdGFuIHNv XqCxiBhzo3RxPINvHYehGH 86npCiQP1tkU5xTIWqQz2j YgMhF20lu9OyiMx6yNGsBP seSAKneI2miK0wKZUpTMIp ciANClxwYXIgDQpDaGVsc2 VhIEdyYXVuLCBNSFMsIFBB OWeEL0UVYOYrXBNuwxYYDc avYFAdPAnoU5FwIRJbUxWu GQvxwRhucA6dWPYlD06jp4 NGd1EsNKRdKEeua0zgxKou u2LbrNShGJjhMQBuhMTgXE tkfO7eCwDgk9gqoSc7TThn veE1PQNdkh9VYwtkoW5iMf Acj4rpdMz0EZGADmtlqyW0 y1earMvoy7VieOPkET4AIg 0= MICROSCOPIC DESCRIPTION t7uybZBuJUWyeHG0AxMrIZ (test code = 3371) Uov3rek3PgjYXmbYJyKXds vCAmqoGifv05zQG9yU19HO 1xGCBaNiQ1RBYekrA0Fds6 NQDhZTMkiBEtY426i5iud2 tdbwGntIK7kZgiXEHfewlw YpK4MOpfONPhgbqrNFc8HL ezRTHblCI8BPVdtFUmU0Tf CJDgNE0hfpd2DDO8BJgvNX KsUmE7YDYhqSYpEPSthQem AVxbn365WUV9MjFjPBFcjf RffBoxjZ8dLqAbRDASHDRx q5FxIENdnRAoqE== SPECIAL STUDIES (test u7vfeOJqEELas7ioCKHntW code = 3376) FuZzEwMzNcZnRuYmpcdWMx BNpgehKgYUiaf7YvN0VfGh AwMFxhbnNpXGRlZmxhbmcx BZPhTOT3wwHhDXDyPVtiJA NuGQgkDb4wgAYrhAvtPkZa JPCkg1lkflCEvwqkbTd1t0 dyXIIaEyF8eQSgJTbjA8if zxItvBPnF7WhrJStpSk0p5 dePbKpHbN4sMLvCIicN8wg qvZquONoIREhSQf3eA30BI OfvU3xaUSgGZotlkUfJfB2 DYssREPaXxJ9ZLTfoPBgTS AzH2uiXSKqYGcwRKNaNHlb cFOkMTX0dIsrd5P8zFKtaF JuzIalJnHqWuIgAbPAl3Fc JPc9cQyyM2JnMKLrRbJ3wB QgUGFyYWdyYXBoIEZvbnQ7 oXjmvoVfe59apTPgQIHiIP AqFdEtsHtaXBZnNTCSw7Ck wFvqEHY2yOr0xPauFoycXJ K1Hpw7OO3poy76vlz3uSnw ABSevgpdVuX4YQydIHOrrh reOHi7NZpvOLIfsGJ9HJJu sLHnO9QrQEReWQ1bxbz4YD B4YJriKAFwOmX9OYZlvYRk QJJzlIvcAAsoc310IZZ4Fv SnAR9jM6Efc5G6uZ7hbOCs XVEigCAbBmKkCLRelc9liY IyUEtwh7IzZNZ2ltU5yVDj yHAsQUBrBV20Ilupv3KbGs rmw2JhB99fiRO6YUdhn1kn OM6oVuA6irHxOMvhq5gmsU 8qZyY5DRjcVP2wTC4oVUEs fL1zovbvZSNlMbKksoraSB LnjVuzluFcVd8fcRirDQF6 JCmqH6pyzF5hWbV2SIitD8 nvzH0pSRg8RVinfNK4YRNu tG9uOZ3xanbmd2icMUacUW gnHEFguqS2hfW9KQAzgLSt B2NaqU6tYATqQH3oijvvz1 fiRCS2PRhjRAReQMW2ThTs MSHmo4Vagyg2HfXre6DowY CdTZmmZ71hx997ACTwgxPb L5tdxMEifsbaqQFmmfdmAM jzykD8KYCoQSGzZRjjMAPu XGZzMjJcbGFuZzEwMzNcaG ljaFxmMVxkYmNoXGYxXGxv V6iiEeXzT6YjQGFcKhBpSK ffQGhyqLTqoWZivPT6eW7k UX7oFPNreOArQ1OuLTOgvd WzdPYoFIV4yDMphCGgGG4b WRpppAXyi8pfa5RpA3fsmF wgcAY4RU0eJPTvIPYlEEfy c9BiuU2vDbvupXJwaxyjHD xmczIyXGxhbmcxMDMzXGhp D0idVdXzSBKocVpdNSgbr1 NoXGYxXGNmMlxmczIyXGx0 cmNoXHBhclxwYXJccGxhaW 8jQcAhDwMdZyurUP0iNQIf O0vokDNlWYQdDOOqX8huLy WsqA8zpBpsMGbzLyTgDbWd BiLQd130jd4wKCHydVAauh FEqCMexY4bVTrpIPpsWItg iUEnGZrkw3ciFMMab5y3nF RmTSTqbiEyt5bpKHypisQv LMTedGPcaGSkMIYsy81kBR lcuOjmnJlvYFZfh8VkjCbp s4NkFeWrUIcmn2OcZ12frQ JvbCBzbGlkZXMgcnVuIGFs r80qw4spEMJoFaT4kJTbnQ U3kITsyJFpu7PtkRcvEUMf b4bgSPMpnw0klsfjjKVlz7 NtaX5mahiwHBnrkNEohmAc LFZrf8l9fVTwEPCzDZNgBQ pzwKw8HPSyn216oq1xxgL3 jMYbINC2DJibTNTuXUCxtj UgZXZhbHVhdGVkXHBsYWlu XGYxXGZzMjJcbGFuZzEwMz NcaGljaFxmMVxkYmNoXGYx QBfqI1ciGpBhH6UvQTGgEi TuiKWoV8qgqBJsQCEgJKyh XGYxXGZzMjJcbGFuZzEwMz NcaGljaFxmMVxkYmNoXGYx TAjiJ8beHnJtU4GaNBCeVu IgIFxwbGFpblxmMVxmczIy UKcthroxAVKzLRtrH9npSv FmDATtrTkzZQtxn6HsSBGw IAKjSlgqvsNuQBa0mvGkJX BhclxwbGFpblxmMVxmczIy MHqbcukgDHLxEQkwG7nxKa AkGEVebEtkNAfzh6RnUBJn XGNmMlxmczIyIEltbXVub2 ybe3FjA8psqWizoCI3YMOc S0ffpMWqeDX2DNI2qO4vAG xjqhRaGKErx3CuIAKbQOOg MrG6uC2iHIF9OrSUnXwmKF BsYWluXGYxXGZzMjJcbGFu ZzEwMzNcaGljaFxmMVxkYm WyIVNpIFuyT9doRlHqE7Kr XJUpKfBsmHqhJKfuQZi7Ef xwbGFpblxmMVxmczIyXGxh gbtlAJQvUYedN9ubUmAkOO XvvUlnQVdkh9NfSJFkEZYq MlxmczIyIHMgTWVkaWNhbC CAKA60JFGeOQMniPtxzU4r xDKBFBCutuA0d9I1MEsrNV XpTVz3OBqidpMuRWActA6u KOTnCM2jTQx1vhJgSJTvx3 KsAC0mNPSbvUZaHIS3XJNe l1LqL3Ksl1CsTLSpOAGvum 9xrvHgIjIIaWQwRQTwdl22 OCGqSD1hK5zcIUBaATNcut QohTHxy2PzEIHymGG4cZUp IO4FCqWIy87oXRPkWQMWtm ZaYHGoeFhlpRU8wiZ4cZ7g LiBUaGUgRkRBIGhhcyBkZX Xbcr4ekzIjTMZxVLFfa2Fn cZJywHSnolGuW5Ryt2UfKR Tivd00FFsyhIYeyb34YG1m R2Dsy8AxiH2gJNwbYHJqc6 IqjNOmuCBxQATyd3TiX9ws nbgoKGplqULraY2xXQJgFI u3TCDkr4DjOYOvs3MpViVa ukIsMIEgDGHxGEEwrQ47WD Q0wIcyrRsynvRxIA4qPWPq wnFhADJfPQUtjA4oWJppox NgVEInbgU8m3G4WZjkGPHm ioCsDoqiJSP5mgPranX8qW IsV3rywqtuBXfkKDIeg3Fu rP9kyXENdJQpf1WqvVRwcF EEyEDxRV7qskUcFW7fKPG1 ODggKENMSUEtODgpIGFzIH A6EAzyLjcgGDD1jyXaIETm q9YdGLzqS9tvN06iiOdqsX v0qQHvbNjxuVRcmEXjVFGw gvL6e7P5NHHwu4CrzlccYA BsYWluXGYyXGZzMjJcbGFu ZzEwMzNcaGljaFxmMlxkYm NmURHrSMbnN9ikCxVaMhIn IpvrHUI0uH== Gross assessment was [facility] performed at ([facility], = 2777) Department of Pathology, [address] [place] [address], Technical component was [facility] performed at ([facility], = 2778) Department of Pathology, [address] [place] [address], Professional component [facility] was performed at ([facility], code = 2779) Department of Pathology, [address] [place] [address], [facility] [id number] 08:35:43Surgical Pathology Report Case: [id number] Authorizing Provider: Noyr Doll, Collected:02/28/2022 11:03 AM Ordering Location: [address] Received: 03/01/2022 07:57 AM Service Pathologist: Irma Fermin MD Specimen: Biopsy, Gastric, random gastric bx r/o H. pylori A. GASTRIC, RANDOM BIOPSY - Gastric oxyntic and antrum type mucosa with diffuse chronic active gastritis - Negative for intestinal metaplasia or dysplasia -Immunohistochemical stain for H. pylori is negative (see comment) Signing Pathologist Direct Phone Line: [phone] signed by Irma Fermin MD on 03/03/2022 at 8:35 AMCOMMENTS: There is rare foci of nonspecific staining noted on immunohistoche mical stain which is considered negative. However most insurance service representative sampling cannot be excluded and if clinically suspicious correlation with breath test or stool antigen is recommended. Endoscopy report [id number] hemorrhage associated with gastritisA. Biopsy, Gastric.Received in formalin labeled with the patient's name, medical record number and "biopsy, gastric next are 3tan soft tissue fragments ranging 0.2-0.3 cm submitted in toto in A1.DANIELA Isidro PA ([facility])cmPerformedThe interpretation of this case included the use of immunohistochemistry or special stains.Control Slides Examined: In-house known positive controls were evaluated along with the test tissue. These control slides run alongside of the patients sample show appropriate staining. Internal positiveand negative controls when available are evaluated Immunohistochemistry technical testing was performed at [facility], Pathology Laboratory where it was developed and [...] qualified to perform high complexity clinical laboratory testing.[facility], Department ofPathology, [address] [place] [address], [facility] of Pathology, [address] [place] [id number], [facility], [facility] of [facility], [address] [place] [address], [id number], BLOOD 2022-03-03 08:35:14 Test Item Value Reference Range Interpretation Comments PHOSPHATIDYLETHANOL (PETH) See scanned (test code = 6484826) report See scanned reportHEPATITIS C PCR, [id number] 13:32:02 Test Item Value Reference Range Interpretation Comments HCV RESULT COMPONENT HCV RNA not detected HCV RNA not detected (NIRAJ) (test code = 2699) This test uses a Real-Time Polymerase Chain Reaction (RT-PCR) methodology and was performed using JOSSE[employer] Ampliprep/JOSSELINE TaqMan HCV test kit version 2.0 ([employer]Reportable range for this assay is 15 - 100,000,000 IU per mL (1.18 - 8.00 Log IU/mL).ANTI-NUCLEAR ANTIBODY (DILAN)2022-03-01 13:19:31 Test Item Value Reference Range Interpretation Comments ANTI-NUCLEAR ANTIBODY (DILAN) (NIRAJ) Negative Negative (test code = 418) Test performed by IFA method.Test performed by IFA method.POC-Glucose meter 2022-03-01 08:12:54 Test Item Value Reference Range Interpretation Comments POC-Glucose Meter (test 103 mg/dL 70-110 : TE STED AT [facility] code = 1538) [address] [facility], [address]: [employer] Machine Tender/Techni king ID = [id number] for Catrina Moreira Lab Interpretation (test Normal code = 54887-8) [facility] [id number] 08:12:54 Test Item Value Reference Range Interpretation Comments POC-Glucose Meter (test 103 mg/dL 70-110 : TE STED AT [facility] code = 1538) [address] [facility], 7[address] 30: [employer] Machine Tender/Techni king ID = [id number] for Catrina Moreira Lab Interpretation (test Normal code = 87104-1) [facility]-GLUCOSE [id number] 08:12:54 Test Item Value Reference Range Interpretation Comments POC-GLUCOSE METER 103 mg/dL 70-110 : TESTED A T [facility] 67[address] (NIRAJ) (test code = [facility], 1538) [address]: [employer] Machine Tender/Techni king ID = [id number] for Catrina Raza COMPREHENSIVE METABOLIC [id number] 06:12:16 Test Item Value Reference Range Interpretation [...] not appl icable for dialysis patien ts [employer] Tender ID - MARCOCBC (HEMOGRAM ONLY)2022-03-01 05:40:54 Test Item Value Reference [...] 0-0 (test code = 413) HEMOGLOBIN AND [id number] 17:38:59 Test Item Value Reference Range Interpretation Comments HEMOGLOBIN (BEAKER) (test code = 9.2 GM/DL 11.2-15.7 L 410) HEMATOCRIT (BEAKER) (test code = 27.7 % 34.1-44.9 L 411) [employer] Tender ID - [id number] ID - [id number] A ANTIBODY, [id number] 13:49:23 Test Item Value Reference Range Interpretation Comments HEPATITIS A IGG ANTIBODY (BEAKER) Reactive Nonreactive A (test code = 2797) [employer] Tender ID - PIAYA LCBC (HEMOGRAM ONLY)2022-02-28 06:10:17 Test Item Value [...] 0-0 (test code = 413) COMPREHENSIVE METABOLIC [id number] 05:57:41 Test Item Value Reference Range Interpretation [...] = 353) ALT (SGPT) 38 U/L 6-55 (NIRAJ) (test code = 347) EGFR (NIRAJ) 89 Interpretatio n of eGFR (test code = 1092) mL/min/1.[address] age Description sq m Result G1 Sisi l or high >=90 G2 Mildly decreased 60-89 G3a Mildl y to moderately 45-5 9 G3b Moderately to s everely 30-44 G4 Severl y decreased 15-29 G5 Kidney failure <15Reported eGF R is based on the CKD-EPI 1 equation that d oes not use a race coefficientEsti mated GFR is not as accur ate as Creatinine Ally danay in predicting glom erular filtration rate . Estimated GFR is not appl icable for dialysis patien ts [employer] Tender ID - MARCOPROTHROMBIN TIME/[id number] 05:31:42 Test Item Value Reference Range Interpretation Comments PROTIME (NIRAJ) 21.9 seconds 11.9-14.2 H (test code = 759) INR (NIRAJ) (test 1.97 See_Comment [Automat ed message] code = 370) The system [employer] generated this result transmitted ref erence range: <=5.90. The reference range was not used to int erpret this result as normal/abnormal . RECOMMENDED COUMADIN/WARFARIN INR THERAPY RANGESSTANDARD DOSE: 2.0 - 3.0 Includes: PROPHYLAXIS for venous thrombosis, systemic embolization; TREATMENT for venous thrombosis and/or pulmonary embolus.HIGH RISK: Target INR is 2.5-3.5 for patients with mechanical heart valves.HEPATITIS B SURFACE [id number] 17:29:18 Test Item Value Reference Range Interpretation Comments HEPATITIS B SURFACE ANTIBODY < mIU/mL <8.0 (NIRAJ) (test code = 647) [employer] Tender ID - MATEUS LHEPATITIS B CORE ANTIBODY, [id number] 17:28:42 Test Item Value Reference Range Interpretation Comments HEPATITIS B CORE TOTAL ANTIBODY Nonreactive Nonreactive (NIRAJ) (test code = 497) [employer] Tender ID - MATEUS LHIV-1 ANTIGEN WITH HIV-1/2 [id number] 17:28:42 Test Item Value Reference Range Interpretation Comments HIV-1 ANTIGEN WITH HIV 1\\T\\2 Nonreactive Nonreactive ANTIBODY (2) (NIRAJ) (test code = 2586) [employer] Tender ID - PIAYA LHEPATITIS PANEL, [id number] 06:37:42 Test Item Value Reference Range Interpretation Comments HEPATITIS A IGM ANTIBODY (BEAKER) Nonreactive Nonreactive (test code = 498) HEPATITIS B CORE IGM ANTIBODY Nonreactive Nonreactive (BEAKER) (test code = 645) HEPATITIS C ANTIBODY (BEAKER) Reactive Nonreactive A (test code = 367) HEPATITIS B SURFACE ANTIGEN (2) Nonreactive Nonreactive (BEAKER) (test code = 2585) [employer] Tender ID - MATEUS LIMMUNOGLOBULIN G (IGG)2022-02-27 06:12:34 Test Item Value Reference Range Interpretation Comments IMMUNOGLOBULIN G (IGG) 1669 mg/dL See_Comment [Aut omated message] (BEAKER) (test code = The sy stem which 427) generated this result transmit suzanne reference range : 540-1,822. The reference range was not used to interpret this result as normal/abnormal . [employer] Tender ID - MATEUS [id number] 05:57:03 Test Item Value Reference Range Interpretation Comments FERRITIN (BEAKER) (test code = 39.77 ng/mL 5.00-275.00 361) [employer] Tender ID - MARCOBASIC METABOLIC [id number] 05:45:07 Test Item Value Reference Range Interpretation [...] not appl icable for dialysis patien ts [employer] Tender ID - MATEUS LPROTHROMBIN TIME/[id number] 05:40:27 Test Item Value Reference Range Interpretation Comments PROTIME (BEAKER) 21.1 seconds 11.9-14.2 H (test code = 759) INR (BEAKER) (test 1.88 See_Comment [Automat ed message] code = 370) The system [employer] generated this result transmitted ref erence range: <=5.90. The reference range was not used to int erpret this result as normal/abnormal . RECOMMENDED COUMADIN/WARFARIN INR THERAPY RANGESSTANDARD DOSE: 2.0 - 3.0 Includes: PROPHYLAXIS for venous thrombosis, systemic embolization; TREATMENT for venous thrombosis and/or pulmonary embolus.HIGH RISK: Target INR is 2.5-3.5 for patients with mechanical heart valves.[id number] 05:40:04 Test Item Value Reference Range Interpretation Comments MAGNESIUM (BEAKER) (test code = 1.4 mg/dL 1.6-2.6 L 627) [employer] Tender ID - MATEUS [id number] 05:40:04 Test Item Value Reference Range Interpretation Comments PHOSPHORUS (BEAKER) (test code = 2.0 mg/dL 2.3-4.7 L 604) [employer] Machine Tender ID - MATEUS LHEPATIC FUNCTION [id number] 05:40:04 Test Item Value Reference Range Interpretation [...] (test code = 26 U/L 6-55 347) [employer] Machine Tender ID - MATEUS [id number] 05:38:43 Test Item Value Reference Range Interpretation Comments ALPHA-1 ANTITRYPSIN (BEAKER) 123.20 mg/dL 90.00-200.00 (test code = 502) [employer] Machine Tender ID - MATEUS HENRY, TIBC, % SAT. (WITHOUT FERRITIN)2022-02-27 05:35:36 Test Item Value Reference Range Interpretation Comments IRON (BEAKER) (test code = 547) 19.0 ug/dL 40.0-160.0 L TOTAL IRON BINDING CAPACITY 243 ug/dL 250-450 L (BEAKER) (test code = 769) IRON % SATURATION (2) (BEAKER) 8 % 20-55 L (test code = 2590) [employer]ing Machine Tender ID - MARCOCBC W/PLT COUNT & AUTO [id number] 05:28:47 Test Item Value Reference Range Interpretation [...] 0.00-1.00 PERCENT (BEAKER) (test code = 2801) Notes Date/Time Note Provider Source 2022-10-06 11:20:54-00:00 Formatting of this note migh t be different from the original. [facility] Patient here to establish ca re. She has a history of Gallbladder issues and difficulty with eating red meat. Reports that she has a history of elevated liver enzymes. Electronically signed by Perla Reece LVN at 0 10/06/2022 11:24 AM CDT
[2022-11-03] MEDS ORDERED: KETOROLAC 30 MG/ML INJ ONE (23:35)
--- NOTE | 2022-11-04 00:39 | EDPHYS ---
Physician Documentation [facility] Name: Sophia Joya Age: 62 yrs Sex: Female : 1960 Arrival Date: 11/03/2022 Time: 22:34 Bed 4 Private MD: ED Physician Adán Vazquez HPI: 11/03 23:16 This 62 yrs old Female presents to ER via Ambulatory with complaints of Pain rn in ribs. 23:16 The patient or guardian reports chest pain that is located primarily in the anterior rn chest wall. Onset: The symptoms/episode began/occurred 1 week(s) ago. The pain does not radiate. Associated signs and symptoms: Pertinent negatives: diaphoresis, shortness of breath, syncope, vomiting. The chest pain is described as stabbing. Duration: The patient or guardian reports multiple episodes, that are intermittent. Modifying factors: The symptoms are alleviated by nothing. the symptoms are aggravated by cough, deep breath, movement, palpation of area. Severity of pain: At its worst the pain was moderate in the emergency department the pain is unchanged. Patient reports fall from standing 1 week ago when tripped over a cat and landed on the ground. Had immediate pain to left anterior inferior ribs. Denies shortness of breath. Pain has not improved so came in to see if it was broken. No abdominal pain. No vomiting. No hemoptysis.. Historical: - Allergies: 23:05 Amoxicillin; as6 23:05 Codeine; as6 23:05 PENICILLINS; as6 - PMHx: 23:05 HEP C; Hypertension; Cirrhosis of liver; as6 - PSHx: 23:05 Ligation of fallopian tube; wrist; as6 - Immunization history:: Client reports receiving the 2nd dose of the Covid vaccine. - Social history:: Smoking status: Patient denies any tobacco usage or history of. - Family history:: not pertinent. - Hospitalizations: : No recent hospitalization is reported. ROS: 23:16 Constitutional: Negative for fever, chills, and weight loss, Cardiovascular: Positive rn for left rib pain Respiratory: Negative for shortness of breath, negative for hemoptysis. Abdomen/GI: Negative for abdominal pain, nausea, vomiting, diarrhea, and constipation, Back: Negative for injury and pain. Exam: 23:16 Constitutional: This is a well developed, well nourished patient who is awake, alert, rn and in no acute distress. Ambulatory to triage without assistance Chest/axilla: Mild tenderness left anterior inferior ribs. No crepitus. No mobile segments. Cardiovascular: Regular rate and rhythm . No pulse deficits. Respiratory: Slightly decreased breath sounds left lung base on posterior side Neuro: Awake and alert, GCS 15, oriented to person, place, time, and situation. Cerebellar exam normal. Normal gait. Vital Signs: 23:05 BP 155 / 83; Pulse 82; Resp 18; Temp 98.1; Pulse Ox 97% ; Weight 62.6 kg; Height 4 ft. as6 9 in. ; Pain 10/10; 11/04 00:00 BP 160 / 99; Pulse 71; Resp 16 S; Pulse Ox 99% on R/A; ha1 11/03 23:05 Body Mass Index 29.86 (62.60 kg, 144.78 cm) as6 11/03 23:05 Pain Scale: Adult as6 [place] Coma Score: 00:48 Eye Response: spontaneous(4). Motor Response: obeys commands(6). Verbal Response: rv oriented(5). Total: 15. MDM: 11/03 22:49 Patient medically screened. rn 11/04 00:37 Differential diagnosis: Blunt Chest Trauma Chest Wall Contusion Chest Wall Injury rn Pulmonary Contusion Rib Fracture. Data reviewed: vital signs, nurses notes, radiologic studies, plain films. Independent interpretation of the following test(s) in the Emergency Department X-Ray: My interpretation is Chest x-ray images negative for pneumothorax or rib fracture per my interpretation. Counseling: I had a detailed discussion with the patient and/or guardian regarding the historical points, exam findings, and any diagnostic results supporting the discharge/admit diagnosis, radiology results, the need for outpatient follow up, to return to the emergency department if symptoms worsen or persist or if there are any questions or concerns that arise at home. Special discussion: I discussed with the patient/guardian in detail that at this point there is no indication for admission to the hospital. It is understood, however, that if the symptoms persist or worsen the patient needs to return immediately for re-evaluation. 11/03 22:59 Order name: XRAY Ribs LEFT as6 11/03 22:59 Order name: XRAY Chest (1 view) as6 11/04 00:39 Order name: INCENTIVE SPIROMETRY rn Administered Medications: 11/03 23:30 Drug: Ketorolac IM 15 mg Route: IM; Site: right deltoid; rv 11/04 00:48 Follow up: Response: No adverse reaction rv Disposition Summary: 11/04/22 00:38 Discharge Ordered Location: Home rn Problem: new rn Symptoms: have improved rn Condition: Stable rn Diagnosis - Contusion of left front wall of thorax, initial encounter rn Followup: rn - With: Private Physician - When: As needed - Reason: Recheck today's complaints, Re-evaluation by your physician Discharge Instructions: - Discharge Summary Sheet rn - Rib Contusion rn - Chest Contusion, Adult rn - How to Use an Incentive Spirometer rn Forms: - Medication Reconciliation Form rn - Thank You Letter rn - Antibiotic case management rn - Prescription Opioid Use rn - Patient Portal Instructions rn - Leadership Thank You Letter rn - Work release form rv Signatures: Dispatcher [employer] Adán Dawson MD MD rn Vicente, Ronaldo, RN RN Sumanth Vega RN RN as6
--- NOTE | 2022-11-04 00:39 | ER ---
Nurse's Notes [facility] Name: Sophia Joya Age: 62 yrs Sex: Female : 1960 Arrival Date: 11/03/2022 Time: 22:34 Bed 4 Private MD: Diagnosis: Contusion of left front wall of thorax, initial encounter Presentation: 11/03 23:05 Chief complaint: Patient states: fall last week and has had rib pain ever since. as6 Coronavirus screen: At this time, the client does not indicate any symptoms associated with coronavirus-19. Ebola Screen: No symptoms or risks identified at this time. Initial Sepsis Screen: Does the patient meet any 2 criteria? No. Patient's initial sepsis screen is negative. Does the patient have a suspected source of infection? No. Patient's initial sepsis screen is negative. Risk Assessment: Do you want to hurt yourself or someone else? Patient reports no desire to harm self or others. Onset of symptoms was October 26, 2022. 23:05 Acuity: MARY 4 as6 23:05 Method Of Arrival: Ambulatory as6 Triage Assessment: 23:06 General: Appears in no apparent distress. Behavior is calm, cooperative. Pain: as6 Complains of pain in left lateral posterior chest and left lateral anterior chest. Respiratory: Reports pain with respiration Respiratory effort is even, unlabored, Respiratory pattern is regular, symmetrical. Historical: - Allergies: 23:05 Amoxicillin; as6 23:05 Codeine; as6 23:05 PENICILLINS; as6 - PMHx: 23:05 HEP C; Hypertension; Cirrhosis of liver; as6 - PSHx: 23:05 Ligation of fallopian tube; wrist; as6 - Immunization history:: Client reports receiving the 2nd dose of the Covid vaccine. - Social history:: Smoking status: Patient denies any tobacco usage or history of. - Family history:: not pertinent. - Hospitalizations: : No recent hospitalization is reported. Screenin:28 [facility] ED Fall Risk Assessment (Adult) History of falling in the last 3 months, rv including since admission No falls in past 3 months (0 pts) Confusion or Disorientation No (0 pts) Intoxicated or Sedated No (0 pts) Impaired Gait No (0 pts) Mobility Assist Device Used No (0 pt) Altered Elimination No (0 pt) Score/Fall Risk Level 0 - 2 = Low Risk Oriented to surroundings, Maintained a safe environment, Educated pt \T\ family on fall prevention, incl call for assistance when getting out of bed, Assessed \T\ reinforced patient's understanding of fall precautions, Provided non-skid footwear, Hourly rounding (assess needs \T\ fall precautionary measures) done, Used ambulatory aids as needed (educated on \T\ assisted with), Used gait belt as appropriate. Abuse screen: Denies threats or abuse. Denies injuries from another. Nutritional screening: No deficits noted. Tuberculosis screening: No symptoms or risk factors identified. Assessment: 23:27 General: Appears comfortable, Behavior is calm, cooperative. Pain: Complains of pain in rv RIBS, LEFT. Neuro: Level of Consciousness is awake, alert, obeys commands, Oriented to person, place, time, situation. Cardiovascular: Capillary refill < 3 seconds Patient's skin is warm and dry. Respiratory: Airway is patent Respiratory effort is even, unlabored. Derm: Skin is intact. Vital Signs: 23:05 BP 155 / 83; Pulse 82; Resp 18; Temp 98.1; Pulse Ox 97% ; Weight 62.6 kg; Height 4 ft. as6 9 in. ; Pain 10/10; 11/04 00:00 BP 160 / 99; Pulse 71; Resp 16 S; Pulse Ox 99% on R/A; ha1 11/03 23:05 Body Mass Index 29.86 (62.60 kg, 144.78 cm) as6 11/03 23:05 Pain Scale: Adult as6 John Coma Score: 00:48 Eye Response: spontaneous(4). Motor Response: obeys commands(6). Verbal Response: rv oriented(5). Total: 15. ED Course: 11/03 22:38 Patient arrived in ED. jj6 22:49 Adán Vazquez MD is Attending Physician. rn 23:06 Triage completed. as6 23:07 Arm band placed on. as6 23:18 Luis Cabrera, JOMAR is Primary Nurse. rv 23:28 Patient has correct armband on for positive identification. Provided Education on: rv FALL. Client placed on continuous cardiac and pulse oximetry monitoring. NIBP monitoring applied. 23:28 No provider procedures requiring assistance completed. Patient did not have IV access rv during this emergency room visit. 23:55 XRAY Ribs LEFT In Process Unspecified. EDMS 23:55 XRAY Chest (1 view) In Process Unspecified. EDMS 11/04 00:48 INCENTIVE SPIROMETRY Sent. rv Administered Medications: 11/03 23:30 Drug: Ketorolac IM 15 mg Route: IM; Site: right deltoid; rv 11/04 00:48 Follow up: Response: No adverse reaction rv Medication: 11/03 23:29 VIS not applicable for this client. rv Outcome: 11/04 00:38 Discharge ordered by . rn 00:48 Discharged to home ambulatory. rv 00:48 Condition: good 00:48 Discharge instructions given to patient, Instructed on discharge instructions, follow up and referral plans. Demonstrated understanding of instructions, follow-up care. 00:49 Patient left the ED. rv Signatures: Dispatcher [employer] EDWA Adán Vazquez MD MD rn Vicente, Ronaldo RN RN rv Sabine Rodriguez6 Sumanth Chand RN JOMAR as6 Shaunna Fitzpatrick RN RN ha1
[2022-11-04 00:55] VITALS: TEMP 98.1
[2022-11-04 00:56] VITALS: BP 160/99; O2SAT 99
--- NOTE | 2022-11-05 13:31 | RAD REPORT ---
EXAM DESCRIPTION: RAD - Ribs Left - 11/03/2022 11:54 pm CLINICAL HISTORY: The patient is 62 years old and is Female; PAIN [facility] MAIN TECHNIQUE: Frontal view of the chest with frontal and oblique views of the left ribs. COMPARISON: 09/11/2022 chest radiograph, 09/22/2022 CT abdomen pelvis with contrast FINDINGS: LUNGS: Unremarkable. No consolidation. PLEURAL SPACE: Unremarkable. No pleural effusion. No pneumothorax. HEART: Unremarkable. No cardiomegaly. MEDIASTINUM: Unremarkable. BONES/JOINTS: Unremarkable. No displaced rib fracture or appreciable acute osseous abnormality. VASCULATURE: Calcified atherosclerosis of the thoracic aorta. UPPER ABDOMEN: Densely calcified gallstones noted in the right upper quadrant. IMPRESSION: No acute findings in the chest or left ribs. Electronically signed by: Zhou Chacko MD 11/04/2022 12:20 AM CDT Due to temporary technical issues with the PACS/Fluency reporting system, reports are being signed by the in house radiologists without review as a courtesy to insure prompt reporting. The interpreting radiologist is fully responsible for the content of the report.
--- NOTE | 2022-11-05 17:35 | RAD REPORT ---
EXAM DESCRIPTION: RAD - Chest Single View - 11/03/2022 11:54 pm CLINICAL HISTORY: The patient is 62 years old and is Female; PAIN [facility] MAIN TECHNIQUE: Frontal view of the chest with frontal and oblique views of the left ribs. COMPARISON: 09/11/2022 chest radiograph, 09/22/2022 CT abdomen pelvis with contrast FINDINGS: LUNGS: Unremarkable. No consolidation. PLEURAL SPACE: Unremarkable. No pleural effusion. No pneumothorax. HEART: Unremarkable. No cardiomegaly. MEDIASTINUM: Unremarkable. BONES/JOINTS: Unremarkable. No displaced rib fracture or appreciable acute osseous abnormality. VASCULATURE: Calcified atherosclerosis of the thoracic aorta. UPPER ABDOMEN: Densely calcified gallstones noted in the right upper quadrant. IMPRESSION: No acute findings in the chest or left ribs. Electronically signed by: Zhou Chacko MD 11/04/2022 12:20 AM CDT Due to temporary technical issues with the PACS/Fluency reporting system, reports are being signed by the in house radiologists without review as a courtesy to insure prompt reporting. The interpreting radiologist is fully responsible for the content of the report.
== END 2022-11-04 00:49 | disposition home or self-care (01) ==
LOC: ER 22:34
DX: S20.212A Contusion of left front wall of thorax, initial encounter (principal); I10 Essential (primary) hypertension; Z88.0 Allergy status to penicillin; Z88.1 Allergy status to other antibiotic agents; Z88.5 Allergy status to narcotic agent
CPT/HCPCS: 71045; 96372; 99284

== ENCOUNTER 2023-01-16 20:16 | Emergency (ER) | payer OTHER ==
--- OUTSIDE RECORDS SUMMARY | 2023-01-16 20:22 | XMS REPORT | Continuity of Care Document ---
:[address] [facility] t Address [address] [place] [address] [place] [id number] Care Team Providers Name Role Phone ASIM VICENTE Attending Clinician Unavailable REYNOLD MEJÍA Attending Clinician Unavailable NICOLAS ROOT Attending Clinician Unavailable LAB90 Attending Clinician Unavailable DENICE RODRIGUEZ Attending Clinician Unavailable SHIRLENE HDEZ Attending Clinician Unavailable MECHE ROBLES Attending Clinician Unavailable PROVIDER, LISA Attending Clinician Unavailable Liana Poe MD Attending Clinician [phone] Nik Ayala MD Attending Clinician [phone] Jaron Aparicio MD Attending Clinician Saul JOE, Denice Jeffries Attending Clinician [phone] Dereje Maldonado MA Attending Clinician Unavailable ROBERT BONE Attending Clinician Unavailable Vivian JOE, Liane Attending Clinician Robert Bone MD Attending Clinician Maricarmen Michaels MD Attending Clinician Juan Francisco JOE, Mackenzie Mahmood Attending Clinician Fernando Cole Attending Clinician Sharmila JOENory Attending Clinician DENICE RODRIGUEZ Admitting Clinician Unavailable NIK AYALA Admitting Clinician Unavailable MARICARMEN MICHAELS Admitting Clinician Unavailable Payers Payer Name Policy Type Policy Number Effective Date Expiration Date S yamel AETNA MP CVS 9 [id number] 2022 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 ON STAND SELF PAY OP [id number] 2022 2022 DIAGNSTC IMGING 00:00:00 00:00:00 PKG AETNA HMO POS [id number] 2022 QPOS 00:00:00 Problems Condition Condition Condition Status Onset Resolution Last Treating Co mments Source Name Details Category Date Date Treatment Clinician Date Other Other Disease 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 nce 5-[facility] liver 00:[facility]: Medica l 00 Center Acute Acute Disease Active [facility] cholecysti cholecysti 5-11 Cathryn kes tis tis 00:00: Medical 00 Center UGIB UGIB Disease Active [facility] (upper ([facility] gastrointe 00:00: Pa dical stinal stinal 00 Center bleed) bleed) Allergies, Adverse Reactions, Alerts Allergy Allergy Status Severity Reaction(s) Onset Inactive Treating Comm ents Source Name Type Date Date Clinician Penicill Propensi Active Rash 2022-0 Amaris in G ty to 02-27 Seybold adverse 00:00: - reaction 00 Externa s l CODEINE Allergy Active Low Rash 2022-[address] [facility] Center PENICILL Allergy Active Low Rash 2022-[address] [facility] IN 1-07 [facility] 00 Center Codeine Drug Active Rash 2022-[address] [facility] [address] Allergy -07 [facility] 00[facility] Medical 00 Center Penicill Drug Active Rash 2022-[address] [facility] in Allergy -07 [facility] 00:[facility] Medical 00 Center Codeine Propensi Active Rash 3-0 Amaris ty to 03 Seybold adverse 00:00: - reaction 00 Externa s l Amoxicil Propensi Active Hives 2022-0 Amaris vivian ty to 1-03 Seybold adverse 00:00: - reaction 00 Externa s l Social History Social Habit Start Date Stop Date Quantity Comments Source History of tobacco Cigarette Smoker Amaris Ponce use - External Gender identity Amaris christie - External Sexual orientation Amaris Ponce - External Alcohol intake 2022-12-06 2022-12-06 Ex-drinker Amaris whaley 00:00:00 00:00:00 (finding) - External History of Social 2022-11-08 2022-11-08 Amaris Ponce function 00:00:00 00:00:00 - External Tobacco use and 2022-10-05 2022-10-05 Smokeless tobacco William figueroa Seybold exposure 00:00:00 00:00:00 non-user - External Tobacco Comment 2022-10-05 2022-10-05 Stopped 25 years Jasson Ponce 00:00:00 00:00:00 ago - External Alcohol Comment 2022-02-27 2022-02-27 quit drinking [address] [facility] 00:00:00 00:00:00 [facility] Sex Ass[birth year] At [birth year] Amaris christie 00:00:00 00:00:00 - External Smoking Status Start Date Stop Date Source Ex-smoker 2022-10-05 00:00:00 2022-10-05 00:00:00 Amaris S fabi - External Medications Ordered Filled Start Stop Current Ordering Indication Dosage Frequency Signature Comments Components Source Medication Medication Date Date Medication? Clinician (SIG) Name Name Dicyclomine 2022-02 No 20mg Q.25D Take 1 Ke lsey HCl 20 MG 0-16 10-16 tablet (20 Sey bold oral Tablet 10:30: 00:00 mg total) - 47 :00 by mouth 4 Externa times l daily as needed. Metronidazo 2022-02- No 500mg Take 1 Ke lsey le 500 MG 0-16 10-16 tablet Seybold oral Tablet 10:28: 00:00 (500 mg - 39 :00 total) by Externa mouth 3 l times daily. levoFLOXaci 2022-02- No 500mg Take 1 Ke lsey n 500 MG 0-16 10-16 tablet Seybold oral Tablet 10:28: 00:00 (500 mg - 28 :00 total) by Externa mouth l daily. Naproxen 2022-02 Yes 250mg Take 1 Amaris (NAPROSYN) 0-16 tablet Seybold 250 MG oral 10:06: (250 mg - Tablet 38 total) by Externa mouth in l the morning and 1 tablet (250 mg total) in the evening. Take with meals. Ondansetron 2022-02 Yes 4mg Take 1 Natalie ey HCl 4 MG 0-16 tablet (4 Seybol d oral Tablet 10:06: mg total) - 38 by mouth Externa every 12 l hours as needed. Pantoprazol 2022-02 Yes 40mg Take 1 Natalie ey e Sodium 40 0-16 tablet (40 Se ybold MG oral 10:06: mg total) - Tablet 38 by mouth Externa Delayed daily. l Response Melatonin 3 2022-02 Yes 5mg QD Take 5 mg K elsey MG oral 0-16 by mouth Seybold Tablet 10:06: nightly as - 38 needed Externa l Melatonin 3 Yes 5mg QD Take 5 [...] total) by Externa mouth l daily Ondansetron Yes 4mg Take 1 Natalie ey HCl [...] in the evening. Take with meals. Dicyclomine Yes 20mg Q.25D Take 1 Jasson sey HCl 20 MG 8-15 tablet (20 Seyb old oral Tablet 11:14: mg total) - 31 by mouth 4 Externa times l daily as needed Ondansetron 2022- No TAKE 1 Jasson sey (ZOFRAN) 4 8-03 10-16 TABLET BY Sey bold MG oral 00:00: 00:00 MOUTH - TABLET 00 :00 EVERY 6 Externa DISPERSIBLE HOURS l NEEDED FOR NAUSEA FOR 3 DAYS Naproxen 2022- No 500mg Take 1 Kelse y 500 MG oral 7-29 10-16 tablet Seybo ld Tablet 00:00: 00:00 (500 mg - 00 :00 total) by Externa mouth in l the morning and 1 tablet (500 mg total) in the evening. Take with meals. melatonin 3 Yes 5mg Take [address] mg tablet 5-15 by mouth [facility] 13:31: every Medical 54 night as Center needed for Insomnia. atorvastati Yes hyperlipide 40mg QD Take [address] n (LIPITOR) 5-15 efren by mouth Luke s 40 MG 13:31: daily. Medical tablet 54 Center latanoprost Yes open angle 1[drp] QD Place [address] [facility] (XALATAN) 5-15 glaucoma drop into L ukes 0.005 % 13:31: both eyes Medic al ophthalmic 54 nightly. Cente r solution levoFLOXaci 2022- No 750mg QD Take [address] n 5-15 05-21 tablet [facility]ukes (LEVAQUIN) 00:00: 23:59 (750 mg Med ical 750 MG 00 :00 total) by Center tablet mouth in the morning for 6 days. melatonin 3 Yes 5mg Take [address] mg tablet 1-09 by mouth [facility] 11:22: every Medical 10 night as Center needed for Insomnia. atorvastati Yes hyperlipide 40mg QD Take [address] n (LIPITOR) 1-09 efren by mouth Luke s 40 MG 11:22: daily. Medical tablet 10 Center latanoprost 2023-0 Yes open angle 1[drp] QD Place [address] [facility] (XALATAN) 03-01 glaucoma drop into L ukes 0.005 % 11:22: both eyes Medic al ophthalmic 10 nightly. Cente r solution vancomycin 2022- No 250mg Q.25D Take [address] 250 mg/5 mL 03-01 mg by [facility] Syrg 10:03: 00:00 mouth 4 Medical 04 :00 (four) Center times daily. vancomycin 2022-2022- No 250mg Q.25D Take [address] 250 mg/5 mL 03-01 mg by [facility] Syrg 10:03: 00:00 mouth 4 Medical 04 :00 (four) Center times daily. Thiamine 2022-2023- No 100mg Take 1 Kelse y HCl 100 MG 03-01 tablet Seybol d oral Tablet 00:00: 05:59 (100 mg - 00 :00 total) by Externa mouth l daily. thiamine 2022-2023- No 100mg QD Take 1 [facility] 100 MG 03-01 tablet [facility] tablet 00:00: 23:59 (100 mg Medical 00 :00 total) by Center mouth daily. thiamine 2022-2023- No 100mg QD Take [...] mg total) daily for 124 days. omeprazole 2022-2022- No Take [address] [facility] (PriLOSEC) 03-01 [...] other day for 90 days. lactulose 2022-0 3- No 10g Q.5D Take [address] (CHRONULAC) 03-01-09 mLs (10 g Cathryn kes 10 gram/15 00:00: 23:59 total) by M edical mL solution 00 :00 mouth 2 Cente r (two) times daily for 90 days Goal is 2-3 large bowel movements. If not having enough, can increase to 3 times a day. If having too many, cut it back to once a day.. propranoloL 3-0 2022- No 10mg Q.5D Take [address] (INDERAL) 03-01-09 tablet (10 Lesia es 10 MG 00:00: 23:59 mg total) Medica l tablet 00 :00 by mouth 2 Center (two) times daily for 90 days. ferrous 2022-0 2022- No 325mg Take [address] [facility] sulfate 325 03-01- tablet [facility] (65 FE) MG 00:00: 23:59 (325 mg Med ical tablet 00 :00 total) by Center mouth every other day for 90 days. lactulose 2022-0 2022- No 10g Q.5D Take [address] (CHRONULAC) 03-01-09 mLs (10 g Cathryn kes 10 gram/15 00:00: 23:59 total) by M edical mL solution 00 :00 mouth 2 Cente r (two) times daily for 90 days Goal is 2-3 large bowel movements. If not having enough, can increase to 3 times a day. If having too many, cut it back to once a day.. propranoloL 3-0 2022- No 10mg Q.5D Take 1 [facility]I [...] (two) times daily for 5 days. ciprofloxac 0 2022- No 500mg Q.5D Take 1 CH [...] bold Liquid 00:00: - 00 Externa l Melatonin 1 2022- No 5mg 20 mL (5 K elsey MG/4ML oral 1-06 10-16 mg total). S eybold Liquid 00:00: 00:00 - 00 :00 Externa l Vital Signs Vital Name Observation Time Observation Value Comments Source Systolic blood 2022-12-06 15:34:00 138 mm[Hg] Amaris Royalybold - pressure External Diastolic blood 2022-12-06 15:34:00 70 mm[Hg] Anna Oseiold - pressure External Heart rate 2022-12-06 15:03:00 88 /min Amaris wigginsbold - External Body temperature 2022-12-06 15:03:00 35.78 Joanne Natalie ey Seybold - External Respiratory rate 2022-12-06 15:03:00 15 /min Natalie wiggins Seybold - External Body height 2022-12-06 15:03:00 152.4 cm Amaris wigginsboalina - External Body weight 2022-12-06 15:03:00 60.782 kg Amaris dunlap - External BMI 2022-12-06 15:03:00 26.17 kg/m2 Amaris Gastelum eybold - External Systolic blood 2022-10-06 16:08:00 124 mm[Hg] Amaris Royalybold - pressure External Diastolic blood 2022-10-06 16:08:00 80 mm[Hg] Anna ulrich Seybold - pressure External Heart rate 2022-10-06 16:08:00 79 /min Amaris Gastelum eybold - External Body temperature 2022-10-06 16:08:00 36.39 Joanne Natalie wiggins Seybold - External Respiratory rate 2022-10-06 16:08:00 20 /min aNtalie wiggins Seybold - External Body height 2022-10-06 16:08:00 152.4 cm Amaris wigginsbold - External Body weight 2022-10-06 16:08:00 61.145 kg Amaris Gastelum eybold - External BMI 2022-10-06 16:08:00 26.33 kg/m2 Amaris wigginsbold - External Oxygen saturation in 2022-10-06 16:08:00 97 /min Amaris Ponce - Arterial blood by External Pulse oximetry HEIGHT 2022-02-27 02:44:08 149.9 cm WEIGHT 2022-02-27 02:44:08 65.545 kg HEIGHT 2022-02-27 02:44:08 149.9 cm WEIGHT 2022-02-27 02:44:08 65.545 kg Systolic blood 2022-07-05 07:49:00 126 mm[Hg] [facility] Diastolic blood 2022-07-05 07:49:00 62 mm[Hg] [facility] Heart rate 2022-07-05 07:49:00 83 /min [facility] Body temperature 2022-07-05 07:49:00 36.78 Joanne [facility] Respiratory rate 2022-07-05 07:49:00 18 /min [facility] Oxygen saturation in 2022-07-05 07:49:00 92 /min [facility] Arterial blood by Medical Ce nter Pulse oximetry Heart rate 2022-03-01 07:59:42 75 /min [facility] Oxygen saturation in 2022-03-01 07:59:42 96 /min [facility] Arterial blood by Medical Ce nter Pulse oximetry Systolic blood 2022-03-01 07:58:45 149 mm[Hg] [facility] Diastolic blood 2022-03-01 07:58:45 87 mm[Hg] [facility] Body temperature 2022-03-01 07:57:44 36.94 Joanne [facility] Respiratory rate 2022-03-01 07:57:44 18 /min [facility] Body height 2022-02-27 02:44:08 149.9 cm [facility] Body weight 2022-02-27 02:44:08 65.545 kg [facility] BMI 2022-02-27 02:44:08 29.19 kg/m2 [facility] Procedures Procedure Date / Time Performing Clinician Source Performed ALPHA FETOPROTEIN (AFP), 2022-07-05 10:32:00 Branden Elmore [facility] TUMOR MARKER [facility] MAGNESIUM 2022-07-05 03:37[facility]T [facility] & AUTO 2022-07-05 03:37:00 Saul [facility] DIFFERENTIAL [facility] PHOSPHORUS 2022-07-05 03:37[facility]OL[facility] 2022-07-05 03:37:00 Donald [facility] CBC W/PLT COUNT & AUTO 2022-07-05 03:37[facility] CALCIUM, IONIZED 2022-07-05 03:36:[address] [facility] MAGNESIUM 2022-07-04 03:52:00 [facility] W/PLT COUNT & AUTO 2022-07-04 03:52:00 Saul [facility] DIFFERENTIAL [facility] CALCIUM, IONIZED 2022-07-04 03:52:00 [facility] COMPREHENSIVE METABOLIC 2022-07-04 03:52:00 [facility] 2022-07-04 03:52:00 Donald [facility] CBC W/PLT COUNT & AUTO 2022-07-04 03:52:00 Massniki, [facility] DIFFERENTIAL [facility] MR ABDOMEN WITHOUT IV 2022-07-03 18:30:00 rDea GrayYg [facility] CONTRAST MRCP [facility] BASIC METABOLIC PANEL 2022-07-03 10:45:00 Massumi, [facility] MAGNESIUM 2022-07-03 10:45:00 Massumi, [facility] CBC W/PLT COUNT & AUTO 2022-07-03 10:45:00 [facility], [facility] DIFFERENTIAL [facility] CBC W/PLT COUNT & AUTO 2022-07-03 10:45:00 [facility], [facility] US ABDOMEN COMPLETE 2022-07-02 06:33:00 [facility]EL[facility] 2022-07-02 06:33:00 Demario Cook [facility] BASIC METABOLIC PANEL 2022-07-02 04:51:00 Norris [facility] HEPATIC FUNCTION PANEL 2022-07-02 04:51:00 Nik Ayala [facility] PROTHROMBIN TIME/INR 2022-07-02 04:51:00 [facility] 2022-07-02 04:51:00 [facility] W/PLT COUNT & AUTO 2022-07-02 04:51:[address] [facility] ALPHA FETOPROTEIN (AFP), 2022-07-02 04:51:00 [facility] TUMOR MARKER [facility] PHOSPHATIDYLETHANOL, 2022-07-02 04:51:00 Ni [facility] BLOOD [facility] B-TYPE NATRIURETIC FACTOR 2022-07-02 04:51:00 Cook, [facility] (BNP) [facility] URIC ACID 2022-07-02 04:51:00 Joey [facility] CBC W/PLT COUNT & AUTO 2022-07-02 04:51:00 [facility]INALYSIS W/ MICROSCOPIC 2022-07-02 04:38:00 Norris [facility] SODIUM, RANDOM URINE 2022-07-02 04:38:00 [facility] CREATININE, RANDOM URINE 2022-07-02 04:38:00 [facility] PROTEIN, RANDOM URINE 2022-07-02 04:38:00 Joey [facility] OSMOLALITY, URINE 2022-07-02 04:38:00 Joey [facility] CBC W/PLT COUNT & AUTO 2022-07-01 09:30:00 [facility] BASIC METABOLIC PANEL 2022-07-01 09:30:00 [facility] HEPATIC FUNCTION PANEL 2022-07-01 09:30:00 Norris [facility] PROTHROMBIN TIME/INR 2022-07-01 09:30:[address] [facility] TYPE AND SCREEN, 2022-07-01 09:30:00 Norris [facility] CBC W/PLT COUNT & AUTO 2022-07-01 09:30:00 Norris [facility] (CELLAVISION MANUAL DIFF) 2022-07-01 09:30:00 [facility] POCT-GLUCOSE METER 2022-03-01 08:01:00 Amadou [facility] CBC (HEMOGRAM ONLY) 2022-03-01 05:08:00 Amadou [facility] COMPREHENSIVE METABOLIC 2022-03-01 05:08:00 Amadou [facility] HEMOGLOBIN AND HEMATOCRIT 2022-02-28 17:25:00 Robert Bone [facility] HEPATITIS A ANTIBODY, IGG 2022-02-28 12:39:[address] [facility] REPORT OF PROCEDURE - 2022-02-28 11:26:34 Nory Doll [facility] ENDOSCOPY URL [facility] TISSUE EXAM 2022-02-28 11:03:00 Nory Doll [facility] ENDOSCOPY, UPPER GI 2022-02-28 10:00:00 Nory Doll [facility] TRA[facility], WITH VARICEAL 2022-02-28 10:00:00 [facility] CBC (HEMOGRAM ONLY) 2022-02-28 04:56:00 Robert Bone [facility] COMPREHENSIVE METABOLIC 2022-02-28 04:56:00 Robert Bone [facility] PROTHROMBIN TIME/INR 2022-02-28 04:56:00 Amadou [facility] PHOSPHATIDYLETHANOL, 2022-02-28 04:56:00 [facility] HEPATITIS C GENOTYPE 2022-02-28 04:56:00 Andres [facility] ANTI-NUCLEAR ANTIBODY 2022-02-27 16:10:00 [facility] HEPATITIS B SURFACE 2022-02-27 16:10:00 [facility]ODY [facility] HC LAB HIV-1 AG W/HIV-1&2 2022-02-27 16:10:00 Meño Campos [facility] AB [facility] HEPATITIS B CORE 2022-02-27 16:10:00 [facility] ANTIBODY, TOTAL [facility] Center ABORH, MANUAL 2022-02-27 04:52:00 Aydee Clark [facility] ACTIN (SMOOTH MUSCLE) 2022-02-27 04:40:00 [facility] ANTIBODY, IGG [facility] OIHIC-[id number]\\, 2022-02-27 04:40:[address] [facility] ANTI-MITOCHONDRIAL AB, 2022-02-27 04:40:00 Maricarmen Michaels [facility] REFLEX TO TITER [facility] CERULOPLASMIN 2022-02-27 04:40:00 Maricarmen Michaels [facility] FERRITIN 2022-02-27 04:40:00 [facility] HEPATITIS PANEL, ACUTE 2022-02-27 04:40:00 Maricarmen Michaels [facility] IMMUNOGLOBULIN G (IGG) 2022-02-27 04:40:[address] [facility] IRON, TIBC, % SAT. 2022-02-27 04:40:00 [facility] (WITHOUT FERRITIN) [facility] HEPATITIS C PCR, 2022-02-27 04:40:00 Maricarmen Michaels [facility] PROTHROMBIN TIME/INR 2022-02-27 04:40:00 Maricarmen Michaels [facility] MITOCHONDRIAL AB SCREEN 2022-02-27 04:40:00 Maricarmen Michaels [facility] MITOCHONDRIAL AB TITER 2022-02-27 04:40:[address] [facility] CBC W/PLT COUNT & AUTO 2022-02-27 04:39:00 Maricarmen Michaels [facility] BASIC METABOLIC PANEL 2022-02-27 04:39:00 Maricarmen Michaels [facility] HEPATIC FUNCTION PANEL 2022-02-27 04:39:00 Maricarmen Michaels [facility] MAGNESIUM 2022-02-27 04:39:00 Maricarmen Michaels [facility] PHOSPHORUS 2022-02-27 04:39:00 MichaelsMaricarmen méndez [facility] CBC W/PLT COUNT & AUTO 2022-02-27 04:39:00 MichaelsMaricarmen arredondo [facility] TYPE AND SCREEN, 2022-02-27 04:39:[address] Petty [facility] AUTOMATED [facility] Center Plan of Care Planned Activity [...] 00:00:00 2) [code = SHINGLES [facility] VACCINES (1 of 2)] Future Scheduled 2010-02-05 SHINGLES VACCINES ([address] [facility] Test 00:00:00 2) [code = SHINGLES [facility] VACCINES (1 of 2)] Future Scheduled 2005-02-05 Lipid panel (procedure) [facility] Test 00:00:00 [code = 51353498] Medical Ce nter Future Scheduled 2005-02-05 Lipid panel (procedure) [facility] Test 00:00:00 [code = 16606303] Medical Ce nter Future Scheduled 1981-02-05 Screening for malignant [facility] Test 00:00:00 neoplasm of cervix Medical C enter (procedure) [code = 982817713] Future Scheduled 1981-02-05 Screening for malignant [facility] Test 00:00:00 neoplasm of cervix Medical C enter (procedure) [code = 363858964] Future Scheduled 1979-02-05 DTAP/TDAP/TD VACCINES CH I [...] breast Medical C enter (procedure) [code = 923053387] Future Scheduled 1960 CT Colonography (combo) [facility] Test 00:00:00 [code = CT Colonography [facility] (combo)] Future Scheduled 1960 Screening for malignant [facility] Test 00:00:00 neoplasm of colon Medical Ce nter (procedure) [code = 006697874] Future Scheduled 1960 Screening for malignant [facility] Test 00:00:00 neoplasm of colon Medical Ce nter (procedure) [code = 020698673] Future Scheduled 1960 Screening for malignant [facility] Test 00:00:00 neoplasm of colon Medical Ce nter (procedure) [code = 821073525] Future Scheduled 1960 Screening for malignant [facility] Test 00:00:00 neoplasm of colon Medical Ce nter (procedure) [code = 080177218] Future Scheduled 1960 Sigmoidoscopy [code = [facility] Sigmoidoscopy] Medical Cente r Future Scheduled 1960 Screening for malignant [facility] Test 00:00:00 neoplasm of breast Medical C enter (procedure) [code = 482646061] Future Scheduled 1960 CT Colonography (combo) [facility] Test 00:00:00 [code = CT Colonography [facility] (combo)] Future Scheduled 1960 Screening for malignant [facility] Test 00:00:00 neoplasm of colon Medical Ce nter (procedure) [code = 050971615] Future Scheduled 1960 Screening for malignant [facility] Test 00:00:00 neoplasm of colon Medical Ce nter (procedure) [code = 673511175] Future Scheduled 1960 Screening for malignant [facility] Test 00:00:00 neoplasm of colon Medical Ce nter (procedure) [code = 611234610] Future Scheduled 1960 Screening for malignant [facility] Test 00:00:00 neoplasm of colon Medical Ce nter (procedure) [code = 637346436] Future Scheduled 1960 Sigmoidoscopy [code = [facility] 00:[facility] Sigm[facility]oscopy] Medical Cente Encounters Start End Encounter Admission Attending Care Care Encounter Source Date/Time Date/Time Type Type Clinicians Facility Department ID 2022-02-[address] [facility] Medical ICU [id number] 17:16:28 [facility] 2023-01-26 2023-01-26 Outpatient AMARIS VICENTE [id number] Amaris 14:15:00 14:15:00 ASIMERMA Royalybol d 2022-12-15 2022-12-15 Outpatient AMARIS MEJÍA [id number] Amaris 00:00:00 00:00:00 REYNOLD Seybol d 2022-12-13 2022-12-13 Outpatient AMARIS MEJÍA [id number] Amaris 00:00:00 00:00:00 REYNOLD Seybol d 2022-12-06 2022-12-06 Outpatient AMARIS ROOT [id number] Amaris 09:00:00 09:00:00 NICOLAS Seybol d 2022-11-12 2022-11-12 Outpatient AMARIS MEJÍA [id number] Amaris 00:00:00 00:00:00 REYNOLD Seybol d 2022-10-06 2022-10-06 Outpatient LAB90 AMARIS CHOUDHURY [id number] Amaris 12:20:00 12:20:00 Seybol d 2022-10-06 2022-10-06 Outpatient AMARIS ROTO [id number] Amaris 11:00:00 11:00:00 NICOLAS Seybol d 2022-08-06 2022-08-06 Outpatient AMARIS CHOUDHURY [id number] Amaris 14:00:00 14:00:00 Seybol d 2022-07-16 2022-07-16 Outpatient [facility] [id number] [facility] 00:00:00 00:00:00 [facility] 2022-07-13 2022-07-13 Outpatient AMARIS HDEZ [id number] Amaris 14:15:00 14:15:00 SHIRLENE Seybol d 2022-07-09 2022-07-09 Outpatient AMARIS ROBLES [id number] Amaris 00:00:00 00:00:00 STEEVEN Seybol d 2022-07-06 2022-07-06 Outpatient AMARIS VEGA [id number] Amaris 00:00:00 00:00:00 CAMPAIGNS Seyb old 2022-07-01 2022-07-[address] [facility] Med [id number] [facility] 07:54:00 13:31:00 [facility] 2022-07-01 2022-07-05 Hospital ER Liana Poe [facility] [id number] [facility] 07:54:00 13:31:00 Encounter Nik Ayala lety Aparicio juan [facility] 2022-07-01 2022-07-01 Travel [facility] [id number] [facility]00 [facility] 2022-03-11 2022-03-11 Outpatient EL [facility] [id number] [facility] 00:00:00 00:00:00 2022-03-10 2022-03-[address] [facility] [id number] ZACKARY Figueredo 00:00:00 00:00:00 [facility] 2022-03-10 2022-03-10 Abstract Joel, [facility] [id number] 00:00[facility]00 00:00:00 [facility] 2022-02-27 2022-03-01 Inpatient ER CONNER BONE Internal [id number] [facility] 02:27:00 11:21:00 [facility] 2022-02-27 2022-03-01 Hospital ER Liane Jaeger [facility] [id number] [facility] St 02:27:00 11:21:00 Encounter Robert Bone [facility] 2022-02-28 2022-02-28 [address] [facility] [id number] [facility] [address] 10:45:00 11:26:00 Event Fernando Buenrostro [facility] 2022-02-28 2022-02-[address] [facility] [id number] [facility] [address] 10:00:00 10:52:00 [facility] Results Test Description Test Time Test Comments Results Result Comments Source PHOSPHATIDYLETHANOL, BLOOD 2022-07-12 13:07:11 Test Item Value Reference Range Interpretation Comme nts PHOSPHATIDYLETHANOL (PETH) (test code = 3374157) see scanned report see scanned reportALPHA FETOPROTEIN (AFP), TUMOR [id number] 11:25:36 Test Item Value Reference Range Interpretation Comments ALPHA-FETOPROTEIN (BEAKER) (test code < ng/mL <10.0 = 1094) Software Engineer ID - ANSHUL BCALCIUM, [id number] 05:58:34 Test Item Value Reference Range Interpretation Comments CALCIUM IONIZED (BEAKER) (test 1.05 mmol/L 1.12-1.27 L code = 698) PH, BLOOD (BEAKER) (test code = 7.43 1810) COMPREHENSIVE METABOLIC [id number] 05:03:13 Test Item Value Reference Range Interpretation [...] not appl icable for dialysis patien ts Software Engineer ID - TODD WSpecimen slightly ozjxgvcIDGAIZPOA8548-58-27 04:55:54 Test Item Value Reference Range Interpretation Comments MAGNESIUM (BEAKER) (test code = 1.7 mg/dL 1.6-2.6 627) Software Engineer ID Amberly BROOKS GAXOVJIXYPR2420-90-56 04:55:54 Test Item Value Reference Range Interpretation Comments PHOSPHORUS (BEAKER) (test code = 2.3 mg/dL 2.3-4.7 604) Software Engineer RAFAEL BROOKS WCBC W/PLT COUNT & AUTO [id number] 04:18:32 Test Item Value Reference Range Interpretation [...] (BEAKER) (test code = 2801) MR, ABDOMEN, [id number] 21:37:00Unlisted Reason for Exam - Click Yes and Enter Reason Below->No [facility] 1960 Sex: FFINAL REPORT MRCP, MRI [...] [place] [facility] Verified Date/Time: 07/04/2022 21:37:20 CALCIUM, [id number] 05:06:44 Test Item Value Reference Range Interpretation Comments CALCIUM IONIZED (BEAKER) (test 1.03 mmol/L 1.12-1.27 L code = 698) PH, BLOOD (BEAKER) (test code = 7.44 1810) COMPREHENSIVE METABOLIC [id number] 04:46:51 Test Item Value Reference Range Interpretation [...] not appl icable for dialysis patien ts Software Engineer ID - ADMINSpecimen slightly svbwmxbBFVDXIIEN2051-95-75 04:42:23 Test Item Value Reference Range Interpretation Comments MAGNESIUM (BEAKER) (test code = 1.9 mg/dL 1.6-2.6 627) Software Engineer ID - MBTMRFKIMUQTSDK9723-39-30 04:42:23 Test Item Value Reference Range Interpretation Comments PHOSPHORUS (BEAKER) (test code = 1.8 mg/dL 2.3-4.7 L 604) Software Engineer ID - ADMINCBC W/PLT COUNT & AUTO [id number] 04:22:38 Test Item Value Reference Range Interpretation [...] (BEAKER) (test code = 2801) BASIC METABOLIC [id number] 11:30:49 Test Item Value Reference Range Interpretation [...] not appl icable for dialysis patien ts Software Engineer ID - MMSpecimen slightly kzgelaiCJUCQOLFT1087-37-14 11:30:30 Test Item Value Reference Range Interpretation Comments MAGNESIUM (BEAKER) 2.0 mg/dL 1.6-2.6 Specimen slightly (test code = 627) hemolyzed Software Engineer ID - MMCBC W/PLT COUNT & AUTO [id number] 11:09:06 Test Item Value Reference Range Interpretation [...] (BEAKER) (test code = 2801) U/S, ABDOMINAL, [id number] 09:08:00Abdomen limited area? Add comment if clarification is needed.->Right upper quadrant Reason for exam:->[facility] 1960 Sex: FFINAL REPORT Complete Abdominal [...] with liver function tests. Signed: Edouard Orta [facility] Verified Date/Time: 07/02/2022 09:08:40 U/S, PELVIC, [id number] 09:08:00 Reason for exam:->[facility] : 1960 Sex: FFINAL REPORT Complete Abdominal [...] with liver function tests. Signed: [facility] Verified Date/Time: 07/02/2022 09:08:40 Osmolality, [id number] 07:04:13 Test Item Value Reference Range Interpretation Comments Osmolality, Ur (test code 453 See_Comment [ Automated message] = 2695-5) The system [email or web address] generated this result transmitted ref erence range: 50-1,200 mOsm/kg mOsm/kg . The reference range was not used to int erpret this result as normal/abnormal . Lab Interpretation (test Normal code = 58093-5) [facility] HospitalOSMOLALITY, [id number] 07:04:13 Test Item Value Reference Range Interpretation Comments OSMOLALITY URINE 453 mOsm/kg See_Comment [Automated message] (BEAKER) (test code = The sy stem which 614) generated this result transmitted ref erence range: 50-1,200 mOsm/kg. The reference range was not used to int erpret this result as normal/abnormal . Urinalysis w/ Hsjeuijgcok7783-16-03 06:47:21 Test Item Value Reference Range Interpretation Comments Color, UA (test code Yellow = 5778-6) Clarity, UA (test Hazy code = 5767-9) Specific [place], UA 1.034 1.001-1.035 (test code = 5811-5) pH, UA (test code = 6.0 5.0-8.0 5803-2) Protein, UA (test 50 mg/dL Negative A code = 37532-1) Glucose, UA (test Negative Negative code = 365) Ketones, UA (test Negative Negative code = 2514-8) Bilirubin, UA (test Positive Negative A code = 87999-0) Blood, UA (test code Large Negative A = 87872-5) Nitrite, UA (test Negative Negative code = 5802-4) Leukocytes, UA (test Large Negative A code = 5799-2) Urobilinogen, UA 2 0.2-1.0 H (test code = 27499-4) RBC, UA (test code = 206 See_Comment [Autom ated 27316-2) message] The system which generated this result [...] 3 See_Comment [Automate d (test code = 19613-1) messag e] The system which generated this result transmit suzanne reference range : /HPF. The reference range was not used to interpret this result as normal/abnormal . Hyaline Casts, UA 1 See_Comment [Automate d (test code = 48542-4) messag e] The system which generated this [...] Specimen Source (test Urine, Clean code = 6942) Catch TAMMY (test code = TAMMY) Software Engineer ID - [auto]Software Engineer ID - tech Lab Interpretation Abnormal (test code = 95911-6) [facility]/ [id number] 06:47:21 Test Item Value Reference Range Interpretation [...] SOURCE(BEAKER) (test code Urine, Clean Catch = 5619) Software Engineer ID - [auto]Software Engineer ID - techBASIC METABOLIC [id number] 06:15:04 Test Item Value Reference Range Interpretation [...] De scription 1092) sq m Result G1 Ssii l or high >=90 G2 Mildly decreased [...] not appl icable for dialysis patien ts Software Engineer ID - mmSpecimen slightly ictericHEPATIC FUNCTION [id number] 06:14:58 Test Item Value Reference Range Interpretation [...] Specimen slightly (test code = 347) hemolyzed Software Engineer ID - mmSpecimen slightly ictericURIC [id number] 06:14:33 Test Item Value Reference Range Interpretation Comments URIC ACID (BEAKER) 5.2 mg/dL 2.6-7.2 Specimen slightly (test code = 773) hemolyzed Software Engineer ID - mmSpecimen slightly ezvceghMGAFDCQAE5426-44-39 06:14:32 Test Item Value Reference Range Interpretation Comments MAGNESIUM (BEAKER) 1.8 mg/dL 1.6-2.6 Specimen slightly (test code = 627) hemolyzed Software Engineer ID - mmALPHA FETOPROTEIN (AFP), TUMOR [id number] 06:11:52 Test Item Value Reference Range Interpretation Comments ALPHA-FETOPROTEIN (BEAKER) (test code < ng/mL <10.0 = 1094) Software Engineer ID - ADMINB-TYPE NATRIURETIC FACTOR (BNP)2022-07-02 05:58:29 Test Item Value Reference Range Interpretation Comments B-TYPE NATRIURETIC PEPTIDE (BEAKER) 127 pg/mL 0-100 H (test code = 700) Software Engineer ID - mmSodium, random [id number] 05:46:02Sodium Urine<20meq/L07/02/2022 5:46 AM CDTCH[facility]ITALReference Range:No NormalsOperator ID - ADMINMer[facility] Hospital SODIUM, RANDOM [id number] 05:46:02 Test Item Value Reference Range Interpretation Comments SODIUM URINE (BEAKER) (test code = < meq/L 243) Reference Range: No NormalsOperator ID - ADMINPROTHROMBIN TIME/[id number] 05:41:54 Test Item Value Reference Range Interpretation [...] mechanical heart valves.CBC W/PLT COUNT & AUTO [id number] 05:41:41 Test Item Value Reference Range Interpretation [...] (BEAKER) (test code = 2801) Protein, random nrrww4648-03-19 05:39:30 Test Item Value Reference Range Interpretation Comments Protein, Urine (test code 54 mg/dL 0-14 H = 2888-6) TAMMY (test code = TAMMY) Software Engineer ID - ADMIN Lab Interpretation (test Abnormal code = 36483-6) [facility] HospitalPROTEIN, RANDOM [id number] 05:39:30 Test Item Value Reference Range Interpretation Comments PROTEIN, URINE (BEAKER) (test code = 54 mg/dL 0-14 H 1569) Software Engineer ID - ADMINCreatinine, random iohnr7009-63-45 05:38:10 Test Item Value Reference Range Interpretation Comments Creatinine, Ur 131.5 mg/dL (test code = 2161-8) TAMMY (test code = Reference Range: No TAMMY) NormalsOperator ID - ADMIN [facility] HospitalCREATININE, RANDOM [id number] 05:38:10 Test Item Value Reference Range Interpretation Comments CREATININE URINE (BEAKER) (test 131.5 mg/dL code = 375) Reference Range: No NormalsOperator ID - ADMINHEPATIC FUNCTION [id number] 10:39:19 Test Item Value Reference Range Interpretation [...] Specimen slightly (test code = 347) hemolyzed Software Engineer ID - ADMINOperator ID - ADMINSpecimen slightly ictericBASIC METABOLIC [id number] 10:39:18 Test Item Value Reference Range Interpretation [...] not appl icable for dialysis patien ts Software Engineer ID - ADMINSpecimen slightly icteric(CELLAVISION MANUAL DIFF)2022-07-01 [...] CONCENTRATION Decreased (CELLAVISION)(BEAKER) (test code = 3438) Software Engineer ID - Avila Dato-onUser comments: Slide comments:CBC W/PLT COUNT & AUTO [id number] 10:34:49 Test Item Value Reference Range Interpretation [...] 0-0 (BEAKER) (test code = 413) PROTHROMBIN TIME/[id number] 10:00:52 Test Item Value Reference Range Interpretation [...] Interpretation Comments SCAN RESULT (test code = 5615408) Tissue [id number] 08:35:43 Test Item Value Reference Range Interpretation Comments Case Report (test code Surgical Pathology = 104) Report Case: [id number] Authorizing Provider: Nory Doll, Collected: 02/28/2022 11:03 AM Ordering Location: [address] Received: 03/01/2022 07:57 AM Service Pathologist: Irma Fermin MD Specimen: Biopsy, Gastric, random gastric bx r/o H. pylori DIAGNOSIS (test code = v8yytRUpKABev9ihNCOsfU 3220) FuZzEwMzNcZnRuYmpcdWMx IHtccnRmMVxlcGljOTYwMl msbxTaWJHifURxE5Ieglsc AGjsFC4jIQ9qyQhwaTRszT KpMCEkQrClg1hju964aXAx m7juVVPJtuarcXp5ePbvL3 6rn9R5NkspG49wtLOlXYL0 QJUeRNWgpHImVYBaAKW4XP WfpXXwW0qqURWpQI9mkgbc LLbiOYscXJHawTY6LCBchQ XmH7IaGRNqCQbmBHWdimq6 WfHfQq1mkXQasVccDFtxQG YgOZPkSInhTXKnDfYwQY4y GPpWP9LHUDGtAYLSKkWUNP QWHP8ZZ5optGhiAPJkBCDB TOU4vkbnKG75xX17cTCdIR 7rIQUjwcSqaI4nyIvgJWPk eKHth2Zlr7m4pXGcbAOzaU WeIVQkdc0gbEAzVGX2vSPd NXjru5AjbGDke2wuxU5qQI YqGX2aH3C5kJJxCQVlzfDe inEmg6OnbfFoJP7loZPkmT InmHXea7LdJHkgoCvtf6yi UXpprjObIC1IrP47vt3avX I1v8MoRE6mN2WgRSU3OIrb IGZvciBILiBweWxvcmkgaX MgbmVnYXRpdmUgKHNlZSBj s35uPD70LUzfGZE0o8dapJ YxXHNzdGUxODAwMFxhbnNp HVTkCqmhazonIBDnCQI5sr MjOSGmLPggVNSxRZvsXk2s qQSlcVntHjRxXJCdd8yorw ZOssraqGp6x4qmPJPlZoM2 eRAuJLbfV7oklxMlcRXrTR PgCNl1fG05LTXayM9pdALb IQtxfzCfQtF7COmpANDwNm B4LMUvpRSiJWSiF4jdYQIw NMogGQQdHIhvbWZmHVJ4xT sqh3J4fIKkeFQzfYpfHpEi YuVwMwKCz9XsZOb8eRxjT9 KrAEXlEoO5aPPwVIZrFZrh MXBqAKPdauC2yJ03RUqqmy B1iHOer2Ola14ku049pA2w tVXqCBX2KUWkRXYxnZIiMZ RvCXZ3CGBppRGiG8txPAVh CE6fszdnEFsyNWcwCKIqhG Y2YPDmaFDkX7YwXCLeKEdg OEDkvqo9OgPtFf0njQExyU ixKQqla0bku3csnEZqDad7 LOGyIxGvSxdvAQzze6Pkl4 etAPKfon2aJQT1aAXmnWri g0X3rUVfGAEnxGJyWGFuGK 2zdUIxATAjtI9oanktBZQu YnJkcmhlYWRccGdicmRyZm 6ubPjoYCN6VLdpY0evqO1z VbL9OHkbZ4lsjM4zNQr2OP maXXTevQK5pyF6ZRNadAHg O8OokA1wEKFzGP1aokm3o0 iaUSB8DZsnHCPkIyF3euF3 NDBcaGVhZGVyeTcyMFxmb2 69CWS8ViGgLJGqu0CyW1Bs eAnoA42jtEkyV84zFRPrxN filP6ccIwslR6yNjYtKvQq UWsnkGpxNV6jGVDiI6cswT RrGIUtIADkK9fzBdZzyO6c vYydWZvgapMaHNGzZvo6YL NhqSMxELBlZcu8AHQdXJCa A96yjzyyYIU8vR4ab9zzd6 TqSLjkWSA7MOGzx52aYWya utK3ZNcwIf48YJlsLYI3BC nmCNL0oC== COMMENT (test code = w4ludDZuBTCyvLQ5TzZoQB 8667) Dug0bst6VkgPYqlMJjBUkl hCCgesXato44hZK6hN57GK 9bQGHpZlY2WTVeapZ3Heb9 WHJcUHFohTPlV232w0jik6 scnoAwfAV8xRxtIFEactji LeW7GMkiOTEyquuoBPh2CJ gyCTEqiKL3YKRzpGHdL2Tm GLUcGM4ytal1CIM5QNniXC NiSwZ3TIZzgGDaNBCgnSax MIzeh486XTS8TqKdXTFuof RilLxvnW3kIrJzGGOMX29T AF3BHpliCXpxpgXgiIHjio NoXWWlk0WgAI9sIO3eypTl RJKaIjvkTVW9GYopaS9wGF 0qlANwFR2wTFijuOFkc0tl o5PpP6bltXwlWEegk0GjsV 3fe2tnD1lmxBWoY96uc8ht KHPmUFWvHSjeiTi1QU6zKT usr7O2QLJxwB6npAAxXRWq BXQxvgMfhHh8DHSbYI4kfY acNgKdEQ3ad5OaJuQhVLqo jJJjYJWvWG3eSIngPOTbgE 2iQ4OklDrui4ZfjDubqT13 ioJyn9YnHFdlsJvrpmW9jI GbGYEuVBL8pFZ9HOW0WR3b SRI2c14xRMWfaQhdMW8jyG UikxVns82cGK4mDJVvVADR dwAnp4OanNbsvnXkr4V7VA Rwbklqh5DmBVYdgs0= CPT Code(s) (test code r4jgfRCuTGJbzAE0CwFuGM = 2374) Wgy0ztz8CexUQvrFWpHBec vBQazwLqen54vNL7sQ94OK 3rJQBkEoQ4SUZmseY9Aie1 TPXuZIJvsDVuS899j8uzh7 eiwhAxdXG7mZfeLFItmter IzS3CGznOCYctkjvVQh4IV ymYBChwHI2HOCfrYWtN9Cw ZMOwWR8xaoz6OMZ4TDtqKD FhVhX3FIZosLTmJUIghUwv GGmay068POE5FvQuCAZlrg LxlIfipI0yUzUjDPJ1OQMr AWcunR4qAZy3DjQoKAYyoz 0= CLINICAL HISTORY (test y2saeWRgCMPhfTS6TnSwFW code = 3356) Sgm9tqc5DjeCKtmUKrXTkx yQCpksTusu17vIX6cL54OM 3mMJAdVoP5KHCqlyM3Ftb2 IMWeHBNkkOGeF626t1hoo6 lzauUtnFE5zNuiAZMhqbsm JlT9ZLniJPFmkxceZQo5EN rcBMQzyEL5VMByzTNlV7Nl XFXmKW7eard7GHY2AIrfAK CyZpW8XQBdcUUjDRMhzXpi UHiru906ELX3ErUkWWFbha LeeVdizN1uRkLhMYNBZOO7 yn3czqEwy5NifcJhUTahcP 5kxcvnY5CxSCLol5YbREYi SKI7dCDiXCtdv1DytSKre0 xwYXJ9 GROSS DESCRIPTION (test o5aiaMTqGGSgtORAUAKmU6 code = [id number]) kdhiOtZPIvmYEnL1Iucrje OPjyWE8pQY6spIdakHWpxQ DsJW5AEFTqTaTiGVYgmZIm baAuFePzQGKbgLZjeLU1AL EaJV7dhjmaDFbpXZgpOSDs lkV1ZZFaxPDlF5IfCRMeOE 8blqnaTRE3LFpoyC9lipHY RlrjWb6ebMVfzQcfGtVpWi NoYXJzZXQwXGZuaWwgQXJp AUv0zZ3OYdhqM04kr3R1Bh b1JXOjGXZsY3PlHL0bGDGk jYEhU87FSkbbFES5PJRQNq lwCVAgIH0Iq4htOWMntGOd RNQ4SVwxlGXyCZGiQOQiLT x6PRAaCVfncVJlRL2gfYjr VyiedNvsz6CbcTUhQAbbDA JcXLUqHAgtNVNoCL7BLoTx OIUgVXH4CWAfESv7TIf7CH 9WUyAiICAzMTkxNTAyMCIg OYt3BXvwVE3NUMP8Run1Jo V4QjS8CPR4ZJZxPZNnQaUr XGYgQXJpYWwgXFxmbCBcXG 8luUhtdZFkwpRZHjQTrP7v r9skVRjrr3RebFSsZMZswa ANClxlcGljTmVzdERvYzEg DQpcbHRycGFyXGxpbjBccm luMCANClxsdHJjaFxjZjFc ZnMyMCBSZWNlaXZlZCBpbi Cry6LhOEnexeNuGQCqvJSx IHdpdGggdGhlIHBhdGllbn YuZ8L6zcTrIL2kBXLaUINy C9TnSJMsI04xAOLmnB6bBX FeRG0sBCg0RWVlKJYgTkmo CkresPG4NYErODT7sqdjJV 5leHQgYXJlIDMgdGFuIHNv BjHuyMnio7CqQLOnREcwMS 45mlIjQY9miM7bVMCwWx9f SuUcM77jd0TpoXj4dBIrFJ sdRORukO0rjX1tPFXkZWCq ciANClxwYXIgDQpDaGVsc2 VhIEdyYXVuLCBNSFMsIFBB IAtVH9RJXWZtQXZuieENLj ujVLYeAIfvD9MnRTGeJdGd BEuooRmsiT3xFSIkA43kz8 YDn7WlNRKaIHkxb9ejhTug t8CmnFDhBFgxIUGfpOMcXO fmdX0lZvPfa9qmtEh6RTiq tdO0FKSgfr5ZWtgdtP0bUj Olx5dmhLb2YJDABfamhtA6 a3xpoZtyx1UaqMSyZA5AUz 0= MICROSCOPIC DESCRIPTION o8ffzSAwFBOocKC6XbDaPZ (test code = 3371) Rna4qvq4EbmMXlkQTlLNgv pSVqlcDkoq01vAJ1jC58NR 0fANHeSyI1YPNykfE0Meq0 FMDzBEJxcNZfT707g5odn5 ljvgKbpFA3hWheICIhhtgb HkB7ZVhdXYToprbhSPu1MM kjFXPnxVA9JUQufTIwJ3Yg JGUzON8xplw8EQL4SIalFY LmDhG7KYYztSAjUBCozQoe DVmev562WPY2UcOjTWJlll FkeVbogU9xHfCoHVHDYUCx y3ZqYGEcgHLkgG== SPECIAL STUDIES (test r7rlnRTwHKRzo8boSEKeeX code = 3376) FuZzEwMzNcZnRuYmpcdWMx LNvfaiUqMMuyt5OyB0AdNw AwMFxhbnNpXGRlZmxhbmcx ZEHtTMQ2ooDlWSRpKAmpUO UfKIzrId0rsVYpjBwfQeTw EBQsl5ryxvNUqgpboEd5r1 ndSJIvHzJ5dHBoTBllY2gh gqZimFJwJ5UikHUzyFr5z5 vsMfJxQlD0iSYwPViwH6zb meIfjFAaSPNlZJh3vL75QJ WlcR7gmBZoXHcfxnAfUkT4 UVcyEKAsGtQ8OPHouDRlBZ EkY2baBXXjXCkzELFuFXvw aUZaHTK3uSnng1H3kHEzkJ VriWcsNaKkRhGbFxIPp9Yt PAu5zHzpY0SwCYOmKwO9oM QgUGFyYWdyYXBoIEZvbnQ7 zKibhjCbm60byRSvMVXoOJ EkJyPggCdvSEPyBEIJm7Jr vCyoZAO6oKo0mKuiFyetTX G8Sir3QD4mgn52rso0eVoa DQGxeghlXiC5GQjzLSVfzf afQYy1GXpoLSAkhXT5EUGs xGCwM7ZpZQJkDS5joeb5JG O0POwxLQJnMeV0XDQqrQWu BNIuvSaiKHoyc959RKC3Zb KrPD3rF7Dxj8V3dP4yiNJg HRAqdOUmInZqLLOctk3fgD DbEUpyk4GiPWH7xiA9hKXb xFBoXREvSL76Bxqzt5JiKl yxx8YzX40hdKO5ICsns8pd DB9dJxY9vkRvHShua0nfhX 2kFzQ1JNupDL8aZR3hLBUc bV8jwvcfTTTySyRgrckhDL QhyRfxxnGgWd2qpNscMPZ1 BYlqX3ytxL7oVrX2XPgxR7 srcS9jRAi8ONqzrVV8IBZy bV2tTW3pojvqk6mcPPybKD kiXJPabeI4nyS5VPQyqIIs W0NacG4wYJDzVP6yfqsbe6 pnUBR6MRanPXGpVXW6JnZu HGJrl2Nnzvj4UhMme0BaiV ObPTbyV63kq497VIUapkRg E6lpiYCjrixskABwahmrRW cxuoQ4BBHbUWRaLUsiWGZw XGZzMjJcbGFuZzEwMzNcaG ljaFxmMVxkYmNoXGYxXGxv T1pyIfHnR8ToRAQmAtIcFZ faRPnumKUpfTFxkBK2hT8s DK5mTKKhcSYnQ6GlEJOszw FsdITtAGV9vDOurANzPK4l SEmybPQfi3nqv4OiT5mngS fgiVM4FK5gGETsDMUxWOfy u3ErrV7tDlafoLOatrjqQA xmczIyXGxhbmcxMDMzXGhp C8hiUaVgQQZchSpcBOemo6 NoXGYxXGNmMlxmczIyXGx0 cmNoXHBhclxwYXJccGxhaW 8tGkYiOjEoKqniJQ6zICWc T8petTXuPVFzVPTlL1zeVe ZuiG4jmMsgSXctChOiEvQs VnGVp053yd0fECYraAIjab ECuYOvnB8dWCeaTFlpMVzg cRYcRXuic6soFWPro7x4wH PaUNCcguMny9qtWTvnkfUk FKJqsUOydTDmPZYwd92cLK qnyPxfgSeaYDEco8YcqEam y2QwTbQlSVmqr2ZtS19zkJ JvbCBzbGlkZXMgcnVuIGFs q13mc0czLJPzZlK9cIDiqA H2bCYpjNKfc5EeaVtcXDDt r5fwALYavn6yzgaygXYvp3 LzeN2lfcsgQWrifBTqvxUz ODIrf3u8xXDcTFNdTTXmKA rkrPh2ICBgd230ro8mhyW0 rTFdHPD9WBmkXDEpQSAeky UgZXZhbHVhdGVkXHBsYWlu XGYxXGZzMjJcbGFuZzEwMz NcaGljaFxmMVxkYmNoXGYx XEfrK8vbHhIyD1LzPXUbBu JvxRBiP0qyhZUzXYNoNEiv XGYxXGZzMjJcbGFuZzEwMz NcaGljaFxmMVxkYmNoXGYx HZdaH3crRcSeG3XgSFPyPh IgIFxwbGFpblxmMVxmczIy FMgdcssgITHlMOaaP1mpHk XgVJNodYviUUmqb7LgRAFg OLStTptysjQvFMl6nlJpGD BhclxwbGFpblxmMVxmczIy NKruajvxIABiFOsxU7pbBi XtAYIecXlaVGgnn4BnXEJb XGNmMlxmczIyIEltbXVub2 kdm7JrI7ufwSrseTP6RVIm X3rhdPLxrXS3WOC8mK4cUH ugurJzVIWqv6BnBVYzQECk VeD9tZ1iQUH3CwDUbYniYH BsYWluXGYxXGZzMjJcbGFu ZzEwMzNcaGljaFxmMVxkYm TbYLAyGQrrE9muGbIgY0Ri TBBrTiFhrNvhYBhcFOe0Ya xwbGFpblxmMVxmczIyXGxh jwrgAQSpZQgyD2tnFxVuJN AntWhoWNoge9NmYOApHGFk MlxmczIyIHMgTWVkaWNhbC BBOF73MHQvNFUbdCkvlX5q qBBROAOfzwJ3v8E9RNbjHK AtNXi1EAkjfrFsWGWesF8h HMWqZL7iKNu3muIaKBPnt0 JiAJ7vCINvgRCwTIV9SHTx r6QqZ0Nfu5HtPZSuQBBmoy 8hdyVxUyCQfFHtHEBssq81 GNDaUA2vJ4rfTLSeENBanf MxvCWoo4KuHEIpyLZ8gVRm YS1LPkCJp31wBWRnETVUjo BiJAVzzDtpeYS4peC2nB1w LiBUaGUgRkRBIGhhcyBkZX Utok4wcmQuKKJsUALar2Qm vVJbgHZdefFyZ6Pgi0CtFL Kxay08AFfmhFFgym04UU9z F2Xkw1ArxK5vHKrdDHVbn0 IdyREkgCGgFUSoh1XvU1ny zrtyATqphEOrrF3rHXQeWE p0YGLxm1CoZVTks5MlKgHo fyWfBXHgNYNzUIKxvQ77FO E3bKiauGcpauZnZN4eQPSa qxIwAXOxWXIfpT6rKIqttx DtJDMfbgA0l6C4JJzlETEt hhDyYwloXTV6btWqnxY1dT NmL6aqzuzxDJsdGJGuj9Sr fU5acGVNeMRah3EhuJIqnF MFaGTrGG2sbbAmPK1oJVI0 ODggKENMSUEtODgpIGFzIH G0FUoxGqvxUCZ1okSeTWFl k6DpIVocZ6elN13meNxgrA s8lTAinEyseRBogEGoRVKi jjJ1k2B9BKKas9WtqzsjHI BsYWluXGYyXGZzMjJcbGFu ZzEwMzNcaGljaFxmMlxkYm HbNWZcLYywU9edOhFhUcWz KjkqRRX3fP== Gross assessment was [facility] performed at ([facility], = 2777) Department of Pathology, [address] [place] [id number], Technical component was [facility] performed at ([facility], = 2778) Department of Pathology, [address] [place] [id number], Professional component [facility] was performed at ([facility], code = 2779) Department of Pathology, [address] [place] [address], [facility] [id number] 08:35:43 Test Item Value Reference Range Interpretation Comments Case Report (test code Surgical Pathology = 104) Report Case: [id number] Authorizing Provider: Nory Doll, Collected: 02/28/2022 11:03 AM Ordering Location: [address] Received: 03/01/2022 07:57 AM Service Pathologist: Irma Fermin MD Specimen: Biopsy, Gastric, random gastric bx r/o H. pylori DIAGNOSIS (test code = [id number]) FuZzEwMzNcZnRuYmpcdWMx IHtccnRmMVxlcGljOTYwMl txwxQnEAMibSKpC8Ggafml IIdtPB3qFI2rwExztMMybT VlHWLvXhLgu7lwc300fCVl z9oeTZZNwjrijBa3zHkpG8 2pz5E1QbfcO02ftOQvGMD1 AGDqJSGypLHmBYBwTIF8YQ ArvYHtU9dtUVWcCN1xznvh TWydSLbaYYOvbDC1PRZfsO MxJ1XcJRPmERyeJUCfmut8 QwIpIe6kyVVriJegBDlgIK QvZOGfQUmjDNUfArTrFZ5b FTnRX9LEMUOvYRCFOjVBNQ UWBO0KD3curYpeGENmXQYH JJC4suiiTB29pC83wROuQD 6wHNTnfvBvdO8arXpwNDGw aUBao9Mxk4o3bOUzkMKzrZ VhPQBahs4ruOEoROE8sIZi GRphm3VrrNWko9biyG8kIC VhVW6nU2V8bRNsZOBhngNs dlUfi8DffkKnSX4pcOXknA ItmUDty2DgNRdmzLhij0uu CMkeapAjWC4NgO12is9dsC W7a9EeUT5tB3GbAVG0OYtl IGZvciBILiBweWxvcmkgaX MgbmVnYXRpdmUgKHNlZSBj k98eOS56VIzeLAZ7b8vmwJ YxXHNzdGUxODAwMFxhbnNp TZKbVftiygeqYPMkXZT4ni TtLXVbFGwnQLBpMQcrDp7o tCKjeGarUoYrMVDny0mfxs GRrdlluXt1z1meRVGzReE6 aBZrDSuyO9snvlTchGCbWI EjJOj1dF65IRWmzX0maATl NWpxunVuFgU6TPepSJVsCd Y4FRCcaRSpUZLiS0vdPCUz XZhnYLMaOAmwlCKoNVK5pN zeq1Y2lHRlzILicUgxEjBr CdHuPlZCq7VnJUz2rPjrC7 WyERKjXhY3dPSdNQCxENeb JEMqSQOgxrI3mW33IKkiau R8aFIcb2Ewm32st039aZ8r mXLyJGI2VIEfOYItzCViSM YsYBT2UKMsdJFjL0ltPFVj UI2uuztbXMjoQVjkBSIupY W9NZRquKMqT8XcUWMlPHfp FOUikxn0RrKtMt7ndASsgB stTHhxa4zhb2ixqWTfLun2 MVOtNgQhQpvyJUhwn3Gci8 cdZIBqzd4zDAU8pDLfxIpb w0H9zFRcHQLxjAUxIBSiGE 8sqKKqFEYtjT3rwcopQRVs YnJkcmhlYWRccGdicmRyZm 1urDdjWON7RSdsS9fqgM4q VyI9UIxiK7cyqP2uXRj3EV ayCKGfoEA3krL8ELItrNUx S0JsxH7sZDEvZC8atuo9t4 beASP8AQgzYBHaSgV6xyC6 NDBcaGVhZGVyeTcyMFxmb2 89KKV1UrYzSEWyp1FtV6Fy zUsxV96idQkbW41cOWRviX albE1drBwppN8jOfQbBqRt NHtqjLsbBO1lNLKzW3nugE WdWYAlUHBbQ6cwJpUoeF7p aHdaUOutdgOeQUGnUai7ZG VunARiINQcKef3QGPgCTMq S50tdhkbCPU6oA0ca9lzp7 VnQFwaDRC9QWGqk56vIRoj anJ5KVudPp28RFsnXRB9HK vzSFM8fM== COMMENT (test code = u0eltYUkWGJbgSN9RsObMB 0728) Clf2zvs5FieISfxFEyTZei hFFuenFvfx62dAZ1xP90OK 4aRZEvAxB3GEDpqrX6Bky9 HIPjZDQuwUGoU148c5lpw7 vvedWmhHW9rCilVDZgpfpa MbW3ZXukLNRlnjknKBn6BC hxGSNdsQO5CCEwbDVwB2Cn BGPwTQ0rzth4IFG5CCnzDL NpUzP6VIDnvSLuDFJcdKve IApcf902ANF1BiWqXQCenr XqjBpyxJ2sZcEnMRDIM10E DE4IHmsxCZuceqKkxOCbip SfQGXly4RqPK9oMU4vjnHx SEDpNyacFHH0ABlyiH9ePJ 6usZElJU0aVGivgWPxs2ew l1VkM0pwyHooPTqpx9WymL 3ok4jtJ8zwtBQrF90so7ck MKRtMSOvRDeafCm8WF0qVR mrj2S1NMTshY0dtVFhHBAf GSDjorObcEg7QUGuST7euO zcMaTeED4ai4OlOdTdAYov rKRuELUeVR4tRKhnUOCwhN 6mD2LceRmvg5DhdItbaJ82 luPqj6NbHXklsScjquE6rY CbJANaLPY5zXI6MOB6XE9b ZBS5e59zRZCenYsmKK9gwC VzliVon61xWK8fAXMcTKRD heOdr3QmwJdyviTsx1X8CJ Tzcrjch4ZjCYGmab2= CPT Code(s) (test code v2znhUZhRONppJS4JgOdAE = 3357) Tsg2vly8ZofHYkePEuNYmb dHHqryEkpc41nCF9aB22TR 3oLAWlFbP8NWIvctI6Edd9 WMPoTXKxyLFsK783i4yno3 tocjGhwQM2cWoxDWQlktnt VyR4HRmuRZWcqevqQHw9TB fsRVQhgLH9SGRhjZRqK9To DFRbNQ5ilpd2SGP0VBbpZN PrQyQ7YKUxmCJmZFFlxSio JFfti625FBB0RzImCSSika BqjHwsjO8hEaCxKRK0FKTd YGlwxM5nKWf6GeNhENVsfp 0= CLINICAL HISTORY (test d8ijrORzDQIznAP6WpMnMA code = 3356) Pfu0rqa8QviEQpdJUgKRid yMKladRdqw02fUR4vP96UM 2vFOCyUiM3NHIjyqW0Fzp8 CYXmCPUuhCGrY504o6fex9 drwjRjbYX2kZaxSVJplwot SlE4LImdNHYhmkqmOQx5XT qeOBWzpVI8ZIZqtQCjT4Ey APUeVG4vsza8OCQ9EYxwKF ViTsG3EKZddCIhOBKvdSgy AYeqk668MNP1DcByJJFoby JphPsdhS6hYiKbHDLADYQ2 wt0wflPny0JmmaAnBZiguT 4nscoeN0QhLFAfc4MjEATy TXK4iUNeUWcbk9NyrDPkj2 xwYXJ9 GROSS DESCRIPTION (test t2fucXQqNEAixNSLWFIcN9 code = [id number]) hsivJwHBTmkRTnT8Nhulrn HLxfBR5mCO0hwKcvxENsuU YlVC8MYGDqOnRwCOIyjSIj alKuIjXlVFBilBLzdFM0OY AkDG4dvocpVJrhENsoCJOm gjQ8VXXluJRvX9YsZZVzED 3uhdbmCZZ2OWmrxV2xrjVF PqegFz0ywAHvjSkmInTbJx NoYXJzZXQwXGZuaWwgQXJp QOj6tC8EPuuwN24jw2S6Br z4NQAjQCUlM0ZzZD7tLQLi kZCvT20DYyotESE0JBKTFk vcDKTlLF3Qi9ozHMSpsIMl CPY5DJrnfLVfOBIhDBBmEK y5NQAbFTghzLDyKR7tgFfr OpvsoDjyx3NqmEArQZneIT OxTTZyWWuyNDBcOQ5OBlVr GIXiOHY5PKOuVFn1YGp0HF 9WUyAiICAzMTkxNTAyMCIg ACc7TUkyJT8FERH6Emu6Uq H6CeG6VFW6REHoECOfDrSu XGYgQXJpYWwgXFxmbCBcXG 3kkJvveSWikeBKKiEYhI0r y5thWOmht2FznMFyKZIwnw ANClxlcGljTmVzdERvYzEg DQpcbHRycGFyXGxpbjBccm luMCANClxsdHJjaFxjZjFc ZnMyMCBSZWNlaXZlZCBpbi Fso1JjKRrwbqYnXTCmmYPj IHdpdGggdGhlIHBhdGllbn VsK2V2ruClRV2dJQNyVGJc K5AdZCPkC63qFDCatN3kVT ZeYV4lZJb9ZZCsLURhIxng GguufKR0TWJaJEL1haxkCX 5leHQgYXJlIDMgdGFuIHNv JoTkbOazt6WoWBPsXWgiMS 01mdHvBI0moN3eBUPfWj2g PxKpF40lo3OmxGi8sJWpJW dmNVYixQ0zjH9mEFLhBBGd ciANClxwYXIgDQpDaGVsc2 VhIEdyYXVuLCBNSFMsIFBB LNdOR0GGZPKuYTMlnkCAMv auNENyRYjjB8ShVBScHxJt GRlatGateW3xSMIhH79ne5 JIg0EeHBGjEHnmn8gatQhn j3PouQDyYZjkHRUhrDJsFW hboW5gFxVzz7anwWi5IXvv kvH4YNGbff6PYscaaO2fCo Niw3wofZf4ZTYWRdxavrU3 z7evfHjmy2MedIBuQU2NSq 0= MICROSCOPIC DESCRIPTION g4wypOWuJQAkyOY6FsSoNN (test code = 3371) Hfj6pov8TikMEopRHfLQig xLQracOyug74dHU8nO09PO 3mOWCtLmS0TWXmboA2Fky7 LOTeECNygPVyL312t2glm4 oylqMrkUV8oMrqHPLerjqz RiO3GYtjRAUrngetIHp0CR pqMNNinDH5OPFecZWjR8Gu FOHcVB2eplo1IQF8SWxmJA NhLmO5ISGefDXqPIDmzEhy BYlbf665AGR8YoAyELDqlm SxdAjtkH6iUiWqWWBFKUAk t5DzMHVsaTTcuW== SPECIAL STUDIES (test g6scfFJuGKAkr4ilWBZogL code = 3376) FuZzEwMzNcZnRuYmpcdWMx XPgkeqGwTLifk4XdQ5CyMd AwMFxhbnNpXGRlZmxhbmcx UYGjGBA5qcCsNAHzVIrnNP JrSMfzGl7rhSRwkMibWkFh FKPjx8qoalMIzjignSn6y3 bbALOuTpJ3qQAsKAgnJ3xg icMxfQQeT7SxhDNpsGd4t2 azGfAqNzB0yQKzIRhtN4vb cqSyyLQdPPZxFRy6dH96TR RxrJ2lmDHnUZprejCsZcL3 VZzdLCGzUnH5SOBltNUmWY CnN5mpDDGfDNfqMQLcPQfw lEJhNBE9qNjeu8B4fZRudC IhcRoePpObGsRrUcDMk1Oc PMv4nPuyM5AlWQCpOmC2gB QgUGFyYWdyYXBoIEZvbnQ7 dDunzhAtb30fmVHfMFIbTI FpAlKamUjcEZYsEWYLg2Vg iAadRIA7gPk8cSygDesgAD L9Wgc2FN3abw89kxp5xAky PFKdwpmfMlV0MXcmCZPhmr tdUGg5UUxrDEFwpMR2ISNl iXJlF0MyDGAyYD0vxoz7UA R0ENjkSTMcPdP0CZUhjCQo BYNsyBavGAeqa124TGO8Ge OnQM1jJ8Xfg7Q9tS3tsXSt RDHsmFFmUxHkPLAmwo5brA UwYZhax3UgHCY0erI5tCHx vOKuNSVhMZ30Amwwo8QuNr pri7QqZ30eoMI5RScrx5xh EK7rBlR9dhOeRAhyu2mfnT 7pJgE4MZxiLX5wOA9eJUZg dB3vzfdfYPXxYnExezliFI XxdWcyhjSpIo0lpQioLES8 KXsaA1zezW1iIhI8ATqaK5 sihG8aMFt2HJlnlAC4BQYy cP0xXQ0mtlawx8ybINsiGD etFDPstfS9daH4SMLuqHYw T5SzbN1gTHToDY4wvpxzv6 ntARO6WUfuXKDxXDT0GqRv IPLer1Xxbfq4UeWhr4UqoL FcYVktS62ue166FNJqrtLx H3jtnGJpfrbjuKUuaeryFQ ysceO9WEMiYVXiQYlzWHDo XGZzMjJcbGFuZzEwMzNcaG ljaFxmMVxkYmNoXGYxXGxv A2kdFtPiQ7TmQYMuUwGwQW ycKYyqnDLyiREvmMK9lK0r XB1jAURqmNYmL9RrVOKfzg ZdwMYhLNH2bZHyzHSrFD6k QHhgaESmq0own0LpM2skuC gjeFS7ZS3tJHZhYNMsSGfq y5PyfB9mRvgcwIZeqoqfQR xmczIyXGxhbmcxMDMzXGhp N7fvPtUbEFCqcXoeHWviz4 NoXGYxXGNmMlxmczIyXGx0 cmNoXHBhclxwYXJccGxhaW 4oQpCzOjTtNgfwRB6mAFQa M8hmrSQmPRLdFEXoH5kgEl IizS0snYjsWQvzDfNlDvXf FoZPp456fr3gSNEcpOXatm CSxYPhpJ5sVLnoLNyxTWvy cNXtSJzek8pwMBNln9r5bD GmPPQnblJsk1rgBSwyvjHm CARwoCWriQThEZDki86oVU kjxEvfxPgmYHNbq5WjjPho e5QjRxLvNXpun5WlE08fkZ JvbCBzbGlkZXMgcnVuIGFs p92dl6tkHYJcVhI7nIQdaU A3hYPmvEXpl3NlqKnwAYOt p8esSXSrhw4fejqwgDCmz3 MllN9jdjnaAMkkuRZhseVp CXAyj4b6eFJmQAFzWGCvHD wjcTq5JMFpv876wh7cehZ2 uVNdIDN4WQncDBFhHXSkdi UgZXZhbHVhdGVkXHBsYWlu XGYxXGZzMjJcbGFuZzEwMz NcaGljaFxmMVxkYmNoXGYx OSthY5rtKzBoS7UcDVZyGh JfwLWqR3vtuEEjCLTgUWfn XGYxXGZzMjJcbGFuZzEwMz NcaGljaFxmMVxkYmNoXGYx SCeyQ1znBxIbQ3CgQEIwRs IgIFxwbGFpblxmMVxmczIy FShrbeiuGDOxOJdmK3hxYo DgEKQzpYhsUIlgh4YpKTWq IDQzRsrucdBpFZy1tzFwML BhclxwbGFpblxmMVxmczIy IHvmbtxvLPYmAWmtU3gzJe JlJTMfaTayCEhmi5EbGMNz XGNmMlxmczIyIEltbXVub2 dii1EwU6emdGofrPI0QDGs R4qcnUKlqNL7BOD6vS5hKC yroeMuSYOzg9BbVOQoNDJn UkV7rT3qMCV9KoEKkHhkRB BsYWluXGYxXGZzMjJcbGFu ZzEwMzNcaGljaFxmMVxkYm RhQOVgQTszZ8awHkOiV3Ju OYCjDvHlhNfhYPzxWOl0Vi xwbGFpblxmMVxmczIyXGxh eaaqRZIxTJgrG5kgUgTfGZ RulVlgMFhsu4BvVLWlUUYo MlxmczIyIHMgTWVkaWNhbC BLTP98KXVqVDGlqEzgbS6g xYBXFTJtilJ1w1G9NFrpIA ZjGMt7SYyjgxQjUUIygP1r TATyKT4rXMo5ptKuSMKvj0 AtGG9iVHBejYFcABC0ZGFo c5PjV4Scf3TyYKLaTHSrgq 4wdrFjNwFHoNMgBYRefl63 DYMwKG2xH6abQTHiVSLcck IgnMWie3KcVOWhgVI2hXZb OB6SCkVVe05lAWBxFQKOhn NkLQFobJqyeTN3oyH7dW7h LiBUaGUgRkRBIGhhcyBkZX Fapg2qbzLuFYCkLCGgn2Ot uWQaxMAcwzTmX8Miz3KxLX Btbn69UXlrpXNldl19VK7y Z6Svb5OgvF6kYDxdCWSsd8 HnpJDvnWLvLCHmm4YaW8ee eimuWWqoqOXywY6mGVSfPT l7FEJmp5FtORRme0RmYwBe bmNdAUGiQWQgFLJbxS57OJ W5jZxhbDgtsaCtUY1oNBCu pgXaOUBbYPQnuM9hGXftxn DiMVFdtrP2u4K3MYogHVCb uaZsXuboHYD0urWhkfC1uG PyH2yagjbaRAutRAUfu2Wr mZ9neUMNrXHro7FbeKNolE JGcJZlFC9wbjJeWO4mYAQ1 ODggKENMSUEtODgpIGFzIH I7HShxPngzWCI7sdRrBEEf k6EgHKmfK8rhZ90rxQvziV k2sKDzqOesbTIbvIMeSWXd feC2s6B9WXNcx0IqfmelFB BsYWluXGYyXGZzMjJcbGFu ZzEwMzNcaGljaFxmMlxkYm HrLTSlWMltY0ohKfRwHxBg KgzoCXD9dL== Gross assessment was [facility] performed at ([facility], = 2579) Department of Pathology, [address] [place] [address], Technical component was [facility] performed at ([facility], = 9892) Department of Pathology, [address] [place] [address], Professional component [facility] was performed at ([facility], code = 2779) Department of Pathology, [address] [place] [address], [place] [address], [facility] [id number] 08:35:43Surgical Pathology Report Case: [id number] Authorizing Provider: Nory Doll, Collected:02/28/2022 11:03 AM Ordering Location: [address] Received: 03/01/2022 07:57 AM Service Pathologist: Irma Fermin MD Specimen: Biopsy, Gastric, random gastric bx r/o H. pylori A. GASTRIC, RANDOM BIOPSY - Gastric oxyntic and antrum type mucosa with diffuse chronic active gastritis - Negative for intestinal metaplasia or dysplasia -Immunohistochemical stain for H. pylori is negative (see comment) Signing Pathologist Direct Phone Line: [phone] signed by Irma Fermin MD on 03/03/2022 at 8:35 AMCOMMENTS: There is rare foci of nonspecific staining noted on immunohistoche mical stain which is considered negative. However most nutrition representative sampling cannot be excluded and if clinically suspicious correlation with breath test or stool antigen is recommended. Endoscopy report [id number] hemorrhage associated with gastritisA. Biopsy, Gastric.Received in [...] evaluated Immunohistochemistry technical testing was performed at [facility], Pathology Laboratory where it was developed [...] qualified to perform high complexity clinical laboratory testing.[facility], Department ofPathology, [address] [place] [address], [facility], [facility] of Pathology, [address] [place] [address], [facility], Department of Pathology, [address] [place] [address], [id number], BLOOD 2022-03-03 08:35:14 Test Item Value Reference Range Interpretation Comments PHOSPHATIDYLETHANOL (PETH) See scanned (test code = 5664213) report See scanned reportHEPATITIS C PCR, [id number] 13:32:02 Test Item Value Reference Range Interpretation Comments HCV RESULT COMPONENT HCV RNA not detected HCV RNA not detected (BEAKER) (test code = 2699) This test uses a Real-Time Polymerase Chain Reaction (RT-PCR) methodology and was performed using JOSSELINE Ampliprep/JOSSELINE TaqMan HCV test kit version 2.0 ([employer]).Reportable range for this assay is [...] 103 mg/dL 70-110 : TE STED AT [facility] code = 1538) [address] [place] [address], [facility] 30: Software Engineer/Techni king ID = [id number] for Catrina Moreira Lab Interpretation (test Normal code = 96187-6) [facility] [id number] 08:12:54 Test Item Value Reference Range Interpretation Comments POC-Glucose Meter (test 103 mg/dL 70-110 : TE STED AT [facility] code = 1538) [facility] MILY [facility], 770 30: Software Engineer/Techni king ID = [id number] for Catrina Moreira Lab Interpretation (test Normal code = 77304-6) [facility] [id number] 08:12:54 Test Item Value Reference Range Interpretation Comments POC-GLUCOSE METER 103 mg/dL 70-110 : TESTED A T [facility] 6720 (BEAKER) (test code = LISA Vu [facility], 1538) [address]: Software Engineer/Techni king ID = [id number] for Catrina Raza COMPREHENSIVE METABOLIC [id number] 06:12:16 Test Item Value Reference Range Interpretation [...] (test code = 347) EGFR (BEAKER) 90 Interpretati on of eGFR (test code = 1092) mL/min/1.73 [...] not appl icable for dialysis patien ts Software Engineer ID - MARCOCBC (HEMOGRAM ONLY)2022-03-01 05:40:54 Test [...] 0-0 (test code = 413) HEMOGLOBIN AND [id number] 17:38:59 Test Item Value Reference Range Interpretation Comments HEMOGLOBIN (BEAKER) (test code = 9.2 GM/DL 11.2-15.7 L 410) HEMATOCRIT (BEAKER) (test code = 27.7 % 34.1-44.9 L 411) Software Engineer ID - [id number] ID - [id number] A ANTIBODY, [id number] 13:49:23 Test Item Value Reference Range Interpretation Comments HEPATITIS A IGG ANTIBODY (BEAKER) Reactive Nonreactive A (test code = 2797) Software Engineer ID - MATEUS LCBC (HEMOGRAM ONLY)2022-02-28 06:10:17 [...] 0-0 (test code = 413) COMPREHENSIVE METABOLIC [id number] 05:57:41 Test Item Value Reference Range Interpretation [...] not appl icable for dialysis patien ts Software Engineer ID - MARCOPROTHROMBIN TIME/[id number] 05:31:42 Test Item Value Reference Range Interpretation Comments PROTIME (BEAKER) 21.9 seconds 11.9-14.2 H (test code = 759) INR (BEAKER) (test 1.97 See_Comment [Automat ed message] code = 370) The system [email or web address] generated this result transmitted ref erence range: <=5.90. The reference range was not used to int erpret this result as normal/abnormal . RECOMMENDED COUMADIN/WARFARIN INR THERAPY RANGESSTANDARD DOSE: 2.0 - 3.0 Includes: PROPHYLAXIS for venous thrombosis, systemic embolization; TREATMENT for venous thrombosis and/or pulmonary embolus.HIGH RISK: Target INR is 2.5-3.5 for patients with mechanical heart valves.HEPATITIS B SURFACE [id number] 17:29:18 Test Item Value Reference Range Interpretation Comments HEPATITIS B SURFACE ANTIBODY < mIU/mL <8.0 (BEAKER) (test code = 647) Software Engineer ID Amberly RENEEPATITIS B CORE ANTIBODY, [id number] 17:28:42 Test Item Value Reference Range Interpretation Comments HEPATITIS B CORE TOTAL ANTIBODY Nonreactive Nonreactive (BEAKER) (test code = 497) Software Engineer ID - MATEUS LHIV-1 ANTIGEN WITH HIV-1/2 [id number] 17:28:42 Test Item Value Reference Range Interpretation Comments HIV-1 ANTIGEN WITH HIV 1\\T\\2 Nonreactive Nonreactive ANTIBODY (2) (BEAKER) (test code = 2586) Software Engineer ID Amberly RENEEPATITIS PANEL, [id number] 06:37:42 Test Item Value Reference Range Interpretation Comments HEPATITIS A IGM ANTIBODY (BEAKER) Nonreactive Nonreactive (test code = 498) HEPATITIS B CORE IGM ANTIBODY Nonreactive Nonreactive (BEAKER) (test code = 645) HEPATITIS C ANTIBODY (BEAKER) Reactive Nonreactive A (test code = 367) HEPATITIS B SURFACE ANTIGEN (2) Nonreactive Nonreactive (BEAKER) (test code = 2585) Software Engineer ID Amberly IGNACIO LIMMUNOGLOBULIN G (IGG)2022-02-27 06:12:34 Test Item Value Reference Range Interpretation Comments IMMUNOGLOBULIN G (IGG) 1669 mg/dL See_Comment [Aut omated message] (BEAKER) (test code = The sy stem which 427) generated this result transmit suzanne reference range : 540-1,822. The reference range was not used to interpret this result as normal/abnormal . Software Engineer ID - MATEUS [id number] 05:57:03 Test Item Value Reference Range Interpretation Comments FERRITIN (BEAKER) (test code = 39.77 ng/mL 5.00-275.00 361) Software Engineer ID - MARCOBASIC METABOLIC [id number] 05:45:07 Test Item Value Reference Range Interpretation [...] (test code = 697) EGFR (BEAKER) 90 Interpretati on of eGFR (test code = [...] not appl icable for dialysis patien ts Software Engineer ID - MATEUS LPROTHROMBIN TIME/[id number] 05:40:27 Test Item Value Reference Range Interpretation Comments PROTIME (BEAKER) 21.1 seconds 11.9-14.2 H (test code = 759) INR (BEAKER) (test 1.88 See_Comment [Automat ed message] code = 370) The system [email or web address] generated this result transmitted ref erence range: <=5.90. The reference range was not used to int erpret this result as normal/abnormal . RECOMMENDED COUMADIN/WARFARIN INR THERAPY RANGESSTANDARD DOSE: 2.0 - 3.0 Includes: PROPHYLAXIS for venous thrombosis, systemic embolization; TREATMENT for venous thrombosis and/or pulmonary embolus.HIGH RISK: Target INR is 2.5-3.5 for patients with mechanical heart valves.[id number] 05:40:04 Test Item Value Reference Range Interpretation Comments MAGNESIUM (BEAKER) (test code = 1.4 mg/dL 1.6-2.6 L 627) Software Engineer ID - MATEUS [id number] 05:40:04 Test Item Value Reference Range Interpretation Comments PHOSPHORUS (BEAKER) (test code = 2.0 mg/dL 2.3-4.7 L 604) Software Engineer ID - MATEUS LHEPATIC FUNCTION [id number] 05:40:04 Test Item Value Reference Range Interpretation [...] (test code = 26 U/L 6-55 347) Software Engineer ID - MATEUS [id number]-[id number] 05:38:43 Test Item Value Reference Range Interpretation Comments ALPHA-1 ANTITRYPSIN (BEAKER) 123.20 mg/dL 90.00-200.00 (test code = 502) Software Engineer ID - MATEUS ELAINE, TIBC, % SAT. (WITHOUT FERRITIN)2022-02-27 05:35:36 Test Item Value Reference Range Interpretation Comments IRON (BEAKER) (test code = 547) 19.0 ug/dL 40.0-160.0 L TOTAL IRON BINDING CAPACITY 243 ug/dL 250-450 L (BEAKER) (test code = 769) IRON % SATURATION (2) (BEAKER) 8 % 20-55 L (test code = 2590) Software Engineer ID - MARCOCBC W/PLT COUNT & AUTO [id number] 05:28:47 Test Item Value Reference Range Interpretation [...] 2801) Notes Date/Time Note Provider Source 2022-10-06 11:20:54 1930-43-12A54:20:54Formatting of [facility] this note might be different from the original.Patient here to establish care. She has a history of Gallbladder issues and difficulty with eating red meat. Reports that she has a history of elevated liver enzymes. [id number] [id number]:24:13Nurse [id number] .[id number] for patient vxtr13315-2Razop NoteLNKELOhio State [facility]ing Hospital[address] [facility].[id number]:24:131.2.840.1143 50.1.72.3.15|1.2.840.207424.1.13.1 [id number]
--- NOTE | 2023-01-16 21:46 | RAD REPORT ---
EXAM DESCRIPTION: CT - Abdomen Pelvis Wo Contrast - 01/16/2023 9:15 pm CLINICAL HISTORY: back pain , abdominal pain COMPARISON: Abdomen Pelvis W Contrast dated 09/22/2022; Abdomen Pelvis W Contrast dated 09/11/2022; Abdomen Pelvis Wo Contrast dated 07/01/2022; Abdomen Pelvis W Contrast dated 02/21/2022 TECHNIQUE: Thin cut axial CT imaging of the abdomen and pelvis was performed without IV contrast. Mu ltiplanar reformats were generated and reviewed. All CT scans are performed using dose optimization technique as appropriate and may include automated exposure control or mA/KV adjustment according to patient size. FINDINGS: No suspicious findings in the lung bases. The liver demonstrates a nodular contour and segmental atrophy suggesting cirrhosis. Spleen, adrenal glands, and pancreas show no suspicious findings. Gallbladder shows a large radiopaque stone near the neck. Fold at the fundus directed superiorly. Symmetric renal contour, without suspicious parenchymal findings within limits of noncontrast techniq ue. No evidence of radiopaque calculi or hydroureteronephrosis. No dilated bowel loops or bowel wall thickening. Colonic diverticulosis. No free air, free fluid or i nflammatory stranding. No hernia, mass or bulky lymphadenopathy. The urinary bladder is decompressed limiting evaluation. Uterus is retroverted. . No suspicious bony findings. IMPRESSION: No acute intra-abdominal process. Stable findings including hepatic cirrhosis, cholelithiasis, and colonic diverticulosis.
[2023-01-16 23:51] LABS: Hematocrit 31.1 % (36.0-45.0); Lymphocytes % 16.9 % (15.3-44.8); MCV 98.4 fL (80-100); MPV 7.7 fL (7.6-11.3); Platelets 137 thou/uL (152-406); RBC Red Blood Cell Count 3.16 M/uL (3.86-4.86)
[2023-01-16] MEDS ORDERED: MORPHINE 4 MG/ML SYR ONE (23:59)
[2023-01-17] LABS: Urine Bacteria <20 /HPF (<20); Urine Bilirubin NEGATIVE (Negative); Urine Blood 3+ (Negative); Urine Clarity Extremely Turbid (Clear); Urine Color Yellow (Yellow); Urine Glucose NEGATIVE (Negative); Urine Protein TRACE (Negative); Urine RBC <5 /HPF (None Seen); Urine Urobilinogen 2+ (Normal)
[2023-01-17] MEDS ORDERED: ONDANSETRON 4 MG/2 ML VIAL ONE
[2023-01-17] MEDS ORDERED: KETOROLAC 30 MG/ML INJ ONE
[2023-01-17] MEDS ORDERED: CEPHALEXIN 250 MG CAP ONE (00:48)
[2023-01-17 01:11] LABS: Albumin 2.1 g/dL (3.4-5.0); Bilirubin Total 2.7 mg/dL (0.2-1.0); Potassium 3.1 mEq/L (3.5-5.1); Protein, Total 6.5 g/dL (6.4-8.2)
--- NOTE | 2023-01-17 02:20 | EDPHYS ---
Physician Documentation [facility] Name: Sophia Joya Age: 62 yrs Sex: Female : 1960 Arrival Date: 01/16/2023 Time: 20:16 Bed 17 Private MD: ED Physician Sourav Garcia HPI: 01/16 20:24 This 62 yrs old Female presents to ER via Unassigned with complaints of Back sp4 Pain. 20:25 PMH - Historical: Allergies: Amoxicillin; Codeine; PENICILLINS; PMHx: HEP C; sp4 Hypertension; Cirrhosis of liver; PSHx: Ligation of fallopian tube; wrist. 20:34 Patient with history of hepatitis C, liver cirrhosis as well presents with acute onset sp4 of bilateral lower back pain starting 2 days ago. . Patient also reports some mild bilateral lower extremity swelling.. Historical: - Allergies: 21:39 Amoxicillin; pf1 21:39 Codeine; pf1 21:39 PENICILLINS; pf1 - PMHx: 21:39 cirrhosis of liver; HEP C; Hypertension; pf1 - PSHx: 21:39 Ligation of fallopian tube; wrist; pf1 - Immunization history:: Adult Immunizations up to date, Client reports receiving the 1st dose of the Covid vaccine, Last tetanus immunization: < 10 years ago Flu vaccine is up to date. - Social history:: Smoking status: Patient denies any tobacco usage or history of. Patient/guardian denies using alcohol, the patient reports quitting approximately 1 years ago. - Family history:: not pertinent. ROS: 20:34 Constitutional: Negative for fever, chills, and weight loss, positive for lower back sp4 pain, positive bilateral legs Eyes: Negative for injury, pain, redness, and discharge, 20:34 All other systems are negative, Exam: 20:34 Constitutional: This is a well developed, well nourished patient who is awake, alert, sp4 and in no acute distress. Head/Face: Normocephalic, atraumatic. Eyes: Pupils equal round and reactive to light, extra-ocular motions intact. Lids and lashes normal. Conjunctiva and sclera are not injected. Cornea within normal limits. Periorbital areas with no swelling, redness, or edema. ENT: Nares patent. No nasal discharge, no septal abnormalities noted. Tympanic membranes are normal and external auditory canals are clear. Oropharynx with no redness, swelling, or masses, exudates, or evidence of obstruction, uvula midline. Mucous membranes moist. Neck: Trachea midline, no thyromegaly or masses palpated, and no cervical lymphadenopathy. Supple, full range of motion without nuchal rigidity, or vertebral point tenderness. Chest/axilla: Normal chest wall appearance and motion. Nontender with no deformity. No lesions are appreciated. Cardiovascular: Regular rate and rhythm with a normal S1 and S2. No gallops, murmurs, or rubs. Normal PMI, no JVD. No pulse deficits. There is trace bilateral lower extremity edema without pitting Respiratory: Lungs have equal breath sounds bilaterally, clear to auscultation and percussion. No rales, rhonchi or wheezes noted. No increased work of breathing, no retractions or nasal flaring. Abdomen/GI: Soft, non-tender, with normal bowel sounds. No distension or tympany. No guarding or rebound. No evidence of tenderness throughout. Back: No spinal tenderness. No costovertebral tenderness. MS/ Extremity: Pulses equal, no cyanosis. Neurovascular intact. Full, normal range of motion. Neuro: Awake and alert, GCS 15, oriented to person, place, time, and situation. Cranial nerves II-XII grossly intact. Motor strength 5/5 in all extremities. Sensory grossly intact. Psych: Awake, alert, with orientation to person, place and time. Behavior, mood, and affect are within normal limits Vital Signs: 21:26 BP 122 / 65; Pulse 88; Resp 16; Temp 98.1; Pulse Ox 100% on R/A; Weight 61.23 kg; pf1 Height 4 ft. 9 in. ; Pain 9/10; 01/17 00:00 BP 110 / 48; Pulse 85; Resp 16; Pulse Ox 95% on R/A; jb4 00:30 BP 106 / 50; Pulse 86; Resp 16; Pulse Ox 96% on R/A; km8 01:00 BP 116 / 50; Pulse 82; Resp 16; Pulse Ox 95% on R/A; km8 01:30 BP 119 / 54; Pulse 83; Resp 16; Pulse Ox 95% on R/A; km8 02:00 BP 110 / 56; Pulse 79; Resp 16; Pulse Ox 95% on R/A; km8 01/16 21:26 Body Mass Index 29.21 (61.23 kg, 144.78 cm) pf1 01/16 21:26 Pain Scale: Adult pf1 MDM: 01/16 20:26 Patient medically screened. sp4 23:58 ED course: CT report - EXAM DESCRIPTION: CT - Abdomen Pelvis Wo Contrast - 01/16/2023 sp4 9:15 pm CLINICAL HISTORY: back pain , abdominal pain COMPARISON: Abdomen Pelvis W Contrast dated 09/22/2022; Abdomen Pelvis W Contrast dated 09/11/2022; Abdomen Pelvis Wo Contrast dated 07/01/2022; Abdomen Pelvis W Contrast dated 02/21/2022 TECHNIQUE: Thin cut axial CT imaging of the abdomen and pelvis was performed without IV contrast. Multiplanar reformats were generated and reviewed. All CT scans are performed using dose optimization technique as appropriate and may include automated exposure control or mA/KV adjustment according to patient size. FINDINGS: No suspicious findings in the lung bases. The liver demonstrates a nodular contour and segmental atrophy suggesting cirrhosis. Spleen, adrenal glands, and pancreas show no suspicious findings. Gallbladder shows a large radiopaque stone near the neck. Fold at the fundus directed superiorly. Symmetric renal contour, without suspicious parenchymal findings within limits of noncontrast technique. No evidence of radiopaque calculi or hydroureteronephrosis. No dilated bowel loops or bowel wall thickening. Colonic diverticulosis. No free air, free fluid or inflammatory stranding. No hernia, mass or bulky lymphadenopathy. The urinary bladder is decompressed limiting evaluation. Uterus is retroverted. . No suspicious bony findings. IMPRESSION: No acute intra-abdominal process. Stable findings including hepatic cirrhosis, cholelithiasis, and colonic diverticulosis.. 01/17 02:20 Differential diagnosis: Acute Hemolysis arthritis, Fatigue Neoplasm Scoliosis spinal sp4 injury. Data reviewed: vital signs, nurses notes, old medical records, lab test result(s), radiologic studies, CT scan. Consideration of Admission/Observation Escalation of care including admission/observation considered. 01/16 20:33 Order name: CBC with Diff; Complete Time: 23:58 sp4 01/16 20:33 Order name: CMP; Complete Time: 02:17 sp4 01/16 20:33 Order name: Lipase; Complete Time: 02:17 sp4 01/16 20:33 Order name: Urinalysis w/ reflexes; Complete Time: 00:26 sp4 01/16 20:34 Order name: BNP; Complete Time: 02:17 sp4 01/17 00:42 Order name: Urine Culture EDMS 01/16 20:33 Order name: CT Abd/Pelvis - Without Contrast; Complete Time: 22:55 sp4 01/16 20:33 Order name: IV Saline Lock; Complete Time: 23:54 sp4 01/16 20:33 Order name: Labs collected and sent; Complete Time: 23:54 sp4 Administered Medications: 01/16 23:54 Drug: TORadol - Ketorolac IVP 15 mg IVP once Route: IVP; Site: right forearm; jb4 23:54 Drug: Ondansetron IVP 4 mg IVP once; over 2 minutes Route: IVP; Site: right forearm; jb4 23:54 Drug: morphine IVP or IV 4 mg IVP once over 4 mins Route: IVP; Infused Over: 4 mins; jb4 Site: right forearm; 01/17 00:38 Drug: Cephalexin PO 500 mg PO once Route: PO; jb4 02:35 Not Given (Patient Refused): [id number] mg PO once jb4 02:35 Not Given (Patient Refused): [id number] mg PO once jb4 Disposition Summary: 01/17/23 02:18 Discharge Ordered Notes: Location: Home sp4 Problem: new sp4 Symptoms: have improved sp4 Condition: Stable sp4 Diagnosis - UTI/ Urinary tract infection, site not specified sp4 - Acute bilateral back pain, acute lower back pain, acute urinary tract infection, sp4 acute cystitis, history of liver cirrhosis Followup: sp4 - With: Private Physician - When: 7 - 10 days - Reason: Recheck today's complaints Discharge Instructions: - Discharge Summary Sheet sp4 - Urinary Tract Infection, Adult sp4 Forms: - Patient Portal Instructions sp4 Prescriptions: - Cephalexin 500 mg Oral Capsule - take 1 capsule ORAL route every 12 hours for 10 days; 20 capsule; Refills: 0, sp4 Product Selection Permitted - Ibuprofen 600 mg Oral Tablet - take 1 tablet ORAL route every 6 hours As needed take with food; 30 tablet; sp4 Refills: 0, Product Selection Permitted - Cyclobenzaprine 10 mg Oral Tablet - take 1 tablet ORAL route every 8 hours As needed; 30 tablet; Refills: 0, sp4 Product Selection Permitted - Tramadol 50 mg Oral tablet - take 1 tablet ORAL route every 8 hours as needed; 20 tablet; Refills: 0, sp4 Product Selection Permitted Signatures: Dispatcher [employer] Blaine Geller RN RN jb4 Maru May RN RN pf1 Sourav Garcia MD MD sp4
--- NOTE | 2023-01-17 02:20 | ER ---
Nurse's Notes [facility] Name: Sophia Joya Age: 62 yrs Sex: Female : 1960 Arrival Date: 01/16/2023 Time: 20:16 Bed 17 Private MD: Diagnosis: UTI/ Urinary tract infection, site not specified;Acute bilateral back pain, acute lower back pain, acute urinary tract infection, acute cystitis, history of liver cirrhosis Presentation: 01/16 21:26 Chief complaint: Patient states: right flank pain of 9,onset 2 days. Patient denies any pf1 N/V/D. Coronavirus screen: Vaccine status: Patient reports receiving the 1st dose of the Covid vaccine. Client denies travel out of the [place] in the last 14 days. At this time, the client does not indicate any symptoms associated with coronavirus-19. Ebola Screen: Patient negative for fever greater than or equal to 101.5 degrees Fahrenheit, and additional compatible Ebola Virus Disease symptoms. Initial Sepsis Screen: Does the patient meet any 2 criteria? No. Patient's initial sepsis screen is negative. Does the patient have a suspected source of infection? No. Patient's initial sepsis screen is negative. Risk Assessment: Do you want to hurt yourself or someone else? Patient reports no desire to harm self or others. 21:26 Method Of Arrival: Wheelchair pf1 21:26 Acuity: MARY 3 pf1 Triage Assessment: 20:55 General: called no answer x2. km8 Historical: - Allergies: 21:39 Amoxicillin; pf1 21:39 Codeine; pf1 21:39 PENICILLINS; pf1 - PMHx: 21:39 cirrhosis of liver; HEP C; Hypertension; pf1 - PSHx: 21:39 Ligation of fallopian tube; wrist; pf1 - Immunization history:: Adult Immunizations up to date, Client reports receiving the 1st dose of the Covid vaccine, Last tetanus immunization: < 10 years ago Flu vaccine is up to date. - Social history:: Smoking status: Patient denies any tobacco usage or history of. Patient/guardian denies using alcohol, the patient reports quitting approximately 1 years ago. - Family history:: not pertinent. Screenin/27 02:34 [facility] ED Fall Risk Assessment (Adult) History of falling in the last 3 months, jb4 including since admission No falls in past 3 months (0 pts) Confusion or Disorientation No (0 pts). Abuse screen: Denies threats or abuse. Nutritional screening: No deficits noted. Tuberculosis screening: No symptoms or risk factors identified. Assessment: 01/16 23:00 General: Appears in no apparent distress. uncomfortable, Behavior is calm, cooperative. jb4 Pain: Complains of pain in back Pain does not radiate. Pain currently is 9 out of 10 on a pain scale. Neuro: Level of Consciousness is awake, alert, obeys commands, Oriented to person, place, time, situation. Cardiovascular: Patient's skin is warm and dry. Respiratory: Airway is patent Respiratory effort is even, unlabored, Respiratory pattern is regular, symmetrical. GI: No signs and/or symptoms were reported involving the gastrointestinal system. : No signs and/or symptoms were reported regarding the genitourinary system. EENT: No signs and/or symptoms were reported regarding the EENT system. Derm: Skin is intact, Skin is pink, warm \T\ dry. Musculoskeletal: Circulation, motion, and sensation intact. Range of motion: intact in all extremities. 01/17 00:00 Reassessment: Pt resting in bed with eyes closed, family member at the bedside. jb4 Vital Signs: 01/16 21:26 BP 122 / 65; Pulse 88; Resp 16; Temp 98.1; Pulse Ox 100% on R/A; Weight 61.23 kg; pf1 Height 4 ft. 9 in. ; Pain 9/10; 01/17 00:00 BP 110 / 48; Pulse 85; Resp 16; Pulse Ox 95% on R/A; jb4 00:30 BP 106 / 50; Pulse 86; Resp 16; Pulse Ox 96% on R/A; km8 01:00 BP 116 / 50; Pulse 82; Resp 16; Pulse Ox 95% on R/A; km8 01:30 BP 119 / 54; Pulse 83; Resp 16; Pulse Ox 95% on R/A; km8 02:00 BP 110 / 56; Pulse 79; Resp 16; Pulse Ox 95% on R/A; km8 01/16 21:26 Body Mass Index 29.21 (61.23 kg, 144.78 cm) pf1 01/16 21:26 Pain Scale: Adult pf1 ED Course: 01/16 20:21 Patient arrived in ED. gm2 20:24 Sourav Garcia MD is Attending Physician. sp4 21:16 CT Abd/Pelvis - Without Contrast In Process Unspecified. EDMS 21:39 Triage completed. pf1 01/17 00:24 Blaine Whitman, RN is Primary Nurse. jb4 02:34 Patient has correct armband on for positive identification. Bed in low position. Call jb4 light in reach. Side rails up X 1. 02:34 No provider procedures requiring assistance completed. IV discontinued, intact, jb4 bleeding controlled, No redness/swelling at site. Pressure dressing applied. Administered Medications: 01/16 23:54 Drug: TORadol - Ketorolac IVP 15 mg IVP once Route: IVP; Site: right forearm; jb4 23:54 Drug: Ondansetron IVP 4 mg IVP once; over 2 minutes Route: IVP; Site: right forearm; jb4 23:54 Drug: morphine IVP or IV 4 mg IVP once over 4 mins Route: IVP; Infused Over: 4 mins; jb4 Site: right forearm; 01/17 00:38 Drug: Cephalexin PO 500 mg PO once Route: PO; jb4 02:35 Not Given (Patient Refused): mg PO once jb4 02:35 Not Given (Patient Refused): [id number] mg PO once jb4 Outcome: 02:18 Discharge ordered by . sp4 02:34 Discharged to home via wheelchair, with family, jb4 02:34 Condition: stable 02:34 Discharge instructions given to patient, Instructed on discharge instructions, follow up and referral plans. no drinking with medication, no driving heavy equipment, medication usage, Demonstrated understanding of instructions, follow-up care, medications, Prescriptions given X 4, 02:36 Patient left the ED. jb4 Signatures: Dispatcher [employer] EDMS Blaine Whitman, JOMAR HADLEY jb4 Maru May RN RN pf1 Sourav Garcia MD MD sp4 Melissa Pretty gm2 Ashley Mcdermott RN RN km8
[2023-01-17 03:29] VITALS: TEMP 98.1
[2023-01-17 03:32] VITALS: O2SAT 95
[2023-01-17 03:34] VITALS: BP 110/56
== END 2023-01-17 02:36 | disposition home or self-care (01) ==
LOC: ER 20:16
DX: N30.00 Acute cystitis without hematuria (principal); I10 Essential (primary) hypertension; K74.60 Unspecified cirrhosis of liver; Z86.19 Personal history of other infectious and parasitic diseases
CPT/HCPCS: 36415; 74176; 80053; 81001; 83690; 83880; 85025; 87077; 87086; 87088; 87186; 96374; 96375; 99284

== ENCOUNTER 2023-02-11 19:33 | Inpatient (IN) | payer OTHER ==
[2023-02-11] MEDS ORDERED: ONDANSETRON 4 MG/2 ML VIAL ONE (20:21)
[2023-02-11] MEDS ORDERED: MORPHINE 4 MG/ML SYR ONE (20:22)
[2023-02-11] MEDS ORDERED: NA CHLORIDE 0.9% 1,000 ML ONE (20:22)
[2023-02-11 20:25] LABS: Absolute Lymphocytes (CBC) 0.6 K/uL (0.7-4.9); Hematocrit 28.2 % (36.0-45.0); Lymphocytes % 5.2 % (15.3-44.8); MCV 98.9 fL (80-100); MPV 6.9 fL (7.6-11.3); Platelets 142 thou/uL (152-406); RBC Red Blood Cell Count 2.85 M/uL (3.86-4.86)
[2023-02-11 20:41] LABS: Albumin 1.5 g/dL (3.4-5.0); Bilirubin Total 3.4 mg/dL (0.2-1.0); Potassium 3.2 mEq/L (3.5-5.1); Protein, Total 6.9 g/dL (6.4-8.2)
--- NOTE | 2023-02-11 21:19 | RAD REPORT ---
EXAM DESCRIPTION: US - Abdomen Exam Limited - 02/11/2023 8:41 pm CLINICAL HISTORY: ABD PAIN COMPARISON: Abdomen Pelvis Wo Contrast dated 01/16/2023 TECHNIQUE: Sonographic grayscale and color flow images of the right upper abdominal quadrant were o btained. FINDINGS: Moderate to large volume ascites. The gallbladder demonstrates at least a single rounded gallstone measuring 14 mm. No pericholecystic fluid or gallbladder wall thickening, although partial gallbladder contraction and presence of asitus contribute to some mild apparent wall thickening. The common bile duct is normal measuring 5 mm. The liver demonstrates no findings of intrahepatic biliary dilatation. Shrunken liver with nodular co ntour suggestive of sequelae of cirrhosis. IMPRESSION: Cholelithiasis. Stigmata of cirrhosis with moderate to large volume ascites.
[2023-02-11 23:48] LABS: Anisocytosis SLIGHT; Blood Morphology Comment NOTED (NOT SEEN); Platelet Estimate ADEQ
--- NOTE | 2023-02-12 00:21 | EDPHYS ---
Physician Documentation [facility] Name: Sophia Joya Age: 63 yrs Sex: Female : 1960 Arrival Date: 02/11/2023 Time: 19:33 Bed 5 Private MD: ED Physician Alex Serrano HPI: 02/11 19:50 This 63 yrs old Female presents to ER via Unassigned with complaints of sb4 abdominal pain. 19:50 The patient presents with abdominal pain in the right upper quadrant. Onset: The sb4 symptoms/episode began/occurred today. The symptoms do not radiate. Associated signs and symptoms: none. diagnosed with cirrhosis and gallstones 2 weeks ago. states was feeling fine until today the pain returned. no n/v/d. Historical: - Allergies: 19:39 Amoxicillin; vc1 19:39 Codeine; vc1 19:39 PENICILLINS; vc1 - PMHx: 19:39 cirrhosis of liver; HEP C; Hypertension; vc1 - PSHx: 19:39 Ligation of fallopian tube; wrist; vc1 - Immunization history:: Client reports receiving the 2nd dose of the Covid vaccine. - Social history:: Smoking status: Patient denies any tobacco usage or history of. ROS: 19:50 Constitutional: Negative for fever, chills, and weight loss, sb4 19:50 Abdomen/GI: Positive for abdominal pain, 19:50 All other systems are negative, Exam: 19:50 Constitutional: This is a well developed, well nourished patient who is awake, alert, sb4 and in no acute distress. Head/Face: Normocephalic, atraumatic. Cardiovascular: Regular rate and rhythm with a normal S1 and S2. Respiratory: Lungs have equal breath sounds bilaterally, clear to auscultation and percussion. No rales, rhonchi or wheezes noted. No increased work of breathing, no retractions or nasal flaring. Skin: Warm, dry with normal turgor. Normal color with no rashes, no lesions, and no evidence of cellulitis. MS/ Extremity: Pulses equal, no cyanosis. Neurovascular intact. Full, normal range of motion. Neuro: Awake and alert, GCS 15, oriented to person, place, time, and situation. Motor strength 5/5 in all extremities. Sensory grossly intact. 19:50 Eyes: Sclera: icterus, is present, 19:50 Abdomen/GI: Inspection: abdomen appears normal, Bowel sounds: normal, Palpation: soft, mild abdominal tenderness, in the right upper quadrant, Vital Signs: 19:39 BP 120 / 73; Pulse 124; Resp 18; Temp 99; Pulse Ox 97% ; Weight 59.42 kg; Height 4 ft. vc1 9 in. ; Pain 10/10; 20:00 BP 121 / 73; Pulse 118; Resp 22; Pulse Ox 100% on R/A; km8 20:30 BP 109 / 71; Pulse 112; Resp 21; Pulse Ox 97% on R/A; km8 21:00 BP 106 / 70; Pulse 110; Resp 16; Pulse Ox 95% on R/A; km8 22:00 BP 108 / 63; Pulse 106; Resp 16; Pulse Ox 95% on R/A; km8 23:10 BP 120 / 73; Pulse 102; Resp 14; Pulse Ox 97% on R/A; km8 02/12 00:00 BP 114 / 71; Pulse 106; Pulse Ox 98% on R/A; km8 01:00 BP 134 / 92; Pulse 102; Pulse Ox 98% on R/A; km8 02/11 19:39 Body Mass Index 28.35 (59.42 kg, 144.78 cm) vc1 02/11 19:39 Pain Scale: Adult vc1 MDM: 02/11 19:42 Patient medically screened. sb4 19:50 Differential diagnosis: cholecystitis, Cholelithiasis, non-specific abd pain, sb4 pancreatitis. 02/12 00:19 Data reviewed: vital signs, nurses notes, lab test result(s), radiologic studies, I sb4 have discussed the patient's presentation/case with the attending Emergency Department Physician; and as a result, I will discharge patient. Care significantly affected by the following chronic conditions: Hypertension, Liver Disease. 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 02/11 19:44 Order name: CBC with Diff; Complete Time: 23:49 sb4 02/11 19:44 Order name: CMP; Complete Time: 20:48 sb4 02/11 19:44 Order name: Lipase; Complete Time: 20:48 sb4 02/11 23:49 Order name: Manual Differential; Complete Time: 23:49 EDMS 02/12 00:23 Order name: UAM; Complete Time: 17:00 sb4 02/12 00:24 Order name: Blood Culture Adult (2) sb4 02/12 00:25 Order name: Lactate w/ 2H reflex if indic.; Complete Time: 17:00 sb4 02/12 01:15 Order name: Basic Metabolic Panel EDMS 02/12 01:15 Order name: Basic Metabolic Panel EDMS 02/12 01:15 Order name: CBC with Automated Diff EDMS 02/12 01:15 Order name: CBC with Automated Diff EDMS 02/12 04:11 Order name: Lactate Sepsis 2 HR Follow-up; Complete Time: 17:00 EDMS 02/12 11:30 Order name: CBC with Automated Diff; Complete Time: 17:00 EDMS 02/12 12:08 Order name: Comprehensive Metabolic Panel; Complete Time: 17:00 EDMS 02/12 12:08 Order name: Bilirubin Direct; Complete Time: 17:00 EDMS 02/12 12:08 Order name: Magnesium; Complete Time: 17:00 EDMS 02/12 16:35 Order name: Glucose, Ancillary Testing; Complete Time: 17:00 EDMS 02/11 19:44 Order name: US Abdomen Limited; Complete Time: 21:21 sb4 02/11 21:22 Order name: CT Abd/Pelvis - IV Contrast Only sb4 02/11 19:44 Order name: IV Saline Lock; Complete Time: 20:21 sb4 02/11 19:44 Order name: Labs collected and sent; Complete Time: 20:21 sb4 Administered Medications: 02/11 20:28 Drug: NS 0.9% IV 1000 ml IV at 1 bolus Per protocol; 1000 mL bolus Route: IV; Rate: 1 km8 bolus; Site: right forearm; 22:24 Follow up: IV Status: Completed infusion; IV Intake: 1000ml km8 20:28 Drug: Ondansetron IVP 4 mg IVP once; over 2 minutes Route: IVP; Site: right forearm; km8 21:12 Follow up: Response: No adverse reaction; Nausea is decreased 20:28 Drug: morphine IVP or IV 4 mg IVP once over 4 mins Route: IVP; Infused Over: 4 mins; km8 Site: right forearm; 21:12 Follow up: Response: No adverse reaction; Pain is decreased 02/12 01:09 Drug: Cefepime IVPB 1 grams IVPB at 200 ml/hr once over 30 mins; (mix in NS 100 mL) 8 Route: IVPB; Rate: 200 ml/hr; Infused Over: 30 mins; Site: right forearm; 01:39 Follow up: IV Status: Completed infusion; IV Intake: 100ml vc1 Disposition Summary: 02/12/23 00:31 Hospitalization Ordered Notes: Hospitalization Status: Inpatient Admission sb4 Provider: Delfino Schilling sbAlvaro Condition: Fair(02/12/23 00:31) sb4 Problem: new(02/12/23 00:31) sb4 Symptoms: are unchanged(02/12/23 00:31) sb4 Bed/Room Type: Standard sb4 Location: Telemetry/MedSurg (Inpatient)(02/12/23 14:16) sp Room Assignment: 202(02/12/23 14:16) sp Diagnosis - Alcoholic cirrhosis of liver with ascites(02/12/23 00:31) sb4 - Sepsis of unknown origin sb4 Forms: - Medication Reconciliation Form sb4 - SBAR form sb4 - Leadership Thank You Letter sb4 Signatures: Dispatcher [employer] EDRosangela Pereyra James, RN RN jb4 Lottie Rosario RN RN vc1 Koki Yanez PA-C PA-C sb4 Ashley Mcdermott RN RN km8 Corrections: (The following items were deleted from the chart) 00:23 00:20 Home sb4 sb4 00:23 00:20 new sb4 sb4 00: 00:20 have improved sb4 sb4 00: 00:20 Stable sb4 sb4 00:23 00:20 Alcoholic cirrhosis of liver with ascites sb4 sb4 01:44 00:31 Telemetry/MedSurg (Inpatient) sb4 jb4 01:44 00:31 sb4 jb4 14:16 01:44 [facility] ER HOLD jb4 sp 14:16 01:44 ERHOLD- jb4 sp
--- NOTE | 2023-02-12 00:21 | ER ---
Nurse's Notes [facility] Name: Sophia Joya Age: 63 yrs Sex: Female : 1960 Arrival Date: 02/11/2023 Time: 19:33 Bed 5 Private MD: Diagnosis: Alcoholic cirrhosis of liver with ascites;Sepsis of unknown origin Presentation: 02/11 19:39 Chief complaint: EMS states: She was here with ya'll about 2 weeks ago with gallstones. vc1 She is complaining of right upper quadrant pain, worse with movement. 12 Lead showed sinus tach. 19:39 Chief complaint: Patient states: Was taking the Tramadol and Naproxen and they were vc1 helping but not anymore. Coronavirus screen: Vaccine status: Patient reports receiving the 2nd dose of the covid vaccine. Client denies travel out of the [place] in the last 14 days. At this time, the client does not indicate any symptoms associated with coronavirus-19. Ebola Screen: Patient negative for fever greater than or equal to 101.5 degrees Fahrenheit, and additional compatible Ebola Virus Disease symptoms Patient denies exposure to infectious person. Patient denies travel to an Ebola-affected area in the 21 days before illness onset. No symptoms or risks identified at this time. Initial Sepsis Screen: Does the patient meet any 2 criteria? No. Patient's initial sepsis screen is negative. Does the patient have a suspected source of infection? No. Patient's initial sepsis screen is negative. Risk Assessment: Do you want to hurt yourself or someone else? Patient reports no desire to harm self or others. Onset of symptoms was February 11, 2023. 19:39 Method Of Arrival: EMS: [facility] vc1 19:39 Acuity: MARY 3 vc1 Triage Assessment: 20:55 General: Appears in no apparent distress. uncomfortable, Behavior is cooperative, vc1 appropriate for age. Pain: Complains of pain in right upper quadrant Pain radiates to anterior aspect of right lateral abdomen Pain currently is 10 out of 10 on a pain scale. Quality of pain is described as sharp. EENT: No deficits noted. No signs and/or symptoms were reported regarding the EENT system. Neuro: Level of Consciousness is awake, alert, obeys commands, Oriented to person, place, time, situation, Appropriate for age. Cardiovascular: No deficits noted. Respiratory: Airway is patent Respiratory effort is even, unlabored, Respiratory pattern is regular, symmetrical. GI: Abdomen is distended, Reports upper abdominal pain. : No deficits noted. No signs and/or symptoms were reported regarding the genitourinary system. Derm: No deficits noted. No signs and/or symptoms reported regarding the dermatologic system. Musculoskeletal: No deficits noted. No signs and/or symptoms reported regarding the musculoskeletal system. Historical: - Allergies: 19:39 Amoxicillin; vc1 19:39 Codeine; vc1 19:39 PENICILLINS; vc1 - PMHx: 19:39 cirrhosis of liver; HEP C; Hypertension; vc1 - PSHx: 19:39 Ligation of fallopian tube; wrist; vc1 - Immunization history:: Client reports receiving the 2nd dose of the Covid vaccine. - Social history:: Smoking status: Patient denies any tobacco usage or history of. Screenin:54 [facility] ED Fall Risk Assessment (Adult) History of falling in the last 3 months, vc1 including since admission No falls in past 3 months (0 pts) Confusion or Disorientation No (0 pts) Intoxicated or Sedated No (0 pts) Impaired Gait No (0 pts) Mobility Assist Device Used No (0 pt) Altered Elimination No (0 pt) Score/Fall Risk Level 0 - 2 = Low Risk Oriented to surroundings, Maintained a safe environment, Educated pt \T\ family on fall prevention, incl call for assistance when getting out of bed. Abuse screen: Denies threats or abuse. Nutritional screening: No deficits noted. Tuberculosis screening: No symptoms or risk factors identified. Assessment: 21:12 Reassessment: Patient appears in no apparent distress at this time. Patient and/or km8 family updated on plan of care and expected duration. Pain level reassessed. Patient is alert, oriented x 3, equal unlabored respirations, skin warm/dry/pink. Patient states symptoms have improved. 22:24 Reassessment: Patient appears in no apparent distress at this time. No changes from km8 previously documented assessment. Patient and/or family updated on plan of care and expected duration. Pain level reassessed. Patient is alert, oriented x 3, equal unlabored respirations, skin warm/dry/pink. 23:15 Reassessment: Patient appears in no apparent distress at this time. No changes from km8 previously documented assessment. Patient and/or family updated on plan of care and expected duration. Pain level reassessed. Patient is alert, oriented x 3, equal unlabored respirations, skin warm/dry/pink. 02/12 00:19 Reassessment: Patient appears in no apparent distress at this time. No changes from km8 previously documented assessment. Patient and/or family updated on plan of care and expected duration. Pain level reassessed. Patient is alert, oriented x 3, equal unlabored respirations, skin warm/dry/pink. 01:05 Reassessment: Patient appears in no apparent distress at this time. No changes from km8 previously documented assessment. Patient and/or family updated on plan of care and expected duration. Pain level reassessed. Patient is alert, oriented x 3, equal unlabored respirations, skin warm/dry/pink. pt eating dinner at this time. 01:52 General: Daughter Nory Joya, [id number]. vc1 Vital Signs: 02/11 19:39 BP 120 / 73; Pulse 124; Resp 18; Temp 99; Pulse Ox 97% ; Weight 59.42 kg; Height 4 ft. vc1 9 in. ; Pain 10/10; 20:00 BP 121 / 73; Pulse 118; Resp 22; Pulse Ox 100% on R/A; km8 20:30 BP 109 / 71; Pulse 112; Resp 21; Pulse Ox 97% on R/A; km8 21:00 BP 106 / 70; Pulse 110; Resp 16; Pulse Ox 95% on R/A; km8 22:00 BP 108 / 63; Pulse 106; Resp 16; Pulse Ox 95% on R/A; km8 23:10 BP 120 / 73; Pulse 102; Resp 14; Pulse Ox 97% on R/A; km8 02/12 00:00 BP 114 / 71; Pulse 106; Pulse Ox 98% on R/A; km8 01:00 BP 134 / 92; Pulse 102; Pulse Ox 98% on R/A; km8 02/11 19:39 Body Mass Index 28.35 (59.42 kg, 144.78 cm) vc1 02/11 19:39 Pain Scale: Adult vc1 ED Course: 02/11 19:39 Patient arrived in ED. km8 19:42 Koki Yanez PA-C is PHCP. sb4 19:42 Alex Serrano MD is Attending Physician. sb4 20:33 Lottie Rosario, JOMAR is Primary Nurse. vc1 20:43 US Abdomen Limited In Process Unspecified. EDMS 20:51 Triage completed. vc1 20:53 Arm band placed on left wrist. vc1 20:56 Patient has correct armband on for positive identification. Bed in low position. Call vc1 light in reach. Client placed on continuous cardiac and pulse oximetry monitoring. NIBP monitoring applied. 22:41 CT Abd/Pelvis - IV Contrast Only In Process Unspecified. EDMS 02/12 00:20 Rodrigo Gee MD is Referral Physician. sb4 00:30 Delfino Schilling MD is Hospitalizing Provider. sb4 00:30 Provided Education on: safety, blood cultures. vc1 01:52 No provider procedures requiring assistance completed. Patient admitted, IV remains in vc1 place. Administered Medications: 02/11 20:28 Drug: NS 0.9% IV 1000 ml IV at 1 bolus Per protocol; 1000 mL bolus Route: IV; Rate: 1 km8 bolus; Site: right forearm; 22:24 Follow up: IV Status: Completed infusion; IV Intake: 1000ml [facility] 20:28 Drug: Ondansetron IVP 4 mg IVP once; over 2 minutes Route: IVP; Site: right forearm; [facility] 21:12 Follow up: Response: No adverse reaction; Nausea is decreased [facility] 20:28 Drug: morphine IVP or IV 4 mg IVP once over 4 mins Route: IVP; Infused Over: 4 mins; km8 Site: right forearm; 21:12 Follow up: Response: No adverse reaction; Pain is decreased [facility] 02/12 01:09 Drug: Cefepime IVPB 1 grams IVPB at 200 ml/hr once over 30 mins; (mix in NS 100 mL) km8 Route: IVPB; Rate: 200 ml/hr; Infused Over: 30 mins; Site: right forearm; 01:39 Follow up: IV Status: Completed infusion; IV Intake: 100ml vc1 Medication: 02/11 20:56 VIS not applicable for this client. vc1 Intake: 22:24 IV: 1000ml; Total: 1000ml. km 02/12 01:39 IV: 100ml; Total: 1100ml. vc1 Outcome: 00:20 Discharge ordered by . sb4 00:31 Decision to Hospitalize by Provider. sb4 01:52 Admitted to ER Hold. Please see [facility] for further documentation. vc1 01:52 Condition: stable 01:52 Instructed on the need for admit, 17:22 Patient left the ED. ap3 Signatures: Dispatcher [employer] EDMS Itzel August RN RN ap3 Lottie Rosario RN RN vc1 Koki Yanez PA-C PARobin sb4 Ashley Mcdermott RN RN km8
[2023-02-12] MEDS ORDERED: NA CHLORIDE 0.9% 100 ML ONE (00:58)
[2023-02-12] MEDS ORDERED: CEFEPIME 1 GM/VIAL ONE (00:59)
[2023-02-12 01:07] LABS: Urine Bacteria None Seen /HPF (<20); Urine Bilirubin NEGATIVE (Negative); Urine Blood Negative (Negative); Urine Clarity Clear (Clear); Urine Color Yellow (Yellow); Urine Glucose NEGATIVE (Negative); Urine Mucus Slight /HPF (None Seen); Urine Protein NEGATIVE (Negative); Urine RBC <5 /HPF (None Seen); Urine Urobilinogen Normal (Normal); Urine pH 6.5 (5.0-7.0)
[2023-02-12] MEDS ORDERED: ONDANSETRON 4 MG/2 ML VIAL IV PRN (01:07)
[2023-02-12] MEDS ORDERED: ACETAMINOPHEN 325 MG TABLET PO PRN (01:07)
--- NOTE | 2023-02-12 01:14 | P.HP ---
Certification for Inpatient Patient admitted to: Inpatient With expected LOS: >2 Midnights Practitioner: I am a practitioner with admitting privileges, knowledge of patient current condition, hospital course, and medical plan of care. Services: Services provided to patient in accordance with Admission requirements found in Title 42 Section 412.3 of the Code of Federal Regulations Patient History Date of Service: 02/12/23 Reason for admission: Suspected sepsis, abdominal pain, cholecystolithiasis. History of Present Illness: 63-year-old female patient with medical history significant for liver cirrhosis, hypertension was evaluated for episode of abdominal pain. She had complained of abdominal pain in the right upper area with associated with a feeling of nausea. No diarrhea reported. Imaging studies done in the ED was concerning for gallstones but there was no episode of cholecystitis as per imaging. She denied overt episode of fever, chills. Lab also revealed elevated. Bilirubin. She was pancultured and started on broad-spectrum antibiotic and she was put in for inpatient care. Allergies codeine Allergy (Verified 02/23/22 09:02) Itching/Hives/Rash Penicillins Allergy (Verified 02/23/22 09:02) Itching/Hives/Rash amoxicillin Adverse Reaction (Verified 02/23/22 09:02) Itching/Hives/Rash Home Medications: Albuterol Inhaler [Ventolin Inhaler*] 02/12/23 Cephalexin [Keflex] 500 mg PO BID 02/12/23 Levalbuterol Tartrate [Xopenex Hfa] 02/12/23 Naproxen 250 mg PO BID 02/12/23 Tramadol HCl [Ultram] 50 mg PO Q8HR 02/12/23 - Past Medical/Surgical History Diabetic: No -: Hypertension -: Cirrhosis -: Tubal ligation Psychosocial/ Personal History: Patient is . - Family History Mother -: Heart disease Brother -: Heart disease - Social History Alcohol use: Yes CD- Drugs: No Caffeine use: Yes Review of Systems General: Malaise Eyes: Unremarkable ENT: Unremarkable Respiratory: Unremarkable Cardiovascular: Unremarkable Gastrointestinal: Abdominal Pain Genitourinary: Unremarkable Musculoskeletal: Unremarkable Integumentary: Unremarkable Physical Examination - Physical Exam General: Alert, Oriented x3 HEENT: Atraumatic, Normocephalic Neck: Supple Respiratory: Normal air movement Cardiovascular: Regular rate/rhythm, Normal S1 S2 Gastrointestinal: Tenderness Musculoskeletal: No swelling Neurological: Normal speech - Studies Laboratory Data (last 24 hrs) 02/11/23 02/11/23 20:19 20:19 WBC 12.10 H Hgb 9.6 L Hct 28.2 L Plt Count 142 L Sodium 138 Potassium 3.2 L BUN 8 Creatinine 0.85 Glucose 82 Total Bilirubin 3.4 H AST 62 H ALT 42 Alkaline Phosphatase 139 H Lipase 27 Assessment and Plan - Plan Right upper quadrant abdominal pain: Deemed secondary to cholelithiasis related issue however there is possibility of underlying pathology. Imaging studies show some acute acute abnormality. No evidence of cholecystitis. Will continue as needed morphine for pain control. Will add Tylenol for additional fever/pain control. Lactate was slightly elevated at 2.9 but is trended down to normal at 2.0 on repeat labs. Follow closely Sepsis: Present on admission, deemed secondary to underlying abdominal pathology. Pancultures have been taken. Will continue antibiotic of cefepime pending review of cultures. Elevated T. bili: Deemed secondary to dislodged gallstone related issue. [employer] Observer consulted for management recommendation. Hypokalemia: Potassium is low at 3.1. Will replete and monitor levels. Prophylaxis: Lovenox for DVT prophylaxis CODE STATUS: Full code Disposition: We will treat her multiple issues and discharge her when she is deemed clinically stable. - Advance Directives Does patient have a Living Will: No Does patient have a Durable POA for Healthcare: Yes
[2023-02-12 01:18] LABS: Specific Gravity > 1.030 (1.005-1.030)
[2023-02-12] MEDS: NA CHLORIDE 0.9% 1,000 ML IV SCH ×3 (02:00→21:53)
[2023-02-12 02:17] VITALS: BMI 28.1
[2023-02-12] MEDS ORDERED: POTASSIUM 25 MEQ EFFERV TAB PO ONE (05:41)
[2023-02-12] MEDS ORDERED: POTASSIUM 25 MEQ EFFERV TAB ONE (05:49)
[2023-02-12] MEDS: ENOXAPARIN 40 MG/0.4 ML SQ SCH (09:00)
[2023-02-12] MEDS: CEFEPIME 1 GM in NA CHLORIDE 0.9% 100 ML IV SCH (09:00)
[2023-02-12] MEDS ORDERED: NA CHLORIDE 0.9% 1,000 ML ONE (11:21)
[2023-02-12 11:28] LABS: Absolute Lymphocytes (CBC) 1.3 K/uL (0.7-4.9); Hematocrit 27.4 % (36.0-45.0); Lymphocytes % 10.7 % (15.3-44.8); MCV 101.6 fL (80-100); MPV 7.2 fL (7.6-11.3); Platelets 122 thou/uL (152-406)
[2023-02-12 11:48] LABS: Albumin 1.4 g/dL (3.4-5.0); Bilirubin Direct 1.8 mg/dL (0-0.2); Bilirubin Total 2.8 mg/dL (0.2-1.0); Magnesium 1.7 mg/dL (1.6-2.4); Potassium 4.3 mEq/L (3.5-5.1); Protein, Total 6.4 g/dL (6.4-8.2)
--- NOTE | 2023-02-12 16:57 | P.PN ---
Date of Service: 02/12/23 Patient seen on rounds early this morning. Reports mild improvement. States pain mostly in RUQ, has had increased abdominal distention and lower extremity edema in last few weeks. States previously didn't have leg swelling and abdominal distention for this long, has not taken lasix/abner previously has seen Dr. Worley in past and referred to hepatology h/o hep C, reportedly s/p treatment h/o cirrhosis EMR issue this morning, unable to open reports. Review of CT images appears to have ascites, new comparted to prior CT suspect decompensated liver cirrhosis monitor blood pressure and if able, start diuretics
--- NOTE | 2023-02-12 18:51 | RAD REPORT ---
EXAM DESCRIPTION: CT - Abdomen Pelvis W Contrast - 02/12/2023 6:35 am CLINICAL HISTORY: ABD PAIN. COMPARISON: Noncontrast CT abdomen/pelvis from January 16, 2023. Contrast-enhanced CT abdomen/pelvi s from September 22, 2022. TECHNIQUE: CT of the abdomen and pelvis was performed following intravenous administration of iodina suzanne contrast. Oral contrast was not administered. Axial, coronal, and sagittal soft tissue window rec onstructions were created and sent to PACS. This exam was performed according to our departmental dose-optimization program, which includes autom ated exposure control, adjustment of the mA and/or kV according to patient size and/or use of iterati ve reconstruction technique. FINDINGS: Thoracic: No significant abnormality. Hepatobiliary: Sequela of hepatic cirrhosis. Heterogeneous parenchyma in the left hepatic lobe, segme nt 4A, incompletely evaluated on this exam. The portal veins are patent. There is a calcified stone i n the gallbladder. No obvious gallbladder wall thickening, potentially obscured by adjacent ascites. No biliary ductal dilatation. Pancreas: Unremarkable. Spleen: Unremarkable. Gastrointestinal: No evidence of bowel obstruction or perienteric inflammation. The appendix is sherri l. Adrenals: No abnormality identified in either adrenal gland. Renal: No concerning parenchymal abnormality in either kidney. No hydronephrosis or urolithiasis. Bladder/Reproductive: Unremarkable appearance of the urinary bladder by CT technique. Vascular/Lymphatics: No lymphadenopathy identified by CT size criteria. Abdominal aorta is normal in caliber. Mild paraesophageal and gastrohepatic varices. Prominence of the left renal and ovarian vein s with tortuosity. Splenic varices. Musculoskeletal: No concerning osseous lesion identified. Demineralized appearance of the bones. Mode rate anasarca. Fluid / peritoneum: Moderate to large abdominopelvic free fluid. No free intraperitoneal air identi fied. IMPRESSION: 1. Cirrhosis and portal hypertension with moderate to large ascites. Moderate anasarca . 2. Heterogeneous hypodense changes in the left hepatic lobe, incompletely evaluated on this noncont rast exam. Recommend nonemergent follow-up hepatic protocol CT or MRI. Electronically signed by: Deloris Templeton MD 02/11/2023 11:22 PM VETERINARY MEDICINE DOCTOR Due to temporary technical issues with the PACS/Fluency reporting system, reports are being signed by the in house radiologists without review as a courtesy to insure prompt reporting. The interpreting radiologist is fully responsible for the content of the report.
[2023-02-13] MEDS: ENOXAPARIN 40 MG/0.4 ML SQ SCH (07:42)
[2023-02-13] MEDS: CEFEPIME 1 GM in NA CHLORIDE 0.9% 100 ML IV SCH (07:42)
[2023-02-13] MEDS: NA CHLORIDE 0.9% 1,000 ML IV SCH (07:42)
[2023-02-13 07:56] VITALS: BP 120/76; TEMP 98.1; O2SAT 94
[2023-02-13 08:06] LABS: Absolute Lymphocytes (CBC) 1.3 K/uL (0.7-4.9); Hematocrit 25.7 % (36.0-45.0); Lymphocytes % 18.5 % (15.3-44.8); MCV 100.9 fL (80-100); MPV 7.4 fL (7.6-11.3); Platelets 119 thou/uL (152-406); RBC Red Blood Cell Count 2.55 M/uL (3.86-4.86)
[2023-02-13 08:32] LABS: Albumin 1.3 g/dL (3.4-5.0); Bilirubin Direct 1.6 mg/dL (0-0.2); Bilirubin Indirect, Calculated 0.6 mg/dL (0.2-0.8); Bilirubin Total 2.2 mg/dL (0.2-1.0); Magnesium 1.6 mg/dL (1.6-2.4); Potassium 3.5 mEq/L (3.5-5.1); Protein, Total 5.9 g/dL (6.4-8.2)
--- NOTE | 2023-02-13 09:32 | P.DS ---
Admission Date: 02/12/23 Discharge Date: 02/13/23 Disposition: ROUTINE DISCHARGE Discharge Condition: GOOD Reason for Admission: Suspected sepsis, abdominal pain, cholecystolithiasis. Brief History of Present Illness: 63 years of age admitted with decompensated cirrhosis of the liver right upper quadrant pain Hospital Course: Did well with the diuretics at the time of discharge alert oriented x 3 vital si gns all stable abdomen soft denies any shortness of breath or any discomfort Scan of the abdomen IMPRESSION: 1. Cirrhosis and portal hypertension with moderate to large ascites. Moderate anasarca. 2. Heterogeneous hypodense changes in the left hepatic lobe, incompletely evaluated on this noncontrast exam Level 6.8 normal for corrected albumin History of cirrhosis of the liver secondary to alcohol abuse will be discharged home on spironolactone and Lasix as needed Under the liver showed cholelithiasis was mildly elevated had some Cipro for the possibility of any infection Vital Signs/Physical Exam: Temp Pulse Resp BP Pulse Ox 98.1 F 103 H 14 120/76 94 02/13/23 08:00 02/13/23 08:00 02/13/23 08:00 02/13/23 08:00 02/13/23 08:00 Laboratory Data at Discharge: WBC 6.90 thou/uL (4.3-10.9) 02/13/23 07:52 Hgb 9.0 g/dL (12.0-15.0) L 02/13/23 07:52 Hct 25.7 % (36.0-45.0) L 02/13/23 07:52 Plt Count 119 thou/uL (152-406) L 02/13/23 07:52 PT Cancelled 02/12/23 12:30 INR Cancelled 02/12/23 12:30 Sodium 140 mEq/L (136-145) 02/13/23 07:52 Potassium 3.5 mEq/L (3.5-5.1) D 02/13/23 07:52 BUN 9 mg/dL (7-18) 02/13/23 07:52 Creatinine 0.70 mg/dL (0.55-1.02) 02/13/23 07:52 Glucose 83 mg/dL (74-106) 02/13/23 07:52 Magnesium 1.6 mg/dL (1.6-2.4) 02/13/23 07:52 Total Bilirubin 2.2 mg/dL (0.2-1.0) H 02/13/23 07:52 AST 53 U/L (15-37) H 02/13/23 07:52 ALT 35 U/L (13-56) 02/13/23 07:52 Alkaline Phosphatase 123 U/L (45-117) H 02/13/23 07:52 Lipase 27 U/L (13-75) 02/11/23 20:19 Home Medications: Albuterol Inhaler [Ventolin Inhaler*] 02/12/23 Cephalexin [Keflex] 500 mg PO BID 02/12/23 Levalbuterol Tartrate [Xopenex Hfa] 02/12/23 Naproxen 250 mg PO BID 02/12/23 Tramadol HCl [Ultram] 50 mg PO Q8HR 02/12/23 Diet: Low sodium Activity: Ad reji Followup: JOY HAMILTON [Primary Care Provider] -
[2023-02-13] MEDS ORDERED: POTASSIUM CL SA 10 MEQ TAB PO ONE (09:45)
== END 2023-02-13 11:43 | disposition home or self-care (01) | DRG 872 ==
LOC: ER 19:33 → ERHOLD 02-12 01:07 → 2ND 02-12 14:33
PROVIDERS: ADMIT Internal Medicine Nephrology; ATTEND Internal Medicine Nephrology
DX: A41.9 Sepsis, unspecified organism (principal); K76.6 Portal hypertension; K70.31 Alcoholic cirrhosis of liver with ascites; I10 Essential (primary) hypertension; E87.6 Hypokalemia
CPT/HCPCS: 36415; 74177; 76705; 80048; 80053; 80076; 81001; 82248; 82947; 83605; 83690; 83735; 85025; 87040; 96361; 96365; 96375; 99285; J0692; J1650; J2405; J7030; Q9967

== ENCOUNTER → 2023-03-22 | Emergency (ER) | payer OTHER ==
[~2023-03-22] MED LIST: MORPHINE 4 MG/ML SYR ONE; ONDANSETRON 4 MG/2 ML VIAL ONE
[2023-03-22 08:42] LABS: Absolute Lymphocytes (CBC) 1.1 K/uL (0.7-4.9); Hematocrit 28.7 % (36.0-45.0); Lymphocytes % 26.7 % (15.3-44.8); MCV 100.5 fL (80-100); MPV 6.9 fL (7.6-11.3); Platelets 150 thou/uL (152-406); RBC Red Blood Cell Count 2.86 M/uL (3.86-4.86)
[2023-03-22 08:51] LABS: Protime INR 2.13
[2023-03-22 08:59] LABS: Albumin 1.6 g/dL (3.4-5.0); Bilirubin Total 3.1 mg/dL (0.2-1.0); Protein, Total 7.5 g/dL (6.4-8.2)
--- NOTE | 2023-03-22 09:42 | RAD REPORT ---
EXAM DESCRIPTION: CT - Abdomen Pelvis W Contrast - 03/22/2023 9:03 am CLINICAL HISTORY: ABD PAIN COMPARISON: Abdomen Pelvis W Contrast dated 02/25/2023; Abdomen Pelvis W Contrast dated 02/11/2023 ; Abdomen Pelvis W Contrast dated 09/22/2022; Abdomen Pelvis W Contrast dated 09/11/2022; Abdomen Pelvis Wo Contrast dated 07/01/2022; Abdomen Pelvis W Contrast dated 02/21/2022; Abdomen Pelvis Wo C ontrast dated 01/11/2017; CTSTONE PROTOCOL dated 02/17/2013 TECHNIQUE: Thin cut axial CT imaging of the abdomen and pelvis was performed following intravenous a dministration of 100 mL Isovue 300. Multiplanar reformats were generated and reviewed. All CT scans are performed using dose optimization technique as appropriate and may include automated exposure control or mA/KV adjustment according to patient size. FINDINGS: No suspicious findings in the lung bases. The liver again demonstrates nodular contour, shrunken appearance, and relative hypertrophy of the ca udate lobe suggesting cirrhosis. Marked caliber attenuation of the portal vein, with prominent portos ystemic shunting most notably with engorged gonadal/renal collaterals along the left paracolic gutter . Wedge-shaped anterior right liver lobe area of heterogeneous hypoattenuation is stable. Bilobed pos terior right liver lobe hypoattenuating 11 mm lesion is stable. Spleen, adrenal glands, and pancreas show no suspicious findings. Gallbladder is suboptimally distended, with apparent wall prominence/ ed roselia which may relate to longstanding ascites. Stable calcified 1.4 cm calculus near the neck. Symmetric renal function is seen with no hydronephrosis or suspicious renal mass. No dilated bowel loops or bowel wall thickening. Moderate to large volume ascites, stable to mildly i ncreased in size since the prior exam. Stable elongated calcific focus layering dependently in the pe lvis just anterior to the rectum, nonspecific, and may relate to sequelae of a prior omental infarct. No free air, discrete fluid collections, or inflammatory stranding. No hernia, mass or bulky lymphad enopathy. The urinary bladder is without significant finding. No suspicious bony findings. IMPRESSION: Moderate to large volume ascites, stable to mildly increased in size since the prior exa m. Stigmata of of liver cirrhosis again seen, with stable hypoattenuating lesions in the right liver lob e, the largest of these is favored to be related to transient enhancement differences. Marked attenua tion of the portal venous caliber with prominent portosystemic shunting again seen. No other acute process.
[2023-03-22 09:43] LABS: Bilirubin Indirect, Calculated 1.1 mg/dL (0.2-0.8); Potassium 2.7 mEq/L (3.5-5.1)
--- NOTE | 2023-03-22 09:53 | ER ---
Nurse's Notes [facility] Name: Sophia Joya Age: 63 yrs Sex: Female : 1960 Arrival Date: 03/22/2023 Time: 07:28 Bed 3 Private MD: Diagnosis: Other cirrhosis of liver;Other ascites Presentation: 03/22 07:50 Chief complaint: Patient states: she has been having abdominal swelling that has gotten ap3 progressively worse over the last 6/7 months. patient states she has been getting short of breath on ambulation with the increased swelling. patient also reports pain from the swelling as well. patient states her current pain level is a 10/10 on the pain scale. Coronavirus screen: At this time, the client does not indicate any symptoms associated with coronavirus-19. Ebola Screen: No symptoms or risks identified at this time. Initial Sepsis Screen: Does the patient meet any 2 criteria? HR > 90 bpm. Does the patient have a suspected source of infection? No. Patient's initial sepsis screen is negative. Risk Assessment: Do you want to hurt yourself or someone else? Patient reports no desire to harm self or others. Onset of symptoms is unknown. 07:50 Method Of Arrival: Ambulatory ap3 07:50 Acuity: MARY 3 ap3 Triage Assessment: 07:52 General: Appears in no apparent distress. Behavior is cooperative, appropriate for age. ap3 Pain: Complains of pain in abdomen Pain currently is 10 out of 10 on a pain scale. Pain began gradually. Neuro: Level of Consciousness is awake, alert, obeys commands, Oriented to person, place, time, situation, Appropriate for age. Cardiovascular: Patient's skin is warm and dry. Respiratory: Reports shortness of breath on exertion Onset: The symptoms/episode began/occurred gradually, the patient has mild shortness of breath. GI: Abdomen is round. Historical: - Allergies: 07:52 Amoxicillin; ap3 07:52 Codeine; ap3 07:52 PENICILLINS; ap3 - PMHx: 07:52 cirrhosis of liver; HEP C; Hypertension; ap3 - PSHx: 07:52 Ligation of fallopian tube; wrist; ap3 - Immunization history:: Client reports having NOT received the Covid vaccine. - Social history:: Smoking status: Patient denies any tobacco usage or history of. - Family history:: not pertinent. Screenin:53 Abuse screen: Denies threats or abuse. Nutritional screening: No deficits noted. ap3 Tuberculosis screening: No symptoms or risk factors identified. 08:40 [facility] ED Fall Risk Assessment (Adult) History of falling in the last 3 months, ko1 including since admission No falls in past 3 months (0 pts) Confusion or Disorientation No (0 pts) Intoxicated or Sedated No (0 pts) Impaired Gait No (0 pts) Mobility Assist Device Used No (0 pt) Altered Elimination No (0 pt) Score/Fall Risk Level 0 - 2 = Low Risk Oriented to surroundings, Maintained a safe environment, Educated pt \T\ family on fall prevention, incl call for assistance when getting out of bed, Assessed \T\ reinforced patient's understanding of fall precautions, Provided non-skid footwear, Hourly rounding (assess needs \T\ fall precautionary measures) done, Used ambulatory aids as needed (educated on \T\ assisted with), Used gait belt as appropriate. Assessment: 07:53 Respiratory: Airway is patent Respiratory effort is even, Respiratory pattern is ap3 regular, symmetrical. 08:40 Cardiovascular: Rhythm is regular. Respiratory: Breath sounds are clear bilaterally. ko1 Vital Signs: 07:50 BP 140 / 81; Pulse 103; Resp 19; Temp 98.1(O); Pulse Ox 98% on R/A; Weight 60.78 kg; ap3 Height 4 ft. 9 in. ; Pain 10/10; 08:40 BP 123 / 78; Pulse 98; Resp 17; Pulse Ox 98% on R/A; ko1 09:29 BP 139 / 80; Pulse 93; Resp 14; Pulse Ox 96% ; ko1 09:57 BP 135 / 82; Pulse 95; Resp 14; Pulse Ox 99% ; ko1 07:50 Body Mass Index 29.00 (60.78 kg, 144.78 cm) ap3 07:50 Pain Scale: Adult ap3 ED Course: 07:32 Patient arrived in ED. im 07:36 Darshan Duvall MD is Attending Physician. rt 07:52 Triage completed. ap3 07:53 Saira Liu RN is Primary Nurse. ko1 07:53 Arm band placed on right wrist. ap3 07:54 Patient has correct armband on for positive identification. Bed in low position. Call ap3 light in reach. Side rails up X 1. Adult w/ patient. residential monitor on. Pulse ox on. NIBP on. 08:06 Inserted saline lock: 22 gauge in right forearm, using aseptic technique. ap3 08:33 Inserted saline lock: 22 gauge in left antecubital area, using aseptic technique. Blood ko1 collected. 09:05 CT Abd/Pelvis - IV Contrast Only In Process Unspecified. EDMS 09:57 Provided Education on: ns. ko1 09:57 No provider procedures requiring assistance completed. IV discontinued, intact, ko1 bleeding controlled, No redness/swelling at site. Pressure dressing applied. Administered Medications: 08:26 Drug: Ondansetron IVP 4 mg IVP once; over 2 minutes Route: IVP; Site: right forearm; ld1 09:58 Follow up: Response: No adverse reaction; Nausea is decreased ko1 08:26 Drug: morphine IVP or IV 4 mg IVP once over 4 mins Route: IVP; Infused Over: 4 mins; ld1 Site: right forearm; :58 Follow up: Response: No adverse reaction; Pain is decreased ko1 Medication: 09:57 VIS not applicable for this client. ko1 Outcome: 09:52 Discharge ordered by . rt 10:20 Discharged to home ambulatory, with family, ld1 10:20 Condition: stable 10:20 Discharge instructions given to patient, family, Instructed on discharge instructions, follow up and referral plans. medication usage, Demonstrated understanding of instructions, follow-up care, medications, 10:21 Patient left the ED. ld1 Signatures: Dispatcher [employer] [facility] Itzel August RN RN ap3 Julisa Barnett RN RN ld1 Saira Liu RN RN ko1 Darshan Duvall MD MD rt Micki Carmichael im
--- NOTE | 2023-03-22 09:53 | EDPHYS ---
Physician Documentation [facility] Name: Sophia Joya Age: 63 yrs Sex: Female : 1960 Arrival Date: 03/22/2023 Time: 07:28 Bed 3 Private MD: ED Physician Darshan Duvall HPI: 03/22 10:44 This 63 yrs old Female presents to ER via Ambulatory with complaints of Flank rt Pain, Dizziness, Fatigue, Shortness Of Breath. 10:44 Patient presents to the ED with abdominal pain. Patient does have a history of rt cirrhosis, has known ascites but has never had a paracentesis. States that the symptoms have somewhat worsened. Is due to see [facility] in about 1 week. Denies other acute complaints at this time, symptoms are moderate in severity, no other aggravating or alleviating factors. Historical: - Allergies: 07:52 Amoxicillin; ap3 07:52 Codeine; ap3 07:52 PENICILLINS; ap3 - PMHx: 07:52 cirrhosis of liver; HEP C; Hypertension; ap3 - PSHx: 07:52 Ligation of fallopian tube; wrist; ap3 - Immunization history:: Client reports having NOT received the Covid vaccine. - Social history:: Smoking status: Patient denies any tobacco usage or history of. - Family history:: not pertinent. ROS: 10:44 Constitutional: Negative for fever, chills, and weight loss, Cardiovascular: Negative rt for chest pain, palpitations, and edema, MS/Extremity: Negative for injury and deformity, Skin: Negative for injury, rash, and discoloration, Neuro: Negative for headache, weakness, numbness, tingling, and seizure, Psych: Negative for depression, anxiety, suicide ideation, homicidal ideation, and hallucinations, 10:44 Respiratory: Positive for shortness of breath, Negative for cough, 10:44 Abdomen/GI: Positive for abdominal pain, Negative for nausea and vomiting, Exam: 10:44 Constitutional: This is a well developed, well nourished patient who is awake, alert, rt and in no acute distress. Head/Face: Normocephalic, atraumatic. Chest/axilla: Normal chest wall appearance and motion. Nontender with no deformity. No lesions are appreciated. Cardiovascular: Regular rate and rhythm with a normal S1 and S2. No gallops, murmurs, or rubs. Normal PMI, no JVD. No pulse deficits. Respiratory: Lungs have equal breath sounds bilaterally, clear to auscultation and percussion. No rales, rhonchi or wheezes noted. No increased work of breathing, no retractions or nasal flaring. Skin: Warm, dry with normal turgor. Normal color with no rashes, no lesions, and no evidence of cellulitis. MS/ Extremity: Pulses equal, no cyanosis. Neurovascular intact. Full, normal range of motion. Neuro: Awake and alert, GCS 15, oriented to person, place, time, and situation. Cranial nerves II-XII grossly intact. Motor strength 5/5 in all extremities. Sensory grossly intact. Cerebellar exam normal. Normal gait. Psych: Awake, alert, with orientation to person, place and time. Behavior, mood, and affect are within normal limits. 10:44 Abdomen/GI: Mild tenderness and distention diffusely, no rebound, guarding, 10:44 ECG was reviewed by the Attending Physician. rt Vital Signs: 07:50 BP 140 / 81; Pulse 103; Resp 19; Temp 98.1(O); Pulse Ox 98% on R/A; Weight 60.78 kg; ap3 Height 4 ft. 9 in. ; Pain 10/10; 08:40 BP 123 / 78; Pulse 98; Resp 17; Pulse Ox 98% on R/A; ko1 09:29 BP 139 / 80; Pulse 93; Resp 14; Pulse Ox 96% ; ko1 09:57 BP 135 / 82; Pulse 95; Resp 14; Pulse Ox 99% ; ko1 07:50 Body Mass Index 29.00 (60.78 kg, 144.78 cm) ap3 07:50 Pain Scale: Adult ap3 MDM: 07:58 Patient medically screened. rt 10:44 Differential diagnosis: Cirrhosis, ascites. Data reviewed: vital signs, nurses notes, rt lab test result(s), EKG, radiologic studies. 10:44 Consideration of Admission/Observation Escalation of care including rt admission/observation considered. I considered the following discharge prescriptions or medication management in the emergency department Medications were administered in the Emergency Department. See MAR. Independent interpretation of the following test(s) in the Emergency Department CT Scan: My interpretation is Ascites seen on my interpretation of CT scan images. Care significantly affected by the following chronic conditions: CLD. Counseling: I had a detailed discussion with the patient and/or guardian regarding the historical points, exam findings, and any diagnostic results supporting the discharge/admit diagnosis, lab results, radiology results, the need for outpatient follow up. Response to treatment: the patient's symptoms have markedly improved after treatment. 03/22 08:07 Order name: CBC with Diff; Complete Time: 09:01 rt 03/22 08:07 Order name: Lipase; Complete Time: 15:44 rt 03/22 08:07 Order name: BMP; Complete Time: 15:44 rt 03/22 08:07 Order name: LFT's; Complete Time: 15:44 rt 03/22 08:07 Order name: PT-INR; Complete Time: 09: rt 03/22 08:07 Order name: CT Abd/Pelvis - IV Contrast Only; Complete Time: 09:43 rt 03/22 08:07 Order name: IV Saline Lock; Complete Time: 08:14 rt 03/22 08:07 Order name: Labs collected and sent; Complete Time: 08:27 rt EC:44 Rate is 118 beats/min. Rhythm is regular, Sinus tachycardia with No ectopy. QRS [place] is rt Normal. LA interval is normal. QRS interval is normal. QT interval is normal. No Q waves. T waves are Normal. No ST changes noted. Interpreted by me. Administered Medications: 08:26 Drug: Ondansetron IVP 4 mg IVP once; over 2 minutes Route: IVP; Site: right forearm; ld1 09:58 Follow up: Response: No adverse reaction; Nausea is decreased ko1 08:26 Drug: morphine IVP or IV 4 mg IVP once over 4 mins Route: IVP; Infused Over: 4 mins; ld1 Site: right forearm; 09:58 Follow up: Response: No adverse reaction; Pain is decreased ko1 Disposition Summary: 03/22/23 09:52 Discharge Ordered Notes: Location: Home rt Problem: an ongoing problem rt Symptoms: have improved rt Condition: Stable rt Diagnosis - Other cirrhosis of liver rt - Other ascites rt Followup: rt - With: Private Physician - When: 5 - 6 days - Reason: Discharge Instructions: - Discharge Summary Sheet rt - Ascites rt - Cirrhosis rt Forms: - Medication Reconciliation Form rt - Thank You Letter rt - Antibiotic Education rt - Prescription Opioid Use rt - Patient Portal Instructions rt - Leadership Thank You Letter rt Prescriptions: - albuterol sulfate 90 mcg/actuation Inhalation HFA Aerosol Inhaler - inhale 2 inhalation INHALATION route every 3 hours as needed; 2 Each; Refills: rt 0, Product Selection Permitted - Ultram 50 mg Oral Tablet - take 1 tablet ORAL route every 6 hours As needed; 12 tablet; Refills: 0, rt Product Selection Permitted - Spironolactone 25 mg Oral tablet - take 1 tablet ORAL route every 8 hours; 30 tablet; Refills: 0, Product rt Selection Permitted Signatures: Dispatcher [employer] Itzel Raymond RN RN ap3 Julisa Barnett RN RN ld1 Darshan Duvall MD MD rt Saira Liu RN ko1
[2023-03-22 16:02] VITALS: BP 135/82; TEMP 98.1; O2SAT 99
== END ==
LOC: ER 07:28
DX: K74.69 Other cirrhosis of liver (principal); R18.8 Other ascites; I10 Essential (primary) hypertension; Z88.0 Allergy status to penicillin; Z88.1 Allergy status to other antibiotic agents; Z88.5 Allergy status to narcotic agent; Z28.310 Unvaccinated for COVID-19
CPT/HCPCS: 85025; 80048; 36415; 85610; 80076; 83690; 74177; Q9967; J2405

== ENCOUNTER → 2023-04-18 | Emergency (ER) | payer OTHER ==
[~2023-04-18] MED LIST changes: +CEFTRIAXONE 1000 MG/VIAL ONE; +LACTULOSE 20 GM/30 ML UCUP ONE; -MORPHINE 4 MG/ML SYR ONE; +NA CHLORIDE 0.9% 250 ML ONE; +OCTREOTIDE 500 MCG in NA CHLORIDE 0.9% 500 ML IV SCH; +OCTREOTIDE ACETATE 100 MCG/ML ONE; +PANTOPRAZOLE 40 MG INJ ONE; +VITAMIN K (ADULT) 10 MG/ML ONE
--- NOTE | 2023-04-18 12:57 | RAD REPORT ---
EXAM DESCRIPTION: CT - Head Brain Wo Cont - 04/18/2023 12:44 pm CLINICAL HISTORY: Alteration of awareness/confusion COMPARISON: 2020 TECHNIQUE: Computed axial tomography of the head was obtained. IV contrast was not requested. All CT scans are performed using dose optimization technique as appropriate and may include automated exposure control or mA/KV adjustment according to patient size. FINDINGS: An intracranial bleed is not seen The ventricles are normal in caliber No extra-axial fluid collection is noted. No significant hyperdensity within the brain noted Fluid within the sinuses/ mastoids is not seen. IMPRESSION: No acute intracranial abnormality is seen If patient's symptoms persist MRI of the brain would be recommended
[2023-04-18 13:02] LABS: Absolute Lymphocytes (CBC) 1.1 K/uL (0.7-4.9); Hematocrit 17.8 % (36.0-45.0); Lymphocytes % 28.2 % (15.3-44.8); MCV 105.6 fL (80-100); Platelets 116 thou/uL (152-406); RBC Red Blood Cell Count 1.68 M/uL (3.86-4.86)
[2023-04-18 13:03] LABS: Protime INR 2.81
[2023-04-18 13:20] LABS: Albumin 1.2 g/dL (3.4-5.0); Bilirubin Direct 2.7 mg/dL (0-0.2); Bilirubin Indirect, Calculated 0.9 mg/dL (0.2-0.8); Bilirubin Total 3.6 mg/dL (0.2-1.0); Magnesium 2.1 mg/dL (1.6-2.4); Potassium 3.7 mEq/L (3.5-5.1); Protein, Total 5.7 g/dL (6.4-8.2); Troponin High Sensitivity 7.5 pg/mL (<58.9)
--- NOTE | 2023-04-18 13:56 | EDPHYS ---
Physician Documentation [facility] Name: Sophia Joya Age: 63 yrs Sex: Female : 1960 Arrival Date: 04/18/2023 Time: 12:01 Bed 4 Private MD: ED Physician Jason Rudd HPI: 04/18 13:40 This 63 yrs old Female presents to ER via EMS with complaints of Altered mary Mental Status. 13:40 The patient presents with confusion, decreased mental status, decreased responsiveness, mary trouble concentrating. Onset: The symptoms/episode began/occurred 2 day(s) ago. Possible causes: CVA or TIA, alcohol, head injury, low blood sugar, seizure, sepsis. Associated signs and symptoms: Pertinent positives: combativeness, confusion, dizziness, lightheadedness. Current symptoms: In the emergency department the patient's symptoms are unchanged from the initial presentation. Patient's baseline: Neuro: alert and fully oriented. The patient has experienced similar episodes in the past, multiple times. Historical: - Allergies: 12:10 Amoxicillin; iw 12:10 Codeine; iw 12:10 PENICILLINS; iw - PMHx: 12:10 cirrhosis of liver; HEP C; Hypertension; iw - PSHx: 12:10 Ligation of fallopian tube; wrist; iw ROS: 13:41 Constitutional: Positive for fatigue, malaise, poor PO intake, weight loss, mary 13:41 Eyes: Positive for icterus, 13:41 ENT: Negative for rhinorrhea, sinus congestion, 13:41 Cardiovascular: Positive for palpitations, 13:41 Respiratory: Positive for cough, 13:41 Abdomen/GI: Positive for black/tarry stool, Negative for abdominal pain, 13:41 Abdomen/GI: Positive for 13:41 Back: Negative for injury or acute deformity, decreased range of motion, pain at rest, 13:41 MS/extremity: Negative for acute changes, 13:41 Neuro: Positive for altered mental status, weakness, Exam: 13:41 Head/Face: Normocephalic, atraumatic. mary 13:41 Eyes: Periorbital structures: appear normal, no acute changes, Pupils: no acute changes, equal, round, and reactive to light and accomodation, Extraocular movements: intact throughout, Conjunctiva: injected, Corneas: are normal, no acute changes, Sclera: icterus, is present, 13:41 Cardiovascular: Rate: tachycardic, actual rate is 100 bpm, Rhythm: regular, Pulses: Pulses are 4+ in bilateral radial, brachial, femoral, popliteal, posterior tibial and and dorsalis pedis arteries.. Heart sounds: normal, Edema: is not appreciated, JVD: is not appreciated, 13:46 Chest/axilla: Exam negative for acute changes, mary 13:46 Respiratory: the patient does not display signs of respiratory distress, Respirations: normal, Breath sounds: are clear throughout, no bronchial sounds, no decreased breath sounds, no rales, rhonchi, no stridor, no wheezing, Respiratory rate: 18 13:46 Abdomen/GI: Inspection: abdomen appears normal, Bowel sounds: normal, active, all quadrants, Palpation: abdomen is soft and non-tender, Rectal exam: rectal tone normal, Stool: black, hemorrhoid(s), are not appreciated, mass, is not appreciated, swelling, is not appreciated, tenderness, is not appreciated, fecal impaction, is not appreciated, Liver: no appreciated palpable abnormalities, Hernia: not appreciated, 13:46 Musculoskeletal/extremity: DVT Exam: No signs of deep vein thrombosis. no pain, no swelling, no tenderness, negative Homans' sign noted on exam, no appreciated bluish discoloration, no erythema, no increased warmth, 13:50 Neuro: Orientation: Not oriented to place, time, situation, Mentation: slow to respond, mary confused, Memory: unable to test, Cranial nerves: no acute changes, Cerebellar function: unable to test, Motor: moves all fours, Sensation: unable to test, Gait: not tested. Babinski testing is normal, seizure activity, is not displayed by the patient, 14:37 ECG was reviewed by the Attending Physician. mary Vital Signs: 12:08 BP 126 / 68; Pulse 100; Resp 18; Temp 98.1; Pulse Ox 100% on R/A; iw 14:22 BP 127 / 65; Pulse 89; Resp 14; Pulse Ox 98% on R/A; iw 14:52 BP 118 / 60; Pulse 70; Resp 16; Pulse Ox 100% on R/A; iw 15:40 BP 104 / 56; Pulse 101; Resp 14; Pulse Ox 99% on R/A; iw MDM: 12:05 Patient medically screened. mary 14:34 Differential diagnosis: gastritis, hemorrhoids, hemorrhagic shock, varices. mary Differential Diagnosis altered mental status, sepsis, flu. Differential Diagnosis: CVA, electrolyte abnormality, alcohol intoxication, hypoglycemia, intracranial bleed, TIA, UTI, volume depletion. Data reviewed: vital signs, nurses notes, EMS record, lab test result(s), EKG, radiologic studies, CT scan, plain films. Consideration of Admission/Observation Escalation of care including admission/observation considered. I considered the following discharge prescriptions or medication management in the emergency department Medications were administered in the Emergency Department. See MAR. Independent interpretation of the following test(s) in the Emergency Department EKG: See my EKG interpretation above. Test considered but Not performed: MRI: no mrcp. Historians other than the Patient: Spouse/Significant Other: well informed. Care significantly affected by the following chronic conditions: Hypertension, Liver Disease, hep c. Counseling: I had a detailed discussion with the patient and/or guardian regarding the historical points, exam findings, and any diagnostic results supporting the discharge/admit diagnosis, lab results, radiology results, the need to transfer to another facility, for higher level of care, [facility] does not immediately have the required specialist. 04/18 13:33 Order name: Type And Screen [facility] 04/18 12:11 Order name: Basic Metabolic Panel; Complete Time: 13:33 [facility] 04/18 12:11 Order name: CBC with Diff [facility] 04/18 12:11 Order name: LFT's; Complete Time: 13:33 [facility] 04/18 12:11 Order name: Magnesium; Complete Time: 13:33 [facility] 04/18 12:11 Order name: NT PRO-BNP; Complete Time: 13:33 [facility] 04/18 12:11 Order name: PT-INR; Complete Time: 13:33 [facility] 04/18 12:11 Order name: Troponin HS; Complete Time: 13:33 [facility] 04/18 12:11 Order name: Blood Culture Adult (2) [facility] 04/18 12:11 Order name: Lactate w/ 2H reflex if indic.; Complete Time: 13:33 [facility] 04/18 12:11 Order name: AMMONIA; Complete Time: 13:33 [facility] 04/18 13:06 Order name: CBC Smear Scan [facility] 04/18 13:37 Order name: Lipase; Complete Time: 14:26 [facility] 04/18 13:38 Order name: Flu [facility] 04/18 13:41 Order name: SARS-COV-2 Antigen Rapid [facility] 04/18 13:43 Order name: Bb Add On bd 04/18 14:05 Order name: Fresh Frozen Plasma [facility] 04/18 14:05 Order name: Packed RBC Leukored [facility] 04/18 16:05 Order name: Glucose, Ancillary Testing [facility] 04/18 16:23 Order name: Lactate Sepsis 2 HR Follow-up [facility] 04/18 18:35 Order name: Glucose, Ancillary Testing [facility] 04/18 12:11 Order name: XRAY Chest (1 view); Complete Time: 15:14 [facility] 04/18 12:11 Order name: CT Head Brain wo Cont; Complete Time: 13:01 [facility] 04/18 13:38 Order name: CT Chest Abdomen Pelvis W/O Contrast; Complete Time: 15:14 [facility] 04/18 13:46 Order name: Abdomen 1 View (KUB) XRAY; Complete Time: 15:14 [facility] 04/18 12:11 Order name: EKG; Complete Time: 12:12 [facility] 04/18 12:11 Order name: Cardiac monitoring; Complete Time: 12:47 [facility] 04/18 12:11 Order name: EKG - Nurse/Tech; Complete Time: 14:36 [facility] 04/18 12:11 Order name: IV Saline Lock; Complete Time: 12:47 [facility] 04/18 12:11 Order name: Labs collected and sent; Complete Time: 12:47 [facility] 04/18 12:11 Order name: O2 Per Protocol; Complete Time: 12:47 [facility] 04/18 12:11 Order name: O2 Sat Monitoring; Complete Time: 12:47 [facility] 04/18 13:33 Order name: IV Saline Lock - Large Bore; Complete Time: 14:21 [facility] 04/18 13:33 Order name: Transfuse; Complete Time: 17:38 [facility] 04/18 13:46 Order name: Nasogastric Tube; Complete Time: 14:23 [facility] EC:37 Rate is 98 beats/min. Rhythm is regular. QRS [place] is Normal. LA interval is normal. QRS mary interval is normal. QT interval is prolonged at 518 msec. No Q waves. T waves are Normal. No ST changes noted. Clinical impression: NSR w/ Non-specific ST/T Changes and No evidence of ischemia. Interpreted by me. Reviewed by me. Administered Medications: 14:22 Drug: NS 0.9% IV 1000 ml IV at 125 ml/hr continuous Route: IV; Rate: 125 ml/hr; Site: iw right antecubital; 18:50 Follow up: IV Status: Infusion continued upon transfer iw 14:38 Drug: Pantoprazole IVP 40 mg IVP once Route: IVP; Site: right antecubital; iw 14:39 Drug: Lactulose PO 60 grams 45 ml PO once {Note: given via NGT.} Volume: 45 ml; Route: iw PO; 14:39 Drug: Rocephin IV 1 grams IV at per protocol once; Given slow IV push per pharmacy iw instructions Route: IV; Rate: per protocol; Site: right antecubital; 14:50 Follow up: IV Status: Completed infusion iw 14:39 Drug: Pantoprazole IV 8 mg/hr IV at 25 ml/hr continuous; (Standard dilution is 80 mg in iw 250 mL NS) Route: IV; Rate: 25 ml/hr; Site: right antecubital; 18:50 Follow up: IV Status: Infusion continued upon transfer iw 14:52 Drug: SandoSTATIN IV 100 mcg IV at per protocol once Route: IV; Rate: per protocol; iw Site: right antecubital; 14:55 Follow up: IV Status: Completed infusion iw 15:00 Drug: Pantoprazole IVP 40 mg IVP once Route: IVP; Site: right antecubital; iw 15:00 Drug: Phytonadione Sub-Q 10 mg Sub-Q once Route: Sub-Q; Site: right upper abdomen; iw 15:15 Drug: Ondansetron IVP 4 mg IVP once; over 2 minutes Route: IVP; Site: left antecubital; iw 17:19 Drug: SandoSTATIN IV 25 mcg/h IV at calculated rate once Route: IV; Rate: calculated iw rate; Site: left antecubital; 18:50 Follow up: IV Status: Infusion continued upon transfer iw Disposition: 14:36 Critical Care:. mary Disposition Summary: 04/18/23 13:56 Transfer Ordered Notes: Transfer Location: [facility] mary Reason: Higher level of care mary Condition: Serious mary Problem: new mary Symptoms: have improved mary Accepting Physician: to [facility](04/18/23 18:53) em1 Diagnosis - GI Bleed/ Gastrointestinal hemorrhage, unspecified mary - Altered mental status, unspecified mary - Hepatic failure, unspecified without coma mary - Acute and subacute hepatic failure mary - Encephalopathy, unspecified - Hepatic mary - Anemia, unspecified mary - Chronic viral hepatitis C mary Forms: - Medication Reconciliation Form mary - SBAR form mary Critical care time excluding procedures: 14:36 Critical care time: Bedside Care: 30 minutes, Consultation: 15 minutes, Family mary Intervention: 10 minutes. Total time: 55 minutes Signatures: Dispatcher [employer] EDMS Jason Rudd MD MD cha Waters, Shelly, HAND WOOD SANDER-C HAND WOOD SANDER-Csnw Lyric Ruffin, RN RN Eugene Dave em1 Zulema Linares, RN RN aa5 Corrections: (The following items were deleted from the chart) 13:57 13:34 PACKED RBC LEUKORED+BB.LAB.BRZ ordered. EDMS EDMS 13:57 13:36 ABO/RH typing ordered. EDMS EDMS 13:57 13:36 Antibody Screen ordered. EDMS EDMS 14:09 13:39 SARS-COV-2 Antigen Rapid+I.LAB.BRZ ordered. EDMS EDMS 14:09 13:41 ABO/RH typing ordered. EDMS EDMS 17:43 12:12 Urinalysis+U.LAB.BRZ ordered. EDMS EDMS 18:53 13:56 to [facility] mary em1
--- NOTE | 2023-04-18 13:56 | ER ---
Nurse's Notes [facility] Name: Sophia Joya Age: 63 yrs Sex: Female : 1960 Arrival Date: 04/18/2023 Time: 12:01 Bed 4 Private MD: Diagnosis: GI Bleed/ Gastrointestinal hemorrhage, unspecified;Altered mental status, unspecified;Hepatic failure, unspecified without coma;Acute and subacute hepatic failure;Encephalopathy, unspecified-Hepatic;Anemia, unspecified;Chronic viral hepatitis C Presentation: 04/18 12:08 Chief complaint: EMS states: pt with hx of cirrhosis, AMS since about 3 am today , pt iw oriented to person only , BS was 54 on scene, EMS gave 250 mL of D10, BS up to 187, no change in mental status. Coronavirus screen: At this time, the client does not indicate any symptoms associated with coronavirus-19. Ebola Screen: Patient negative for fever greater than or equal to 101.5 degrees Fahrenheit, and additional compatible Ebola Virus Disease symptoms Patient denies exposure to infectious person. Patient denies travel to an Ebola-affected area in the 21 days before illness onset. No symptoms or risks identified at this time. Initial Sepsis Screen: Does the patient meet any 2 criteria? Altered Mental Status. HR > 90 bpm. Does the patient have a suspected source of infection? No. Patient's initial sepsis screen is negative. Risk Assessment: Do you want to hurt yourself or someone else? Patient reports no desire to harm self or others. Onset of symptoms was April 18, 2023. 12:08 Method Of Arrival: EMS: [facility] iw 12:08 Acuity: MARY 2 iw Historical: - Allergies: 12:10 Amoxicillin; iw 12:10 Codeine; iw 12:10 PENICILLINS; iw - PMHx: 12:10 cirrhosis of liver; HEP C; Hypertension; iw - PSHx: 12:10 Ligation of fallopian tube; wrist; iw Screenin:40 [facility] [place] ED Fall Risk Assessment (Adult) Score/Fall Risk Level 0 - 2 = Low Risk. Abuse iw screen: Denies threats or abuse. Denies injuries from another. Nutritional screening: Difficulty chewing/swallowing? Yes. Tuberculosis screening: No symptoms or risk factors identified. Assessment: 12:24 General: Appears in no apparent distress. well developed, Behavior is agitated. Pain: iw Unable to use pain scale. Does not appear to understand pain scale. Neuro: Level of Consciousness is confused, Oriented to person, Moves all extremities. Cardiovascular: Patient's skin is warm and dry. Edema is 1+ to left ankle, left foot, left toes, right ankle, right foot and right toes. Derm: Skin is intact. Musculoskeletal: Range of motion: intact in all extremities. 14:39 Reassessment: pt withdraws to pain , not verbal , VSS, at bedside. iw 16:44 Reassessment: report given to Saman at [facility]. iw 17:06 Reassessment: FFP infusion complete, no adverse reaction noted, family at bedside, VSS. iw 18:54 Reassessment: called pt to notify him that pt's prescriptions were left in ER iw room 4, (tramadol 50 mg 8.5 tabs, spironolactone 25mg 29 tabs) placed in secure bag , sent to security, witnessed by JOMAR Poole. 18:54 Reassessment: Witnessed pt's prescription home meds (tramadol and spironolactone) aa5 placed in secure bag # [id number], given to security staff for safe keeping. . Vital Signs: 12:08 BP 126 / 68; Pulse 100; Resp 18; Temp 98.1; Pulse Ox 100% on R/A; iw 14:22 BP 127 / 65; Pulse 89; Resp 14; Pulse Ox 98% on R/A; iw 14:52 BP 118 / 60; Pulse 70; Resp 16; Pulse Ox 100% on R/A; iw 15:40 BP 104 / 56; Pulse 101; Resp 14; Pulse Ox 99% on R/A; iw ED Course: 12:03 Patient arrived in ED. sb4 12:05 Jason Rudd MD is Attending Physician. mary 12:10 Triage completed. iw 12:10 Arm band placed on. iw 12:24 Lyric Ruffin, JOMAR is Primary Nurse. iw 12:46 CT Head Brain wo Cont In Process Unspecified. EDMS 12:46 Maintain EMS IV. Dressing intact. Good blood return noted. Gauge \T\ site: 20 RAC. iw 13:24 XRAY Chest (1 view) In Process Unspecified. EDMS 13:50 Inserted saline lock: 20 gauge in left antecubital area, using aseptic technique. iw 14:02 CT Chest Abdomen Pelvis W/O Contrast In Process Unspecified. EDMS 14:[address] [facility]. bd 14:24 NGT: inserted 14 Fr. via left nare. verified placement of air over stomach, verified iw return of gastric contents. 14:29 Abdomen 1 View (KUB) XRAY In Process Unspecified. EDMS 14:36 EKG done, by ED staff, reviewed by Jason Rudd MD. em1 14:41 pt accepted in transfer to [facility] ICU [address] south [address] mcgill admin approval bd given by franco eric. Administered Medications: 14:22 Drug: NS 0.9% IV 1000 ml IV at 125 ml/hr continuous Route: IV; Rate: 125 ml/hr; Site: iw right antecubital; 18:50 Follow up: IV Status: Infusion continued upon transfer iw 14:38 Drug: Pantoprazole IVP 40 mg IVP once Route: IVP; Site: right antecubital; iw 14:39 Drug: Lactulose PO 60 grams 45 ml PO once {Note: given via NGT.} Volume: 45 ml; Route: iw PO; 14:39 Drug: Rocephin IV 1 grams IV at per protocol once; Given slow IV push per pharmacy iw instructions Route: IV; Rate: per protocol; Site: right antecubital; 14:50 Follow up: IV Status: Completed infusion iw 14:39 Drug: Pantoprazole IV 8 mg/hr IV at 25 ml/hr continuous; (Standard dilution is 80 mg in iw 250 mL NS) Route: IV; Rate: 25 ml/hr; Site: right antecubital; 18:50 Follow up: IV Status: Infusion continued upon transfer iw 14:52 Drug: SandoSTATIN IV 100 mcg IV at per protocol once Route: IV; Rate: per protocol; iw Site: right antecubital; 14:55 Follow up: IV Status: Completed infusion iw 15:00 Drug: Pantoprazole IVP 40 mg IVP once Route: IVP; Site: right antecubital; iw 15:00 Drug: Phytonadione Sub-Q 10 mg Sub-Q once Route: Sub-Q; Site: right upper abdomen; iw 15:15 Drug: Ondansetron IVP 4 mg IVP once; over 2 minutes Route: IVP; Site: left antecubital; iw 17:19 Drug: SandoSTATIN IV 25 mcg/h IV at calculated rate once Route: IV; Rate: calculated iw rate; Site: left antecubital; 18:50 Follow up: IV Status: Infusion continued upon transfer iw Medication: 14:23 VIS not applicable for this client. iw Outcome: 13:56 ER care complete, transfer ordered by MD. hernandez 18:53 Patient left the ED. em1 Signatures: Dispatcher [employer] EDMS Nannette Colbert Corey, MD MD cha Williams, Irene, Eugene Balderas RN em1 Zulema Linares RN RN Koki Kahn PA-C PA-C sb4
--- NOTE | 2023-04-18 14:28 | RAD REPORT ---
EXAM DESCRIPTION: CT - Chest Abd Pelvis Wo Con - 04/18/2023 2:01 pm CLINICAL HISTORY: Chest and abdominal pain COMPARISON: February 2023 CT abdomen TECHNIQUE: Computed axial tomography of the chest, abdomen and pelvis was obtained. Oral contrast wa s given. IV contrast was not requested. All CT scans are performed using dose optimization technique as appropriate and may include automated exposure control or mA/KV adjustment according to patient size. FINDINGS: The evaluation of mediastinum, bay, vessels and solid organs is limited secondary to the lack of IV contrast administration Mild bilateral ground-glass opacities within the lungs No mediastinal or hilar lymphadenopathy is seen. A pleural effusion is not present. A pericardial effusion is not seen. A cirrhotic liver. Spleen, pancreas, adrenals and kidneys grossly normal. Abdominal varices Small to moderate amount ascites. There is no evidence of diverticulitis. Gallstone. No gallbladder wall thickening IMPRESSION: Mild bilateral ground-glass opacities within the lungs indicative of a mild alveolitis Cirrhosis Small to moderate amount of ascites significantly diminished since the prior exam
--- NOTE | 2023-04-18 14:38 | RAD REPORT ---
EXAM DESCRIPTION: RAD - Abdomen 1 View (KUB) - 04/18/2023 2:27 pm CLINICAL HISTORY: Abdomen pain FINDINGS: The bowel gas pattern is unremarkable. Calcification right upper quadrant consistent with a gallstone.
--- NOTE | 2023-04-18 14:38 | RAD REPORT ---
EXAM DESCRIPTION: Yuli Single View04/18/2023 1:23 pm CLINICAL HISTORY: cough COMPARISON: February 2023 FINDINGS: Mild bilateral pulmonary opacities The heart is normal size IMPRESSION: Mild bilateral pulmonary opacities may indicate mild pulmonary edema or pneumonitis
[2023-04-18 15:39] LABS: SARS-CoV-2 Antigen Rapid Res Negative (Negative)
[2023-04-18 18:10] LABS: Anisocytosis 1+; Blood Morphology Comment NOTED (NOT SEEN); Platelet Estimate DECR; Poikilocytosis 1+; White Blood Cell Scan T (OK)
[2023-04-18 19:26] VITALS: BP 104/56; TEMP 98.1; O2SAT 99
--- NOTE | 2023-04-19 15:49 | EKG ---
Test Date: 2023-04-18 Test Time: 14:31:46 Spool Hauler: DARRELL MEASUREMENT RESULTS: Intervals: Rate: 98 WY: 142 QRSD: 72 QT: 406 QTc: 518 Thornton: P: 46 WY: 142 QRS: 41 T: 16 INTERPRETIVE STATEMENTS: Normal sinus rhythm Prolonged QT Abnormal ECG Compared to ECG 02/25/2023 18:35:29 No significant changes Electronically Signed On 04-19-23 15:46:32 DENTAL TREATMENT COORDINATOR by Omid Bautista
== END ==
LOC: ER 12:01
PROC: 30233K1 Transfusion of Nonautologous Frozen Plasma into Peripheral Vein, Percutaneous Approach (ICD-10-PCS; principal; 2023-04-18)
PROC: 30233N1 Transfusion of Nonautologous Red Blood Cells into Peripheral Vein, Percutaneous Approach (ICD-10-PCS; 2023-04-18)
DX: K92.2 Gastrointestinal hemorrhage, unspecified (principal); K72.00 Acute and subacute hepatic failure without coma; K76.82 Hepatic encephalopathy; D64.9 Anemia, unspecified; B18.2 Chronic viral hepatitis C; I10 Essential (primary) hypertension; Z11.52 Encounter for screening for COVID-19; Z88.0 Allergy status to penicillin; Z88.1 Allergy status to other antibiotic agents; Z88.5 Allergy status to narcotic agent
CPT/HCPCS: 93005; 87040 ×2; 85025; 80048; 36415; 82140; 86900; 83735; 86850; 85610; 86901; 82947 ×2; 80076; 83605 ×2; 86920 ×2; 84484; 83690; 83880; 87804 ×2; 70450; 71250; 74176; 74018; 71045; 87811; 36430; J2354 ×2; J3430; C9113; J2405; P9017; P9016; J7050 ×3; J7040; J0696; 96372; 99285